=== PATIENT | female | born 1940 | race Caucasian/White ===

== ENCOUNTER → 2016-11-22 | Outpatient (CLI) | payer OTHER, MEDICARE ==
[~2016-11-22] MED LIST: ADVIN10/60 INH; ALBU18002 INH; ALPR0.25 PO; AMLO2.5T PO; ASCA500 PO; ASCO500T16 PO; CHOL20009 PO; ESCI10TA17 PO; FLUO0.0566 TOP; LEVO50TA PO; PRAV80TA2 PO; SYMIN/8045 INH; TRIATAB3 PO
--- NOTE | 2016-11-22 15:18 | MAMMOGRAPHY REPORT ---
BILATERAL DIGITAL SCREENING MAMMOGRAM WITH CAD: 11/22/2016 CLINICAL HISTORY: Routine screening. Patient has no complaints. TECHNIQUE: Current study was also evaluated with a Computer Aided Detection (CAD) system. Bilatera l CC and MLO views were obtained. COMPARISON: Comparison is made to exams dated: 11/18/2015 mammogram, 11/16/2014 mammogram, 10/26/2013 mammogram, 10/24/2012 mammogram, 10/02/2011 mammogram, and 09/20/2010 mammogram - [facility]. BREAST COMPOSITION: There are scattered areas of fibroglandular density in both breasts. FINDINGS: No suspicious masses, calcifications, or areas of architectural distortion are noted in e ither breast. There has been no significant interval change compared to prior exams. IMPRESSION: ACR BI-RADS CATEGORY 1: NEGATIVE There is no mammographic evidence of malignancy. A 1 year screening mammogram is recommended. The p atient will receive written notification of the results. Approximately 10% of breast cancers are not detected with mammography. A negative mammographic repor t should not delay biopsy if a clinically suggestive mass is present. Alina Robert M.D. /:11/22/2016 13:34:56 Tread Tuber Machine Operator: Loly HENDERSON)(Saundra), [facility] letter sent: Normal 1/2 BI-RADS Code: ACR BI-RADS Category 1: Negative
== END | disposition home or self-care (01) ==
LOC: C.MAMM 13:03
PROVIDERS: ATTEND Internal Medicine Geriatric Medicine
DX: Z12.31 Encounter for screening mammogram for malignant neoplasm of breast (principal)

== ENCOUNTER → 2017-01-14 | Outpatient (CLI) | payer OTHER, MEDICARE ==
[~2017-01-14] MED LIST changes: +FLX10 PO; +LVQ750 PO; +MTR600 PO; +PRT40 PO
--- NOTE | 2017-01-14 15:55 | DIAGNOSTIC IMAGING REPORT ---
CHEST 2 VIEWS ROUTINE HISTORY: COUGH COMPARISON: Chest 03/07/2016. FINDINGS: There appears be a subtle round opacity within the right upper lobe measuring 2.3 cm. The left lung is clear. The heart is normal in size. No pleural effusions. No pneumothorax. IMPRESSION: Possible 2.3 cm round opacity within the right upper lobe. Recommend dedicated chest CT to exclude a pulmonary lesion. Electronically signed by: Luis Aviles M.D. 01/14/2017 3:54 PM Dictated Date/Time: 01/14/2017 3:48 PM
== END | disposition home or self-care (01) ==
LOC: C.RADBC 15:28
PROVIDERS: ATTEND Physician Assistant Medical
DX: J45.909 Unspecified asthma, uncomplicated (principal); R05 Cough

== ENCOUNTER → 2017-01-18 | Outpatient (CLI) | payer OTHER, MEDICARE ==
[~2017-01-18] MED LIST changes: +OPTIRAY 320 IV PRN
--- NOTE | 2017-01-18 11:39 | DIAGNOSTIC IMAGING REPORT ---
CHEST CT WITH CONTRAST CT DOSE: 481.15 mGycm HISTORY: Dyspnea J20.9 Acute [id number] TECHNIQUE: Multiaxial CT images of the chest were performed following the intravenous administration of contrast. COMPARISON: None. FINDINGS: Solitary pulmonary nodule right upper lobe best seen transaxial image 17. Maximum dimensions of 2.0 x 1.5 cm. Margins are slightly spiculated and irregular. Lungs otherwise appear clear. No additional nodular pathology is identified. Hilar and mediastinal regions show no significant adenopathy. IMPRESSION: 1. 2.0 x 1.5 cm groundglass/poorly marginated right upper lobe nodule. 2. A neoplastic process is the diagnosis of exclusion. 3. PET scanning or bronchoscopy is suggested Electronically signed by: Jag Elias M.D. 01/18/2017 11:38 AM Dictated Date/Time: 01/18/2017 11:33 AM
== END | disposition home or self-care (01) ==
LOC: C.CTS 10:55
PROVIDERS: ATTEND Physician Assistant Medical
DX: J20.9 Acute bronchitis, unspecified (principal); R91.1 Solitary pulmonary nodule

== ENCOUNTER → 2017-01-28 | Outpatient (CLI) | payer OTHER, MEDICARE ==
[~2017-01-28] MED LIST changes: -OPTIRAY 320 IV PRN
--- NOTE | 2017-01-28 10:44 | DIAGNOSTIC IMAGING REPORT ---
PET/CT CLINICAL HISTORY: Solitary pulmonary nodule. TECHNIQUE: A PET/CT was performed from the skull base through the upper thighs following intravenous injection of 13.7 mCi of F 18 FDG IV. The injection was performed at 7:47 AM on January 28, 2017 and imaging began at 9:14 AM on January 28, 2017. Unenhanced CT was performed for attenuation correction purposes and anatomic localization. COMPARISON STUDY: Chest CT January 18, [address] of the abdomen and pelvis April 13, 2013. FINDINGS: Head and neck: No abnormal FDG uptake is identified within the neck. There is no cervical lymphadenopathy. Chest: There is minimal FDG uptake within the 1.9 x 1.7 cm irregular groundglass nodule within the right upper lobe with minimal solid component. The SUV max for this nodule is 1.6. No thoracic lymphadenopathy is present. The heart is moderately enlarged. Abdomen and Pelvis: No abnormal FDG uptake is identified within the abdomen or the pelvis. There is no abdominal or pelvic lymphadenopathy. Musculoskeletal: No abnormal skeletal uptake is identified. IMPRESSION: Minimal FDG uptake within the 1.9 x 1.7 cm irregular right upper lobe groundglass nodule. Despite minimal FDG uptake, this lesion is highly suggestive of bronchogenic carcinoma such as adenocarcinoma. No evidence of FDG avid metastatic disease. Electronically signed by: Delmar Mosley M.D. 01/28/2017 10:43 AM Dictated Date/Time: 01/28/2017 10:29 AM
== END | disposition home or self-care (01) ==
LOC: C.PET 07:15
PROVIDERS: ATTEND Surgery
DX: R91.1 Solitary pulmonary nodule (principal)

== ENCOUNTER 2017-03-04 05:03 | Inpatient (IN) | payer OTHER, MEDICARE ==
[2017-02-19 10:42] VITALS: BMI 36.0
--- NOTE | 2017-02-19 11:19 | PAT Medication Instructions ---
Service Date Feb 19, 2017. Current Home Medication List Albuterol Sulfate (Proair Respiclick), 2 PUFF INH Q4 PRN for SOB/Wheezing Alprazolam (Xanax), 0.25 MG PO for Anxiety Ascorbic Acid (Vitamin C), 1 TAB PO QPM Budesonide/Formoterol Fumarate (Symbicort 80/4.5 Inhaler), 2 PUFFS INH BID Cholecalciferol (Vitamin D), 2,000 MG PO QPM Escitalopram (Lexapro), 15 MG PO QPM Fluocinonide (Fluocinonide), 1 APPLN TOP DAILY PRN for PRN Fluticasone Prop/Salmeterol (Advair Diskus 100/50 60 Dose), 1 PUFF INH BID PRN for PRN Levothyroxine Sodium (Synthroid), 50 MCG PO QAM Pravastatin Sodium (Pravastatin Sodium), 80 MG PO QPM Triamterene/Hctz (Triamterene/Hctz 37.5-25MG), 1 TAB PO QAM Medication Instructions For Your Scheduled Surgery - Hold the following medications 24 hours prior to surgery: Fluocinonide (Fluocinonide), 1 APPLN TOP DAILY PRN for PRN - Hold the following medications the morning of surgery: Triamterene/Hctz (Triamterene/Hctz 37.5-25MG), 1 TAB PO QAM - Take the following medications the morning of surgery with a sip of water: Levothyroxine Sodium (Synthroid), 50 MCG PO QAM Fluticasone Prop/Salmeterol (Advair Diskus 100/50 60 Dose), 1 PUFF INH BID PRN for PRN (if needed) Budesonide/Formoterol Fumarate (Symbicort 80/4.5 Inhaler), 2 PUFFS INH BID Albuterol Sulfate (Proair Respiclick), 2 PUFF INH Q4 PRN for SOB/Wheezing ( bring with you to hospital morning of surgery; use if needed) Alprazolam (Xanax), 0.25 MG PO for Anxiety (if needed) - Take the following medications as scheduled the night before surgery: Pravastatin Sodium (Pravastatin Sodium), 80 MG PO QPM Fluticasone Prop/Salmeterol (Advair Diskus 100/50 60 Dose), 1 PUFF INH BID PRN for PRN (if needed) Escitalopram (Lexapro), 15 MG PO QPM Cholecalciferol (Vitamin D), 2,000 MG PO QPM Budesonide/Formoterol Fumarate (Symbicort 80/4.5 Inhaler), 2 PUFFS INH BID Albuterol Sulfate (Proair Respiclick), 2 PUFF INH Q4 PRN for SOB/Wheezing ( if needed) Alprazolam (Xanax), 0.25 MG PO for Anxiety (if needed) Ascorbic Acid (Vitamin C), 1 TAB PO QPM If you have any questions please call us at [phone] or [phone] or [phone]
[2017-02-19 12:11] LABS: BASO % 0.4 %; BASO ABS # 0.02 K/uL (0-0.2); COMPLETE YES; EOS % 1.6 %; HEMATOCRIT 44.6 % (37-47); IG% 0.2 %; LYMPH ABS # 1.52 K/uL (1.2-3.4); MEAN CELL VOLUME 88.8 fL (80-100); MEAN CORPUSCULAR HEMOGLOBIN 30.1 pg (25-34); MEAN CORPUSCULAR HGB CONC 33.9 g/dl (32-36); MEAN PLATELET VOLUME 11.2 fL (7.4-10.4); MONO % 13.2 %; NEUT % 57.6 %; PLATELET COUNT 228 K/uL (130-400); RED BLOOD COUNT 5.02 M/uL (4.2-5.4); WHITE BLOOD COUNT 5.62 K/uL (4.8-10.8)
[2017-02-19 13:12] LABS: CALCIUM 9.2 mg/dl (8.5-10.1); CREATININE 0.81 mg/dl (0.60-1.20); POTASSIUM 4.3 mmol/L (3.5-5.1)
[2017-03-04] VITALS (10 sets, daily range): BP systolic 96–151; BP diastolic 56–103; PULSE 60–72; TEMP 36.5–37; O2SAT 85–98; Ht 165.1 cm; Wt 99.4 kg
[~2017-03-04] VITALS: Ht 165.1 cm; Wt 99.4 kg
[~2017-03-04 05:03] MED LIST changes: -AMLO2.5T PO; -ASCO500T16 PO; -FLX10 PO; -LVQ750 PO; -MTR600 PO; -PRT40 PO
[2017-03-04] MEDS ORDERED: LACTATED RINGER'S 1000ML 1,000 ML IV SCH (06:00)
--- NOTE | 2017-03-04 06:48 | History & Physical Bridge Note ---
H&P Re-Evaluation Bridge Note: I have examined the patient, reviewed the History & Physical and in the interval since the performance of the History & Physical I have noted the following changes of clinical significance: No changes noted
[2017-03-04] MEDS ORDERED: SODIUM CHLORIDE 0.9% PF 50 ML VIAL ONE ×2 (06:57→11:02)
[2017-03-04] MEDS ORDERED: LIDOCAINE HCL 2% 2 ML VIAL (20MG/ML) ONE (07:02)
[2017-03-04] MEDS ORDERED: MIDAZOLAM HCL 1 MG/ML 2ML VIAL ONE (07:02)
[2017-03-04] MEDS ORDERED: PROPOFOL IV EMULSION 10 MG/ML 20 ML VIAL IV ONE ×2 (07:02→09:20)
[2017-03-04] MEDS ORDERED: GLYCOPYRROLATE INJ 0.2 MG/ML VIAL ONE ×2 (07:02→09:20)
[2017-03-04] MEDS ORDERED: ONDANSETRON INJ 2 MG/ML 2 ML VIAL ONE (07:02)
[2017-03-04] MEDS ORDERED: NEOSTIGMINE METHYLSULFATE 5 MG/5 ML SYR ONE (07:02)
[2017-03-04] MEDS ORDERED: FENTANYL CITRATE INJ 50 MCG/1 ML 2 ML VIAL ONE ×3 (07:02→10:50)
[2017-03-04] MEDS ORDERED: DEXAMETHASONE SOD INJ 4 MG/ML VIAL ONE ×2 (07:02→09:20)
[2017-03-04] MEDS ORDERED: LIDOCAINE HCL 2% JELLY 30 ML TUBE EXT ONE (07:11)
[2017-03-04] MEDS ORDERED: CEFAZOLIN SOD 1 GM VIAL ONE (07:31)
[2017-03-04] MEDS ORDERED: ALBUT/IPRATROP 3MG/0.5MG NEB 3 ML VIAL INH ONE (07:45)
[2017-03-04] MEDS ORDERED: NURSING VERBAL MED ORDER ONE ×3 (07:45→21:15)
[2017-03-04] MEDS ORDERED: ONDANSETRON INJ 2 MG/ML 2 ML VIAL IV PRN ×2 (08:45→12:30)
[2017-03-04] MEDS ORDERED: PHENYLEPHRINE 100MCG/ML 5ML SYR IV PRN (08:45)
[2017-03-04] MEDS ORDERED: ATROPINE SULFATE 0.1 MG/ML 5ML SYR IV PRN (08:45)
[2017-03-04] MEDS ORDERED: EpHEDrine SULFATE INJ 50 MG/ML AMP IV PRN (08:45)
[2017-03-04] MEDS ORDERED: HYDROmorphone INJ 2 MG/ML SYR/VIAL IV PRN (08:45)
[2017-03-04] MEDS ORDERED: MoRPHine SULFATE 2 MG/ML CARP ONE (09:32)
[2017-03-04] MEDS: BUPIVACAINE LIPOSOME 1/3% 266 MG/20 ML VIAL INFIL ONE ×2 (10:41→11:12)
[2017-03-04] MEDS ORDERED: BUPIVACAINE LIPOSOME 1/3% 266 MG/20 ML VIAL INFIL ONE (11:00)
[2017-03-04] MEDS ORDERED: ALPRAZOLAM 0.25 MG TAB PO PRN (12:30)
--- NOTE | 2017-03-04 13:02 | Anesthesiology Progress Note ---
Anesthesia Post Op Note Date & Time Mar 04, 2017 at 13:01 Vital Signs Pain Intensity: 6 Vital Signs Past 12 Hours Date Time Temp Pulse Resp B/P (MAP) Pulse Ox O2 Delivery O2 Flow Rate FiO2 03/04/17 12:45 57 18 88/54 92 Nasal Cannula 3 03/04/17 12:35 60 15 109/68 96 Mask 10 03/04/17 12:25 60 20 122/72 96 Mask 10 03/04/17 12:15 62 17 111/74 98 Mask 10 03/04/17 12:05 36.4 68 18 119/73 96 Mask 10 03/04/17 07:38 68 12 98 Room Air 03/04/17 05:46 36.8 64 18 149/103 95 Room Air Notes Mental Status: alert / awake / arousable, participated in evaluation Pt Amnestic to Procedure: Yes Nausea / Vomiting: adequately controlled Pain: adequately controlled Airway Patency, RR, SpO2: stable & adequate BP & HR: stable & adequate Hydration State: stable & adequate Anesthetic Complications: no major complications apparent
[2017-03-04 13:21] LABS: HEMATOCRIT 40.8 % (37-47); MEAN CELL VOLUME 89.9 fL (80-100); MEAN CORPUSCULAR HEMOGLOBIN 30.4 pg (25-34); MEAN PLATELET VOLUME 11.3 fL (7.4-10.4); PLATELET COUNT 231 K/uL (130-400); RED BLOOD COUNT 4.54 M/uL (4.2-5.4); WHITE BLOOD COUNT 19.31 K/uL (4.8-10.8)
--- NOTE | 2017-03-04 13:25 | DIAGNOSTIC IMAGING REPORT ---
CHEST ONE VIEW PORTABLE CLINICAL HISTORY: s/p right VATs COMPARISON STUDY: Chest CT January 18, 2017. FINDINGS: A right chest tube is in place. A small right apical pneumothorax with pleural separation of 1.9 cm is noted. There are mild bibasilar opacities. Lung volumes are diminished. Right hilar fullness is noted. IMPRESSION: 1. Postsurgical findings within the right hemithorax. Small right pneumothorax with right chest tube in place. 2. Diminished lung volumes with bibasilar opacities. Electronically signed by: Delmar Mosley M.D. 03/04/2017 1:24 PM Dictated Date/Time: 03/04/2017 1:21 PM
[2017-03-04 13:50] LABS: CALCIUM 8.4 mg/dl (8.5-10.1)
[2017-03-04 14:25] LABS: MEAN CORPUSCULAR HGB CONC 33.8 g/dl (32-36)
[2017-03-04] MEDS ORDERED: KETOROLAC TROMETHAMINE 30 MG/ML VIAL ONE (14:25)
[2017-03-04] MEDS: D5W AND 1/2NSS 1,000 ML IV SCH ×2 (14:43→22:05)
[2017-03-04] MEDS: METOCLOPRAMIDE HCL INJ 5 MG/ML 2 ML VIAL IV. SCH ×2 (15:54→23:47)
[2017-03-04] MEDS: MoRPHine SULFATE 2 MG/ML CARP IV PRN (17:56)
--- NOTE | 2017-03-04 18:59 | OPERATIVE REPORT ---
DATE OF OPERATION: 03/04/2017 PREOPERATIVE DIAGNOSIS: Right upper lobe mass. POSTOPERATIVE DIAGNOSIS: Adenocarcinoma, right upper lobe. PROCEDURES: 1. Right thoracoscopy with thoracoscopic right upper lobectomy. 2. Mediastinal lymphadenectomy. SURGEON: Dr. Burgos. MEDICAL LABORATORY TECHNICAL OFFICER: Henry Alvarenga. ANESTHESIA: General anesthesia with endotracheal intubation with double lumen tube. INDICATION FOR PROCEDURE AND FINDINGS: This 76-year-old female who has really never smoked, was found to have a mass in the right upper lobe which is hypermetabolic. Certainly appeared to be a malignancy. On 03/04/2017, the patient was brought to the operating room and underwent an uncomplicated thoracoscopic right upper lobectomy. I also took out several lymph nodes. Indeed, this was an adenocarcinoma. Margins were negative. I did a lymph node dissection. She tolerated it well. DESCRIPTION OF PROCEDURE: The patient was brought to the operating room and laid in supine position. General anesthesia induced and endotracheal intubation was performed with a double lumen tube double lumen tube. The patient was placed in left lateral decubitus position, right chest prepped, draped in the usual sterile fashion after all monitoring lines had been placed. Appropriate time out had been called, prophylatic antibiotics were given. A Veress needle was placed 1 interspace and a bit anterior to the tip of the scapula. Carbon dioxide was infused and this was switched over to a 5-mm port and a 0 degrees 5 mm scope was placed. There were no adhesions. The fissures were fairly well developed. I then placed another port at the 4th interspace just anterior to the latissimus dorsi and another port in about the 7th interspace anteriorly. I then grasped the upper lobe and lower lobe posteriorly and retracted them anteriorly and using a Harmonic scalpel and a forceps, I dissected out the level 7 node as well as the level 10, 11 and freed up the bronchus nicely. I then allowed the lung to pullback into its natural position and then dissected out the veins draining the right upper lobe. These were divided just above the confluence with the vein from the right middle lobe. The arteries were then able to be seen and I divided 2 arteries which were rather large in the more proximal right pulmonary artery. When these were lifted up it could be seen that the bronchus really was not the only thing left. I then fired the EndoGIA stapler across this and quite frankly I was quite happy with this. The fissure line was pretty well demarcated, although it was not complete. After firing the EndoGIA stapler I was quite happy with its appearance. This was placed in an Endobag and removed and sent off to the lab for diagnosis of the mass which I could palpate as well as the bronchial margins. I irrigated out the chest with warm saline and really did not see much of a leak. Dissection to the level 2 and level 4 nodes was performed after opening up the mediastinal pleura above the azygos vein. Dissected out several more level 10 nodes, and I evaluated lymph nodes in level 8 and 9 areas. I took down some of the inferior pulmonary ligament. I really did not see much in the way of lymph nodes and exposure was poor here. I irrigated out the chest once more and then I used Exparel about 266 mg in 60 mL of normal saline and blocked from the 2nd to the 11th rib endothoracically. I then placed a 24-Palauan chest tube in the anterior and inferior port directed towards the apex. 0 Vicryl was used to close the muscle layers of all 3 ports and 4-0 Monocryl was used in a running subcuticular fashion to approximate the wound edges. Frozen section came back as a probable adenocarcinoma. The bronchial margins were negative. She had negligible blood loss and tolerated it well. I attest to the content of the Intraoperative Record and any orders documented therein. Any exceptions are noted below. KARINA
[2017-03-04] MEDS: ASCORBIC ACID 500 MG TAB PO SCH (20:55)
[2017-03-04] MEDS: CHOLECALCIFEROL 1000 INTER.UNIT TAB PO SCH (20:55)
[2017-03-04] MEDS: ESCITALOPRAM OXALATE 10 MG TAB PO SCH (20:56)
[2017-03-04] MEDS: PRAVASTATIN SOD 40 MG TAB PO SCH ×2 (20:56→21:00)
[2017-03-04] MEDS: BUDESONIDE/FORMOTEROL FUMARATE 80/4.5 60 PUFFS/INHALER INH SCH (20:56)
[2017-03-05] VITALS (11 sets, daily range): BP systolic 102–171; BP diastolic 66–89; PULSE 65–90; TEMP 36.4–37; O2SAT 80–96
[2017-03-05] MEDS: MoRPHine SULFATE 2 MG/ML CARP IV PRN ×3 (00:33→10:42)
[2017-03-05] MEDS: LEVOTHYROXINE 50 MCG TAB PO SCH (05:31)
[2017-03-05 06:20] LABS: HEMATOCRIT 41.8 % (37-47); MEAN CELL VOLUME 91.1 fL (80-100); MEAN CORPUSCULAR HEMOGLOBIN 30.3 pg (25-34); MEAN CORPUSCULAR HGB CONC 33.3 g/dl (32-36); MEAN PLATELET VOLUME 11.4 fL (7.4-10.4); PLATELET COUNT 217 K/uL (130-400); RED BLOOD COUNT 4.59 M/uL (4.2-5.4); WHITE BLOOD COUNT 15.12 K/uL (4.8-10.8)
--- NOTE | 2017-03-05 07:57 | Anesthesiology Progress Note ---
Anesthesia Post Op Note Date & Time Mar 05, 2017 at 07:56 Vital Signs Vital Signs Past 12 Hours Date Time Temp Pulse Resp B/P (MAP) Pulse Ox O2 Delivery O2 Flow Rate FiO2 03/05/17 07:19 36.4 65 18 108/69 (82) 94 Nasal Cannula 1.0 03/05/17 05:43 65 96 Nasal Cannula 2.0 03/05/17 04:10 36.8 66 16 102/66 (78) 94 Nasal Cannula 2.0 03/05/17 00:29 67 148/79 (102) 93 Nasal Cannula 2.0 03/04/17 23:40 Nasal Cannula 2.0 03/04/17 23:27 94 Nasal Cannula 2.0 03/04/17 23:20 37.0 68 16 102/66 (78) 85 Room Air 03/04/17 21:43 61 20 151/82 (105) 91 Room Air Notes Mental Status: alert / awake / arousable, participated in evaluation Pt Amnestic to Procedure: Yes Nausea / Vomiting: adequately controlled Pain: adequately controlled Airway Patency, RR, SpO2: stable & adequate BP & HR: stable & adequate Hydration State: stable & adequate Anesthetic Complications: no major complications apparent
--- NOTE | 2017-03-05 07:59 | Surgery Progress Note ---
Surgery Progress Note Date of Service Mar 05, 2017. Subjective Post OP Day: 1 + feeling well Objective Vital Signs: Date Time Temp Pulse Resp B/P (MAP) Pulse Ox O2 Delivery O2 Flow Rate FiO2 03/05/17 07:19 36.4 65 18 108/69 (82) 94 Nasal Cannula 1.0 03/05/17 05:43 65 96 Nasal Cannula 2.0 03/05/17 04:10 36.8 66 16 102/66 (78) 94 Nasal Cannula 2.0 03/05/17 00:29 67 148/79 (102) 93 Nasal Cannula 2.0 03/04/17 23:40 Nasal Cannula 2.0 03/04/17 23:27 94 Nasal Cannula 2.0 03/04/17 23:20 37.0 68 16 102/66 (78) 85 Room Air 03/04/17 21:43 61 20 151/82 (105) 91 Room Air 03/04/17 19:15 36.6 64 16 97/60 (72) 94 Nasal Cannula 3.0 03/04/17 16:19 Nasal Cannula 3.0 03/04/17 15:55 36.5 63 18 116/71 (86) 98 Nasal Cannula 3.0 03/04/17 15:11 36.5 60 18 96/56 (69) 96 Nasal Cannula 3.0 03/04/17 14:32 36.7 64 22 127/80 (96) 93 Nasal Cannula 3.0 03/04/17 14:00 97 Nasal Cannula 3.0 03/04/17 14:00 36.7 72 16 127/81 (96) 97 Nasal Cannula 3.0 03/04/17 14:00 97 Nasal Cannula 3.0 03/04/17 13:35 71 13 119/72 95 Nasal Cannula 3 03/04/17 13:25 36.2 71 12 96/67 94 Nasal Cannula 3 03/04/17 13:15 72 12 97/68 93 Nasal Cannula 3 03/04/17 13:05 75 13 109/63 93 Nasal Cannula 3 03/04/17 12:55 67 14 112/61 93 Nasal Cannula 3 03/04/17 12:45 57 18 88/54 92 Nasal Cannula 3 03/04/17 12:35 60 15 109/68 96 Mask 10 03/04/17 12:25 60 20 122/72 96 Mask 10 03/04/17 12:15 62 17 111/74 98 Mask 10 03/04/17 12:05 36.4 68 18 119/73 96 Mask 10 Physical Exam: chest tube drainage (Very small air leak.) General Appearance: no apparent distress Neck: trachea midline Respiratory/Chest: + wheezing Cardiovascular: regular rate, rhythm Abdomen: non tender Extremities: no calf tenderness Laboratory Results: Results Past 24 Hours Test 03/04/17 12:59 03/05/17 06:02 Range/Units White Blood Count 19.31 15.12 4.8-10.8 K/uL Red Blood Count 4.54 4.59 4.2-5.4 M/uL Hemoglobin 13.8 13.9 12.0-16.0 g/dL Hematocrit 40.8 41.8 37-47 % Mean Corpuscular Volume 89.9 91.1 80-100 fL Mean Corpuscular Hemoglobin 30.4 30.3 25-34 pg Mean Corpuscular Hemoglobin Concent 33.8 33.3 32-36 g/dl RDW Standard Deviation 44.5 44.9 36.4-46.3 fL RDW Coefficient of Variation 13.4 13.5 11.5-14.5 % Platelet Count 231 217 130-400 K/uL Mean Platelet Volume 11.3 11.4 7.4-10.4 fL Calcium Level 8.4 8.5-10.1 mg/dl Magnesium Level 2.0 1.8-2.4 mg/dl Diagnostic Interpretation: CXR shows small pneumothorax. Assessment & Plan POD #1 s/p thoracoscopic right upper lobectomy for an Adenocarcinoma of the lung. Increase ambulation. Wean O2. Ask pulmonary to evaluate for optimal medical management of asthma in this non-smoker. regular diet
--- NOTE | 2017-03-05 08:25 | DIAGNOSTIC IMAGING REPORT ---
CHEST ONE VIEW PORTABLE CLINICAL HISTORY: s/p lobectomy COMPARISON STUDY: Chest radiograph March 04, 2017. FINDINGS: A right chest tube remains in place. There has been apparent interval chest tube repositioning. A small right apical pneumothorax is similar to prior exam. Superior pleural separation measures approximately 2.5 cm. There is mild left basilar opacity. There is subcutaneous gas within the right chest wall. IMPRESSION: No significant change in a small right apical pneumothorax. Right chest tube in place. Electronically signed by: Delmar Mosley M.D. 03/05/2017 8:24 AM Dictated Date/Time: 03/05/2017 8:21 AM
[2017-03-05] MEDS: TRIAMTERENE/HCTZ 37.5/25MG TAB PO SCH (08:38)
[2017-03-05] MEDS: BUDESONIDE/FORMOTEROL FUMARATE 80/4.5 60 PUFFS/INHALER INH SCH (08:40)
[2017-03-05] MEDS ORDERED: METOCLOPRAMIDE HCL INJ 10 MG in SYRINGE 0 ML IV SCH (12:45)
[2017-03-05] MEDS: ALBUTEROL HFA INHALER 8.5 GM INH PRN (14:49)
[2017-03-05] MEDS: TRAMADOL HCL 50 MG TAB PO PRN (15:43)
[2017-03-05] MEDS ORDERED: PANTOprazole SOD 40 MG TAB PO STA (16:12)
--- NOTE | 2017-03-05 16:12 | Pulmonary Consultation ---
History General Date of Service: Mar 05, 2017. Stated Complaint: Right upper lobe adenocarcinoma HPI The patient is a 76 year old female who presents to [facility] with complaints of Right Lung Mass. The patient's primary care provider is Basilio Fuentes M.D.. The patient is a 76-year-old nonsmoker but + second had exposure who was found to have a speculated GGO in right upper lobe when being worked-up for chronic cough/ poorly controlled asthma. The initial CXR was performed 01/14/17 with the contrast-CT and PET scans on 01/18/17 and 01/28/17. This work-up noted a 2.0 x1.5cm spiculated RUL GGO nodule with a maximum SUV uptake of 1.6. The patient also had an excellent ECOG and normal PFTs. As this was nodule was 2cm and notable a GGO the risk of it being malignant where elevated and the patient was brought for RUL lobectomy. Patient went under thoracoscopic right upper lobe lobectomy with mediastinal lymphadenectomy. The patient did well was extubated and has been monitored with a small pneumothorax of the right hemithorax. The patient did have some gurgling/wheezing, last night but did not appreciated any coughing and/or shortness of breath associated with these findings. She does note a long history of oral pharyngeal gurglingwhich was previously diagnosed as asthma. With these episodes she does not experience coughing, dyspnea on exertion or shortness of breath at rest. She does note chronic rhinitis as well as GERD-type symptoms over the last 10-15 years. Currently denies: Fever, chills, cough, classic cardiac chest pain Current Work-Up: WBC: 6K(02/19/17)19K(03/04/17)15K(03/05/17) BUN/Cr: 21/0.81 CXR (03/04/17) Decreased lung volumes, CT in the right eileen-thorax, 2cm PTX , (b) hilar fullness Bilateral cost-phrenic blunting CXR (03/05/17) Low lung volumes, right sided CT in place, bilateral hilar fullness, with left costo-phrenic blunting Previous Work-Up: EKG (02/01/15) NSR with HR: 61 PFT (02/01/17) Spirometry: WNL Volumes: mild decreased RV suggesting RVD from obesity Diffusion: mild decreased but corrects based of [facility] CT Thorax (01/18/17) 2.0 x 1.5cm GGO in the RUL PET (01/28/17) Minimal FDG uptake of 1.6 in the RUL GGO CXR (01/14/17) RUL nodule Medications: 1) Pravastatin 2) Utram 3) Maxzide (Triamterene/HCTZ) 4) Synthroid 5) Symbicort 80/4.5 2 puffs BID 6) Lexapro 7) Vit D 8) MS 1-2mg q1 hour prn pain 9) Zofran 10) Xanax 11) ProAir 2 puffs Q4 prn Wheezing/SOB Historian: patient, family, EMS Review of Systems Constitutional: reports: no symptoms Eyes: reports: no symptoms ENT: reports: no symptoms Cardiovascular: reports: no symptoms Respiratory: reports: as stated in HPI Gastrointestinal: reports: no symptoms Genitourinary - Female: reports: no symptoms Musculoskeletal: reports: no symptoms Integumentary: reports: no symptoms Neurologic: reports: no symptoms Psychiatric: reports: no symptoms Endocrine: no symptoms Hematologic / Lymphatic: no symptoms Allergic / Immunologic: no symptoms Past Medical History Past Medical History: 1. Chest pain 2. Cough 3. Depression with anxiety 4. Dyslipidemia 5. Fatigue 6. Hypertension 7. Hypothyroidism 8. Lung nodule 9. History of Never a smoker 10. Palpitations 11. Reactive airway disease 12. Urinary incontinence 13. Acute bronchitis 14. Closed Avulsion Fracture of the Fifth Right Metatarsal with Displacement 15. GERD 16. Eustachian tube dysfunction 17. Thrush 18. Herpes zoster 19. Vertigo 20. PVC, PAC, SVT vs. PAT(7 beats) (24 hour Holter monitor 07/18/13-07/20/13) Past Surgical History: 1. Complete Colonoscopy 2. Hysteroscopy & Dilation And Curettage 3. Tonsillectomy Family History Family history of Heart Disease Family history of Diabetes Mellitus Family history of Hypertension Social History Family history of Heart Disease Family history of Diabetes Mellitus Family history of Hypertension Hx Tobacco Use In Past Year?: No Smoking Status: Never Smoker Marital status: Occupational Status: retired History of MDRO History of MDRO: No Allergies Coded Allergies: Codeine (Verified Allergy, Mild, PATIENT STATES IT MAKES HER "GOOFY" AND NAUSEATED, 03/04/17) Acetaminophen (Unverified Allergy, Unknown, UNKNOWN REACTION, 03/04/17) PER PCP RECORDS Atorvastatin (Unverified Allergy, Unknown, UNKNOWN REACTION, 03/04/17) PER PCP RECORDS Azithromycin (Verified Allergy, Unknown, SEVERE GI UPSET, 03/04/17) Doxycycline (Unverified Allergy, Unknown, UNKNOWN REACTION, 03/04/17) PER PCP RECORDS Propoxyphene (Unverified Allergy, Unknown, UNKNOWN REACTION, 03/04/17) PER PCP RECORDS Simvastatin (Unverified Allergy, Unknown, UNKNOWN REACTION, 03/04/17) PER PCP RECORDS Current Medications Reported Home Medications Medications Dose Route/Sig Max Daily Dose Days Date Category Fluocinonide 0.05 % Stephy 1 Appln TOP DAILY PRN 30 02/19/17 Reported Lexapro (Escitalopram Oxalate) 10 Mg Tab 15 Mg PO QPM 02/19/17 Reported Proair Respiclick (Albuterol Sulfate) 108 Mcg/Act Aer 2 Puff INH Q4 PRN 02/19/17 Reported Advair Diskus 100/50 60 Dose (Fluticasone Prop/Salmeterol) 1 Ea Aerp 1 Puff INH BID PRN 02/19/17 Reported Vitamin C (Ascorbic Acid) 500 Mg Tab 1 Tab PO QPM 02/19/17 Reported Triamterene/Hctz 37.5-25MG (Triamterene/HCTZ) 1 Tab Tab 1 Tab PO QAM 01/08/15 Reported Vitamin D (Cholecalciferol) 2,000 Unit Tab 2,000 Mg PO QPM 01/08/15 Reported Pravastatin Sodium 80 Mg Tab 80 Mg PO QPM 01/08/15 Reported Synthroid (Levothyroxine Sodium) 50 Mcg Tab 50 Mcg PO QAM 01/08/15 Reported Xanax (Alprazolam) 0.25 Mg Tab 0.25 Mg PO PRN 01/08/15 Reported Symbicort 80/4.5 Inhaler (Budesonide/Formoterol Fumarate) Aero 2 Puffs INH BID 01/08/15 Reported Physical Physical Exam Vital Signs: Date Time Temp Pulse Resp B/P (MAP) Pulse Ox O2 Delivery O2 Flow Rate FiO2 03/05/17 15:40 36.9 71 18 134/82 (99) 92 Nasal Cannula 2.0 03/05/17 12:29 36.8 79 18 131/73 (92) 92 2.0 03/05/17 07:54 Nasal Cannula 2.0 03/05/17 07:19 36.4 65 18 108/69 (82) 94 Nasal Cannula 1.0 03/05/17 05:43 65 96 Nasal Cannula 2.0 03/05/17 04:10 36.8 66 16 102/66 (78) 94 Nasal Cannula 2.0 03/05/17 00:29 67 148/79 (102) 93 Nasal Cannula 2.0 03/04/17 23:40 Nasal Cannula 2.0 03/04/17 23:27 94 Nasal Cannula 2.0 03/04/17 23:20 37.0 68 16 102/66 (78) 85 Room Air 03/04/17 21:43 61 20 151/82 (105) 91 Room Air 03/04/17 19:15 36.6 64 16 97/60 (72) 94 Nasal Cannula 3.0 03/04/17 16:19 Nasal Cannula 3.0 General Appearance: WELL-APPEARING, NO APPARENT DISTRESS Head: NORMOCEPHALIC, ATRAUMATIC Eyes: PERRLA, NO DISCHARGE, EOMI, SCLERAE NORMAL, CONJUNCTIVAE NORMAL ENT: NORMAL EAR EXAM, NORMAL NASAL EXAM, NORMAL MOUTH EXAM, NORMAL THROAT EXAM , NORMAL DENTAL EXAM Neck: NORMAL RANGE OF MOTION, NO TENDERNESS, TRACHEA MIDLINE Respiratory: other (mild rhonchi appreciated on the right hemithorax left hemithorax within normal limits, thoracic ultrasound shows no signs of volume overload, midaxillary seventh intercostal space chest tube in place notable good respiratory variation) Cardiovasular: other (S1-S2 but distant heart sounds unable to auscultate for murmurs rubs or gallops) Abdomen: NON TENDER, NORMAL BOWEL SOUNDS, NO REBOUND, NO MASSES, NO GUARDING, NO ORGANOMEGALY, NORMAL RECTAL EXAM Genitourinary - Female: EXTERNAL GENITALIA NORMAL Back: NORMAL INSPECTION, NO MIDLINE TENDERNESS, NO CVA TENDERNESS, NO PARAVERTEBRAL TTP, NORMAL RANGE OF MOTION Upper Extremities: NO EDEMA, NO DEFORMITY Lower Extremities: edema Edema: Bilateral LE (2+) Pulses: carotid (R) (1+), carotid (L) (1+), posterior tibial (R), posterior tibial (L) (1+) Neuro: ALERT, ORIENTED x 3, NORMAL MOTOR EXAM, NORMAL SENSATION Reflexes: biceps (R) (2+), bicpes (L) (2+), patellar (R) (1+), patellar (L) (1+ ) Babinski Testing: right (downgoing), left (downgoing) Psychiatric: NORMAL AFFECT, NO SUICIDAL IDEATION Diagnostics Labs Results Past 24 Hours Test 03/05/17 06:02 Range/Units White Blood Count 15.12 4.8-10.8 K/uL Red Blood Count 4.59 4.2-5.4 M/uL Hemoglobin 13.9 12.0-16.0 g/dL Hematocrit 41.8 37-47 % Mean Corpuscular Volume 91.1 80-100 fL Mean Corpuscular Hemoglobin 30.3 25-34 pg Mean Corpuscular Hemoglobin Concent 33.3 32-36 g/dl RDW Standard Deviation 44.9 36.4-46.3 fL RDW Coefficient of Variation 13.5 11.5-14.5 % Platelet Count 217 130-400 K/uL Mean Platelet Volume 11.4 7.4-10.[address] Thorax (01/18/17) 2.0 x 1.5cm GGO in the RUL PET (01/28/17) Minimal FDG uptake of 1.6 in the RUL GGO CXR (01/14/17) RUL nodule CXR (03/04/17) Decreased lung volumes, CT in the right eileen-thorax, 2cm PTX , (b) hilar fullness Bilateral cost-phrenic blunting CXR (03/05/17) Low lung volumes, right sided CT in place, bilateral hilar fullness, with left costo-phrenic blunting EKG EKG 01/14/2017: Sinus rhythm with a rate of 58 EKG (02/01/15) NSR with HR: 61 Impression Assessment and Plan 76-year-old female with adenocarcinoma the lung and upper airway syndrome: #1 Adenocarcinoma the lung: Patient appears to be T1a, NO, MO which would make her a stage IA and she is undergone definitive/curative lobectomy. At this time it appears the oncologic group at the [facility] would like to move forward using a follow-up approach of the NCCN which would perform follow-up noncontrast CTs every 3 months for the first year every 6 months for the second year and then yearly after that. #2 Upper airway syndrome: The patient is not experiencing shortness of breath she does note some mild rhonchi possible wheezes and her pulmonary function tests do not show signs of obstructive ventilatory disease. She does have a chronic history of GERD as well as postnasal drip which are to the top for etiologies for chronic cough in the [place]. At this time I will initiate the patient on a proton pump inhibitor, Flonase and obtain CT of the sinuses for further evaluation. As an outpatient I would like to further work this patient up for GERD (ROSADO study) and possible laryngeal pharyngeal reflux. As the patient is unable to perform proper inhalation technique I will switch the patient to nebulized Brovana. Thank you for this interesting consultation
--- NOTE | 2017-03-05 16:54 | DIAGNOSTIC IMAGING REPORT ---
SINUS CT CT DOSE: 618.41 mGy.cm HISTORY: chronic sinusitis TECHNIQUE: Multiaxial CT images of the paranasal sinuses were performed and reformatted in the coronal plane without the use of contrast. COMPARISON: None. FINDINGS: The frontal sinuses, ethmoid air cells, sphenoid sinuses, and bilateral maxillary antra are clear. The mastoid air cells are clear. The bilateral ostiomeatal units are patent. The nasal septum is midline. The orbits are unremarkable. Small left-sided jayson bullosa. IMPRESSION: The paranasal sinuses and mastoid air cells are clear. Electronically signed by: Luis Aviles M.D. 03/05/2017 4:52 PM Dictated Date/Time: 03/05/2017 4:43 PM
[2017-03-05] MEDS: PRAVASTATIN SOD 40 MG TAB PO SCH (18:22)
[2017-03-05] MEDS: ARFORMOTEROL TART 15MCG/2ML VIAL INH SCH (19:54)
[2017-03-05] MEDS: ASCORBIC ACID 500 MG TAB PO SCH (20:38)
[2017-03-05] MEDS: CHOLECALCIFEROL 1000 INTER.UNIT TAB PO SCH (20:38)
[2017-03-05] MEDS: FLUTICASONE PROPIONATE NA SPR 16 GM BTL SCH (20:40)
[2017-03-05] MEDS: ESCITALOPRAM OXALATE 10 MG TAB PO SCH (21:13)
[2017-03-05] MEDS ORDERED: NURSING VERBAL MED ORDER ONE (21:30)
[2017-03-06] VITALS (12 sets, daily range): BP systolic 104–134; BP diastolic 70–91; PULSE 74–93; TEMP 36.6–36.9; O2SAT 68–95
[2017-03-06] MEDS: ALBUTEROL HFA INHALER 8.5 GM INH PRN ×2 (00:09→09:04)
[2017-03-06] MEDS: TRAMADOL HCL 50 MG TAB PO PRN ×2 (05:02→20:33)
[2017-03-06] MEDS: LEVOTHYROXINE 50 MCG TAB PO SCH (05:33)
[2017-03-06] MEDS ORDERED: FUROSEMIDE INJ 20 MG in SYRINGE 0 ML IV ONE (07:30)
[2017-03-06] MEDS: ARFORMOTEROL TART 15MCG/2ML VIAL INH SCH ×2 (07:45→19:06)
[2017-03-06] MEDS: PANTOprazole SOD 40 MG TAB PO SCH (08:00)
[2017-03-06] MEDS: FLUTICASONE PROPIONATE NA SPR 16 GM BTL SCH ×2 (08:00→20:32)
[2017-03-06] MEDS: TRIAMTERENE/HCTZ 37.5/25MG TAB PO SCH (08:00)
--- NOTE | 2017-03-06 08:07 | DIAGNOSTIC IMAGING REPORT ---
SINGLE VIEW CHEST CLINICAL HISTORY: Hypoxia status post lobectomy. FINDINGS: An AP, portable, upright chest radiograph is compared to study dated 03/05/2017 and correlated with chest CT dated 01/18/2017. The cardiomediastinal silhouette is unremarkable. There are postoperative changes consistent with a right upper lobe resection. Trace pleural fluid is seen at the right lung base. There are increasing airspace opacities at the left lung base. A right-sided chest tube is unchanged in position. A small right apical pneumothorax is unchanged. There is approximately 2.5 cm of apical pleural separation. The skeletal structures are osteopenic. The bony thorax is grossly intact. Subcutaneous emphysema is noted along the right chest wall. IMPRESSION: 1. There are postoperative changes consistent with right upper lobectomy. 2. A right chest tube is unchanged in position. A small right apical pneumothorax persists. 3. There are increasing airspace opacities at the left lung base. This could represent atelectasis versus developing pneumonia. Clinical correlation will be required. Electronically signed by: Haroldo Gipson M.D. 03/06/2017 8:06 AM Dictated Date/Time: 03/06/2017 8:04 AM
[2017-03-06] MEDS ORDERED: KETOROLAC TROMETHAMINE 30 MG/ML VIAL IV STA (13:06)
[2017-03-06] MEDS ORDERED: KETOROLAC TROMETHAMINE 30 MG/ML VIAL ONE (13:07)
[2017-03-06] MEDS ORDERED: KETOROLAC TROMETHAMINE 15 MG/ML VIAL IV. PRN (13:15)
[2017-03-06] MEDS ORDERED: ENOXAPARIN 40 MG/0.4 ML SYR SQ ONE (13:15)
[2017-03-06] MEDS ORDERED: NURSING VERBAL MED ORDER ONE ×2 (13:15→17:30)
[2017-03-06] MEDS ORDERED: LEVALBUTEROL 0.63MG/3 ML NEB INH PRN (13:15)
--- NOTE | 2017-03-06 13:31 | Pulmonology Progress Note ---
Pulmonary Progress Note Date of Service Mar 06, 2017. Attending Dr. Morgan Subjective Patient notes continued right-sided thoracic pain currently at 4 out of 10. She also notes this limits her ability to ambulate as well as take deep inspirations. She also is experiencing some nausea especially with ambulation. She did have an episode of shortness of breath last night but was notably associated with an episode of anxiety as well. Objective Patient today sitting up doing well showing no signs of accessory muscle use, tachypnea or other signs of respiratory insufficiency I/Os: +24ml (-1.9L over the last 36 hours) SaO2: 68-95% (2.0-5.0L) RR: 16-18 Respiratory: Rhonchi appreciated over the right hemithorax Cardiac: S1 and S2 distant heart sounds Abdomen: Positive bowel sounds soft nontender no rebound appreciated Extremities: 1+ pitting edema bilaterally LAB: WBC: 15K BUN/Cr: 21/0.81 Troponin I: <0.015 BNP: 388 TSH: 1.120 Free T3: <2.25 Medications: 1) Protonix 40mg QD 2) Flonase 1puff BID 3) Brovana antonio BID 4) Maxzide 5) Synthroid 6) Pro Air 2puffs PRN Q4 Radiology: CXR (03/06/17) small apical right-sided pneumothorax with chest tube in place, mildly increased costophrenic blunting on the left side. CT of sinus 03/05/2017 Paranasal sinuses and mastoid and mastoiditis air cells within normal limits EKG: No signs of acute ischemic changes Assessment & Plan 76-year-old female status post resection for stage I adenocarcinoma the lung with mild post thoracotomy shortness of breath: #1 Adenocarcinoma: Adenocarcinoma T1a/N0/M0 for stage 1a. The patient has gone under definitive resection at this time. As stated in the previous note oncology group has decided to follow-up these patient's every [address] for the first year in every 6 months for the next year and then yearly after that. #2 upper airway syndrome: Patient has had some episodes of mild desaturation via SaO2 but does not describe episodes of shortness of breath. At this time her workup for cardiac dysfunctioning is within normal limits and are most recent chest x-ray shows only mild blunting of the left costophrenic angle. I do believe the patient's having some mild postoperative V/Q mismatch which could be helped tremendously with better pain control as well as ambulation. At this time we'll start the patient on Toradol [id number] and Dr. Burgos is going to remove her chest tube. We'll also obtain an ABG and if there is any signs of enlarged AA gradient possibly perform CT angios at that time. #3 medications: Patient will be initiated on Toradol [id number], we'll initiate subcutaneous Lovenox for DVT prophylaxis, we'll continue Flonase. Number for outpatient workup: Patient will still need outpatient workup for GERD versus laryngeal pharyngeal reflux. Data Medications: Current Inpatient Medications Medications (Trade) Dose Ordered Sig/Matt Route Start Time Stop Time Status Last Admin Dose Admin Ondansetron HCl (Zofran Inj) 4 mg Q6H PRN IV 03/04/17 12:30 04/03/17 12:29 Alprazolam (Xanax Tab) 0.25 mg BID PRN PO 03/04/17 12:30 04/03/17 12:29 03/06/17 01:25 0.25 MG Ascorbic Acid (Vitamin C Tab) 500 mg QPM PO 03/04/17 21:00 04/03/17 20:59 03/04/17 20:55 500 MG Miscellaneous Information (Order Awaiting Action) 1 ea QS N/A 03/04/17 16:00 04/03/17 15:59 Levothyroxine Sodium (Synthroid Tab) 50 mcg DAILYBB PO 03/05/17 06:00 04/04/17 05:59 03/06/17 05:33 50 MCG Triamterene/HCTZ (Maxzide 37.5/25 Tab) 1 tab QAM PO 03/05/17 09:00 04/04/17 08:59 03/06/17 08:00 1 TAB Albuterol (Proair Hfa) 2 puffs Q4 PRN INH 03/04/17 12:30 04/03/17 12:29 03/06/17 09:04 2 PUFFS Cholecalciferol (Vitamin D Tab) 2,000 inter.unit QPM PO 03/04/17 21:00 04/03/17 20:59 03/04/17 20:55 2,000 INTER.UNIT Miscellaneous Information (Order Awaiting Action) 1 ea QS N/A 03/04/17 16:00 04/03/17 15:59 Morphine Sulfate (MoRPHine SULFATE INJ) FOR PAIN, 1-2MG 1MG FOR P... Q1H PRN IV 03/04/17 15:00 03/18/17 14:59 03/05/17 10:42 2 MG Pravastatin Sodium (Pravachol Tab) 80 mg QDD PO 03/05/17 17:45 04/04/17 17:44 03/05/17 18:22 80 MG Tramadol HCl (Ultram Tab) 50 mg Q4H PRN PO 03/05/17 13:30 04/04/17 13:29 03/06/17 05:02 50 MG Arformoterol Tartrate (Brovana 15MCG/ 2ML Neb Soln) 15 mcg BIDR INH 03/05/17 20:00 04/04/17 19:59 03/06/17 07:45 15 MCG Pantoprazole Sodium (Protonix Tab) 40 mg QAM PO 03/06/17 09:00 04/05/17 08:59 03/06/17 08:00 40 MG Fluticasone Propionate (Flonase Nasal [place]) 1 sprays BID NA 03/05/17 21:00 04/04/17 20:59 03/06/17 08:00 1 SPRAYS Escitalopram Oxalate (Lexapro Tab) 15 mg DAILY@1600 PO 03/06/17 16:00 04/05/17 15:59 Vital Signs: Date Time Temp Pulse Resp B/P (MAP) Pulse Ox O2 Delivery O2 Flow Rate FiO2 03/06/17 08:05 90 Nasal Cannula 2.0 03/06/17 07:46 36.9 81 16 104/70 (81) 95 4.0 03/06/17 07:45 80 16 94 Nasal Cannula 4.0 03/06/17 07:45 Nasal Cannula 2.0 03/06/17 06:30 91 Nasal Cannula 4.0 03/06/17 06:29 68 Room Air 03/06/17 05:34 89 92 Nasal Cannula 2.0 03/06/17 05:04 36.9 83 18 134/91 (105) 91 Nasal Cannula 5.0 03/06/17 00:00 Nasal Cannula 2.0 03/05/17 23:31 36.8 77 18 117/77 (90) 93 Nasal Cannula 2.0 03/05/17 19:54 71 16 96 Room Air 03/05/17 19:15 78 18 119/80 (93) 93 Nasal Cannula 2.0 03/05/17 19:05 37.0 90 20 171/89 (116) 80 Room Air 03/05/17 15:45 92 Nasal Cannula 2.0 03/05/17 15:40 36.9 71 18 134/82 (99) 92 Nasal Cannula 2.0 Laboratory Results: Last 24 Hours Test 03/06/17 07:57 Troponin I < 0.015 ng/ml Pro-B-Type Natriuretic Peptide 388 pg/ml Thyroid Stimulating Hormone (TSH) 1.120 uIu/ml Free Triiodothyronine 2.25 pg/ml
[2017-03-06 13:52] LABS: ARTERIAL BLD GAS O2 SATURATION 95.2 % (90-95); ARTERIAL BLOOD GAS HCO3 30 mmol/L (19-24); ARTERIAL BLOOD GAS PO2 75 mm/Hg (80-95); ARTERIAL BLOOD GAS pH 7.43 (7.35-7.45)
[2017-03-06 13:55] LABS: ALLEN TEST POS (POS); O2 ADMINISTRATION 3 L
[2017-03-06] MEDS: IPRATROPIUM BROMIDE NEB SOLN 0.02% 2.5 ML VIAL INH SCH ×2 (14:06→19:07)
[2017-03-06] MEDS: LEVALBUTEROL 1.25MG/0.5ML NEB INH SCH ×2 (14:06→19:07)
[2017-03-06 14:28] LABS: PROTHROMBIN TIME (PATIENT) 10.5 SECONDS (9.0-12.0)
[2017-03-06] MEDS ORDERED: LEVALBUTEROL/IPRATROPIUM NEB INH SCH (15:00)
[2017-03-06] MEDS ORDERED: LEVALBUTEROL 0.63MG/3 ML NEB INH SCH (15:00)
--- NOTE | 2017-03-06 15:06 | DIAGNOSTIC IMAGING REPORT ---
CHEST ONE VIEW PORTABLE CLINICAL HISTORY: s/p chest tube removal COMPARISON STUDY: Chest radiograph March 06, 2017 at 7:28 AM. FINDINGS: A small right pneumothorax is similar to prior exam. The right chest tube has been removed. There are postoperative findings within the right hemithorax. Bibasilar opacities persist. Gas within the neck and right chest wall is again noted. There are suspected pneumomediastinum. IMPRESSION: 1. No change in a small right apical pneumothorax following right chest tube removal. 2. Suspected pneumomediastinum with gas within the neck and right chest wall. 3. No change in bibasilar opacities. Electronically signed by: Delmar Mosley M.D. 03/06/2017 3:04 PM Dictated Date/Time: 03/06/2017 3:03 PM
[2017-03-06] MEDS: ESCITALOPRAM OXALATE 10 MG TAB PO SCH (16:55)
[2017-03-06] MEDS: PRAVASTATIN SOD 40 MG TAB PO SCH (16:55)
[2017-03-06] MEDS ORDERED: FLUTICASONE/SALMETEROL 100/50 (ADVAIR) 14 PUFF/1 INHALER INH PRN (17:45)
[2017-03-06] MEDS: ASCORBIC ACID 500 MG TAB PO SCH (20:32)
[2017-03-06] MEDS: CHOLECALCIFEROL 1000 INTER.UNIT TAB PO SCH (20:32)
[2017-03-07] VITALS (8 sets, daily range): BP systolic 110–125; BP diastolic 75–82; PULSE 72–93; TEMP 36.7–37; O2SAT 92–97
[2017-03-07] MEDS: LEVALBUTEROL 1.25MG/0.5ML NEB INH SCH ×4 (01:44→19:24)
[2017-03-07] MEDS: IPRATROPIUM BROMIDE NEB SOLN 0.02% 2.5 ML VIAL INH SCH ×4 (01:44→19:24)
[2017-03-07] MEDS: LEVOTHYROXINE 50 MCG TAB PO SCH (05:22)
[2017-03-07] MEDS: ARFORMOTEROL TART 15MCG/2ML VIAL INH SCH ×2 (07:41→19:24)
--- NOTE | 2017-03-07 08:09 | DIAGNOSTIC IMAGING REPORT ---
SINGLE VIEW CHEST CLINICAL HISTORY: Pneumothorax. FINDINGS: An AP, portable, upright chest radiograph is compared to study dated 03/06/2017 and correlated with chest CT dated 01/18/2017. The examination is degraded by portable technique and patient rotation. The cardiomediastinal silhouette is unremarkable. Again seen are postoperative changes consistent with a right upper lobe resection. Trace pleural fluid is seen at both lung bases with bibasilar airspace opacities. A small right apical pneumothorax is unchanged. The skeletal structures are osteopenic. The bony thorax is grossly intact. Subcutaneous emphysema is again noted along the right chest wall. IMPRESSION: 1. Again seen are postoperative changes consistent with right upper lobectomy. 2. A small right apical pneumothorax has not significant change from yesterday. 3. Pleural fluid is seen at both lung bases with bibasilar airspace opacities. This likely represents atelectasis. Clinical correlation will be required. Electronically signed by: Haroldo Gipson M.D. 03/07/2017 8:08 AM Dictated Date/Time: 03/07/2017 8:06 AM
--- NOTE | 2017-03-07 08:41 | Surgery Progress Note ---
Surgery Progress Note Date of Service Mar 07, 2017. Subjective Post OP Day: 2 + feeling well Objective Vital Signs: Date Time Temp Pulse Resp B/P (MAP) Pulse Ox O2 Delivery O2 Flow Rate FiO2 03/07/17 07:48 72 16 97 Nasal Cannula 3.0 03/07/17 07:18 36.7 74 18 110/75 (87) 92 Nasal Cannula 2.0 03/07/17 01:44 81 18 93 Nasal Cannula 3.0 03/07/17 00:05 Nasal Cannula 3.0 03/06/17 23:19 36.9 77 16 111/72 (85) 95 Nasal Cannula 3.0 03/06/17 19:07 74 18 95 Nasal Cannula 3.0 03/06/17 16:30 Nasal Cannula 3.0 03/06/17 15:43 36.6 77 18 112/72 (85) 94 Nasal Cannula 3.0 03/06/17 14:06 89 16 93 Nasal Cannula 3.0 03/06/17 13:05 36.6 93 18 125/77 (93) 94 2.0 Laboratory Results: Results Past 24 Hours Test 03/06/17 13:33 03/06/17 14:05 Range/Units Arterial Blood pH 7.43 7.35-7.45 Arterial Blood Partial Pressure CO2 46 35-46 mmHg Arterial Blood Partial Pressure O2 75 80-95 mm/Hg Arterial Blood HCO3 30 19-24 mmol/L Arterial Blood Oxygen Saturation 95.2 90-95 % Arterial Blood Base Excess 5.0 -9-1.8 mEq/L Arterial Blood Gas Delivery 3 L Cameron Test POS POS Prothrombin Time 10.5 9.0-12.0 SECONDS Prothromb Time International Ratio 1.0 0.9-1.1 Diagnostic Interpretation: The x-ray looks better. Pneumothorax is almost resolved. I see very little in the way of fluid. I also think that atelectasis has improved. Her lung volumes look better. Assessment & Plan POD #2 s/p thoracoscopic right upper lobectomy for an Adenocarcinoma of the lung. The final pathology is come back. This patient has a stage IA adenocarcinoma the lung. Her lymph nodes are negative as our resection margins. She will not require postoperative chemotherapy or radiation. Patient is still on oxygen sure this has reported do with her unwillingness to ambulate and breathe deeply. She states her pains much better since we pull the chest tube however she is slow to move. Where any get her up and ambulate her today. She is not ready to go home today. I am hopeful with increased ambulation and pulmonary toilet we can get her out of the hospital by tomorrow.. POD #1 s/p thoracoscopic right upper lobectomy for an Adenocarcinoma of the lung. Increase ambulation. Wean O2. Ask pulmonary to evaluate for optimal medical management of asthma in this non-smoker.
[2017-03-07] MEDS: FLUTICASONE PROPIONATE NA SPR 16 GM BTL SCH ×2 (09:22→21:07)
[2017-03-07] MEDS: TRIAMTERENE/HCTZ 37.5/25MG TAB PO SCH (09:22)
[2017-03-07] MEDS: PANTOprazole SOD 40 MG TAB PO SCH (09:23)
[2017-03-07] MEDS: ENOXAPARIN 40 MG/0.4 ML SYR SQ SCH (09:30)
[2017-03-07] MEDS: TRAMADOL HCL 50 MG TAB PO PRN ×2 (12:30→23:11)
[2017-03-07] MEDS: ESCITALOPRAM OXALATE 10 MG TAB PO SCH (16:26)
[2017-03-07] MEDS: PRAVASTATIN SOD 40 MG TAB PO SCH (18:04)
[2017-03-07] MEDS: ASCORBIC ACID 500 MG TAB PO SCH (21:00)
[2017-03-07] MEDS: CHOLECALCIFEROL 1000 INTER.UNIT TAB PO SCH (21:11)
[2017-03-08] MEDS: IPRATROPIUM BROMIDE NEB SOLN 0.02% 2.5 ML VIAL INH SCH ×2 (01:44→07:35)
[2017-03-08] MEDS: LEVALBUTEROL 1.25MG/0.5ML NEB INH SCH ×2 (01:44→07:35)
[2017-03-08] MEDS: LEVOTHYROXINE 50 MCG TAB PO SCH (05:50)
[2017-03-08] MEDS: ENOXAPARIN 40 MG/0.4 ML SYR SQ SCH (07:06)
[2017-03-08] MEDS: PANTOprazole SOD 40 MG TAB PO SCH (07:06)
[2017-03-08] MEDS: FLUTICASONE PROPIONATE NA SPR 16 GM BTL SCH (07:06)
[2017-03-08] MEDS: TRIAMTERENE/HCTZ 37.5/25MG TAB PO SCH (07:06)
[2017-03-08 07:21] VITALS: BP 128/83; PULSE 75; TEMP 37; O2SAT 91
[2017-03-08 07:35] VITALS: PULSE 69; O2SAT 96
[2017-03-08] MEDS: ARFORMOTEROL TART 15MCG/2ML VIAL INH SCH (07:35)
--- NOTE | 2017-03-08 08:12 | DIAGNOSTIC IMAGING REPORT ---
CHEST 2 VIEWS ROUTINE CLINICAL HISTORY: lobectomy postoperative evaluation COMPARISON STUDY: 03/07/2017 FINDINGS: Very small right apical pneumothorax slightly diminished in the prior exam. Stable postoperative changes right hemithorax secondary to a prior upper lobectomy. Slight blunting lateral costophrenic angles bilaterally. IMPRESSION: Minimal residual right apical pneumothorax. Trace pleural fluid both lung bases. Stable postoperative change Electronically signed by: Jag Elias M.D. 03/08/2017 8:11 AM Dictated Date/Time: 03/08/2017 8:09 AM
--- NOTE | 2017-03-08 12:16 | Discharge Instructions ---
Discharge Instructions Date of Service Mar 08, 2017. Admission Reason for Admission: Right Lung Mass Discharge Discharge Diagnosis / Problem: Adenocarcinoma right upper lobe Discharge Goals Goal(s): Decrease discomfort (Take tylenol or advil for pain.) Activity Recommendations Activity Limitations: as noted below Lifting Limitations: none Exercise/Sports Limitations: gradually increase as tolerated May Resume Sexual Activity: when tolerated Shower/Bathe: may shower/bathe in 3 days Driving or Machine Use: resume 3 days after discharge . Instructions / Follow-Up Instructions / Follow-Up Walk!!!!! This will prevent you from getting pmeumonia and blood clots in your legs!! I will see you next week. Call for any problems. Current Hospital Diet Patient's current hospital diet: Regular Diet Discharge Diet Recommended Diet: Regular Diet Procedures Procedures Performed: Right Video-assisted Thoracoscopy with Right Upper Lobectomy; Mediastinal Lymphadenectomy Pending Studies Studies pending at discharge: no Medical Emergencies . Who to Call and When: Medical Emergencies: If at any time you feel your situation is an emergency, please call 911 immediately. . Non-Emergent Contact Non-Emergency issues call your: Surgeon Contact Number: [phone] . "Provider Documentation" section prepared by Carlos Burgos. . VTE Core Measure Inpt VTE Proph given/why not?: Enoxaparin (Lovenox)SQ, SCD's
--- NOTE | 2017-03-08 12:57 | Discharge Summary ---
Discharge Summary Date of Service Mar 08, 2017. Discharge Summary Emily Galvin is a 76-year-old female who was found to have a mass in her right mid upper lobe. After working her up, I felt she was a candidate for resection even though we did not have a diagnosis. On 03/04/2017 the patient underwent an uncomplicated thoracoscopic left upper lobectomy and indeed she did have an adenocarcinoma. She did quite well and was watched on the floor. We ran into a couple of problems with hypoxemia and an inability and unwillingness to really walk. I removed her chest tube on postoperative day 2. She has small pneumothorax which was improving. She also had a left lower lobe infiltrate or atelectasis and I believe it was atelectasis because she got better without antibiotics. She will did not have a productive cough although she coughed up some bloody sputum the first day or 2. Incisions were clean. Her lungs were clear on the day of discharge. She is tolerating a house diet and was ambulating in the hallway although she did require oxygen. She underwent a "two-step" he was found to need oxygen at 2 L continuously. I will see her in the office next week. I believe she is going to do quite well with this. She had an early stage adenocarcinoma lung and will not require any further chemotherapy or radiation. All of her lymph nodes were negative for carcinoma. I will see her back in the office next week and we will review her chest x-ray that time. She did not require narcotics at the time she was discharged.
[2017-03-08 13:11] VITALS: BP 128/83; PULSE 69; TEMP 37; O2SAT 96
== END 2017-03-08 14:06 | disposition home health service (06) | DRG 165 ==
LOC: C.ACU 05:03 → C.MSW 06:50 → ENRESERV 13:19
PROVIDERS: ADMIT Surgery; ATTEND Surgery
PROC: 0BTC4ZZ Resection of Right Upper Lung Lobe, Percutaneous Endoscopic Approach (ICD-10-PCS; principal; 2017-03-04 07:15)
PROC: 07B74ZX Excision of Thorax Lymphatic, Percutaneous Endoscopic Approach, Diagnostic (ICD-10-PCS; principal; 2017-03-04 07:15)
DX: C34.11 Malignant neoplasm of upper lobe, right bronchus or lung (principal); F41.8 Other specified anxiety disorders; E78.5 Hyperlipidemia, unspecified; I10 Essential (primary) hypertension; E03.9 Hypothyroidism, unspecified; K21.9 Gastro-esophageal reflux disease without esophagitis; J31.0 Chronic rhinitis; Z79.899 Other long term (current) drug therapy; Z83.3 Family history of diabetes mellitus; Z82.49 Family history of ischemic heart disease and other diseases of the circulatory system; Z88.5 Allergy status to narcotic agent; Z88.1 Allergy status to other antibiotic agents; Z88.3 Allergy status to other anti-infective agents

== ENCOUNTER → 2017-03-14 | Outpatient (CLI) | payer OTHER, MEDICARE ==
--- NOTE | 2017-03-14 13:29 | DIAGNOSTIC IMAGING REPORT ---
CHEST 2 VIEWS ROUTINE CLINICAL HISTORY: R91.1 Lung [id number] nodule COMPARISON STUDY: 03/08/2017 FINDINGS: Minimal residual right apical pneumothorax. This is unchanged from the prior exam. Minimal bibasilar atelectatic change. Lungs otherwise appear clear. IMPRESSION: Minimal bibasilar atelectasis. Trace residual apical pneumothorax on the right unchanged from the prior study. Electronically signed by: Jag Elias M.D. 03/14/2017 1:27 PM Dictated Date/Time: 03/14/2017 1:26 PM
== END | disposition home or self-care (01) ==
LOC: C.RAD1850 13:13
PROVIDERS: ATTEND Surgery
DX: R91.1 Solitary pulmonary nodule (principal); J98.11 Atelectasis

== ENCOUNTER → 2017-04-22 | Outpatient (CLI) | payer OTHER, MEDICARE ==
[2017-04-22 16:57] LABS: BASO % 0.6 %; BASO ABS # 0.04 K/uL (0-0.2); COMPLETE YES; EOS % 2.5 %; HEMATOCRIT 42.4 % (37-47); IG% 0.2 %; LYMPH % 27.3 %; LYMPH ABS # 1.72 K/uL (1.2-3.4); MEAN CELL VOLUME 88.1 fL (80-100); MEAN CORPUSCULAR HEMOGLOBIN 30.4 pg (25-34); MEAN CORPUSCULAR HGB CONC 34.4 g/dl (32-36); NEUT % 58.4 %; PLATELET COUNT 248 K/uL (130-400); RED BLOOD COUNT 4.81 M/uL (4.2-5.4)
[2017-04-22 17:28] LABS: ALT/SGPT 26 U/L (12-78); AST/SGOT 20 U/L (15-37); BLOOD UREA NITROGEN 14 mg/dl (7-18); BUN/CREATININE RATIO 20.9 (10-20); CALCIUM 9.3 mg/dl (8.5-10.1); CARBON DIOXIDE 28 mmol/L (21-32); CHLORIDE 106 mmol/L (98-107); CREATININE 0.66 mg/dl (0.60-1.20); GLUCOSE 74 mg/dl (70-99); POTASSIUM 3.6 mmol/L (3.5-5.1); SODIUM 141 mmol/L (136-145)
[2017-04-22 17:39] LABS: ALB/GLOB RATIO 1.4 (0.9-2); ALKALINE PHOSPHATASE 61 U/L (45-117); CHOLESTEROL 205 mg/dl (0-200); CHOLESTEROL/HDL RATIO 3.7; HDL CHOLESTEROL 55 mg/dl; LDL CHOLESTEROL CALCULATED 124 mg/dl; TRIGLYCERIDES 132 mg/dl (0-150); VERY LOW DENSITY LIPOPROT CALC 26 mg/dl
== END | disposition home or self-care (01) ==
LOC: C.LABBC 15:26
PROVIDERS: ATTEND Internal Medicine Geriatric Medicine
DX: E78.5 Hyperlipidemia, unspecified (principal); I10 Essential (primary) hypertension; E03.9 Hypothyroidism, unspecified; J45.909 Unspecified asthma, uncomplicated; F41.8 Other specified anxiety disorders

== ENCOUNTER 2017-07-26 12:11 | Inpatient (IN) | payer OTHER, MEDICARE ==
[~2017-07-26] VITALS: Ht 165.1 cm; Wt 95.7 kg
[2017-07-26] MEDS ORDERED: ALBUT/IPRATROP 3MG/0.5MG NEB 3 ML VIAL INH STA (12:49)
[2017-07-26] MEDS ORDERED: DIAZEPAM INJ 5 MG/ML 2 ML CARP IV STA (12:49)
--- NOTE | 2017-07-26 12:51 | EMERGENCY ROOM VISIT NOTE ---
History Report prepared by Nigel: Jamie Pina Under the Supervision of: Dr. Christie Jay D.O. First contact with patient: 12:38 Chief Complaint: SHORTNESS OF BREATH Stated Complaint: SOB, BACK PAIN, COUGHING, SPITTING UP BLOOD History of Present Illness The patient is a 76 year old female who presents to the Emergency Room with complaints of worsening shortness of breath that started a few weeks ago. She says that she had lung surgery with Dr. Burgos in February to have her right lobe removed, which ended up having cancer. The patient states that she was put on oxygen after the surgery, and got to the point over time that she could stop using it during the day. She says that a few weeks ago, she stopped wearing oxygen at night, but her shortness of breath worsened right away. The patient notes that she can hardly do anything because she gets winded with any sort of activity or movement. She states that she then went back on her oxygen 2 nights ago after putting [place] lights outside her house. The patient says that the next morning, she woke up with intermittent bad spasms in her back across the middle between her shoulder blades. The patient says that the lights were low, so she does not think that could have caused her pain. She states that the pain has persisted, and this morning, she coughed up blood. The patient says that she has not noticed any colored sputum in her cough. She adds that starting yesterday, her shortness of breath has even been bad at rest. The patient says that she had chills last night. She denies any leg swelling, urinary symptoms, or bowel movement problems. Source of History: patient Onset: A few weeks ago Position: other (global - shortness of breath) Timing: worsening Modifying Factors (Worsening): exertion Modifying Factors (Relieving): rest (until yesterday, now constant) Associated Symptoms: + chills, + cough (no colored sputum), + back pain, No urinary symptoms Note: Associated symptoms: Denies bowel movement problems, leg swelling. Review of Systems See HPI for pertinent positives & negatives. A total of 10 systems reviewed and were otherwise negative. Past Medical & Surgical Medical Problems: (1) Anxiety and depression (2) Asthma Family History Family history omitted secondary to patient's advanced age. Social History Smoking Status: Never Smoker Alcohol Use: none Drug Use: none Marital Status: Housing Status: lives with family Occupation Status: retired Current/Historical Medications Scheduled Ascorbic Acid (Vitamin C), 1 TAB PO QPM Budesonide/Formoterol Fumarate (Symbicort 80/4.5 Inhaler), 2 PUFFS INH BID Cholecalciferol (Vitamin D), 2,000 MG PO QPM Escitalopram (Lexapro), 15 MG PO QPM Levothyroxine Sodium (Synthroid), 50 MCG PO QAM Pravastatin Sodium (Pravastatin Sodium), 80 MG PO QPM Triamterene/Hctz (Triamterene/Hctz 37.5-25MG), 1 TAB PO QAM Scheduled PRN Albuterol Sulfate (Proair Respiclick), 2 PUFF INH Q4 PRN for SOB/Wheezing Alprazolam (Xanax), 0.25 MG PO for Anxiety Fluocinonide (Fluocinonide), 1 APPLN TOP DAILY PRN for PRN Fluticasone Prop/Salmeterol (Advair Diskus 100/50 60 Dose), 1 PUFF INH BID PRN for PRN Allergies Coded Allergies: Acetaminophen (Verified Allergy, Unknown, UNKNOWN REACTION, 07/26/17) PER PCP RECORDS Atorvastatin (Verified Allergy, Unknown, UNKNOWN REACTION, 07/26/17) PER PCP RECORDS Doxycycline (Verified Allergy, Unknown, UNKNOWN REACTION, 07/26/17) PER PCP RECORDS Propoxyphene (Verified Allergy, Unknown, UNKNOWN REACTION, 07/26/17) PER PCP RECORDS Simvastatin (Verified Allergy, Unknown, UNKNOWN REACTION, 07/26/17) PER PCP RECORDS Azithromycin (Verified Adverse Reaction, Intermediate, SEVERE GI UPSET, ) Codeine (Verified Adverse Reaction, Mild, PATIENT STATES IT MAKES HER "GOOFY" AND NAUSEATED, 03/05/17) Physical Exam Vital Signs Date Time Temp Pulse Resp B/P (MAP) Pulse Ox O2 Delivery O2 Flow Rate FiO2 07/26/17 15:42 84 20 123/81 97 Nasal Cannula 2.0 07/26/17 14:00 90 24 126/91 96 Nasal Cannula 2.0 07/26/17 12:45 96 Nasal Cannula 2.0 07/26/17 12:42 90 07/26/17 12:38 96 Nasal Cannula 2.0 07/26/17 12:14 36.9 93 26 118/79 95 Room Air Physical Exam GENERAL: alert, appears to have trouble breathing, well nourished, mild to moderate distress, non-toxic EYE EXAM: normal conjunctiva, PERRL and EOM's grossly intact OROPHARYNX: no exudate, no erythema, lips, buccal mucosa, and tongue normal and mucous membranes are moist NECK: supple, no nuchal rigidity, no adenopathy, non-tender LUNGS: Increased work of breathing. Conversational dyspnea, no wheezes, no rhonchi, no rales. Normal chest wall mechanics HEART: no murmurs, S1 normal and S2 normal ABDOMEN: abdomen soft, non-tender, normo-active bowel sounds, no masses, no rebound or guarding. BACK: Back is symmetrical on inspection and there is no deformity, no midline tenderness, no CVA tenderness. SKIN: no rashes and no bruising UPPER EXTREMITIES: upper extremities are grossly normal. Normal range of motion , normal pulses. LOWER EXTREMITIES: No pitting edema. Normal range of motion, normal pulses. NEURO EXAM: Normal sensorium, cranial nerves II-XII grossly intact, normal speech, no gross weakness of arms, no gross weakness of legs. Medical Decision & Procedures ER Provider Diagnostic Interpretation: CT results have been interpreted by the radiologist and reviewed by me. (CHEST FOR PE) ANGIO WITH CT DOSE: 397.53 mGy.cm HISTORY: Chest pain dyspnea TECHNIQUE: Multiaxial CT images of the chest were performed following the intravenous administration of contrast to evaluate the pulmonary arteries. Maximal intensity projection images were also obtained. A dose lowering technique was utilized adhering to the principles of ALARA. COMPARISON STUDY: 01/18/2017 FINDINGS: Interval resection of the previously described nodule right upper lung. Enhancement characteristics of the pulmonary vasculature is unremarkable. No major filling defects are identified. Moderate atherosclerotic change thoracic aorta. Small bilateral pleural effusions. Mild bibasilar infiltrative/atelectatic changes. Mid to upper lungs are considered clear. IMPRESSION: 1. No evidence for pulmonary embolus. 2. Postoperative changes consistent with a resection of a right upper lung nodule. 3. Interval development of bibasilar parenchymal infiltrates combined with a small right and to lesser extent left pleural effusion. The above report was generated using voice recognition software. It may contain grammatical, syntax or spelling errors. Electronically signed by: Jag Elias M.D. 07/26/2017 2:46 PM Dictated Date/Time: 07/26/2017 2:39 PM Laboratory Results Test 07/26/17 12:40 Immature Granulocyte % (Auto) 0.3 % White Blood Count 11.52 K/uL (4.8-10.8) Red Blood Count 5.27 M/uL (4.2-5.4) Hemoglobin 15.9 g/dL (12.0-16.0) Hematocrit 45.9 % (37-47) Mean Corpuscular Volume 87.1 fL (80-100) Mean Corpuscular Hemoglobin 30.2 pg (25-34) Mean Corpuscular Hemoglobin Concent 34.6 g/dl (32-36) Platelet Count 233 K/uL (130-400) Mean Platelet Volume 11.9 fL (7.4-10.4) Neutrophils (%) (Auto) 69.2 % Lymphocytes (%) (Auto) 17.2 % Monocytes (%) (Auto) 12.8 % Eosinophils (%) (Auto) 0.3 % Basophils (%) (Auto) 0.2 % Neutrophils # (Auto) 7.98 K/uL (1.4-6.5) Lymphocytes # (Auto) 1.98 K/uL (1.2-3.4) Monocytes # (Auto) 1.48 K/uL (0.11-0.59) Eosinophils # (Auto) 0.03 K/uL (0-0.5) Basophils # (Auto) 0.02 K/uL (0-0.2) Immature Granulocyte # (Auto) 0.03 K/uL (0.00-0.02) Prothrombin Time 10.5 SECONDS (9.0-12.0) Prothromb Time International Ratio 1.0 (0.9-1.1) Total Bilirubin 2.8 mg/dl (0.2-1) Aspartate Amino Transf (AST/SGOT) 15 U/L (15-37) Alanine Aminotransferase (ALT/SGPT) 22 U/L (12-78) Alkaline Phosphatase 67 U/L (45-117) Troponin I < 0.015 ng/ml (0-0.045) Pro-B-Type Natriuretic Peptide 133 pg/ml (0-900) Total Protein 7.0 gm/dl (6.4-8.2) Albumin 3.8 gm/dl (3.4-5.0) Globulin 3.2 gm/dl (2.5-4.0) Albumin/Globulin Ratio 1.2 (0.9-2) Laboratory results per my review. Medications Administered Medications (Trade) Dose Ordered Sig/Matt Route Start Time Stop Time Status Last Admin Dose Admin Diazepam (Valium Inj) 2.5 mg NOW STAT IV 07/26/17 12:49 07/26/17 12:54 DC 07/26/17 13:06 2.5 MG Albuterol/ Ipratropium (Duoneb) 3 ml NOW STAT INH 07/26/17 12:49 07/26/17 12:54 DC 07/26/17 13:05 3 ML Levofloxacin (Levaquin / D5W) 750 mg NOW STAT IV 07/26/17 15:36 07/26/17 15:37 DC 07/26/17 15:50 750 MG Alprazolam (Xanax Tab) 0.25 mg Q6H PRN PO 07/26/17 15:45 08/25/17 15:44 07/26/17 20:41 0.25 MG Albuterol/ Ipratropium (Duoneb) 3 ml QIDR INH 07/26/17 16:00 08/25/17 15:59 07/28/17 15:19 3 ML Acetaminophen (Tylenol Tab) 650 mg STK-MED ONCE .ROUTE 07/26/17 16:25 07/26/17 16:26 DC 07/26/17 16:31 650 MG ECG Indication: SOB/dyspnea Rate (beats per minute): 89 Rhythm: normal sinus Findings: no acute ischemic change, no ectopy, other (low voltage, normal axis , normal intervals) ED Course 1241: The patient was evaluated in room A11B. A complete history and physical exam was performed. 1249: Ordered Duoneb 3 ml INH, Valium Inj 2.5 mg IV. 1456: I reevaluated the patient and she feels a bit better after the neb treatment. 1520: Upon reevaluation, the patient is resting. I discussed the findings and the treatment plan with the patient. She expresses agreement and understanding. She will be evaluated for further management. 1458: I discussed the patient with Dr. Burgos - [facility] vascular surgery - he says admit the patient to medicine, and he will see the patient and consult. 1532: I reviewed the patient's case with Dr. Jayne STEWART loader engineer. He will evaluate the patient for further management. 1536: Ordered Levaquin / D5W 750 mg IV. Medical Decision Differential diagnoses includes but is not limited to pneumonia, bronchitis, COPD/Asthma exacerbation, pneumothorax, pulmonary embolism, congestive heart failure, acute coronary syndrome Patient appeared markedly short of breath here despite reassuring labs. No PE or recurrent mass noted. Questionable evolving lower lobe infiltrates as well as pleural effusions. Patient improved following treatment here. No hypoxia noted on patient's normal 2 L/m nasal cannula which she also wears at home now. Case discussed with Dr. Burgos and then with hospitalist for additional evaluation and admission. Doubt cardiac etiology, no evidence of congestive heart failure. Patient aware of all results and was agreeable with plan. Patient covered with antibiotics following discussion with hospitalist. Medication Reconcilliation Current Medication List: was personally reviewed by me Blood Pressure Screening Patient's blood pressure: Normal blood pressure Consults Time Called: 1455 Consulting Physician: Dr. Aubrey STEWART vascular surgery Returned Call: 1458 I discussed the patient with Dr. Aubrey STEWART vascular surgery - he says admit the patient to medicine, and he will see the patient and consult. Additional Consults: Time Called: 1520 Consulted Physician: Dr. Jayne STEWART loader engineer Returned Call: 1532 Additional Comments: I reviewed the patient's case with Dr. Jayne STEWART loader engineer. He will evaluate the patient for further management. Impression Primary Impression: Dyspnea Additional Impressions: PNA (pneumonia) Pleural effusion Scribe Attestation The scribe's documentation has been prepared under my direction and personally reviewed by me in its entirety. I confirm that the note above accurately reflects all work, treatment, procedures, and medical decision making performed by me. Departure Information Dispostion Being Evaluated By Hospitalist Referrals No Doctor, Assigned (PCP) Patient Instructions My [facility] Problem Qualifiers Primary Impression: Dyspnea Dyspnea type: shortness of breath Qualified Codes: R06.02 - Shortness of breath Additional Impressions: PNA (pneumonia) Pneumonia type: due to unspecified organism Laterality: bilateral Lung location: lower lobe of lung Qualified Codes: J18.9 - Pneumonia, unspecified organism
[2017-07-26] MEDS ORDERED: OPTIRAY 320 IV PRN (13:00)
[2017-07-26 13:48] LABS: BASO % 0.2 %; BASO ABS # 0.02 K/uL (0-0.2); COMPLETE YES; EOS % 0.3 %; HEMATOCRIT 45.9 % (37-47); IG% 0.3 %; LYMPH % 17.2 %; LYMPH ABS # 1.98 K/uL (1.2-3.4); MEAN CELL VOLUME 87.1 fL (80-100); MEAN CORPUSCULAR HEMOGLOBIN 30.2 pg (25-34); MEAN CORPUSCULAR HGB CONC 34.6 g/dl (32-36); MEAN PLATELET VOLUME 11.9 fL (7.4-10.4); MONO % 12.8 %; NEUT % 69.2 %; PLATELET COUNT 233 K/uL (130-400); RED BLOOD COUNT 5.27 M/uL (4.2-5.4); WHITE BLOOD COUNT 11.52 K/uL (4.8-10.8)
[2017-07-26 14:02] LABS: PROTHROMBIN TIME (PATIENT) 10.5 SECONDS (9.0-12.0)
[2017-07-26 14:05] LABS: ALT/SGPT 22 U/L (12-78); BLOOD UREA NITROGEN 12 mg/dl (7-18); BUN/CREATININE RATIO 15.3 (10-20); CALCIUM 9.4 mg/dl (8.5-10.1); CARBON DIOXIDE 23 mmol/L (21-32); CHLORIDE 101 mmol/L (98-107); GLUCOSE 96 mg/dl (70-99); POTASSIUM 3.6 mmol/L (3.5-5.1); SODIUM 137 mmol/L (136-145)
[2017-07-26 14:10] LABS: ALB/GLOB RATIO 1.2 (0.9-2); ALKALINE PHOSPHATASE 67 U/L (45-117); AST/SGOT 15 U/L (15-37)
--- NOTE | 2017-07-26 14:48 | DIAGNOSTIC IMAGING REPORT ---
(CHEST FOR PE) ANGIO WITH CT DOSE: 397.53 mGy.cm HISTORY: Chest pain dyspnea TECHNIQUE: Multiaxial CT images of the chest were performed following the intravenous administration of contrast to evaluate the pulmonary arteries. Maximal intensity projection images were also obtained. A dose lowering technique was utilized adhering to the principles of ALARA. COMPARISON STUDY: 01/18/2017 FINDINGS: Interval resection of the previously described nodule right upper lung. Enhancement characteristics of the pulmonary vasculature is unremarkable. No major filling defects are identified. Moderate atherosclerotic change thoracic aorta. Small bilateral pleural effusions. Mild bibasilar infiltrative/atelectatic changes. Mid to upper lungs are considered clear. IMPRESSION: 1. No evidence for pulmonary embolus. 2. Postoperative changes consistent with a resection of a right upper lung nodule. 3. Interval development of bibasilar parenchymal infiltrates combined with a small right and to lesser extent left pleural effusion. The above report was generated using voice recognition software. It may contain grammatical, syntax or spelling errors. Electronically signed by: Jag Elias M.D. 07/26/2017 2:46 PM Dictated Date/Time: 07/26/2017 2:39 PM
[2017-07-26] MEDS ORDERED: LEVAQUIN 750MG / 150ML D5W IV STA (15:36)
[2017-07-26] MEDS ORDERED: CEFEPIME IV 2,000 MG in DEXTROSE 5% 100ML 100 ML IV STA (15:42)
[2017-07-26] MEDS ORDERED: ALPRAZOLAM 0.25 MG TAB PO PRN (15:45)
[2017-07-26] MEDS ORDERED: ALBUT/IPRATROP 3MG/0.5MG NEB 3 ML VIAL INH PRN (15:45)
[2017-07-26] MEDS ORDERED: ACETAMINOPHEN 325 MG TAB ONE (16:25)
[2017-07-26] MEDS ORDERED: NURSING VERBAL MED ORDER ONE (16:30)
[2017-07-26] MEDS ORDERED: MoRPHine SULFATE 4 MG/ML 1 ML CARP\\VIAL IV PRN (16:45)
--- NOTE | 2017-07-26 16:47 | History and Physical ---
History & Physical Date & Time of Service: Jul 26, 2017 at 16:41 Chief Complaint: Sob, Back Pain, Coughing, Spitting Up Blood Primary Care Physician: Basilio Fuentes M.D. History of Present Illness This patient presents with increased shortness of breath and hemoptysis. She had a right upper lobectomy on 02/09/[address] Polly Velasquez which revealed adenocarcinoma. She had an appointment with Dr. Morgan which she was unable to keep due to a conflict with her 's radiation therapy. She had been diagnosed with a lung condition for many years attributed to secondhand smoke exposure for which she was taking inhaled medication such as Symbicort. Patient felt so short of breath prior to her presentation that she replaced oxygen to be used continuously that she had previously weaned herself off of. Given her history of malignancy a CT scan of her chest was performed to evaluate for recurrence or pulmonary embolism neither were seen however there was some concern regarding an infiltrative process at the left base along with a right basilar pleural effusion. She'll be admitted for treatment of her acute dyspnea, treatment of pneumonia, and evaluation by Dr. Morgan given concern for the right-sided effusion Past Medical/Surgical History Medical Problems: (1) Anxiety and depression Status: Chronic (2) Asthma Status: Chronic Social History Smoking Status: Never Smoker Drug Use: none Marital Status: Occupational Status: retired Immunizations History of Influenza Vaccine: Unknown Multi-Drug Resistant Organisms History of MDRO: No Allergies Coded Allergies: Acetaminophen (Verified Allergy, Unknown, UNKNOWN REACTION, 07/26/17) PER PCP RECORDS Atorvastatin (Verified Allergy, Unknown, UNKNOWN REACTION, 07/26/17) PER PCP RECORDS Doxycycline (Verified Allergy, Unknown, UNKNOWN REACTION, 07/26/17) PER PCP RECORDS Propoxyphene (Verified Allergy, Unknown, UNKNOWN REACTION, 07/26/17) PER PCP RECORDS Simvastatin (Verified Allergy, Unknown, UNKNOWN REACTION, 07/26/17) PER PCP RECORDS Azithromycin (Verified Adverse Reaction, Intermediate, SEVERE GI UPSET, ) Codeine (Verified Adverse Reaction, Mild, PATIENT STATES IT MAKES HER "GOOFY" AND NAUSEATED, 03/05/17) Home Medications Scheduled Ascorbic Acid (Vitamin C), 1 TAB PO QPM Budesonide/Formoterol Fumarate (Symbicort 80/4.5 Inhaler), 2 PUFFS INH BID Cholecalciferol (Vitamin D), 2,000 MG PO QPM Escitalopram (Lexapro), 15 MG PO QPM Levothyroxine Sodium (Synthroid), 50 MCG PO QAM Pravastatin Sodium (Pravastatin Sodium), 80 MG PO QPM Triamterene/Hctz (Triamterene/Hctz 37.5-25MG), 1 TAB PO QAM Scheduled PRN Albuterol Sulfate (Proair Respiclick), 2 PUFF INH Q4 PRN for SOB/Wheezing Alprazolam (Xanax), 0.25 MG PO for Anxiety Fluocinonide (Fluocinonide), 1 APPLN TOP DAILY PRN for PRN Fluticasone Prop/Salmeterol (Advair Diskus 100/50 60 Dose), 1 PUFF INH BID PRN for PRN Review of Systems ROS: well nourished well developed No double vision blurry vision No problems with speech or swallowing No palpitations, chest pain or pressure No Wheezing significant dyspnea on exertion and hemoptysis No abdominal pain nausea vomiting diarrhea changes in appetite or weight No burning urine urine frequency or changes in color No focal joint pain or muscle pain No skin rashes or oral lesions No unusual bruising or bleeding This patient is focused back pain around the bra line more on the right and left report that is reproducible with movement No changes in memory or confusion Physical Exam Vital Signs Date Time Temp Pulse Resp B/P (MAP) Pulse Ox O2 Delivery O2 Flow Rate FiO2 07/26/17 15:42 84 20 123/81 97 Nasal Cannula 2.0 07/26/17 14:00 90 24 126/91 96 Nasal Cannula 2.0 07/26/17 12:45 96 Nasal Cannula 2.0 07/26/17 12:42 90 07/26/17 12:38 96 Nasal Cannula 2.0 07/26/17 12:14 36.9 93 26 118/79 95 Room Air Diagnostics Laboratory Results Results Past 24 Hours Test 07/26/17 12:40 Range/Units White Blood Count 11.52 4.8-10.8 K/uL Red Blood Count 5.27 4.2-5.4 M/uL Hemoglobin 15.9 12.0-16.0 g/dL Hematocrit 45.9 37-47 % Mean Corpuscular Volume 87.1 80-100 fL Mean Corpuscular Hemoglobin 30.2 25-34 pg Mean Corpuscular Hemoglobin Concent 34.6 32-36 g/dl Platelet Count 233 130-400 K/uL Mean Platelet Volume 11.9 7.4-10.4 fL Neutrophils (%) (Auto) 69.2 % Lymphocytes (%) (Auto) 17.2 % Monocytes (%) (Auto) 12.8 % Eosinophils (%) (Auto) 0.3 % Basophils (%) (Auto) 0.2 % Neutrophils # (Auto) 7.98 1.4-6.5 K/uL Lymphocytes # (Auto) 1.98 1.2-3.4 K/uL Monocytes # (Auto) 1.48 0.11-0.59 K/uL Eosinophils # (Auto) 0.03 0-0.5 K/uL Basophils # (Auto) 0.02 0-0.2 K/uL RDW Standard Deviation 43.2 36.4-46.3 fL RDW Coefficient of Variation 13.7 11.5-14.5 % Immature Granulocyte % (Auto) 0.3 % Immature Granulocyte # (Auto) 0.03 0.00-0.02 K/uL Prothrombin Time 10.5 9.0-12.0 SECONDS Prothromb Time International Ratio 1.0 0.9-1.1 Sodium Level 137 136-145 mmol/L Potassium Level 3.6 3.5-5.1 mmol/L Chloride Level 101 98-107 mmol/L Carbon Dioxide Level 23 21-32 mmol/L Anion Gap 13.0 3-11 mmol/L Blood Urea Nitrogen 12 7-18 mg/dl Creatinine 0.80 0.60-1.20 mg/dl Est Creatinine Clear Calc Drug Dose 70.7 ml/min Estimated GFR () 84.2 Estimated GFR (Non- 72.6 BUN/Creatinine Ratio 15.3 10-20 Random Glucose 96 70-99 mg/dl Calcium Level 9.4 8.5-10.1 mg/dl Total Bilirubin 2.8 0.2-1 mg/dl Aspartate Amino Transf (AST/SGOT) 15 15-37 U/L Alanine Aminotransferase (ALT/SGPT) 22 12-78 U/L Alkaline Phosphatase 67 45-117 U/L Troponin I < 0.015 0-0.045 ng/ml Pro-B-Type Natriuretic Peptide 133 0-900 pg/ml Total Protein 7.0 6.4-8.2 gm/dl Albumin 3.8 3.4-5.0 gm/dl Globulin 3.2 2.5-4.0 gm/dl Albumin/Globulin Ratio 1.2 0.9-[address] scan showing bibasilar possible infiltrates left greater than right right- sided pleural effusion EKG shows sinus rhythm with low voltage Laboratory show mild leukocytosis at 11.5 to Impression Assessment and Plan 76-year-old female with recent right upper lobectomy for adenocarcinoma presents with acute dyspnea and recent hemoptysis For the possibility this may be gram-negative pneumonia the patient was placed on levofloxacin and cefepime blood cultures are obtained consultation with pulmonary medicine as concern could be pneumonia versus recurrence with special attention paid to her right lung effusion. Acute dyspnea this could be an exacerbation of her chronic lung disease, we'll treat her with inhaled bronchodilators both short and long-acting hold on steroid treatment at this time Regarding her depression Lexapro be maintained Regarding her dyslipidemia Pravachol his use Regarding anxiety will use Xanax as needed DVT prevention is based upon enoxaparin VTE Prophylaxis VTE Risk Assessment Done? Y/N: Yes Risk Level: Moderate
[2017-07-26 17:32] VITALS: BP 128/74; PULSE 88; O2SAT 97; Ht 165.1 cm; Wt 95.7 kg
[2017-07-26] MEDS: MoRPHine SULFATE 2 MG/ML CARP IV PRN (18:26)
[2017-07-26] MEDS: CEFEPIME IV 2,000 MG in SYRINGE 7.5 ML IV SCH (18:38)
--- NOTE | 2017-07-26 18:50 | SURGICAL CONSULTATION ---
DATE OF CONSULTATION: 07/26/2017 REASON FOR CONSULTATION: Status post lobectomy, presents now with shortness of breath and chest pain with some mild hemoptysis. HISTORY OF PRESENT ILLNESS: This is a 76-year-old female who had a mass in the right upper lobe and underwent a thoracoscopic right upper lobectomy with mediastinal lymphadenectomy on 03/04/2017. She did quite well with this, but she had poor lung function and ended up being on oxygen for quite a bit of time. I saw her in the office the months following her procedure and she was still on 2 liters of O2, but otherwise had done well. I was asked to see her today when she called our office and stated that she is coughing up blood and was having fevers and sweats. We advised her to go to the Emergency Room where she was evaluated and underwent a CT scan which shows no evidence of pulmonary embolism or recurrence of her cancer. She did have a small right pleural effusion but had a pleural effusion back when I last saw her 4 months ago. She is normally followed by Dr. Basilio Fuentes. The patient states that she has been sick because she got "a bad viruses in May" and has been coughing on and off. Since then has undergone 2 courses of antibiotics administered by Dr. Fuentes. These were done as an outpatient by mouth. She states that her cough has become worse and she has felt more short of breath even though her saturations have been good. She states she actually got off the oxygen with saturations in the low to mid 90s, but states that she has felt very short of breath and now has developed back pain. She has been coughing quite a bit. She coughed one time last night and she coughed up some blood in a tissue. This worried her and she presented to the Emergency Room. PAST MEDICAL HISTORY: 1. Dyslipidemia. 2. Hypertension. 3. Hypothyroidism. 4. Palpitations. 5. Reactive airway disease. 6. Urinary incontinence. 7. Bronchitis in the past. PAST SURGICAL HISTORY: 1. Colonoscopy. 2. Tonsillectomy. 3. D&C. MEDICATIONS: 1. Advair Diskus. 2. Alprazolam. 3. Cough syrup. 4. Escitalopram. 5. Synthroid. 6. Pantoprazole. 7. Pravastatin. 8. Symbicort. 9. Triamterene. 6. Ventolin inhaler. 7. Vitamins. ALLERGIES: 1. DARVOCET. 2. AZITHROMYCIN. 3. CODEINE. 4. DOXYCYCLINE. 5. LIPITOR. 6. ZOCOR. SOCIAL HISTORY: The patient lives at home with her . She has never smoked cigarettes. FAMILY MEDICAL HISTORY: There is a history of heart disease, diabetes mellitus, hypertension in her family. REVIEW OF SYSTEMS: The patient states her weight has been relatively the same. She has had some chills over the last few days with sweats last night. She never had before with the one episode of hemoptysis. She really has not had a productive cough, but has been coughing in an unremitting fashion and now she has a back pain. She denies chest pain per se. She had weaned herself off the oxygen, but now is requiring more, became quite breathless, but also anxious when she came into the Emergency Room. She denies diarrhea, nausea or vomiting. PHYSICAL EXAMINATION: GENERAL: This is a heavyset female who wears glasses and is quite anxious. Her saturations are excellent. She is not tachypneic now although she was earlier. HEENT: Her extraocular movements are intact. Pupils are equal and nonreactive. She has no nasolabial flattening. Her tongue is midline. Oral mucosa is moist. NECK: Supple. She has no lymphadenopathy, neck vein distention or thyromegaly. Her right thoracoscopy incisions are well healed. CHEST: She does have mildly decreased breath sounds on the right. She appeared to be moving air well. She has a regular rate and rhythm of her heart. ABDOMEN: Obese, but soft and nontender. She has no costovertebral angle tenderness. I detect no crepitus upon inspiration. SKIN: She has no skin breakdown. EXTREMITIES: She has no real edema or joint effusions. NEUROLOGIC: She is awake, alert and oriented. LABORATORY DATA: I reviewed her labs and her white count was mildly elevated just over 11,000 and interestingly enough her bilirubin was 2.8. Her CT scan showed bilateral lower lobe infiltrates that were actually kind of mild and she has a small effusion on the right that may well be due to her postoperative changes. ASSESSMENT AND PLAN: Cough, pain and mild hemoptysis. At this point, I think she probably should be admitted and I think a pulmonary evaluation would be advisable. I see no indication for any surgical intervention or tube at this time. Thank you very much for asking me to see this patient, I will continue to follow along.
[2017-07-26 18:52] VITALS: PULSE 80; O2SAT 96
[2017-07-26] MEDS: ALBUT/IPRATROP 3MG/0.5MG NEB 3 ML VIAL INH SCH (18:52)
[2017-07-26] MEDS: FORMOTEROL FUMA NEBULIZER SOLN 20 MCG/2 ML VIAL INH SCH (18:55)
[2017-07-26] MEDS: ESCITALOPRAM OXALATE 10 MG TAB PO SCH (20:41)
[2017-07-26] MEDS: PRAVASTATIN SOD 40 MG TAB PO SCH (20:41)
--- NOTE | 2017-07-26 20:41 | DIAGNOSTIC IMAGING REPORT ---
THORACIC SPINE 2-VIEWS CLINICAL HISTORY: Evaluate for compression fracture. COMPARISON STUDY: Chest radiograph March 14, 2017. FINDINGS: Alignment of the thoracic spine is anatomic. Vertebral body heights are maintained. There is no thoracic spine fracture. Disc spaces are preserved. There is mild endplate osteophytosis. A right pleural effusion and bibasilar opacities are better depicted on prior chest CT. Postoperative findings within the right lung are noted. IMPRESSION: 1. No thoracic spine fracture or subluxation. 2. Postoperative findings within the right lung, a small right pleural effusion and bibasilar opacities which are better depicted on chest CT performed earlier today. Electronically signed by: Delmar Mosley M.D. 07/26/2017 8:40 PM Dictated Date/Time: 07/26/2017 8:36 PM
[2017-07-26] MEDS: OXYCODONE HCL IR 5 MG TAB (IMMEDIATE RELEASE) PO PRN (20:42)
[2017-07-26] MEDS: ENOXAPARIN 40 MG/0.4 ML SYR SQ SCH (20:44)
[2017-07-27] VITALS (10 sets, daily range): BP systolic 99–134; BP diastolic 67–83; PULSE 68–92; TEMP 36.3–37.1; O2SAT 93–98
[2017-07-27] MEDS: MoRPHine SULFATE 2 MG/ML CARP IV PRN
[2017-07-27] MEDS: CEFEPIME IV 2,000 MG in SYRINGE 7.5 ML IV SCH ×3 (02:30→18:16)
[2017-07-27] MEDS: OXYCODONE HCL IR 5 MG TAB (IMMEDIATE RELEASE) PO PRN ×2 (05:55→17:01)
[2017-07-27] MEDS: LEVOTHYROXINE 50 MCG TAB PO SCH (05:56)
[2017-07-27 06:17] LABS: HEMATOCRIT 43.8 % (37-47); MEAN CELL VOLUME 89.6 fL (80-100); MEAN CORPUSCULAR HEMOGLOBIN 29.9 pg (25-34); MEAN CORPUSCULAR HGB CONC 33.3 g/dl (32-36); MEAN PLATELET VOLUME 11.3 fL (7.4-10.4); PLATELET COUNT 217 K/uL (130-400); RED BLOOD COUNT 4.89 M/uL (4.2-5.4); WHITE BLOOD COUNT 12.65 K/uL (4.8-10.8)
[2017-07-27 06:53] LABS: BUN/CREATININE RATIO 18.8 (10-20); POTASSIUM 4.1 mmol/L (3.5-5.1)
[2017-07-27] MEDS: ALBUT/IPRATROP 3MG/0.5MG NEB 3 ML VIAL INH SCH ×4 (06:59→18:54)
[2017-07-27] MEDS: FORMOTEROL FUMA NEBULIZER SOLN 20 MCG/2 ML VIAL INH SCH ×2 (07:00→18:54)
[2017-07-27] MEDS: TRIAMTERENE/HCTZ 37.5/25MG TAB PO SCH (08:04)
[2017-07-27] MEDS: POLYETHYLENE (MIRALAX) 17 GM PACK PO PRN (08:08)
[2017-07-27] MEDS: ONDANSETRON INJ 2 MG/ML 2 ML VIAL IV PRN (09:40)
--- NOTE | 2017-07-27 10:10 | SURGERY PROGRESS NOTE ---
DATE: 07/27/2017 DATE: 07/27/2017 Ms. Galvin was seen today. She still feels "miserable". Pain in her back is a little bit better but now she is plagued with nausea. I discussed this case with Dr. Morgan who will evaluate her. She does have an abnormal CT scan. The pain in her back is a bit concerning as fluid due to empyema can sometimes present like this, however I believe this fluid is probably due to postoperative changes and is really not very much. We will make a determination about whether to go after this fluid or not. KARINA
--- NOTE | 2017-07-27 14:12 | Progress Note ---
Subjective Date of Service: Jul 27, 2017. Subjective Pt evaluation today including: conversation w/ patient, conversation w/ family , physical exam, lab review, review of studies, conversation w/ admissions consultant, review of inpatient medication list Pain: intermittent, sharp back pain like spasm PO Intake: adequate Voiding: no voiding problems patient describes having a terrible URI illness for a month in May, coughing severely after that resolved she was doing well started with sudden sharp pain in right mid to lower back two days ago seems to get worse with a deep breath however, can also occur just at rest, sharp, sudden, describes it like a muscle spasm pain no fever/chills, reviewed labs, vitals stable appreciate consult from Dr. Burgos, Dr. Morgan will see later today Problem List Medical Problems: (1) Dyspnea Status: Acute (2) Pleural effusion Status: Acute (3) PNA (pneumonia) Status: Acute Review of Systems Constitutional: + weakness, + fatigue Respiratory: + dyspnea on exertion Musculoskeletal: + joint pain (sharp mid to lower back pain, more on right side ) All Other Systems: Reviewed and Negative Medications Current Inpatient Medications Medications (Trade) Dose Ordered Sig/Matt Route Start Time Stop Time Status Last Admin Dose Admin Ioversol (Optiray 320) 100 ml UD PRN IV 07/26/17 13:00 07/30/17 12:59 Alprazolam (Xanax Tab) 0.25 mg Q6H PRN PO 07/26/17 15:45 08/25/17 15:44 07/26/17 20:41 0.25 MG Escitalopram Oxalate (Lexapro Tab) 15 mg QPM PO 07/26/17 21:00 08/25/17 20:59 07/26/17 20:41 15 MG Levothyroxine Sodium (Synthroid Tab) 50 mcg DAILYBB PO 07/27/17 06:30 08/26/17 06:59 07/27/17 05:56 50 MCG Triamterene/HCTZ (Maxzide 37.5/25 Tab) 1 tab QAM PO 07/27/17 08:00 08/26/17 08:59 07/27/17 08:04 1 TAB Pravastatin Sodium (Pravachol Tab) 80 mg QPM PO 07/26/17 21:00 08/25/17 20:59 07/26/17 20:41 80 MG Levofloxacin 750 mg/Prmx 150 ml @ 100 mls/hr Q24H IV 07/27/17 16:00 08/03/17 15:59 Formoterol Fumarate (Perforomist 20MCG/2ML Neb Soln) 20 mcg BIDR INH 07/26/17 20:00 08/25/17 19:59 07/27/17 07:00 20 MCG Albuterol/ Ipratropium (Duoneb) 3 ml QIDR INH 07/26/17 16:00 08/25/17 15:59 07/27/17 11:03 3 ML Albuterol/ Ipratropium (Duoneb) 3 ml Q2H PRN INH 07/26/17 15:45 08/25/17 15:44 Enoxaparin Sodium (Lovenox Inj) 40 mg Q24H SQ 07/26/17 21:00 08/25/17 20:59 07/26/17 20:44 40 MG Polyethylene (Miralax Powder Packet) 17 gm DAILY PRN PO 07/26/17 16:45 08/25/17 16:44 07/27/17 08:08 17 GM Ondansetron HCl (Zofran Inj) 4 mg Q6H PRN IV 07/26/17 16:45 08/25/17 16:44 07/27/17 09:40 4 MG Oxycodone HCl (Roxicodone Immediate Rel Tab) 10 mg Q6 PRN PO 07/26/17 16:45 08/09/17 16:44 07/27/17 05:55 10 MG Morphine Sulfate (MoRPHine SULFATE INJ) 2 mg Q4H PRN IV 07/26/17 16:45 08/09/17 16:44 07/27/17 00:00 2 MG Morphine Sulfate (MoRPHine SULFATE INJ) 4 mg Q4H PRN IV 07/26/17 16:45 08/09/17 16:44 Cefepime HCl 2000 mg/Syringe 20 ml @ 5 mls/min Q8H IV 07/26/17 18:00 08/02/17 17:59 07/27/17 10:28 5 MLS/MIN Objective Vital Signs Date Time Temp Pulse Resp B/P (MAP) Pulse Ox O2 Delivery O2 Flow Rate FiO2 07/27/17 11:04 68 16 96 Nasal Cannula 2.0 07/27/17 08:00 Nasal Cannula 2.0 07/27/17 07:17 36.7 81 18 107/75 (86) 96 Room Air 07/27/17 07:00 80 18 97 Nasal Cannula 2.0 07/27/17 00:14 36.8 92 20 134/82 (99) 96 2.0 07/27/17 00:00 Nasal Cannula 2.0 07/26/17 18:52 80 22 96 Nasal Cannula 2.0 07/26/17 17:32 88 20 128/74 97 Nasal Cannula 2.0 07/26/17 15:42 84 20 123/81 97 Nasal Cannula 2.0 Physical Exam General Appearance: no apparent distress, + obese Eyes: normal inspection, EOMI, sclerae normal ENT: normal ENT inspection, hearing grossly normal, pharynx normal Neck: supple, no adenopathy, no JVD, trachea midline Respiratory/Chest: chest non-tender, lungs clear, normal breath sounds (moving good air in bases), no respiratory distress, no accessory muscle use Cardiovascular: regular rate, rhythm, no edema, no gallop, no JVD, no murmur Abdomen: normal bowel sounds, non tender, soft, no organomegaly Extremities: normal range of motion, non-tender, normal inspection, no pedal edema, no calf tenderness, normal capillary refill, pelvis stable, + pertinent finding (paraspinal muscles tight but not tender, pain on right side cannot be reproduced) 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, no motor/sensory deficits, alert, normal mood/affect, oriented x 3 Skin: normal color, warm/dry, no rash Laboratory Results Last 24 Hours Test 07/27/17 05:40 White Blood Count 12.65 K/uL Red Blood Count 4.89 M/uL Hemoglobin 14.6 g/dL Hematocrit 43.8 % Mean Corpuscular Volume 89.6 fL Mean Corpuscular Hemoglobin 29.9 pg Mean Corpuscular Hemoglobin Concent 33.3 g/dl RDW Standard Deviation 45.2 fL RDW Coefficient of Variation 13.8 % Platelet Count 217 K/uL Mean Platelet Volume 11.3 fL Sodium Level 136 mmol/L Potassium Level 4.1 mmol/L Chloride Level 98 mmol/L Carbon Dioxide Level 31 mmol/L Anion Gap 7.0 mmol/L Blood Urea Nitrogen 19 mg/dl Creatinine 1.00 mg/dl Est Creatinine Clear Calc Drug Dose 56.3 ml/min Estimated GFR () 64.3 Estimated GFR (Non- 55.5 BUN/Creatinine Ratio 18.8 Random Glucose 139 mg/dl Calcium Level 9.0 mg/dl Assessment and Plan 76-year-old female with recent right upper lobectomy for adenocarcinoma presents with acute dyspnea and recent hemoptysis - Bibasilar infiltrates, possible pneumonia afebrile, vitals stable, WBC 12k continue Levaquin and Cefepime for now minimal cough, no sputum production - Bilateral pleural effusions, small no plans for thoracentesis per thoracic surgery will await Dr. Morgan's recommendations - Right back pain: feel that it is likely musculoskeletal, maybe spasms will try Flexeril 10mg x 1 to see if pain improves for several hours no evidence of fractures on CT chest and thoracic spine x-ray no evidence of bony metastases - COPD: no wheezing, continue nebulizers, no current need for steroids Regarding her depression Lexapro be maintained Regarding her dyslipidemia Pravachol his use Regarding anxiety will use Xanax as needed DVT prevention is based upon enoxaparin
[2017-07-27] MEDS ORDERED: CYCLOBENZAPRINE HCL 10 MG TAB PO ONE (14:30)
[2017-07-27] MEDS: LEVOFLOXACIN / D5W 750 MG in PREMIXED IN D5W 150 ML IV SCH (15:21)
--- NOTE | 2017-07-27 16:18 | Pulmonary Consultation ---
History General Date of Service: Jul 27, 2017. Stated Complaint: Pneumonia, hypoxemia, cough HPI The patient is a 76 year old female who presents to [facility] with complaints of Pna, Pneumonia. The patient's primary care provider is Basilio Fuentes M.D.. 76-year-old female with PmHx: Significant for adenocarcinoma stage T1 a who underwent/surgical cure on 03/08/2017 currently being admitted with shortness of breath, back pain, coughing and hemoptysis. Patient is sitting up in bed notes her dyspnea on exertion has improved over the last 24 hours but still notes a severe back spasms that her cutting off her breath and adding to her overall shortness of breath. She currently denies any active hemoptysis over the last 24 hours and only has intermittent cough it appears associated with her rhinitis. We did speak about her chronic cough which is non productive in nature and is associated with her GERD as well as rhinitis. Her current episode does seem to be more aggressive than her chronic issues. Patient has been chronically short of breath since her right upper lobe lobectomy on 2016. At this time she denies: Classic cardiac chest pain, productive cough, unintentional weight loss, night sweats, pleurisy or rigors. The patient did note [place] episode of coughing which induced N/V. Current Work-Up EKG: NSR, rate: 89, poor R wave progression WBC: 12K (neutron# 7.98>) PLT: 233K INR: 1.0 PT: 10.5 BUN: 19 Cr: 1.00 BNP: 133 Troponin I: < 0.015 CTA: No PE, development of parenchymal infiltrates LLL and Lingula with new RLL pleural effusion Thoracic Spine: no thoracic fxs noted, Previous Work-Up CXR (03/14/2017) Right costo-phrenic blunting CXR (03/04/17) Decreased lung volumes, CT in the right eileen-thorax, 2cm PTX , (b) hilar fullness Bilateral cost-phrenic blunting CXR (03/05/17) Low lung volumes, right sided CT in place, B hilar fullness, left costo- phrenic blunting EKG (02/01/15) NSR with HR: 61 PFT (02/01/17) Spirometry: WNL Volumes: mild decreased RV suggesting RVD from obesity Diffusion: mild decreased but corrects based of [facility] CT Thorax (01/18/17) 2.0 x 1.5cm GGO in the RUL PET (01/28/17) Minimal FDG uptake of 1.6 in the RUL GGO CXR (01/14/17) RUL nodule PmHx: 1. Adenocarcinoma, lung(T1a/N0/M0 for stage 1a) 2. BMI 34.0-34.9,adult 3. Bronchitis 4. Depression with anxiety 5. Dyslipidemia 6. Gastroesophageal reflux disease 7. Hypertension 8. Hypothyroidism 9. History of Never a smoker 10. Palpitations 11. Reactive airway disease 12. Urinary incontinence 13. Closed Avulsion Fracture Of The Fifth Right Metatarsal With Displacement 14. Eustachian tube dysfunction 15. candidiasis of mouth 16. herpes zoster 17. acute sinusitis 18. Lipoma 19. 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 PVC, PAC, SVT vs. PAT (7 beats) (24 hour Holter monitor 07/18/13-07/20/13) 21. Eustachian tube dysfunction Surgical History 1. History of Complete Colonoscopy 2. History of Dilation And Curettage 3. RUL lobectomy 03/08/2017 4. History of Tonsillectomy Family History 1.Family history of Diabetes Mellitus 2.Family history of Heart Disease 3.Family history of Hypertension Social History Marital History - Currently Never a smoker + second had exposure Never Drank Alcohol Retired From Work Uses Safety Equipment - Seatbelts Current Meds 1. Advair Diskus 100-50 MCG/DOSE Inhalation Aerosol Powder Breath Activated; INHALE 1 2. ALPRAZolam 0.25 MG Oral Tablet; TAKE 1 TABLET DAILY NEEDED FOR ANXIETY; 3. Escitalopram Oxalate 10 MG Oral Tablet; TAKE 1 & 1/2 TABLETS BY MOUTH EVERY DAY; 4. Pravastatin Sodium 80 MG Oral Tablet; TAKE 1 TABLET BY MOUTH EVERY DAY; 5. Pantoprazole Sodium 40 MG Oral Tablet Delayed Release; TAKE ONE TABLET DAILY 30 6. Fluocinonide 0.05 % External Cream; APPLY SPARINGLY TO AFFECTED AREA(S) TWICE 7. Triamterene-HCTZ 37.5-25 MG Oral Capsule; TAKE 1 CAPSULE EVERY DAY; 8. Levothyroxine Sodium 50 MCG Oral Tablet; TAKE 1 TABLET BY MOUTH EVERY DAY; 9. Symbicort 80-4.5 MCG/ACT Inhalation Aerosol; INHALE 2 PUFFS TWICE DAILY. RINSE 10. Ventolin HFA 108 (90 Base) MCG/ACT Inhalation Aerosol Solution; USE DIRECTED; 11. Vitamin C 500 MG Oral Tablet; TAKE 1 TABLET DAILY; 12. Vitamin D3 1000 UNIT Oral Tablet; TAKE 2 TABLET Daily Allergies . Darvocet-N 50 TABS 2. Azithromycin TABS 3. Codeine Derivatives 4. Doxycycline Monohydrate CAPS 5. Lipitor TABS 6. Zithromax Z-José Miguel CAPS 7. Zocor TABS Historian: patient, family, EMS Review of Systems Constitutional: reports: as stated in HPI Eyes: reports: no symptoms ENT: reports: no symptoms Cardiovascular: reports: as stated in HPI Respiratory: reports: as stated in HPI Gastrointestinal: reports: as stated in HPI Genitourinary - Female: reports: no symptoms Musculoskeletal: reports: as stated in HPI Integumentary: reports: no symptoms Neurologic: reports: no symptoms Psychiatric: reports: no symptoms Endocrine: no symptoms Allergic / Immunologic: no symptoms Past Medical History Past Medical History: Please refer to HPI Past Surgical History: Please refer to the HPI Family History Please refer to the HPI Social History Please refer to the HPI Hx Tobacco Use In Past Year?: No Smoking Status: Never Smoker Marital status: Occupational Status: retired Immunizations History of Influenza Vaccine: Unknown History of MDRO History of MDRO: No Allergies Coded Allergies: Acetaminophen (Verified Allergy, Unknown, UNKNOWN REACTION, 07/26/17) PER PCP RECORDS Atorvastatin (Verified Allergy, Unknown, UNKNOWN REACTION, 07/26/17) PER PCP RECORDS Doxycycline (Verified Allergy, Unknown, UNKNOWN REACTION, 07/26/17) PER PCP RECORDS Propoxyphene (Verified Allergy, Unknown, UNKNOWN REACTION, 07/26/17) PER PCP RECORDS Simvastatin (Verified Allergy, Unknown, UNKNOWN REACTION, 07/26/17) PER PCP RECORDS Azithromycin (Verified Adverse Reaction, Intermediate, SEVERE GI UPSET, ) Codeine (Verified Adverse Reaction, Mild, PATIENT STATES IT MAKES HER "GOOFY" AND NAUSEATED, 03/05/17) Current Medications Reported Home Medications Medications Dose Route/Sig Max Daily Dose Days Date Category Fluocinonide 0.05 % Stephy 1 Appln TOP DAILY PRN 30 02/19/17 Reported Lexapro (Escitalopram Oxalate) 10 Mg Tab 15 Mg PO QPM 02/19/17 Reported Proair Respiclick (Albuterol Sulfate) 108 Mcg/Act Aer 2 Puff INH Q4 PRN 02/19/17 Reported Advair Diskus 100/50 60 Dose (Fluticasone Prop/Salmeterol) 1 Ea Aerp 1 Puff INH BID PRN 02/19/17 Reported Vitamin C (Ascorbic Acid) 500 Mg Tab 1 Tab PO QPM 02/19/17 Reported Triamterene/Hctz 37.5-25MG (Triamterene/HCTZ) 1 Tab Tab 1 Tab PO QAM 01/08/15 Reported Vitamin D (Cholecalciferol) 2,000 Unit Tab 2,000 Mg PO QPM 01/08/15 Reported Pravastatin Sodium 80 Mg Tab 80 Mg PO QPM 01/08/15 Reported Synthroid (Levothyroxine Sodium) 50 Mcg Tab 50 Mcg PO QAM 01/08/15 Reported Xanax (Alprazolam) 0.25 Mg Tab 0.25 Mg PO PRN 01/08/15 Reported Symbicort 80/4.5 Inhaler (Budesonide/Formoterol Fumarate) Aero 2 Puffs INH BID 01/08/15 Reported Physical Physical Exam Vital Signs: Date Time Temp Pulse Resp B/P (MAP) Pulse Ox O2 Delivery O2 Flow Rate FiO2 07/27/17 15:35 36.3 81 16 128/83 (98) 95 Room Air 07/27/17 15:27 72 16 94 Nasal Cannula 2.0 07/27/17 11:04 68 16 96 Nasal Cannula 2.0 07/27/17 08:00 Nasal Cannula 2.0 07/27/17 07:17 36.7 81 18 107/75 (86) 96 Room Air 07/27/17 07:00 80 18 97 Nasal Cannula 2.0 07/27/17 00:14 36.8 92 20 134/82 (99) 96 2.0 07/27/17 00:00 Nasal Cannula 2.0 07/26/17 18:52 80 22 96 Nasal Cannula 2.0 07/26/17 17:32 88 20 128/74 97 Nasal Cannula 2.0 General Appearance: WELL-APPEARING, WD/WN, NO APPARENT DISTRESS Head: NORMOCEPHALIC, ATRAUMATIC Eyes: PERRLA, NO DISCHARGE, EOMI, SCLERAE NORMAL ENT: NORMAL EAR EXAM, NORMAL NASAL EXAM, NORMAL MOUTH EXAM, NORMAL THROAT EXAM Neck: NORMAL RANGE OF MOTION, NO TENDERNESS, TRACHEA MIDLINE, NO STRIDOR Respiratory: other (Mildly decreased breath sounds greatest on the right with dullness to percussion right lower lobe posterior subsegment) Cardiovasular: REGULAR RATE/RHYTHM, NORMAL S1S2, NO M/G/R, NO MURMUR Abdomen: NON TENDER, NORMAL BOWEL SOUNDS, NO REBOUND, NO MASSES, NO GUARDING, NO ORGANOMEGALY Genitourinary - Female: other (Patient refuses her son was in the room) Back: NORMAL INSPECTION, NO MIDLINE TENDERNESS, NO CVA TENDERNESS, NO PARAVERTEBRAL TTP Upper Extremities: NO EDEMA, NO DEFORMITY, NORMAL ROM Lower Extremities: edema Edema: Bilateral LE (2+) Pulses: carotid (R) (1+), carotid (L) (1+), dorsalis pedis (R) (1+), dorsalis pedis (L) (1+) Neuro: ORIENTED x 3, NORMAL MOTOR EXAM Reflexes: biceps (R) (2+), bicpes (L) (2+), patellar (R) (2+), patellar (L) (2+ ) Babinski Testing: right (downgoing), left (downgoing) Psychiatric: NORMAL AFFECT, NO SUICIDAL IDEATION, anxious Diagnostics Labs Results Past 24 Hours Test 07/27/17 05:40 Range/Units White Blood Count 12.65 4.8-10.8 K/uL Red Blood Count 4.89 4.2-5.4 M/uL Hemoglobin 14.6 12.0-16.0 g/dL Hematocrit 43.8 37-47 % Mean Corpuscular Volume 89.6 80-100 fL Mean Corpuscular Hemoglobin 29.9 25-34 pg Mean Corpuscular Hemoglobin Concent 33.3 32-36 g/dl RDW Standard Deviation 45.2 36.4-46.3 fL RDW Coefficient of Variation 13.8 11.5-14.5 % Platelet Count 217 130-400 K/uL Mean Platelet Volume 11.3 7.4-10.4 fL Sodium Level 136 136-145 mmol/L Potassium Level 4.1 3.5-5.1 mmol/L Chloride Level 98 98-107 mmol/L Carbon Dioxide Level 31 21-32 mmol/L Anion Gap 7.0 3-11 mmol/L Blood Urea Nitrogen 19 7-18 mg/dl Creatinine 1.00 0.60-1.20 mg/dl Est Creatinine Clear Calc Drug Dose 56.3 ml/min Estimated GFR () 64.3 Estimated GFR (Non- 55.5 BUN/Creatinine Ratio 18.8 10-20 Random Glucose 139 70-99 mg/dl Calcium Level 9.0 8.5-10.1 mg/dl Diagnostic Radiology Please refer to HPI EKG Please refer to HPI Impression Assessment and Plan 76-year-old female admitted for shortness of breath, back pain, coughing and hemoptysis: 1. Shortness of breath: The patient has been chronically short of breath since her right upper lobe lobectomy on 03/08/2017 which was a curative surgery for her underlying well-differentiated adenocarcinoma. Physiologically this is not line up as the patient's preprocedural pulmonary function tests were within normal limits suggesting no prolonged respiratory insufficiency after the surgery. It is possible that we are now having another etiology of shortness of Breath such as diastolic heart failure, vocal cord dysfunction are tracheobronchial malacia secondary to the surgery itself. I have talked to the patient, and son at length is I would like to further work this up as an outpatient with pulmonary function tests and possible bronchoscopy. At this time I would like to perform an echocardiogram. 2. Chronic cough: The patient's chronic cough is most likely secondary to rhinitis and possible GERD. The patient does describe a clinical scenario significant for pertussis and will send off for these titers. This is not going to be active pertussis it would be post protective type syndrome. Also patient will be worked up in the clinic with possible Simms study in the future. As well as pulmonary function testing. 3. Back pain: I believe the back pain is most likely secondary to the coughing causing muscle spasm and agree with the primary care team is use of a muscle relaxant at this time. Does appear that the patient had nausea vomiting most likely secondary to her opiates yesterday. 4. Abnormal CT scan: CT scan does show infiltrative process in the left lower and lingular regions. This could be an active pneumonia and I agree with current antibiotic choices. Also send off for procalcitonin at this time for further evaluation. The patient will require further workup in the clinic with a repeat CT scan in the next 6-8 weeks to evaluate for resolution. 5. Pleural effusion: After reviewing the patient's previous radiographs I do believe her fusion has been there for since at least 03/14/2017 where chest x- ray showed right costophrenic blunting. For further evaluation I would like to perform a right lateral decubitus image. I do not believe thoracentesis is required at this time as this is a small effusion most likely not contributing to her underlying shortness of breath. It is 17 millimeters enhance would be assessable most likely to thoracentesis if required. 6. Volume: I am worried about the patient's lower extremity edema as well as her increased BUN creatinine. It is possible the patient could progress into a KI secondary to contrast which would exacerbate possible underlying volume overload status.
--- NOTE | 2017-07-27 18:23 | DIAGNOSTIC IMAGING REPORT ---
CHEST DECUBS 2 views CLINICAL HISTORY: Pleural effusions COMPARISON STUDY: CT scan dated 07/26/2017 FINDINGS: There are minimal left basilar airspace opacities, atelectatic versus inflammatory. There is a small right lateral effusion which appears partially loculated. There is a trace left pleural effusion IMPRESSION: 1. Small right pleural effusion which is likely partially loculated. Only minimal layering is visualized. 2. Minimal left basal airspace opacities, atelectatic versus inflammatory Electronically signed by: Andrew Lewis M.D. 07/27/2017 6:21 PM Dictated Date/Time: 07/27/2017 6:18 PM
[2017-07-27] MEDS ORDERED: NURSING VERBAL MED ORDER ONE (18:30)
[2017-07-27] MEDS: KETOROLAC TROMETHAMINE 15 MG/ML VIAL IV. PRN (19:38)
[2017-07-27] MEDS: ESCITALOPRAM OXALATE 10 MG TAB PO SCH (19:41)
[2017-07-27] MEDS: ENOXAPARIN 40 MG/0.4 ML SYR SQ SCH (19:41)
[2017-07-27] MEDS: PRAVASTATIN SOD 40 MG TAB PO SCH (19:41)
[2017-07-28] VITALS (11 sets, daily range): BP systolic 97–131; BP diastolic 62–81; PULSE 64–92; TEMP 36.4–37; O2SAT 87–99
[2017-07-28] MEDS: CEFEPIME IV 2,000 MG in SYRINGE 7.5 ML IV SCH ×3 (02:05→17:50)
[2017-07-28] MEDS: KETOROLAC TROMETHAMINE 15 MG/ML VIAL IV. PRN (02:37)
[2017-07-28] MEDS: LEVOTHYROXINE 50 MCG TAB PO SCH (06:22)
[2017-07-28] MEDS: ALBUT/IPRATROP 3MG/0.5MG NEB 3 ML VIAL INH SCH ×4 (07:04→19:32)
[2017-07-28] MEDS: FORMOTEROL FUMA NEBULIZER SOLN 20 MCG/2 ML VIAL INH SCH ×2 (07:04→19:32)
[2017-07-28] MEDS: OXYCODONE HCL IR 5 MG TAB (IMMEDIATE RELEASE) PO PRN (08:01)
[2017-07-28] MEDS: TRIAMTERENE/HCTZ 37.5/25MG TAB PO SCH (08:01)
[2017-07-28 08:44] LABS: BUN/CREATININE RATIO 23.4 (10-20); CALCIUM 8.8 mg/dl (8.5-10.1); CREATININE 1.06 mg/dl (0.60-1.20); POTASSIUM 3.6 mmol/L (3.5-5.1)
--- NOTE | 2017-07-28 09:56 | SURGERY PROGRESS NOTE ---
DATE: 07/28/2017 NOTE: Ms. Galvin was seen today. She is subjectively better with less pain and her A-a gradient has improved. She still has significant pain and dyspnea on exertion. Dr. Chinedu Morgan's insights were very useful. I agree with him that something is not quite right with this woman to require oxygen with her relatively normal PFTs preoperatively. At any rate, I am hopeful she will be discharged the next day or two and Dr. Morgan can work her up as an outpatient for this subjective of shortness of breath.
[2017-07-28] MEDS ORDERED: PANTOprazole SOD 40 MG TAB PO STA (10:03)
[2017-07-28] MEDS ORDERED: LEVOFLOXACIN 750 MG TAB PO SCH (11:00)
--- NOTE | 2017-07-28 11:44 | Pulmonology Progress Note ---
Pulmonary Progress Note Date of Service Jul 28, 2017. Attending Dr. Morgan Subjective Patient notes continued dyspnea but her back discomfort has improved over the last 24 hours. Objective The patient is able to sit up in a chair complete full sentences without signs of accessary muscle use and/or tachypnea during our conversation. VS: I/Os: +910cc Sao2%: 96-99 FiO2: 2 L RR: 16-19 Resp: Decreased breath sounds bilaterally Card: S1-S2 regular rate and rhythm Abd: Positive bowel sounds soft nontender Ext: Minimal edema in the bilateral lower extremities Studies WBC: 13 K Na+: 137-136-133 BUN: 25 Cr: 1.06 Right lateral decubitus 07/27/2017: Minimal layering visualized, Thoracic T-spine 07/26/2017: No thoracic spine fractures or subluxation noted Active pulmonary Medications: 1. Pantoprazole 40 mg daily 2. Cyclobenzaprine 10 mg--chest pain 3. Levofloxacin 750 mg daily 4. Lovenox 40 milligram subcu daily 5. Formoterol/nebulized 20 micrograms b.i.d. 6. Cefepime 2 grams IV q.8 hours 7. Oxycodone 10 mg Q 6 hours p.r.n. chest pain 8. Morphine sulfate 4 mg q.4 hours p.r.n. chest pain 9. Duo nebs q.i.d. an q.2 hours p.r.n. shortness of breath/wheezing Assessment & Plan 76-year-old female admitted for shortness of breath, back pain, coughing and hemoptysis: 1. Shortness of Breath: Patient has continued to be short of breath since her right upper lobe lobectomy on 03/08/2017. We need to repeat her baseline workup with echocardiogram (pending), pulmonary function test and prior to discharge at 2 step for oxygen requirement evaluation. It does appear that part of this patient's overall shortness of could be anxiety induced but is difficult to determine at this time. Suggest we continue her current inhaler regimen. Tonight I will perform a nocturnal desaturation study on this patient. 2. Chronic Cough: High likelihood of the chronic component to her cough is secondary to rhinitis and GERD. I am also working up her tests is as well as a other atypical infections at this time with serum evaluation. Patient possibly may need Simms study even sleep apnea study in the future. 3. Back Pain: Her back pain is better controlled today with an aggressive regimen of opiates as well as muscle relaxant at this time. 4. Abnormal CT scan: CT scan does show infiltrative process in the left lower and lingular regions. This could be an active pneumonia and I agree with current antibiotic choices. Also send off for procalcitonin at this time for further evaluation. The patient will require further workup in the clinic with a repeat CT scan in the next 6-8 weeks to evaluate for resolution. 5. Pleural Effusion: Right lateral decubitus x-rays suggest that this effusion is loculated at this time are least partially loculated. This I believe it is been present since March of 2017 as I saw costophrenic angle blunting on the right side on x-ray from 03/14/2017 L believe any further workup is necessary unless the patient clinically changes. The overall thickness on CT imaging of this patient's pleural effusion is only 17 mm which would suggest this is not a large component of her current dyspnea. 6. Volume: I am worried about the patient's lower extremity edema as well as her increased BUN creatinine. It is possible the patient could progress into a KI secondary to contrast which would exacerbate possible underlying volume overload status. Data Medications: Current Inpatient Medications Medications (Trade) Dose Ordered Sig/Matt Route Start Time Stop Time Status Last Admin Dose Admin Ioversol (Optiray 320) 100 ml UD PRN IV 07/26/17 13:00 07/30/17 12:59 Alprazolam (Xanax Tab) 0.25 mg Q6H PRN PO 07/26/17 15:45 08/25/17 15:44 07/26/17 20:41 0.25 MG Escitalopram Oxalate (Lexapro Tab) 15 mg QPM PO 07/26/17 21:00 08/25/17 20:59 07/27/17 19:41 15 MG Levothyroxine Sodium (Synthroid Tab) 50 mcg DAILYBB PO 07/27/17 06:30 08/26/17 06:59 07/28/17 06:22 50 MCG Triamterene/HCTZ (Maxzide 37.5/25 Tab) 1 tab QAM PO 07/27/17 08:00 08/26/17 08:59 07/28/17 08:01 1 TAB Pravastatin Sodium (Pravachol Tab) 80 mg QPM PO 07/26/17 21:00 08/25/17 20:59 07/27/17 19:41 80 MG Levofloxacin 750 mg/Prmx 150 ml @ 100 mls/hr Q24H IV 07/27/17 16:00 07/28/17 19:00 07/27/17 15:21 100 MLS/HR Formoterol Fumarate (Perforomist 20MCG/2ML Neb Soln) 20 mcg BIDR INH 07/26/17 20:00 08/25/17 19:59 07/28/17 07:04 20 MCG Albuterol/ Ipratropium (Duoneb) 3 ml QIDR INH 07/26/17 16:00 08/25/17 15:59 07/28/17 11:17 3 ML Albuterol/ Ipratropium (Duoneb) 3 ml Q2H PRN INH 07/26/17 15:45 08/25/17 15:44 Enoxaparin Sodium (Lovenox Inj) 40 mg Q24H SQ 07/26/17 21:00 08/25/17 20:59 07/27/17 19:41 40 MG Polyethylene (Miralax Powder Packet) 17 gm DAILY PRN PO 07/26/17 16:45 08/25/17 16:44 07/27/17 08:08 17 GM Ondansetron HCl (Zofran Inj) 4 mg Q6H PRN IV 07/26/17 16:45 08/25/17 16:44 07/27/17 09:40 4 MG Oxycodone HCl (Roxicodone Immediate Rel Tab) 10 mg Q6 PRN PO 07/26/17 16:45 08/09/17 16:44 07/28/17 08:01 10 MG Morphine Sulfate (MoRPHine SULFATE INJ) 2 mg Q4H PRN IV 07/26/17 16:45 08/09/17 16:44 07/27/17 00:00 2 MG Morphine Sulfate (MoRPHine SULFATE INJ) 4 mg Q4H PRN IV 07/26/17 16:45 08/09/17 16:44 Cefepime HCl 2000 mg/Syringe 20 ml @ 5 mls/min Q8H IV 07/26/17 18:00 07/28/17 19:00 07/28/17 02:05 5 MLS/MIN Ibuprofen (Motrin Tab) 600 mg TIDM PO 07/28/17 12:00 08/27/17 11:59 Cyclobenzaprine HCl (Flexeril Tab) 10 mg HS PO 07/28/17 21:00 08/27/17 20:59 Pantoprazole Sodium (Protonix Tab) 40 mg QAM PO 07/29/17 08:00 08/28/17 07:59 Levofloxacin (Levaquin Tab) 750 mg DAILY@11 PO 07/28/17 11:00 08/01/17 23:59 Future hold Vital Signs: Date Time Temp Pulse Resp B/P (MAP) Pulse Ox O2 Delivery O2 Flow Rate FiO2 07/28/17 11:21 36.7 87 18 120/79 (93) 95 Nasal Cannula 2.0 07/28/17 11:17 89 18 87 Room Air 07/28/17 08:15 Room Air 2.0 Nasal Cannula 07/28/17 07:28 36.6 64 18 105/69 (81) 99 Room Air 07/28/17 07:05 67 16 97 Nasal Cannula 2.0 07/28/17 04:05 37.0 76 19 97/62 (74) 96 Nasal Cannula 2.0 07/28/17 00:00 Nasal Cannula 2.0 07/27/17 22:50 36.9 72 16 99/67 (78) 98 Nasal Cannula 2.0 07/27/17 20:00 96 Nasal Cannula 2.0 07/27/17 20:00 Nasal Cannula 2.0 07/27/17 19:56 37.1 90 18 117/78 (91) 95 Nasal Cannula 2.0 07/27/17 18:56 84 18 93 Nasal Cannula 2.0 07/27/17 17:38 Nasal Cannula 2.0 07/27/17 15:35 36.3 81 16 128/83 (98) 95 Room Air 07/27/17 15:27 72 16 94 Nasal Cannula 2.0 Laboratory Results: Last 24 Hours Test 07/28/17 07:51 07/28/17 07:56 Sodium Level 133 mmol/L Potassium Level 3.6 mmol/L Chloride Level 98 mmol/L Carbon Dioxide Level 27 mmol/L Anion Gap 8.0 mmol/L Blood Urea Nitrogen 25 mg/dl Creatinine 1.06 mg/dl Est Creatinine Clear Calc Drug Dose 53.2 ml/min Estimated GFR () 59.9 Estimated GFR (Non- 51.7 BUN/Creatinine Ratio 23.4 Random Glucose 94 mg/dl Calcium Level 8.8 mg/dl Bedside Glucose 89 mg/dl
[2017-07-28] MEDS: IBUPROFEN 600 MG TAB PO SCH ×2 (11:57→17:52)
--- NOTE | 2017-07-28 13:23 | Progress Note ---
Subjective Date of Service: Jul 28, 2017. Subjective Pt evaluation today including: conversation w/ patient, conversation w/ family , physical exam, lab review, conversation w/ workforce management consultant, review of inpatient medication list Pain: improved, relief with Toradol PO Intake: adequate Voiding: no voiding problems less pain today, able to sleep last night breathing improved, still with mild cough, non productive not ready to leave hospital today, will be ready tomorrow reviewed labs, CBC and BMP unremarkable echo read still pending Problem List Medical Problems: (1) Dyspnea Status: Acute (2) Pleural effusion Status: Acute (3) PNA (pneumonia) Status: Acute Review of Systems Respiratory: + shortness of breath Musculoskeletal: + joint pain (right low back) All Other Systems: Reviewed and Negative Medications Current Inpatient Medications Medications (Trade) Dose Ordered Sig/Matt Route Start Time Stop Time Status Last Admin Dose Admin Ioversol (Optiray 320) 100 ml UD PRN IV 07/26/17 13:00 07/30/17 12:59 Alprazolam (Xanax Tab) 0.25 mg Q6H PRN PO 07/26/17 15:45 08/25/17 15:44 07/26/17 20:41 0.25 MG Escitalopram Oxalate (Lexapro Tab) 15 mg QPM PO 07/26/17 21:00 08/25/17 20:59 07/27/17 19:41 15 MG Levothyroxine Sodium (Synthroid Tab) 50 mcg DAILYBB PO 07/27/17 06:30 08/26/17 06:59 07/28/17 06:22 50 MCG Triamterene/HCTZ (Maxzide 37.5/25 Tab) 1 tab QAM PO 07/27/17 08:00 08/26/17 08:59 07/28/17 08:01 1 TAB Pravastatin Sodium (Pravachol Tab) 80 mg QPM PO 07/26/17 21:00 08/25/17 20:59 07/27/17 19:41 80 MG Levofloxacin 750 mg/Prmx 150 ml @ 100 mls/hr Q24H IV 07/27/17 16:00 07/28/17 19:00 07/27/17 15:21 100 MLS/HR Formoterol Fumarate (Perforomist 20MCG/2ML Neb Soln) 20 mcg BIDR INH 07/26/17 20:00 08/25/17 19:59 07/28/17 07:04 20 MCG Albuterol/ Ipratropium (Duoneb) 3 ml QIDR INH 07/26/17 16:00 08/25/17 15:59 07/28/17 11:17 3 ML Albuterol/ Ipratropium (Duoneb) 3 ml Q2H PRN INH 07/26/17 15:45 08/25/17 15:44 Enoxaparin Sodium (Lovenox Inj) 40 mg Q24H SQ 07/26/17 21:00 08/25/17 20:59 07/27/17 19:41 40 MG Polyethylene (Miralax Powder Packet) 17 gm DAILY PRN PO 07/26/17 16:45 08/25/17 16:44 07/27/17 08:08 17 GM Ondansetron HCl (Zofran Inj) 4 mg Q6H PRN IV 07/26/17 16:45 08/25/17 16:44 07/27/17 09:40 4 MG Oxycodone HCl (Roxicodone Immediate Rel Tab) 10 mg Q6 PRN PO 07/26/17 16:45 08/09/17 16:44 07/28/17 08:01 10 MG Morphine Sulfate (MoRPHine SULFATE INJ) 2 mg Q4H PRN IV 07/26/17 16:45 08/09/17 16:44 07/27/17 00:00 2 MG Morphine Sulfate (MoRPHine SULFATE INJ) 4 mg Q4H PRN IV 07/26/17 16:45 08/09/17 16:44 Cefepime HCl 2000 mg/Syringe 20 ml @ 5 mls/min Q8H IV 07/26/17 18:00 07/28/17 19:00 07/28/17 11:33 5 MLS/MIN Ibuprofen (Motrin Tab) 600 mg TIDM PO 07/28/17 12:00 08/27/17 11:59 07/28/17 11:57 600 MG Cyclobenzaprine HCl (Flexeril Tab) 10 mg HS PO 07/28/17 21:00 08/27/17 20:59 Pantoprazole Sodium (Protonix Tab) 40 mg QAM PO 07/29/17 08:00 08/28/17 07:59 Levofloxacin (Levaquin Tab) 750 mg DAILY@11 PO 07/28/17 11:00 08/01/17 23:59 Future hold Objective Vital Signs Date Time Temp Pulse Resp B/P (MAP) Pulse Ox O2 Delivery O2 Flow Rate FiO2 07/28/17 11:21 36.7 87 18 120/79 (93) 95 Nasal Cannula 2.0 07/28/17 11:17 89 18 87 Room Air 07/28/17 08:15 Room Air 2.0 Nasal Cannula 07/28/17 07:28 36.6 64 18 105/69 (81) 99 Room Air 07/28/17 07:05 67 16 97 Nasal Cannula 2.0 07/28/17 04:05 37.0 76 19 97/62 (74) 96 Nasal Cannula 2.0 07/28/17 00:00 Nasal Cannula 2.0 07/27/17 22:50 36.9 72 16 99/67 (78) 98 Nasal Cannula 2.0 07/27/17 20:00 96 Nasal Cannula 2.0 07/27/17 20:00 Nasal Cannula 2.0 07/27/17 19:56 37.1 90 18 117/78 (91) 95 Nasal Cannula 2.0 07/27/17 18:56 84 18 93 Nasal Cannula 2.0 07/27/17 17:38 Nasal Cannula 2.0 07/27/17 15:35 36.3 81 16 128/83 (98) 95 Room Air 07/27/17 15:27 72 16 94 Nasal Cannula 2.0 Physical Exam General Appearance: WD/WN, no apparent distress Eyes: normal inspection, EOMI, sclerae normal ENT: normal ENT inspection, hearing grossly normal, pharynx normal Neck: supple, no adenopathy, no JVD, trachea midline Respiratory/Chest: chest non-tender, lungs clear, normal breath sounds, no respiratory distress, no accessory muscle use Cardiovascular: regular rate, rhythm, no edema, no gallop, no JVD, no murmur Abdomen: normal bowel sounds, non tender, soft, no organomegaly Extremities: normal range of motion, non-tender, normal inspection, no pedal edema, no calf tenderness, pelvis stable, + pertinent finding (right low/mid talkback host, muscles tight) Neurologic/Psychiatric: power regulator II-XII nml as tested, no motor/sensory deficits, alert, normal mood/affect, oriented x 3 Skin: normal color, warm/dry, no rash Lymphatic: no adenopathy Laboratory Results Last 24 Hours Test 07/28/17 07:51 07/28/17 07:56 07/28/17 11:30 Sodium Level 133 mmol/L Potassium Level 3.6 mmol/L Chloride Level 98 mmol/L Carbon Dioxide Level 27 mmol/L Anion Gap 8.0 mmol/L Blood Urea Nitrogen 25 mg/dl Creatinine 1.06 mg/dl Est Creatinine Clear Calc Drug Dose 53.2 ml/min Estimated GFR () 59.9 Estimated GFR (Non- 51.7 BUN/Creatinine Ratio 23.4 Random Glucose 94 mg/dl Calcium Level 8.8 mg/dl Bedside Glucose 89 mg/dl 88 mg/dl Assessment and Plan 76-year-old female with recent right upper lobectomy for adenocarcinoma presents with acute dyspnea and recent hemoptysis - Bibasilar infiltrates, possible pneumonia afebrile, vitals stable, WBC 12k yesterday continue Levaquin and Cefepime IV today, change to Levaquin PO tomorrow AM, would complete 5 days total, last dose 07/31 minimal cough, no sputum production - Bilateral pleural effusions, small no plans for thoracentesis per thoracic surgery Dr. Morgan recommends no work up, the effusions are chronic and stable - Right back pain: feel that it is likely musculoskeletal, maybe spasms relief with Toradol IV plan for Ibuprofen 600mg TID with meals, Flexeril 10mg bedtime Protonix added daily for GI prophylaxis while on Ibuprofen would treat scheduled for a week and then only PRN no evidence of fractures on CT chest and thoracic spine x-ray no evidence of bony metastases - COPD: no wheezing, continue nebulizers, no current need for steroids Regarding her depression Lexapro be maintained Regarding her dyslipidemia Pravachol his use Regarding anxiety will use Xanax as needed DVT prevention is based upon enoxaparin Plan: d/c to home tomorrow with PCP follow up new medications would be Levaquin 750mg daily until 07/31 ibuprofen 600mg TID meals for a week Flexeril 10mg HS for a week Protonix 40mg daily while on the ibuprofen
[2017-07-28] MEDS: LEVOFLOXACIN / D5W 750 MG in PREMIXED IN D5W 150 ML IV SCH (16:38)
[2017-07-28] MEDS: POLYETHYLENE (MIRALAX) 17 GM PACK PO PRN (17:50)
[2017-07-28] MEDS: ESCITALOPRAM OXALATE 10 MG TAB PO SCH (20:13)
[2017-07-28] MEDS: PRAVASTATIN SOD 40 MG TAB PO SCH (20:13)
[2017-07-28] MEDS: ENOXAPARIN 40 MG/0.4 ML SYR SQ SCH (20:14)
[2017-07-28] MEDS ORDERED: CYCLOBENZAPRINE HCL 10 MG TAB PO SCH (21:00)
[2017-07-28] MEDS ORDERED: MAGNESIUM HYDROXIDE SUSP 30 ML UDC PO PRN (21:45)
[2017-07-28] MEDS: ONDANSETRON INJ 2 MG/ML 2 ML VIAL IV PRN (23:11)
[2017-07-29] VITALS (8 sets, daily range): BP systolic 104–129; BP diastolic 69–76; PULSE 65–102; TEMP 36.7–36.9; O2SAT 91–97
[2017-07-29] MEDS: LEVOTHYROXINE 50 MCG TAB PO SCH (06:15)
[2017-07-29 07:33] LABS: HEMATOCRIT 38.8 % (37-47); MEAN CELL VOLUME 88.2 fL (80-100); MEAN CORPUSCULAR HEMOGLOBIN 29.5 pg (25-34); MEAN CORPUSCULAR HGB CONC 33.5 g/dl (32-36); MEAN PLATELET VOLUME 11.1 fL (7.4-10.4); PLATELET COUNT 207 K/uL (130-400); WHITE BLOOD COUNT 10.54 K/uL (4.8-10.8)
[2017-07-29] MEDS: ALBUT/IPRATROP 3MG/0.5MG NEB 3 ML VIAL INH SCH ×3 (07:35→14:48)
[2017-07-29] MEDS: FORMOTEROL FUMA NEBULIZER SOLN 20 MCG/2 ML VIAL INH SCH (07:35)
[2017-07-29] MEDS ORDERED: PANTOprazole SOD 40 MG TAB PO SCH (08:00)
[2017-07-29 08:07] LABS: BUN/CREATININE RATIO 22.6 (10-20); CALCIUM 8.8 mg/dl (8.5-10.1); CREATININE 0.81 mg/dl (0.60-1.20); POTASSIUM 4.2 mmol/L (3.5-5.1)
[2017-07-29] MEDS: IBUPROFEN 600 MG TAB PO SCH ×3 (08:35→17:13)
[2017-07-29] MEDS: TRIAMTERENE/HCTZ 37.5/25MG TAB PO SCH (08:36)
[2017-07-29] MEDS ORDERED: NURSING VERBAL MED ORDER ONE (08:45)
[2017-07-29] MEDS ORDERED: SOD PHOSPHATE/SOD BIPHOSPHATE ENEMA 132 ML BTL PR ONE (09:00)
[2017-07-29] MEDS ORDERED: SOAP SUDS ENEMA PR PRN (09:00)
--- NOTE | 2017-07-29 09:40 | Clinical Documentation Query ---
REBECCA Sanchez : CLINICAL DOCUMENTATION QUERIES QUERY 1 OF 2 Patient is a 76 year old female admitted for possible pneumonia in the setting of RUL for adenocarcinoma. H&P notes possibility of gram-negative pneumonia for which the patient was placed on levaquin and cefepime. These antibiotics have been continued. This documentation has not been reiterated in subsequent progress notes. For purposes of clarity, consider explicit documentation as suggested below In your clinical opinion is this patient being managed for: (x ) possible Gram-negative pneumonia ( ) (Other specified) pneumonia ( ) Not Agree ( ) Other explanation of clinical findings (Please Explain) ( ) Unable to determine (Please Define) ( ) Need to Discuss The medical record reflects the following clinical findings, treatment, and risk factors. Clinical Indicators: As above Treatment: As above, pulmonary consultation, sputum cultures, IV antibiotics, bronchodilators Risk Factors: Age, lung cancer, reactive airway disease, bronchitis, GERD QUERY 2 OF 2 H&P notes utilization of home supplemental oxygen as patient has significant second hand smoke exposure and RUL adenocarcinoma with resection. Consider clarification as suggested below as clinically appropriate. Thank you. In your clinical opinion is this patient being managed for: ( x ) possible Chronic respiratory failure with hypoxia, ( ) Not Agree ( ) Other explanation of clinical findings (Please Explain) ( ) Unable to determine (Please Define) ( ) Need to Discuss The medical record reflects the following clinical findings, treatment, and risk factors. Clinical Indicators: As above Treatment: Ongoing provision of supplemental O2 Risk Factors: Adenocarcinoma, RUL s/p resection, COPD Please clarify and document your clinical opinion in the progress notes and discharge summary. Terms such as "probable", "suspected", "likely", "questionable", "possible", or "still to be ruled out" are acceptable. IF IN AGREEMENT, YOU MUST DOCUMENT ABOVE DIAGNOSTIC STATEMENT IN DAILY PROGRESS NOTES AND DISCHARGE SUMMARY. This document is not part of the patient's record. Thank You, Lang Zelaya, TAMEKA [phone]
--- NOTE | 2017-07-29 10:27 | ECHOCARDIOGRAM REPORT ---
*NOTICE TO RECEIVING [employer] This information is strictly Confidential and protected under [place] law. [place] law prohibits you from making any further disclosure of this information unless further disclosure is expressly permitted by the written consent of the person to whom it pertains or is authorized by law. A general authorization for the release of medical or other information is not sufficient for this purpose. Hospital accepts no responsibility if the information is made available to any other person, INCLUDING THE PATIENT. Interpretation Summary * Name: ALON CHEN Study Date: 07/28/2017 01:44 PM BP: 97/62 mmHg * Patient Location: .4E\S\E418\S\1 HR: 76 * : 1940 (M/d/yyyy) Gender: Female Height: 65 in * Age: 76 yrs Ethnicity: CA Weight: 209 lb * Ordering Physician: Chinedu Morgan * Referring Physician: Self, Referred * Performed By: Linnea Rome RDCS * * Reason For Study: Dyspnea * BSA: 2.0 m2 * -- Conclusions -- * 1. Normal LV size, borderline concentric LVH. * 2. Normal LVEF 65-70%. No regional wall motion abnormalities. * 3. Normal RV size and function. * 4. Mild dynamic LVOT obstruction (Max PG 13 mmHg with valsalva). * 5. No significant valvular pathology. * 6. Pulmonary hypertension. Est PASP 45-50 mmHg. Est RA 8 mmHg. * 7. No prior studies for comparison. Procedure Details * A complete two-dimensional transthoracic echocardiogram was performed (2D, M-mode, Doppler and color flow Doppler). * The study was technically difficult. * The study was technically difficult, but visualization was adequate with the administration of Definity ultrasound contrast. * There were technical limitations due to patient'sbody habitus * A contrast injection of Definity was performed to improve assessment of LV function. * Contrast was injected into an intravenous site in the right arm. * One vial of Definity ultrasound contrast was diluted in normal saline to a total volume of 10 ml. A total of '2' ml of solution was administered during imaging. * Lot # [id number] of Definity utilized for procedure. * Expiration date . * The attending nurse who injected the contrast agent was Tiny Lopez RN. Left Ventricle * The left ventricle is normal in size. * The echo findings are consistent with left ventricular outflow obstruction. * There is borderline concentric left ventricular hypertrophy. * Ejection Fraction = 65-70%. * No regional wall motion abnormalities noted. Right Ventricle * The right ventricle is grossly normal size. * The right ventricular systolic function is normal as assessed by tricuspid annular plane systolic excursion (TAPSE) (normal >1.5 cm). Atria * The left atrial size is normal. * Right atrial size is normal. * No ASD detected; PFO is not assessed. Mitral Valve * The mitral valve is grossly normal. * There is no mitral valve stenosis. * There is trace mitral regurgitation. Tricuspid Valve * There is trace tricuspid regurgitation. * Right ventricular systolic pressure is elevated at 40-50mmHg. Aortic Valve * The aortic valve opens well. * No hemodynamically significant valvular aortic stenosis. * There is no significant aortic regurgitation. Pulmonic Valve * The pulmonary valve is inadequately visualized, but the Doppler data is adequate for interpretation. * Pulmonic stenosis is absent. * There is no significant pulmonary regurgitation. Great Vessels * The aortic root and proximal ascending aorta are normal sized. Pericardium/Pleural * There is no pericardial effusion. Great Vessels * IVC <2.1, <50% change with respiration. Est RA 8 mmHg. MMode 2D Measurements and Calculations IVSd 1.1 cm IVSs 1.3 cm LVIDd 3.7 cm LVIDs 2.4 cm LVPWd 1.0 cm LVPWs 1.4 cm IVS/LVPW 1.1 FS 35.3 % EDV(Teich) 57.4 ml ESV(Teich) 19.8 ml EF(Teich) 65.5 % EDV(cubed) 49.8 ml ESV(cubed) 13.5 ml EF(cubed) 72.9 % % IVS thick 19.3 % % LVPW thick 37.5 % LV mass(C)d 125.4 grams LV mass(C)dI 62.2 grams/m\S\2 LV mass(C)s 103.4 grams LV mass(C)sI 51.3 grams/m\S\2 SV(Teich) 37.6 ml SI(Teich) 18.6 ml/m\S\2 SV(cubed) 36.3 ml SI(cubed) 18.0 ml/m\S\2 Ao root diam 2.8 cm Ao root area 6.3 cm\S\2 ACS 2.0 cm LA dimension 3.0 cm asc Aorta Diam 3.4 cm LA/Ao 1.1 LVAd ap4 24.1 cm\S\2 LVLd ap4 8.2 cm EDV(MOD-sp4) 60.3 ml EDV(sp4-el) 60.4 ml LVAs ap4 9.8 cm\S\2 LVLs ap4 6.1 cm ESV(MOD-sp4) 14.3 ml ESV(sp4-el) 13.3 ml EF(MOD-sp4) 76.3 % EF(sp4-el) 78.1 % LVAd ap2 19.4 cm\S\2 LVLd ap2 7.3 cm EDV(MOD-sp2) 45.0 ml EDV(sp2-el) 43.7 ml LVAs ap2 11.7 cm\S\2 LVLs ap2 6.6 cm ESV(MOD-sp2) 19.9 ml ESV(sp2-el) 17.6 ml EF(MOD-sp2) 55.7 % EF(sp2-el) 59.7 % LVLd %diff -12.06 % EDV(MOD-bp) 54.7 ml LVLs %diff 6.8 % ESV(MOD-bp) 17.2 ml EF(MOD-bp) 68.5 % SV(MOD-sp4) 46.0 ml SI(MOD-sp4) 22.8 ml/m\S\2 SV(MOD-sp2) 25.1 ml SI(MOD-sp2) 12.4 ml/m\S\2 SV(MOD-bp) 37.5 ml SI(MOD-bp) 18.6 ml/m\S\2 SV(sp4-el) 47.1 ml SI(sp4-el) 23.4 ml/m\S\2 SV(sp2-el) 26.1 ml SI(sp2-el) 12.9 ml/m\S\2 Doppler Measurements and Calculations MV E max min 72.0 cm/sec MV A max min 116.5 cm/sec MV E/A 0.62 MV dec time 0.32 sec Ao V2 max 195.8 cm/sec Ao max PG 15.4 mmHg Ao max PG (full) 8.0 mmHg LV V1 max PG 7.4 mmHg LV V1 max 136.3 cm/sec PA V2 max 131.9 cm/sec PA max PG 7.0 mmHg TR max min 266.8 cm/sec
--- NOTE | 2017-07-29 11:25 | SURGERY PROGRESS NOTE ---
DATE: 07/29/2017 Ms. Galvin was seen today and she looks much better. She is on room air with good saturations. She has been ambulating quite a bit. Her pain in her back is better. Her lungs are clear. Her white count is down to 10,540. Her hemoglobin is stable at 13. BUN and creatinine are stable at 18 and 0.81. All normal and I am quite happy with her. I agree with the echocardiogram. At this point, we will follow her up in [address] scan.
--- NOTE | 2017-07-29 12:06 | Pulmonology Progress Note ---
Pulmonary Progress Note Date of Service Jul 29, 2017. Attending Dr. Early Subjective Patient overall is feeling much improved today. She states that her breathing is improved, and she is not having as much pain as she was previously. She continues to some mild cough on an off. Her opioid analgesics were discontinued due to problems with constipation. The patient states she continues to have constipation this morning. I discussed this patient with Dr. Parmar who feels that she likely will be staying overnight to for this concern. Labs reviewed: WBC 10.5 for Creatinine 0.81/BUN 18 Medications reviewed: Levaquin 750 mg daily, DuoNeb, and cyclobenzaprine. ROS otherwise negative Objective VS reviewed: Afebrile HR 102 RR 20 BP 129/76 SaO2 91-93% on room air General: Patient is awake, alert, cooperative, and in no acute distress. Well developed. Well-nourished. Head: Normocephalic, Atraumatic. ENT: PERRLA, No discharge, EOMI, Sclera normal Neck: Normal ROM. Trachea midline. No stridor Respiratory: No adventitious sounds heard on exam. Normal breath sounds. No respiratory distress. No accessory muscle use. Cardiovascular: Regular rate and rhythm. No murmur appreciate. Normal S1/S2. Abdomen: Nontender to palpation. Normal bowel sounds hear throughout. No guarding. Abdomen is soft and nontender Back: Normal inspection. Extremities: 1+ pitting edema of the bilateral lower extremities, no cyanosis. Normal ROM Neuro: Alert, Oriented x 3. CN II-XII grossly intact. Sensation and motor function grossly intact. Psych: Mood and affect are normal. Assessment & Plan Shortness of breath Back pain Coughing Hemoptysis Patient's SOB is improved today. She continues to have some mild right sided back pain which appears to be most likely musculoskeletal in origin. She is now constipated from previous pain medications. Patient is saturating in the low 90s on room air this morning. She will likely need a 2-step prior to discharge to assess ambulatory oxygen needs. Dr. Parmar feels that the patient likely will be here again overnight for constipation problems. Therefore, will also order nocturnal pulse oximetry as previously mentioned by Dr. Morgan for evaluation of nighttime desaturation tonight. Continue current inhaler regimen. Patient's chronic cough may be induced by rhinitis and GERD. May need Simms study in the future or possibly polysomnogram for further evaluation. Continue pain management per primary team. She will need outpatient follow up CT scan to re-evaluate infiltrative process seen in the LLL and lingula in 6-8 weeks. Continue Levaquin x 5 days. Will check procalcitonin. Do not feel that intervention is necessary at this time for pleural effusion. Consider additional testing/intervention if the patient's respiratory status changes. Overall, patient's pulmonary symptoms have improved. She will need follow up in 7-10 days with [facility] following discharge. Data Medications: Current Inpatient Medications Medications (Trade) Dose Ordered Sig/Matt Route Start Time Stop Time Status Last Admin Dose Admin Ioversol (Optiray 320) 100 ml UD PRN IV 07/26/17 13:00 07/30/17 12:59 Alprazolam (Xanax Tab) 0.25 mg Q6H PRN PO 07/26/17 15:45 08/25/17 15:44 07/26/17 20:41 0.25 MG Escitalopram Oxalate (Lexapro Tab) 15 mg QPM PO 07/26/17 21:00 08/25/17 20:59 07/28/17 20:13 15 MG Levothyroxine Sodium (Synthroid Tab) 50 mcg DAILYBB PO 07/27/17 06:30 08/26/17 06:59 07/29/17 06:15 50 MCG Triamterene/HCTZ (Maxzide 37.5/25 Tab) 1 tab QAM PO 07/27/17 08:00 08/26/17 08:59 07/29/17 08:36 1 TAB Pravastatin Sodium (Pravachol Tab) 80 mg QPM PO 07/26/17 21:00 08/25/17 20:59 07/28/17 20:13 80 MG Formoterol Fumarate (Perforomist 20MCG/2ML Neb Soln) 20 mcg BIDR INH 07/26/17 20:00 08/25/17 19:59 07/29/17 07:35 20 MCG Albuterol/ Ipratropium (Duoneb) 3 ml QIDR INH 07/26/17 16:00 08/25/17 15:59 07/29/17 11:34 3 ML Albuterol/ Ipratropium (Duoneb) 3 ml Q2H PRN INH 07/26/17 15:45 08/25/17 15:44 Enoxaparin Sodium (Lovenox Inj) 40 mg Q24H SQ 07/26/17 21:00 08/25/17 20:59 07/28/17 20:14 40 MG Polyethylene (Miralax Powder Packet) 17 gm DAILY PRN PO 07/26/17 16:45 08/25/17 16:44 07/28/17 17:50 17 GM Ondansetron HCl (Zofran Inj) 4 mg Q6H PRN IV 07/26/17 16:45 08/25/17 16:44 07/28/17 23:11 4 MG Oxycodone HCl (Roxicodone Immediate Rel Tab) 10 mg Q6 PRN PO 07/26/17 16:45 08/09/17 16:44 07/28/17 08:01 10 MG Morphine Sulfate (MoRPHine SULFATE INJ) 2 mg Q4H PRN IV 07/26/17 16:45 08/09/17 16:44 07/27/17 00:00 2 MG Morphine Sulfate (MoRPHine SULFATE INJ) 4 mg Q4H PRN IV 07/26/17 16:45 08/09/17 16:44 Ibuprofen (Motrin Tab) 600 mg TIDM PO 07/28/17 12:00 08/27/17 11:59 07/29/17 08:35 600 MG Cyclobenzaprine HCl (Flexeril Tab) 10 mg HS PO 07/28/17 21:00 08/27/17 20:59 07/28/17 20:13 10 MG Pantoprazole Sodium (Protonix Tab) 40 mg QAM PO 07/29/17 08:00 08/28/17 07:59 07/29/17 08:35 40 MG Levofloxacin (Levaquin Tab) 750 mg DAILY@11 PO 07/28/17 11:00 08/01/17 23:59 Future hold Magnesium Hydroxide (Milk Of Magnesia Susp) 30 ml Q6H PRN PO 07/28/17 21:45 08/27/17 21:44 07/28/17 21:44 30 ML Miscellaneous (Soap Suds Enema) 1 ea ONE PRN [place] 07/29/17 09:00 07/29/17 23:59 Vital Signs: Date Time Temp Pulse Resp B/P (MAP) Pulse Ox O2 Delivery O2 Flow Rate FiO2 07/29/17 11:34 74 16 91 Room Air 07/29/17 11:12 36.9 71 18 104/70 (81) 95 Room Air 07/29/17 09:51 Room Air 07/29/17 07:35 65 16 97 Nasal Cannula 2.0 07/29/17 07:20 36.8 71 18 105/69 (81) 97 Nasal Cannula 2.0 07/29/17 04:49 36.7 71 19 108/70 (83) 97 Nasal Cannula 2.0 07/28/17 22:47 36.9 88 19 117/74 (88) 97 Nasal Cannula 2.0 07/28/17 20:00 95 Nasal Cannula 2.0 07/28/17 19:33 82 18 95 Nasal Cannula 2.0 07/28/17 18:59 36.8 92 18 122/81 (95) 92 Room Air 07/28/17 16:30 Room Air 2.0 Nasal Cannula 07/28/17 15:35 36.4 82 16 131/79 (96) 96 Nasal Cannula 2.0 07/28/17 15:20 74 16 94 Nasal Cannula 2.0 Laboratory Results: Last 24 Hours Test 07/29/17 07:15 White Blood Count 10.54 K/uL Red Blood Count 4.40 M/uL Hemoglobin 13.0 g/dL Hematocrit 38.8 % Mean Corpuscular Volume 88.2 fL Mean Corpuscular Hemoglobin 29.5 pg Mean Corpuscular Hemoglobin Concent 33.5 g/dl RDW Standard Deviation 43.4 fL RDW Coefficient of Variation 13.5 % Platelet Count 207 K/uL Mean Platelet Volume 11.1 fL Sodium Level 135 mmol/L Potassium Level 4.2 mmol/L Chloride Level 100 mmol/L Carbon Dioxide Level 28 mmol/L Anion Gap 7.0 mmol/L Blood Urea Nitrogen 18 mg/dl Creatinine 0.81 mg/dl Est Creatinine Clear Calc Drug Dose 69.7 ml/min Estimated GFR () 82.9 Estimated GFR (Non- 71.5 BUN/Creatinine Ratio 22.6 Random Glucose 120 mg/dl Calcium Level 8.8 mg/dl
[2017-07-29] MEDS: POLYETHYLENE (MIRALAX) 17 GM PACK PO PRN (12:17)
[2017-07-29] MEDS ORDERED: MTR600 PO (15:36)
[2017-07-29] MEDS ORDERED: LVQ750 PO (15:36)
[2017-07-29] MEDS ORDERED: FLX10 PO (15:36)
[2017-07-29] MEDS ORDERED: PRT40 PO (15:38)
--- NOTE | 2017-07-29 15:44 | Discharge Instructions ---
Discharge Instructions Date of Service Jul 29, 2017. Admission Reason for Admission: Pna, Pneumonia Discharge Discharge Diagnosis / Problem: Pneumonia Discharge Goals Goal(s): Decrease discomfort, Improve function, Diagnostic testing, Therapeutic intervention Activity Recommendations Activity Limitations: resume your previous activity (as tolerated) . Instructions / Follow-Up Instructions / Follow-Up You were admitted to the hospital after presenting with difficulty breathing and coughing up blood. You were found to have pneumonia. You were initially treated with IV antibiotics, but you have since been switched over to an oral antibiotic. You have also been started on medications to help with your back pain. As your breathing has improved, you are now medically stable for discharge. You may use your home oxygen as needed and will follow up with pulmonology for further testing. Medications: *Please take Levaquin (levofloxacin) 750 mg by mouth once daily x 1 more day to complete your antibiotic course. Please take this last dose on 07/30 *You may take ibuprofen 600 mg by mouth three times a day as needed for back pain. *Please take Protonix (pantoprazole) 40 mg by mouth daily while on ibuprofen to protect your GI tract. *You may also take Flexeril (cyclobenzaprine) 10 mg by mouth at nighttime as needed for back pain/spasm. *Continue your home medications as prescribed. Follow up: *You will be scheduled to follow up with your primary care provider, pulmonology , and cardiothoracic surgery. Please seek medical attention if you experience fevers, chills, sweats, dizziness/lightheadedness, loss of consciousness, chest pain, shortness of breath, nausea, vomiting, numbness or tingling. Current Hospital Diet Patient's current hospital diet: Regular Diet Discharge Diet Recommended Diet: Regular Diet Pending Studies Studies pending at discharge: no Medical Emergencies . Who to Call and When: Medical Emergencies: If at any time you feel your situation is an emergency, please call 911 immediately. . Non-Emergent Contact Non-Emergency issues call your: Primary Care Provider, Guest Relations Receptionist, Surgeon ( cardiothoracic surgeon) Call Non-Emergent contact if: you have a fever, your pain is not controlled, your pain is worsening, your pain is unusual for you, your pain is concerning you, you have any medication questions . Past History Medical & Surgical History: (1) PNA (pneumonia) . "Provider Documentation" section prepared by Meenu Bocanegra. . VTE Core Measure Inpt VTE Proph given/why not?: Enoxaparin (Lovenox)SQ
--- NOTE | 2017-07-29 16:25 | Progress Note ---
Progress Note Date of Service Jul 29, 2017. Progress Note possible Chronic respiratory failure with hypoxia, possible Gram-negative pneumonia
--- NOTE | 2017-07-29 16:32 | Discharge Summary ---
Discharge Summary Date of Service Jul 29, 2017. Discharge Summary Admission Date: Jul 26, 2017 at 16:40 Discharge Date: Jul 29, 2017 Discharge Disposition: Home Principal Diagnosis: Pneumonia Immunizations: Have You Had Influenza Vaccine: Unknown Procedures: (CHEST FOR PE) ANGIO WITH CT DOSE: 397.53 mGy.cm HISTORY: Chest pain dyspnea TECHNIQUE: Multiaxial CT images of the chest were performed following the intravenous administration of contrast to evaluate the pulmonary arteries. Maximal intensity projection images were also obtained. A dose lowering technique was utilized adhering to the principles of ALARA. COMPARISON STUDY: 01/18/2017 FINDINGS: Interval resection of the previously described nodule right upper lung. Enhancement characteristics of the pulmonary vasculature is unremarkable. No major filling defects are identified. Moderate atherosclerotic change thoracic aorta. Small bilateral pleural effusions. Mild bibasilar infiltrative/atelectatic changes. Mid to upper lungs are considered clear. IMPRESSION: 1. No evidence for pulmonary embolus. 2. Postoperative changes consistent with a resection of a right upper lung nodule. 3. Interval development of bibasilar parenchymal infiltrates combined with a small right and to lesser extent left pleural effusion. THORACIC SPINE 2-VIEWS CLINICAL HISTORY: Evaluate for compression fracture. COMPARISON STUDY: Chest radiograph March 14, 2017. FINDINGS: Alignment of the thoracic spine is anatomic. Vertebral body heights are maintained. There is no thoracic spine fracture. Disc spaces are preserved. There is mild endplate osteophytosis. A right pleural effusion and bibasilar opacities are better depicted on prior chest CT. Postoperative findings within the right lung are noted. IMPRESSION: 1. No thoracic spine fracture or subluxation. 2. Postoperative findings within the right lung, a small right pleural effusion and bibasilar opacities which are better depicted on chest CT performed earlier today. CHEST DECUBS 2 views CLINICAL HISTORY: Pleural effusions COMPARISON STUDY: CT scan dated 07/26/2017 FINDINGS: There are minimal left basilar airspace opacities, atelectatic versus inflammatory. There is a small right lateral effusion which appears partially loculated. There is a trace left pleural effusion IMPRESSION: 1. Small right pleural effusion which is likely partially loculated. Only minimal layering is visualized. 2. Minimal left basal airspace opacities, atelectatic versus inflammatory Echocardiogram: Interpretation Summary * Name: ALON CHEN Study Date: 07/28/2017 01:44 PM BP: 97/62 mmHg * Patient Location: .[id number]\E418\S\1 HR: 76 * : 1940 (M/d/yyyy) Gender: Female Height: 65 in * Age: 76 yrs Ethnicity: CA Weight: 209 lb * Ordering Physician: Chinedu Morgan * Referring Physician: Self, Referred * Performed By: Linnea Rome RDCS * * Reason For Study: Dyspnea * BSA: 2.0 m2 * -- Conclusions -- * 1. Normal LV size, borderline concentric LVH. * 2. Normal LVEF 65-70%. No regional wall motion abnormalities. * 3. Normal RV size and function. * 4. Mild dynamic LVOT obstruction (Max PG 13 mmHg with valsalva). * 5. No significant valvular pathology. * 6. Pulmonary hypertension. Est PASP 45-50 mmHg. Est RA 8 mmHg. * 7. No prior studies for comparison. Procedure Details * A complete two-dimensional transthoracic echocardiogram was performed (2D, M-mode, Doppler and color flow Doppler). * The study was technically difficult. * The study was technically difficult, but visualization was adequate with the administration of Definity ultrasound contrast. * There were technical limitations due to patient'sbody habitus * A contrast injection of Definity was performed to improve assessment of LV function. * Contrast was injected into an intravenous site in the right arm. * One vial of Definity ultrasound contrast was diluted in normal saline to a total volume of 10 ml. A total of '2' ml of solution was administered during imaging. * Lot # [id number] of Definity utilized for procedure. * Expiration date 1D. * The attending nurse who injected the contrast agent was Tiny Lopez RN. Left Ventricle * The left ventricle is normal in size. * The echo findings are consistent with left ventricular outflow obstruction. * There is borderline concentric left ventricular hypertrophy. * Ejection Fraction = 65-70%. * No regional wall motion abnormalities noted. Right Ventricle * The right ventricle is grossly normal size. * The right ventricular systolic function is normal as assessed by tricuspid annular plane systolic excursion (TAPSE) (normal >1.5 cm). Atria * The left atrial size is normal. * Right atrial size is normal. * No ASD detected; PFO is not assessed. Mitral Valve * The mitral valve is grossly normal. * There is no mitral valve stenosis. * There is trace mitral regurgitation. Tricuspid Valve * There is trace tricuspid regurgitation. * Right ventricular systolic pressure is elevated at 40-50mmHg. Aortic Valve * The aortic valve opens well. * No hemodynamically significant valvular aortic stenosis. * There is no significant aortic regurgitation. Pulmonic Valve * The pulmonary valve is inadequately visualized, but the Doppler data is adequate for interpretation. * Pulmonic stenosis is absent. * There is no significant pulmonary regurgitation. Great Vessels * The aortic root and proximal ascending aorta are normal sized. Pericardium/Pleural * There is no pericardial effusion. Great Vessels * IVC <2.1, <50% change with respiration. Est RA 8 mmHg. Consultations: Pulmonology Cardiothoracic surgery Medication Reconciliation New Medications: Cyclobenzaprine HCl (Cyclobenzaprine HCl) 10 Mg Tab 10 MG PO HS PRN for Pain for 30 Days, #30 TAB Ibuprofen (Ibuprofen) 600 Mg Tab 600 MG PO TIDM PRN for Pain for 30 Days, #90 TAB Levofloxacin (Levofloxacin) 750 Mg Tab 750 MG PO DAILY@11 for 1 Day, #1 TAB Pantoprazole (Pantoprazole Sodium) 40 Mg Tab 40 MG PO QAM for 30 Days, #30 TAB Continued Medications: Albuterol Sulfate (Proair Respiclick) 108 Mcg/Act Aer 2 PUFF INH Q4 PRN for SOB/Wheezing Alprazolam (Xanax) 0.25 Mg Tab 0.25 MG PO PRN for Anxiety, TAB Ascorbic Acid (Vitamin C) 500 Mg Tab 1 TAB PO QPM Budesonide/Formoterol Fumarate (Symbicort 80/4.5 Inhaler) Aero 2 PUFFS INH BID, INHALER Cholecalciferol (Vitamin D) 2,000 Unit Tab 2000 MG PO QPM Escitalopram (Lexapro) 10 Mg Tab 15 MG PO QPM, TAB Fluocinonide (Fluocinonide) 0.05 % Stephy 1 APPLN TOP DAILY PRN for PRN for 30 Days, #60 ML 2 Refills Fluticasone Prop/Salmeterol (Advair Diskus 100/50 60 Dose) 1 Ea Aerp 1 PUFF INH BID PRN for PRN, INHALER Levothyroxine Sodium (Synthroid) 50 Mcg Tab 50 MCG PO QAM, TAB Pravastatin Sodium (Pravastatin Sodium) 80 Mg Tab 80 MG PO QPM Triamterene/Hctz (Triamterene/Hctz 37.5-25MG) 1 Tab Tab 1 TAB PO QAM, TAB Discharge Exam Patient reports feeling well and is ready to go home. She had been complaining of constipation overnight but did have a small bowel movement this morning. She complains of dyspnea on exertion but is feeling well at rest. She does have a cough that today was productive. The patient denies fevers, chills, sweats, chest pain, palpitations, claudication, wheezing, shortness of breath at rest, nausea, vomiting, abdominal pain, dysuria, hematuria, urinary retention , paralysis, weakness, numbness and tingling. Review of Systems: Constitutional: No fever, No chills, No sweats Eyes: No worsening of vision, No eye pain, No diplopia ENT: No hearing loss, No nasal symptoms, No trouble swallowing Respiratory: + dyspnea on exertion, No cough, No wheezing, No dyspnea at rest Cardiovascular: No chest pain, No claudication, No palpitations Abdomen: No pain, No nausea, No vomiting Musculoskeletal: No joint pain, No muscle pain, No calf pain Genitourinary - Male: No hematuria, No dysuria, No urinary retention Neurologic: No paralysis, No weakness, No numbness/tingling Integumentary: No rash, No itch, No color change Physical Exam: General Appearance: WD/WN, no apparent distress, + obese Eyes: normal inspection, PERRL, EOMI ENT: normal ENT inspection, hearing grossly normal, pharynx normal Neck: supple, no JVD, trachea midline Respiratory/Chest: lungs clear, normal breath sounds, no respiratory distress Cardiovascular: regular rate, rhythm, no gallop, no murmur Abdomen / GI: normal bowel sounds, soft, + tenderness (LLQ mildly TTP) Extremities: normal inspection, no calf tenderness, no pedal edema Neurologic/Psychiatric: alert, normal mood/affect, oriented x 3 Skin: normal color, warm/dry, no rash Hospital Course 76 y/o female with a history of lung cancer s/p curative lobectomy, HTN, HLD, COPD, hypothyroidism, depression/anxiety, and GERD who presents with dyspnea and hemoptysis. Bibasilar PNA--improving -Leukocytosis continues to improve, down to 10k -D/C with Levaquin 750 mg PO qd x 1 more day, 4 days completed while inpt -Pt has home oxygen, can use prn -F/u with pulmonology. Will have nocturnal desaturation study as outpt Bilateral pleural effusions, h/o lung cancer s/p lobectomy--stable -Cardiothoracic surgery consulted, no intervention at this time for effusions -F/u in 6 months Right back pain, likely musculoskeletal or maybe spasms--stable -D/C with ibuprofen 600 mg PO TIDM prn and Flexeril 10 mg PO hs prn pain/spasm -Protonix 40 mg PO qd while on ibuprofen for GI prophylaxis -Chest CT and thoracic spine x-ray negative for fractures, no bony mets HTN, HLD--stable -Continue triamterene/HCTZ 37.5/25 mg PO qd and pravastatin 80 mg PO qd COPD--stable, no exacerbation -Continue Symbicort 2 puffs inh BID, Advair BID Hypothyroidism -Continue Synthroid 50 mcg PO qd Depression, anxiety -Continue Lexapro 15 mg PO qd and Xanax 0.25 mg PO qd prn anxiety GERD -PPI as above DVT prophylaxis -Enoxaparin 40 mg SC q24h Code Status -Level I, FULL RESUSCITATION STATUS Total Time Spent: Greater than 30 minutes This includes examination of the patient, discharge planning, medication reconciliation, and communication with other providers. Discharge Instructions Please refer to the electronic Patient Visit Report (Discharge Instructions) for additional information. Additional Copies To Basilio Fuentes M.D.
== END 2017-07-29 17:43 | disposition home or self-care (01) | DRG 178 ==
LOC: C.EDB 12:13 → C.4E 16:40 → ENRESERV 16:50
PROVIDERS: ADMIT Internal Medicine; ATTEND Hospitalist
DX: J15.6 Pneumonia due to other Gram-negative bacteria (principal); J96.11 Chronic respiratory failure with hypoxia; R04.2 Hemoptysis; M62.830 Muscle spasm of back; J45.909 Unspecified asthma, uncomplicated; E78.5 Hyperlipidemia, unspecified; I10 Essential (primary) hypertension; E03.9 Hypothyroidism, unspecified; F32.9 Major depressive disorder, single episode, unspecified; F41.9 Anxiety disorder, unspecified; E66.9 Obesity, unspecified; Z51.81 Encounter for therapeutic drug level monitoring; Z79.899 Other long term (current) drug therapy; Z99.81 Dependence on supplemental oxygen; Z98.890 Other specified postprocedural states; Z85.118 Personal history of other malignant neoplasm of bronchus and lung; Z68.35 Body mass index [BMI] 35.0-35.9, adult

== ENCOUNTER → 2017-08-14 | Outpatient (CLI) | payer OTHER, MEDICARE ==
[~2017-08-14] MED LIST changes: +FLX10 PO; +LVQ750 PO; +MTR600 PO; +PRT40 PO
--- NOTE | 2017-08-14 12:28 | DIAGNOSTIC IMAGING REPORT ---
CHEST 2 VIEWS ROUTINE CLINICAL HISTORY: R06.02 Shortness of [id number] COMPARISON STUDY: 07/27/2017 FINDINGS: The cardiac and mediastinal contours are normal. There is no evidence of focal pulmonary consolidation. There is no evidence of failure. No pleural effusions are visualized.[ There is mild tenting of the right hemidiaphragm. Postsurgical changes are present on the right. IMPRESSION: No active disease in the chest. Electronically signed by: Andrew Lewis M.D. 08/14/2017 12:26 PM Dictated Date/Time: 08/14/2017 12:26 PM
[2017-08-14 13:23] LABS: BASO % 0.3 %; BASO ABS # 0.02 K/uL (0-0.2); COMPLETE YES; EOS % 2.2 %; HEMATOCRIT 44.3 % (37-47); IG% 0.3 %; LYMPH % 29.7 %; LYMPH ABS # 1.86 K/uL (1.2-3.4); MEAN CELL VOLUME 87.7 fL (80-100); MEAN CORPUSCULAR HEMOGLOBIN 29.3 pg (25-34); MEAN CORPUSCULAR HGB CONC 33.4 g/dl (32-36); MEAN PLATELET VOLUME 11.9 fL (7.4-10.4); MONO % 9.4 %; NEUT % 58.1 %; PLATELET COUNT 269 K/uL (130-400); RED BLOOD COUNT 5.05 M/uL (4.2-5.4); WHITE BLOOD COUNT 6.26 K/uL (4.8-10.8)
[2017-08-14 13:52] LABS: BLOOD UREA NITROGEN 17 mg/dl (7-18); BUN/CREATININE RATIO 23.6 (10-20); CALCIUM 9.4 mg/dl (8.5-10.1); CARBON DIOXIDE 30 mmol/L (21-32); CHLORIDE 102 mmol/L (98-107); CREATININE 0.73 mg/dl (0.60-1.20); GLUCOSE 86 mg/dl (70-99); POTASSIUM 3.7 mmol/L (3.5-5.1); SODIUM 138 mmol/L (136-145)
== END | disposition home or self-care (01) ==
LOC: C.RAD1850 12:06
PROVIDERS: ATTEND Physician Assistant
DX: R06.02 Shortness of breath (principal)

== ENCOUNTER → 2017-10-04 | Outpatient (CLI) | payer OTHER, MEDICARE ==
[~2017-10-04] MED LIST changes: +OPTIRAY 320 IV PRN
--- NOTE | 2017-10-04 13:47 | DIAGNOSTIC IMAGING REPORT ---
CT SCAN OF THE CHEST WITH IV CONTRAST CLINICAL HISTORY: Adenocarcinoma. COMPARISON STUDY: Chest CT scans dated 07/26/2017 and 01/18/2017. TECHNIQUE: Following the IV administration of 94 cc of Optiray 320, CT scan of the thorax was performed from the thoracic inlet to the upper abdomen. Images are reviewed in the axial, sagittal, and coronal planes. IV contrast was administered without complication. A dose lowering technique was utilized adhering to the principles of ALARA. CT DOSE: 392.65 mGy.cm FINDINGS: Thyroid: Imaged portions of the thyroid gland are normal in size and attenuation. Thoracic aorta: There is mild atherosclerotic calcification of the thoracic aorta, which is normal in caliber and demonstrates standard 3-vessel arch anatomy. No dissection is seen. Pulmonary vasculature: The pulmonary trunk is normal in caliber. There are no filling defects identified in the central pulmonary vessels to indicate pulmonary embolus. Note that this examination was not protocoled for evaluation of the pulmonary arteries. Heart: The heart is mildly enlarged and without pericardial effusion. There are scattered coronary artery calcifications. Lungs and pleural spaces: There are postoperative changes from right upper lobe resection. No airspace consolidation or pleural effusion is identified. The trachea and central airways are clear. Dependent atelectasis is noted. A calcified granuloma seen in the right lower lobe. Mediastinum: There are numerous subcentimeter mediastinal lymph nodes. These are not pathologically enlarged by size criteria. Yoanna: Clear. Axillae: There is no axillary lymphadenopathy. Upper abdomen: The liver appears steatotic. A tiny hiatal hernia is identified. Partially visualized upper abdominal viscera is within normal limits. Skeletal structures: The skeletal structures are osteopenic. No lytic or blastic bony lesions are seen. IMPRESSION: 1. There are postoperative changes from right upper lobe resection. 2. There is no evidence of recurrent or metastatic disease in the thorax. 3. No airspace consolidation or pleural effusion is identified. 4. Mild cardiac enlargement. 5. Additional findings as above. Electronically signed by: Haroldo Gipson M.D. 10/04/2017 1:45 PM Dictated Date/Time: 10/04/2017 1:40 PM
== END | disposition home or self-care (01) ==
LOC: C.CTS 13:06
PROVIDERS: ATTEND Physician Assistant
DX: G47.34 Idiopathic sleep related nonobstructive alveolar hypoventilation (principal); J18.9 Pneumonia, unspecified organism; Z90.2 Acquired absence of lung [part of]

== ENCOUNTER → 2017-11-13 | Outpatient (CLI) | payer OTHER, MEDICARE ==
[~2017-11-13] MED LIST changes: -OPTIRAY 320 IV PRN
--- NOTE | 2017-11-13 14:47 | DIAGNOSTIC IMAGING REPORT ---
CHEST 2 VIEWS ROUTINE HISTORY: 77 years-old Female R05 acute cough COMPARISON: Chest radiographs 08/14/2017, chest CT 10/04/2017 TECHNIQUE: PA and lateral views of the chest. FINDINGS: Postsurgical surgical changes about the right hilum. Unchanged right hemidiaphragmatic elevation with linear subsegmental bibasilar opacities suggesting atelectasis or scarring. Cardiomediastinal and hilar silhouettes are within normal limits. Atherosclerosis of the aorta. No pneumothorax, pleural effusion, focal airspace consolidation or overt pulmonary edema. Bones of the chest appear grossly intact. Postsurgical changes of the distal right clavicle. IMPRESSION: No acute process. The above report was generated using voice recognition software. It may contain grammatical, syntax or spelling errors. Electronically signed by: Ravi Saldivar M.D. 11/13/2017 2:45 PM Dictated Date/Time: 11/13/2017 2:44 PM
== END | disposition home or self-care (01) ==
LOC: C.RAD1850 14:17
PROVIDERS: ATTEND Physician Assistant
DX: R05 Cough (principal)

== ENCOUNTER 2018-02-01 18:06 | Emergency (ER) | payer OTHER, MEDICARE ==
[~2018-02-01] VITALS: Ht 165.1 cm; Wt 100.0 kg
[2018-02-01 18:08] VITALS: TEMP 37; Ht 165.1 cm; Wt 100.0 kg
[2018-02-01] MEDS ORDERED: SODIUM CHLORIDE 0.9% 1000ML 1,000 ML IV STA (18:24)
[2018-02-01] MEDS ORDERED: BENZONATATE 100MG CAP PO ONE (18:30)
[2018-02-01] MEDS ORDERED: XNX25 (18:35)
[2018-02-01] MEDS ORDERED: AMOX500C3 PO (18:35)
[2018-02-01 18:53] LABS: BASO % 0.2 %; BASO ABS # 0.01 K/uL (0-0.2); EOS % 1.4 %; EOS ABS # 0.07 K/uL (0-0.5); HEMATOCRIT 39.9 % (37-47); HEMOGLOBIN 13.8 g/dL (12.0-16.0); IG# 0.01 K/uL (0.00-0.02); LYMPH % 33.1 %; LYMPH ABS # 1.61 K/uL (1.2-3.4); MEAN CELL VOLUME 87.7 fL (80-100); MEAN CORPUSCULAR HEMOGLOBIN 30.3 pg (25-34); MEAN CORPUSCULAR HGB CONC 34.6 g/dl (32-36); MEAN PLATELET VOLUME 11.4 fL (7.4-10.4); MONO % 9.9 %; MONO ABS # 0.48 K/uL (0.11-0.59); NEUT % 55.2 %; NEUT ABS # 2.69 K/uL (1.4-6.5); PLATELET COUNT 175 K/uL (130-400); RED CELL DISTRIBUTION WIDTH CV 13.5 % (11.5-14.5); RED CELL DISTRIBUTION WIDTH SD 43.1 fL (36.4-46.3); WHITE BLOOD COUNT 4.87 K/uL (4.8-10.8)
[2018-02-01 19:12] LABS: BLOOD UREA NITROGEN 14 mg/dl (7-18); CALCIUM 8.7 mg/dl (8.5-10.1); CARBON DIOXIDE 27 mmol/L (21-32); CREATININE 1.02 mg/dl (0.60-1.20); GLUCOSE 114 mg/dl (70-99); POTASSIUM 3.5 mmol/L (3.5-5.1); SODIUM 141 mmol/L (136-145)
[2018-02-01] MEDS ORDERED: SYMIN160 INH (19:18)
--- NOTE | 2018-02-01 19:41 | DIAGNOSTIC IMAGING REPORT ---
CHEST 2 VIEWS ROUTINE CLINICAL HISTORY: Cough. COMPARISON STUDY: Chest CT October 04, 2017 and chest radiograph November 13, 2017. FINDINGS: Postoperative findings within the right hemithorax are unchanged. There is no consolidation to suggest pneumonia and there is no evidence for pulmonary edema. Note is made of mild to moderate cardiomegaly. No pneumothorax or pleural effusion is noted. Appearance of the chest is unchanged. IMPRESSION: No acute cardiopulmonary findings. No change in appearance of the chest. Electronically signed by: Delmar Mosley M.D. 02/01/2018 7:40 PM Dictated Date/Time: 02/01/2018 7:37 PM
[2018-02-01 20:24] VITALS: BP 135/82; PULSE 61; O2SAT 94
--- NOTE | 2018-02-02 00:11 | EMERGENCY ROOM VISIT NOTE ---
History Report prepared by Padminiibne: Jackie Hutchinson Under the Supervision of: Dr. Delfino Garcia D.O. First contact with patient: 18:14 Chief Complaint: RESPIRATORY PROBLEMS Stated Complaint: POSSIBLE PNEUMONIA, COUGH HURING BACK-PAIN History of Present Illness The patient is a 77 year old female who presents to the Emergency Room with complaints of worsening respiratory problems for the past 3 days. She reports she had a right lobectomy by Dr. Burgos last year for a history of lung cancer. Last fall, she developed double pneumonia. A few days ago, she started experiencing a sore throat and productive cough. She was placed on Amoxicillin 2 days ago but doesn't think it's provided any improvement. Her breathing has worsened over the past few days and she also complains of back pain and a headache. She denies any history of PE's or DVT's and does not take daily blood thinners. Pt denies headache, change in vision, fevers, chest pain, nausea, vomiting, diarrhea, pain with urination, and melena. Source of History: patient Onset: 3 days [employer] Position: chest Timing: worsening Associated Symptoms: + sorethroat, + cough, No fevers, No headache, No chest pain, No nausea, No vomiting, No melena, No diarrhea, No urinary symptoms Review of Systems See HPI for pertinent positives & negatives. A total of 10 systems reviewed and were otherwise negative. Past Medical & Surgical Medical Problems: (1) Anxiety and depression (2) Asthma (3) Pneumonia Surgical Problems: (1) History of lobectomy of lung Social History Smoking Status: Never Smoker Alcohol Use: none Drug Use: none Marital Status: Housing Status: lives with family Occupation Status: retired Current/Historical Medications Scheduled Amoxicillin (Amoxil), 500 MG PO TID Budesonide/Formoterol Fumarate (Symbicort 160/4.5 Inhaler), 2 PUFF INH BID Cholecalciferol (Vitamin D), 2,000 UNITS PO QPM Escitalopram (Lexapro), 15 MG PO QPM Levothyroxine Sodium (Synthroid), 50 MCG PO QAM Pantoprazole (Pantoprazole Sodium), 40 MG PO QAM Pravastatin Sodium (Pravastatin Sodium), 80 MG PO QPM Triamterene/Hctz (Triamterene/Hctz 37.5-25MG), 1 TAB PO QAM Scheduled PRN Albuterol Sulfate (Proair Respiclick), 2 PUFF INH Q4 PRN for SOB/Wheezing Alprazolam (Xanax), 0.25 MG PO for Anxiety Cyclobenzaprine HCl (Cyclobenzaprine HCl), 10 MG PO HS PRN for Pain Fluocinonide (Fluocinonide), 1 APPLN TOP DAILY PRN for PRN Allergies Coded Allergies: Acetaminophen (Verified Allergy, Unknown, UNKNOWN REACTION, 07/26/17) PER PCP RECORDS Atorvastatin (Verified Allergy, Unknown, UNKNOWN REACTION, 07/26/17) PER PCP RECORDS Doxycycline (Verified Allergy, Unknown, UNKNOWN REACTION, 07/26/17) PER PCP RECORDS Propoxyphene (Verified Allergy, Unknown, UNKNOWN REACTION, 07/26/17) PER PCP RECORDS Simvastatin (Verified Allergy, Unknown, UNKNOWN REACTION, 07/26/17) PER PCP RECORDS Azithromycin (Verified Adverse Reaction, Intermediate, SEVERE GI UPSET, ) Codeine (Verified Adverse Reaction, Mild, PATIENT STATES IT MAKES HER "GOOFY" AND NAUSEATED, 03/05/17) Physical Exam Vital Signs Date Time Temp Pulse Resp B/P (MAP) Pulse Ox O2 Delivery O2 Flow Rate FiO2 02/01/18 20:24 61 18 135/82 94 Room Air 02/01/18 19:20 65 20 142/80 96 Room Air 02/01/18 18:08 37.0 83 18 143/64 95 Room Air Physical Exam GENERAL: Sitting up in bed, alert, with dry, non-productive cough, well nourished, no distress, non-toxic EYE EXAM: normal conjunctiva. OROPHARYNX: no exudate, no erythema, lips, buccal mucosa, and tongue normal and mucous membranes are moist HEAD: Tenderness over frontal and maxillary sinuses NECK: supple, no nuchal rigidity, no adenopathy, non-tender LUNGS: Clear to auscultation. Normal chest wall mechanics HEART: no murmurs, S1 normal and S2 normal ABDOMEN: abdomen soft, non-tender, normo-active bowel sounds, no masses, no rebound or guarding. BACK: Back is symmetrical on inspection and there is no deformity, acute reproducible tenderness in right mid paraspinal and thoracic region. SKIN: no rashes and no bruising UPPER EXTREMITIES: upper extremities are grossly normal. LOWER EXTREMITIES: No pitting edema. Calves are equal bilaterally. NEURO EXAM: Normal sensorium, cranial nerves II-XII grossly intact, normal speech, no gross weakness of arms, no gross weakness of legs. Gross sensation intact. Medical Decision & Procedures ER Provider Diagnostic Interpretation: Radiology results as stated below per my review and the radiologist's interpretation: CHEST 2 VIEWS ROUTINE CLINICAL HISTORY: Cough. COMPARISON STUDY: Chest CT October 04, 2017 and chest radiograph November 13, 2017. FINDINGS: Postoperative findings within the right hemithorax are unchanged. There is no consolidation to suggest pneumonia and there is no evidence for pulmonary edema. Note is made of mild to moderate cardiomegaly. No pneumothorax or pleural effusion is noted. Appearance of the chest is unchanged. IMPRESSION: No acute cardiopulmonary findings. No change in appearance of the chest. Electronically signed by: Delmar Mosley M.D. 02/01/2018 7:40 PM Laboratory Results 02/01/18 18:40 Red Blood Count 4.55, Mean Corpuscular Volume 87.7, Mean Corpuscular Hemoglobin 30.3, Mean Corpuscular Hemoglobin Concent 34.6, Mean Platelet Volume 11.4, Neutrophils (%) (Auto) 55.2, Lymphocytes (%) (Auto) 33.1, Monocytes (%) (Auto) 9.9, Eosinophils (%) (Auto) 1.4, Basophils (%) (Auto) 0.2, Neutrophils # (Auto) 2.69, Lymphocytes # (Auto) 1.61, Monocytes # (Auto) 0.48, Eosinophils # (Auto) 0.07, Basophils # (Auto) 0.01 02/01/18 18:40 Test 02/01/18 18:40 White Blood Count 4.87 K/uL (4.8-10.8) Red Blood Count 4.55 M/uL (4.2-5.4) Hemoglobin 13.8 g/dL (12.0-16.0) Hematocrit 39.9 % (37-47) Mean Corpuscular Volume 87.7 fL (80-100) Mean Corpuscular Hemoglobin 30.3 pg (25-34) Mean Corpuscular Hemoglobin Concent 34.6 g/dl (32-36) Platelet Count 175 K/uL (130-400) Mean Platelet Volume 11.4 fL (7.4-10.4) Neutrophils (%) (Auto) 55.2 % Lymphocytes (%) (Auto) 33.1 % Monocytes (%) (Auto) 9.9 % Eosinophils (%) (Auto) 1.4 % Basophils (%) (Auto) 0.2 % Neutrophils # (Auto) 2.69 K/uL (1.4-6.5) Lymphocytes # (Auto) 1.61 K/uL (1.2-3.4) Monocytes # (Auto) 0.48 K/uL (0.11-0.59) Eosinophils # (Auto) 0.07 K/uL (0-0.5) Basophils # (Auto) 0.01 K/uL (0-0.2) RDW Standard Deviation 43.1 fL (36.4-46.3) RDW Coefficient of Variation 13.5 % (11.5-14.5) Immature Granulocyte % (Auto) 0.2 % Immature Granulocyte # (Auto) 0.01 K/uL (0.00-0.02) D-Dimer 400 ug/L FEU (0-500) Anion Gap 6.0 mmol/L (3-11) Est Creatinine Clear Calc Drug Dose 55.8 ml/min Estimated GFR () 62.3 Estimated GFR (Non- 53.8 BUN/Creatinine Ratio 13.6 (10-20) Calcium Level 8.7 mg/dl (8.5-10.1) Troponin I < 0.015 ng/ml (0-0.045) Medications Administered Medications (Trade) Dose Ordered Sig/Matt Route Start Time Stop Time Status Last Admin Dose Admin Benzonatate (Tessalon Perles Cap) 100 mg NOW ONCE PO 02/01/18 18:30 02/01/18 18:31 DC 02/01/18 18:43 100 MG Sodium Chloride 1,000 ml @ 999 mls/hr Q1H1M STAT IV 02/01/18 18:24 02/01/18 19:24 DC 02/01/18 18:44 999 MLS/HR ECG Per My Interpretation Indication: SOB/dyspnea Rate (beats per minute): 62 Rhythm: sinus rhythm Findings: no ectopy, other (normal axis) ED Course ED COURSE: Vital signs were reviewed and showed normal vital signs The patients medical record was reviewed The above diagnostic studies were performed and reviewed. ED treatments and interventions as stated above. 1819: The patient was evaluated in room C9. A complete history and physical examination was performed. 1823: NSS 1000 ml @ 999 mls/hr IV. 1829: Benzonatate 100 mg PO. 2052: Upon reevaluation, the patient is resting comfortably and ready to go home. I discussed my findings with the patient and she understands and agrees with the treatment plan. Based on the patients age, coexisting illnesses, exam and lab findings the decision to treat as an outpatient was made. The patient remained stable while under my care. The patient appeared well at the time of discharge. Medical Decision Differential diagnoses includes but is not limited to pneumonia, bronchitis, COPD/Asthma exacerbation, pneumothorax, pulmonary embolism, congestive heart failure, acute coronary syndrome. Patient is a 77-year-old female who presents the ER for sore throat associated with a yellow productive cough which is been present since this past Saturday. Patient was placed on amoxicillin at that time. She has some pain in her right upper thoracic back which is reproducible on exam. CBC along with BMP and troponin was unremarkable. Pain has been present for greater than 8 hours in her back. D-dimer was negative. Chest x-ray shows no infiltrate. Patient was updated at bedside. Vitals were stable. She was discharged to follow-up with PCP as an outpatient for weekly viral URI and encouraged to continue and complete her course of amoxicillin. Discussed with Pt concerning signs and symptoms to watch out for. Pt was instructed to follow up with their PCP and discussed with the patient their option to return to the ED at anytime for persistent or worsening symptoms. The appropriate anticipatory guidance and out- patient management, including indications for return to the emergency department , were explained at length to the patient and understood. Medication Reconcilliation Current Medication List: was personally reviewed by me Blood Pressure Screening Patient's blood pressure: Elevated blood pressure Blood pressure disposition: Referred to PCP Impression Primary Impression: Viral URI with cough Additional Impression: Musculoskeletal back pain Scribe Attestation The scribe's documentation has been prepared under my direction and personally reviewed by me in its entirety. I confirm that the note above accurately reflects all work, treatment, procedures, and medical decision making performed by me. Departure Information Dispostion Home / Self-Care Referrals Basilio Fuentes M.D. (PCP) Patient Instructions ED URI Viral, [facility] Additional Instructions Please follow up with your primary care doctor with in the next 24 hours. Any worsening of your symptoms, please return to the ED immediately. This includes any fevers greater than 100.4, worsening pain, chest pain, shortness breath, persistent nausea, vomiting, unable to eat or drink, or any other concerning signs or symptoms from your standpoint. Please continue your antibiotics as prescribed. Please try to remain as hydrated as possible. Problem Qualifiers
== END 2018-02-01 20:50 | disposition home or self-care (01) ==
LOC: C.EDB 18:07 → C.EDC 20:50
DX: J06.9 Acute upper respiratory infection, unspecified (principal); M54.6 Pain in thoracic spine; Z90.2 Acquired absence of lung [part of]; Z85.118 Personal history of other malignant neoplasm of bronchus and lung; Z87.01 Personal history of pneumonia (recurrent); J45.909 Unspecified asthma, uncomplicated; F41.8 Other specified anxiety disorders; Z79.899 Other long term (current) drug therapy; Z88.6 Allergy status to analgesic agent; Z88.8 Allergy status to other drugs, medicaments and biological substances; Z88.1 Allergy status to other antibiotic agents; Z88.5 Allergy status to narcotic agent

== ENCOUNTER → 2018-04-30 | Outpatient (CLI) | payer OTHER, MEDICARE ==
[~2018-04-30] MED LIST changes: -ADVIN10/60 INH; +AMOX500C3 PO; -ASCA500 PO; -LVQ750 PO; -MTR600 PO; +PANT1TAB4 PO; -PRT40 PO; -SYMIN/8045 INH; +SYMIN160 INH
--- NOTE | 2018-04-30 14:35 | DIAGNOSTIC IMAGING REPORT ---
CHEST 2 VIEWS ROUTINE HISTORY: 77 years-old Female R06.00 Dyspnea acute cough and congestion COMPARISON: Chest radiographs 02/01/2018, chest CT 02/04/2018 TECHNIQUE: PA and lateral views of the chest FINDINGS: Cardiac mediastinal and hilar silhouettes are within normal limits. Postoperative changes about the right lung. Mild right hemidiaphragm elevation. Linear subsegmental bibasilar opacities suggest atelectasis/scarring. No pneumothorax, pleural effusion or overt pulmonary edema. Bones of the chest appear grossly intact. Chronic posttraumatic or postsurgical changes of the distal right clavicle. IMPRESSION: No acute process. The above report was generated using voice recognition software. It may contain grammatical, syntax or spelling errors. Electronically signed by: Ravi Saldivar M.D. 04/30/2018 2:34 PM Dictated Date/Time: 04/30/2018 2:32 PM
== END | disposition home or self-care (01) ==
LOC: C.RADBC 14:03
PROVIDERS: ATTEND Physician Assistant Medical
DX: R06.00 Dyspnea, unspecified (principal)

== ENCOUNTER 2021-11-06 14:23 | Observation (INO) ==
[2021-11-06 15:36] LABS: Basophils # (auto) 0.01 K/uL (0-0.2); Basophils % (auto) 0.2 %; Eosinophils # (auto) 0.04 K/uL (0-0.5); Eosinophils % (auto) 0.7 %; Hematocrit (blood only) 44.7 % (37-47); Hemoglobin 14.7 g/dL (12.0-16.0); Immature Granulocytes # (auto) 0.03 K/uL (0.00-0.02); Immature Granulocytes % (auto) 0.6 %; Lymphocytes # (auto) 2.03 K/uL (1.2-3.4); Lymphocytes % (auto) 37.5 %; Mean Corpuscular Hemoglobin 29.8 pg (25-34); Mean Corpuscular Hgb Conc 32.9 g/dL (32-36); Mean Corpuscular Volume 90.7 fL (80-100); Mean Platelet Volume 11.9 fL (7.4-10.4); Monocytes # (auto) 0.52 K/uL (0.11-0.59); Monocytes % (auto) 9.6 %; Neutrophils # (auto) 2.79 K/uL (1.4-6.5); Neutrophils % (auto) 51.4 %; Platelet Count 212 K/uL (130-400); RDW Coefficient of Variation 13.4 % (11.5-14.5); RDW Standard Deviation 44.5 fL (36.4-46.3); Red Blood Count 4.93 M/uL (4.2-5.4); White Blood Count 5.42 K/uL (4.8-10.8)
[2021-11-06 15:45] LABS: Partial Thromboplastin Time 26.8 Seconds (21.0-31.0); Prothrombin Time 9.8 Seconds (9.0-12.0)
[2021-11-06 15:59] LABS: Troponin I < 0.03 ng/ml (0-0.04)
[2021-11-06 16:07] LABS: Alanine Aminotransferase 17 U/L (7-52); Albumin Globulin Ratio 1.7 (0.9-2); Albumin Level 4.5 gm/dl (3.4-5.0); Alkaline Phosphatase 52 U/L (34-104); Anion Gap 6 (3-11); Aspartate Aminotransferase 21 U/L (13-39); BUN Creatinine Ratio 17.3 (10-20); Bilirubin,Total 1.2 mg/dl (0.2-1.0); Blood Urea Nitrogen 14 mg/dl (6-23); Calcium 10.1 mg/dl (8.5-10.1); Carbon Dioxide 31 mmol/L (21-32); Chloride 102 mmol/L (98-107); Est GFR (African American) 80.1 ml/min; Est GFR (Non-African American) 69.1 ml/min; Globulin 2.6 gm/dl (2.5-4.0); Glucose 85 mg/dl (70-99(Fasting)); Sodium 139 mmol/L (136-145); Total Protein 7.1 gm/dl (6.0-8.3)
--- NOTE | 2021-11-06 16:45 | Emergency Department Note ---
History of Present Illness General Chief Complaint: Referred by Doctor Stated Complaint: sob, cough, sent from dr. veloz Time Seen by Provider: 11/06/21 16:22 History of Present Illness Provider Complaint: shortness of breath and chest pain Onset (ago): day(s) (4) Severity: moderate Maximum Pain Intensity: 0 Relieved By: + rest Exacerbated By: + exertion (Shoveling snow) Context: + occurred during exertion; no recent illness, no choking/aspiration, no recent travel, no smoke/fume exposure or no trauma/injury Known history of: asthma Associated symptoms: + chest pain, + cough and + chest congestion; no pain with inspiration, no fever, no wheezing, no sputum production, no orthopnea, no lower extremity pain, no polyuria, no paresthesias, no palpitations, no hemoptysis, no diaphoresis, no nausea/vomiting, no syncope, no abdominal pain, no rash, no sense of impending doom, no dizziness or no lightheadedness Treatment prior to arrival: none Home Medications Medication Instructions Recorded Confirmed Type cholecalciferol (vitamin D3) 50 2,000 units PO QDD tab 05/05/19 11/06/21 History mcg (2,000 unit) tablet Oxygen Home #1 ea 12/23/19 11/06/21 Rx pantoprazole 40 mg tablet,delayed 40 mg PO QAM 01/10/21 11/06/21 History release immun glob G 10 gram/50 mL(20 See Rx Instructions SUBCUT 01/13/21 11/06/21 Rx %)-pro-IgA 0-50 mcg/mL .COMPLEX #200 ml subcutaneous soln (Hizentra) albuterol sulfate 90 mcg/actuation 180 mcg INH Q4H PRN #1 ea 01/17/21 11/06/21 Rx breath activated powder inhaler (ProAir RespiClick) epinephrine 0.3 mg/0.3 mL 0.3 mg IM ONCE PRN #1 dose pk 01/31/21 11/06/21 Rx injection, auto-injector pseudoephedrine HCl 120 mg 120 mg PO Q12H PRN #40 tab 03/09/21 11/06/21 Rx tablet,extended release triamterene 37.5 1 tab PO QAM #90 tab 04/05/21 11/06/21 Rx mg-hydrochlorothiazide 25 mg tablet clonazepam 0.5 mg tablet 0.5 mg PO DAILY PRN #30 tab 05/01/21 11/06/21 Rx vitamin B complex (B 1 tab PO BID tab 05/01/21 11/06/21 History Complex-Vitamin B12) levothyroxine 75 mcg tablet 75 mcg PO DAILYBB #90 tab 06/07/21 11/06/21 Rx budesonide-formoterol HFA 160 2 puff INH BID #1 inhaler 06/09/21 11/06/21 Rx mcg-4.5 mcg/actuation aerosol inhaler (Symbicort) acetaminophen 500 mg tablet 500 mg PO DIRECTED 11/06/21 11/06/21 History (Tylenol Extra Strength) diphenhydramine HCl 25 mg capsule 25 mg PO DIRECTED 11/06/21 11/06/21 History (Benadryl) fluticasone propionate 50 2 spray INTRANASAL DAILY PRN 11/06/21 11/06/21 History mcg/actuation nasal spray,suspension (Flonase Allergy Relief) Allergies Allergy/AdvReac Type Severity Reaction Status Date / Time acetaminophen Allergy Unknown UNKNOWN Verified 11/06/21 17:34 REACTION atorvastatin Allergy Unknown UNKNOWN Verified 11/06/21 17:34 REACTION doxycycline Allergy Unknown GI upset Verified 11/06/21 17:34 propoxyphene Allergy Unknown UNKNOWN Verified 11/06/21 17:34 REACTION simvastatin Allergy Unknown myalgias Verified 11/06/21 17:34 azithromycin AdvReac Intermediate SEVERE GI Verified 11/06/21 17:34 UPSET codeine AdvReac Mild PATIENT Verified 11/06/21 17:34 STATES IT MAKES HER "GOOFY" AND NAUSEATED Past Med/Surg History Medical History Asthma Coronary artery calcification Depression with anxiety Dyslipidemia Gastroesophageal reflux disease Hypertension Hypothyroidism Mild obstructive sleep apnea Using saupplemental O2 only Palpitations Surgical History History of colonoscopy History of dilation and curettage History of lung surgery right upper lobectomy March 08, 2017 for a 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, stage IA History of tonsillectomy Family History Father Diabetes Heart disease Brother Heart disease Dementia Sister Heart disease Mother Depression Grandfather Depression Other Hypertension Social History Smoking Status: Never smoker Second Hand Exposure: Yes; Hx Alcohol Use: No Hx Substance Use: No Preferred Language: Serbian Communication Ability: Effective Visual Impairment: Limited Hearing Ability: Normal Psychiatric Mental Health Nurse Required: No marital status: / Current Living Situation: Alone current occupational status: retired Feels Safe at Home: Yes Childhood Exposure to Second-Hand Smoke: Yes caffeine: No Dental Care, Regularly: Yes Physical Activity Frequency: Does not Exercise Seatbelt Use: always Sunscreen Use: Yes Review of Systems A total of 10 systems reviewed and were otherwise negative Physical Exam Vital Signs: Vital Signs - 24 hr 11/06/21 14:36 11/06/21 17:19 Temperature 36.3 C L Temperature Source Temporal Artery Sc an Pulse Rate 68 68 Respiratory Rate 18 20 Respiratory Effort / Characteristics Non-Labored Respiratory Depth Normal Blood Pressure 142/92 H Blood Pressure [place] n 108 Pulse Oximetry 95 95 Oxygen Delivery Me thod Room Air Room Air Sepsis Recent Feve r Within 48 Hours No Sepsis New/Unexpla ined Change in Men erwin Status No Sepsis Action Take n by Nursing No Action Required Physical Exam: Physical Exam GENERAL: She is oriented to person, place, and time. She appears well-developed and well-nourished. She does not appear distressed. HENT: Exam performed. -Head: Normocephalic and atraumatic. -Right Ear: External ear normal. No mastoid tenderness. -Left Ear: External ear normal. No mastoid tenderness. -Mouth/Throat: The oropharynx is clear and moist. No trismus in the jaw. No dental abscesses or uvula swelling. No oropharyngeal exudate or tonsillar absces ses. EYES: Conjunctivae and EOM are normal. Pupils are equal, round, and reactive to light. Right eye exhibits no discharge. Left eye exhibits no discharge. No scleral icterus. NECK: Normal range of motion. Neck supple. No JVD present. No spinous process tenderness present. No carotid bruit present. No rigidity. No tracheal deviation and normal range of motion present. No Brudzinski's sign and no Kernig's sign noted. CV: Normal rate, regular rhythm, normal heart sounds and intact distal pulses. There is no peripheral edema. Palpable radial pulses bue. PULM/CHEST: Diminished breath sounds of the right upper lobe. -Chest Wall: She exhibits no tenderness. ABD: The abdomen is soft. Bowel sounds are normal. She has no distension. No mass is present. There is no tenderness. There is no rebound, no guarding, no Bolden's sign and no tenderness at McBurney's point. Rovsig negative MUSC/SKEL: Normal range of motion. There is no peripheral edema, tenderness or deformity. LYMPH: No cervical adenopathy. NEURO: She is alert and oriented to person, place, and time. She has normal strength. No cranial nerve deficit or sensory deficit. Coordination and gait normal. GCS eye subscore is 4. GCS verbal subscore is 5. GCS motor subscore is 6. Cerebellar tests wnl. SKIN: Skin is warm and dry. She is not diaphoretic. PSYCH: She has a normal mood and affect. Behavior is normal. Judgment and thought content normal. Course Course 1622: The patient was evaluated in room BSUBWAIT. A complete history and physical exam was performed Cardiac monitoring: An order was placed for continuous cardiac monitoring. The monitor shows a rate of 100 with sinus rhythm 1802: Vital signs stable. Labs and imaging within normal limits. Patient has moderate heart score. [facility] for chest pain rule out ACS. Dr. Mullins notified. Administered Medications Discontinued Medications Aspirin (Aspirin Chew 324 Mg) 324 mg PO NOW STA Stop: 11/06/21 17:05 Last Admin: 11/06/21 17:18 Dose: 324 mg Documented by: [id number] Medical Decision Making Laboratory Data Result diagrams: 11/06/21 15:19 11/06/21 15:19 Lab Results 11/06/21 11/06/21 11/06/21 Range/Units 15:19 15:19 15:19 WBC 5.42 (4.8-10.8) K/uL RBC 4.93 (4.2-5.4) M/uL Hgb 14.7 (12.0-16.0) g/dL Hct 44.7 (37-47) % MCV 90.7 (80-100) fL MCH 29.8 (25-34) pg MCHC 32.9 (32-36) g/dL RDW Std Deviation 44.5 (36.4-46.3) fL RDW Coeff of Katiana 13.4 (11.5-14.5) % Plt Count 212 (130-400) K/uL MPV 11.9 H (7.4-10.4) fL Immature Gran % (Auto) 0.6 % Neut % (Auto) 51.4 % Lymph % (Auto) 37.5 % [place] % (Auto) 9.6 % Eos % (Auto) 0.7 % Baso % (Auto) 0.2 % Neut # (Auto) 2.79 (1.4-6.5) K/uL Lymph # (Auto) 2.03 (1.2-3.4) K/uL [place] # (Auto) 0.52 (0.11-0.59) K/uL Eos # (Auto) 0.04 (0-0.5) K/uL Baso # (Auto) 0.01 (0-0.2) K/uL Immature Gran # (Auto) 0.03 H (0.00-0.02) K/uL PT 9.8 (9.0-12.0) Seconds INR 1.0 (0.9-1.1) APTT 26.8 (21.0-31.0) Seconds PTT Ratio 1.0 Sodium 139 (136-145) mmol/L Potassium 4.0 (3.5-5.1) mmol/L Chloride 102 (98-107) mmol/L Carbon Dioxide 31 (21-32) mmol/L Anion Gap 6 (3-11) BUN 14 (6-23) mg/dl Creatinine 0.81 (0.6-1.2) mg/dl Est Cr Clr Drug Dosing 64.0 ml/min Est GFR ( Amer) 80.1 ml/min Est GFR (Non-Af Amer) 69.1 ml/min BUN/Creatinine Ratio 17.3 (10-20) Glucose 85 (70-99(Fasting)) mg/dl Calcium 10.1 (8.5-10.1) mg/dl Total Bilirubin 1.2 H (0.2-1.0) mg/dl AST 21 (13-39) U/L ALT 17 (7-52) U/L Alkaline Phosphatase 52 (34-104) U/L Troponin I < 0.03 (0-0.04) ng/ml Total Protein 7.1 (6.0-8.3) gm/dl Albumin 4.5 (3.4-5.0) gm/dl Globulin 2.6 (2.5-4.0) gm/dl Albumin/Globulin Ratio 1.7 (0.9-2) SARS-CoV-2, RNA, NAAT (NEGATIVE) 11/06/21 Range/Units 17:31 WBC (4.8-10.8) K/uL RBC (4.2-5.4) M/uL Hgb (12.0-16.0) g/dL Hct (37-47) % MCV (80-100) fL MCH (25-34) pg MCHC (32-36) g/dL RDW Std Deviation (36.4-46.3) fL RDW Coeff of Katiana (11.5-14.5) % Plt Count (130-400) K/uL MPV (7.4-10.4) fL Immature Gran % (Auto) % Neut % (Auto) % Lymph % (Auto) % [place] % (Auto) % Eos % (Auto) % Baso % (Auto) % Neut # (Auto) (1.4-6.5) K/uL Lymph # (Auto) (1.2-3.4) K/uL [place] # (Auto) (0.11-0.59) K/uL Eos # (Auto) (0-0.5) K/uL Baso # (Auto) (0-0.2) K/uL Immature Gran # (Auto) (0.00-0.02) K/uL PT (9.0-12.0) Seconds INR (0.9-1.1) APTT (21.0-31.0) Seconds PTT Ratio Sodium (136-145) mmol/L Potassium (3.5-5.1) mmol/L Chloride (98-107) mmol/L Carbon Dioxide (21-32) mmol/L Anion Gap (3-11) BUN (6-23) mg/dl Creatinine (0.6-1.2) mg/dl Est Cr Clr Drug Dosing ml/min Est GFR ( Amer) ml/min Est GFR (Non-Af Amer) ml/min BUN/Creatinine Ratio (10-20) Glucose (70-99(Fasting)) mg/dl Calcium (8.5-10.1) mg/dl Total Bilirubin (0.2-1.0) mg/dl AST (13-39) U/L ALT (7-52) U/L Alkaline Phosphatase (34-104) U/L Troponin I (0-0.04) ng/ml Total Protein (6.0-8.3) gm/dl Albumin (3.4-5.0) gm/dl Globulin (2.5-4.0) gm/dl Albumin/Globulin Ratio (0.9-2) SARS-CoV-2, RNA, NAAT NEGATIVE (NEGATIVE) Imaging Data Radiologist's Impression: Chest X-Ray 11/06/21 14:40 XR chest 2V PA/lateral CLINICAL HISTORY: Atypical chest pain TECHNIQUE: AP and lateral radiographs of the chest was obtained. Comparison: Comparison is made to chest one view 12/14/2020 FINDINGS: No lines and tubes are seen. The cardiomediastinal silhouette is normal. Atelectasis is seen at the left lung base. No evidence of pleural effusion or pneumothorax. IMPRESSION: No acute chest disease. ACT 112: Negative or not required by law. Electronically signed by: Zion Craig M.D. 11/06/2021 4:54 PM ECG Data Interpretation: Sinus rhythm with rate of 60. ME QRS and QT intervals within normal notes. No ST elevation or ST depression. MDM Narrative Vital signs stable. Labs and imaging within normal limits. Patient has moderate heart score. [facility] for chest pain rule out ACS. Dr. Mullins notified. Impression & Plan Chest pain Discharge Plan Visit Data Chief Complaint: Referred by Doctor Stated Complaint: sob, cough, sent from dr. veloz ED Provider: Gigi Driver Discharge Problem: Chest pain Patient Disposition: Admitted As Inpatient Forms Stand Alone Forms: [facility] Prescriptions Prescriptions: No Action ProAir RespiClick 90 mcg/actuation aerosol powdr breath activated 180 mcg INH Q4H PRN (Reason: shortness of breath or wheezing) Qty: 1 RF: 3 triamterene-hydrochlorothiazid 37.5-25 mg tablet 1 tab PO QAM Qty: 90 RF: 3 levothyroxine 75 mcg tablet 75 mcg PO DAILYBB Qty: 90 RF: 3 Symbicort 160-4.5 mcg/actuation HFA aerosol inhaler 2 puff INH BID Qty: 1 RF: 6 vitamin B complex [B Complex-Vitamin B12] Tablet 1 tab PO BID RF: 0 clonazepam 0.5 mg tablet 0.5 mg PO DAILY PRN (Reason: sleep) Qty: 30 RF: 2 Hizentra 10 gram/50 mL (20 %) solution See Rx Instructions subcut .COMPLEX Qty: 200 RF: 11 epinephrine 0.3 mg/0.3 mL auto-injector 0.3 mg IM ONCE PRN (Reason: anaphylaxis) Qty: 1 RF: 3 (DME) Oxygen Home Liters Per Minute See Rx Instructions .ROUTE .MEDSUPPLY Qty: 1 RF: 0 pseudoephedrine HCl 120 mg tablet extended release 120 mg PO Q12H PRN (Reason: nasal congestion) Qty: 40 RF: 0 cholecalciferol (vitamin D3) 2,000 unit tablet 2,000 units PO QDD RF: 0 pantoprazole 40 mg tablet,delayed release (DR/EC) 40 mg PO QAM RF: 0 acetaminophen [Tylenol Extra Strength] 500 mg Tablet 500 mg PO DIRECTED RF: 0 diphenhydramine HCl [Benadryl] 25 mg Capsule 25 mg PO DIRECTED RF: 0 fluticasone propionate [Flonase Allergy Relief] 50 mcg/actuation spray,suspension 2 spray intranasal DAILY PRN (Reason: allerggies) RF: 0 Referrals Referrals: Lang Veloz DO [Primary Care Provider] - Discharge Problem: Chest pain Qualifiers: Chest pain type: unspecified Qualified Code(s): R07.9 - Chest pain, unspecified
--- NOTE | 2021-11-06 16:55 | XRay Report ---
XR chest 2V PA/lateral CLINICAL HISTORY: Atypical chest pain TECHNIQUE: AP and lateral radiographs of the chest was obtained. Comparison: Comparison is made to chest one view 12/14/2020 FINDINGS: No lines and tubes are seen. The cardiomediastinal silhouette is normal. Atelectasis is seen at the l eft lung base. No evidence of pleural effusion or pneumothorax. IMPRESSION: No acute chest disease. ACT 112: Negative or not required by law. Electronically signed by: Zion Craig M.D. 11/06/2021 4:54 PM
[2021-11-06] MEDS ORDERED: ASPIRIN CHEW 324 MG PO STA (17:04)
--- NOTE | 2021-11-06 17:37 | History & Physical Report ---
Date of Service November 06, 2021 Assessment & Plan (1) Chest pain: Plan: Reportedly had a stress test within the last year, making ischemic heart disease less likely. Suspect more likely her chest tightness and shortness of breath is related to her asthma given prior good effect of albuterol. Give duoneb now, if improves will start steroids. If chest pain and shortness of breath on exertion resolves with asthma exacerbation treatment overnight will continue on prednisone and albuterol, otherwise consider stress testing. Nb: chest pain only on exertion. (2) Shortness of breath: Plan: Acute on chronic. As above. Appears to be related to chest tightness. Suspected asthma exacerbation (3) Asthma exacerbation: Plan: Continue routine maintenance inhalers wiht Symbicort of [facility] formulary equivalent. 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: Plan: Immunoglobulin treatment weekly with allergy/immunology (9) Gastroesophageal reflux disease: Plan: Continue pantoprazole 40mg PO daily Reports no acute exacerbation in symptoms (10) Hypertension: Plan: Continue triamterene/HCTZ Plan: VTE Prophylaxis - Low risk, mobile, short duration of stay suspected, low risk condition Diet - heart healthy Disposition - observation status to med/tele Admission and Anticipated Discharge Date Admission Date: Nov 06, 2020 History of Present Illness Chief Complaint: Chest pain, shortness of breath Primary Care Provider: Lang Veloz DO Emily is a 81 year old female who presents to the ER with chest pain and shortness of breath. She reports chronic shortness of breath since her o peration for lung cancer but her chest tightness is more acute. Initially chest tightness felt to be new since shovelling snow on Saturday however she reports having problem with her bra being constricting causing the same feeling for many months. During this time she reports having a previous stress echocardiogram with [facility] cardiology in January last year. She also reports her larger concern is the shortness of breath which although chronic has been much worse since her shovelling snow. She reports coming inside and using albuterol which helped although she only used it once. She takes Symbicort daily for maintenance but is due to see a rail signal worker due to worsening symptoms over the last year on . Her symptoms are only exertional and not at rest. She does have some chest pain on palpation however she relates this to the lobectomy and sleeping differently in the last 5-6 months. In the ER initial concern was for her chest pain due to exertional nature this may be ischemic and she was given ASA 324 mg PO. Troponin was negative. She was referred to medicine for admission and ongoing management of chest pain r/o ACS. Allergies Allergy/AdvReac Type Severity Reaction Status Date / Time acetaminophen Allergy Unknown UNKNOWN Verified 11/06/21 17:34 REACTION atorvastatin Allergy Unknown UNKNOWN Verified 11/06/21 17:34 REACTION doxycycline Allergy Unknown GI upset Verified 11/06/21 17:34 propoxyphene Allergy Unknown UNKNOWN Verified 11/06/21 17:34 REACTION simvastatin Allergy Unknown myalgias Verified 11/06/21 17:34 azithromycin AdvReac Intermediate SEVERE GI Verified 11/06/21 17:34 UPSET codeine AdvReac Mild PATIENT Verified 11/06/21 17:34 STATES IT MAKES HER "GOOFY" AND NAUSEATED Home Medications Medication Instructions Recorded Confirmed Type cholecalciferol (vitamin D3) 50 2,000 units PO QDD tab 05/05/19 11/06/21 History mcg (2,000 unit) tablet Oxygen Home #1 ea 12/23/19 11/06/21 Rx pantoprazole 40 mg tablet,delayed 40 mg PO QAM 01/10/21 11/06/21 History release immun glob G 10 gram/50 mL(20 See Rx Instructions SUBCUT 01/13/21 11/06/21 Rx %)-pro-IgA 0-50 mcg/mL .COMPLEX #200 ml subcutaneous soln (Hizentra) albuterol sulfate 90 mcg/actuation 180 mcg INH Q4H PRN #1 ea 01/17/21 11/06/21 Rx breath activated powder inhaler (ProAir RespiClick) epinephrine 0.3 mg/0.3 mL 0.3 mg IM ONCE PRN #1 dose pk 01/31/21 11/06/21 Rx injection, auto-injector pseudoephedrine HCl 120 mg 120 mg PO Q12H PRN #40 tab 03/09/21 11/06/21 Rx tablet,extended release triamterene 37.5 1 tab PO QAM #90 tab 04/05/21 11/06/21 Rx mg-hydrochlorothiazide 25 mg tablet clonazepam 0.5 mg tablet 0.5 mg PO DAILY PRN #30 tab 05/01/21 11/06/21 Rx vitamin B complex (B 1 tab PO BID tab 05/01/21 11/06/21 History Complex-Vitamin B12) levothyroxine 75 mcg tablet 75 mcg PO DAILYBB #90 tab 06/07/21 11/06/21 Rx budesonide-formoterol HFA 160 2 puff INH BID #1 inhaler 06/09/21 11/06/21 Rx mcg-4.5 mcg/actuation aerosol inhaler (Symbicort) acetaminophen 500 mg tablet 500 mg PO DIRECTED 11/06/21 11/06/21 History (Tylenol Extra Strength) diphenhydramine HCl 25 mg capsule 25 mg PO DIRECTED 11/06/21 11/06/21 History (Benadryl) fluticasone propionate 50 2 spray INTRANASAL DAILY PRN 11/06/21 11/06/21 History mcg/actuation nasal spray,suspension (Flonase Allergy Relief) Past Med/Surg History Medical History Asthma Coronary artery calcification Depression with anxiety Dyslipidemia Gastroesophageal reflux disease Hypertension Hypothyroidism Mild obstructive sleep apnea Using saupplemental O2 only Palpitations Surgical History History of colonoscopy History of dilation and curettage History of lung surgery right upper lobectomy March 08, 2017 for a 2 x 2 x 1.5 centimeter well-d ifferentiated adenocarcinoma, stage IA History of tonsillectomy Family History Father Diabetes Heart disease Brother Heart disease Dementia Sister Heart disease Mother Depression Grandfather Depression Other Hypertension Social History Smoking Status: Never smoker Second Hand Exposure: Yes; Hx Alcohol Use: No Hx Substance Use: No Preferred Language: Uzbek Communication Ability: Effective Visual Impairment: Limited Hearing Ability: Normal Agent Telegrapher Required: No Beliefs That Will Affect Care: None marital status: / Current Living Situation: Alone current occupational status: retired Other Information That Helps Us Care for You: No Feels Safe at Home: Yes Safety Concerns: Feels Safe At This Time Childhood Exposure to Second-Hand Smoke: Yes caffeine: No Dental Care, Regularly: Yes Physical Activity Frequency: Does not Exercise Seatbelt Use: always Sunscreen Use: Yes Assistive Devices: Glasses and Oxygen - at Night Review of Systems Review of Systems: All systems reviewed & are unremarkable except as noted in HPI & below Physical Exam Constitutional: WD/WN, vitals as above Eyes: + anicteric sclerae; normal pupil size ENMT: external ear and nose normal, oropharynx normal Neck: trachea midline, no thyromegaly Respiratory: normal respiratory effort, lungs clear to auscultation Auscultation: no crackles and no wheezes Cardiovascular: RRR, no murmur, no edema Gastrointestinal (Abdomen): normal bowel sounds, soft, nontender, no hepatosplenomegaly Musculoskeletal: no cyanosis or clubbing, extremities motor strength 5/5 Skin: no rashes, warm and dry Neurologic: moves all extremities and awake; not confused Psychiatric: A+Ox3, euthymic affect Results & Data Results & Data ([facility]) Vital Signs (Past 12 Hours) Vital Signs Temp Pulse Resp BP Pulse Ox 11/06/21 17:19 68 20 95 11/06/21 14:36 36.3 C L 68 18 142/92 H 95 Laboratory Results Abnormal lab results 11/06/21 11/06/21 Range/Units 15:19 15:19 MPV 11.9 H (7.4-10.4) fL Immature Gran # (Auto) 0.03 H (0.00-0.02) K/uL Total Bilirubin 1.2 H (0.2-1.0) mg/dl Diagnostic Findings XR chest 2V PA/lateral CLINICAL HISTORY: Atypical chest pain TECHNIQUE: AP and lateral radiographs of the chest was obtained. Comparison: Comparison is made to chest one view 12/14/2020 FINDINGS: No lines and tubes are seen. The cardiomediastinal silhouette is normal. Atelectasis is seen at the left lung base. No evidence of pleural effusion or pneumothorax. IMPRESSION: No acute chest disease. Medications Administered ER Medications Given: ASA 324mg PO ECG Indication: chest pain and SOB/dyspnea Rate (beats per minute): 60 Rhythm: normal sinus Findings: no acute ischemic change Comparison ECG Date: from (January 10, 2021) Change: no significant change Code Status & VTE Plan Code Status Full VTE Prophylaxis Plan VTE Prophylaxis will be ordered: No Reason for no VTE drug order: Treatment not indicated Reason for no VTE mechanical prophylaxis: Treatment not indicated PG Care Time/CCT Total # of Minutes Spent Total Time Spent with Patient: Total time spent is greater than 50% in coordination of care (as documented) at patient's floor/unit and/or counseling patient: Coding Level of Care Code INT OBSERVATION CARE 70M LVL 3 Diagnoses Chest pain R07.9 Chest pain type: unspecified Shortness of breath R06.02 Asthma exacerbation J45.901 Hypothyroidism E03.9 Coronary artery calcification I25.10; I25.84 Mild obstructive sleep apnea G47.33 History of lung surgery Z98.890 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
[2021-11-06] MEDS ORDERED: ALBUT/IPRATROP 3MG/0.5MG NEB 3 ML VIAL NEB STA (17:55)
[2021-11-06] MEDS ORDERED: ACETAMINOPHEN 325 MG TAB PO PRN (20:46)
[2021-11-06] MEDS ORDERED: clonazePAM 0.5 MG TAB PO PRN (20:46)
[2021-11-06] MEDS ORDERED: FLUTICASONE PROPIONATE NA SPR 16 GM BTL NAE PRN (20:46)
[2021-11-06] MEDS ORDERED: POLYETHYLENE (MIRALAX) 17 GM PACK PO PRN (20:46)
[2021-11-06] MEDS: ALBUT/IPRATROP 3MG/0.5MG NEB 3 ML VIAL NEB SCH (23:17)
[2021-11-07] MEDS ORDERED: LEVOTHYROXINE SODIUM 75 MCG TABLET PO SCH (06:30)
[2021-11-07] MEDS: ALBUT/IPRATROP 3MG/0.5MG NEB 3 ML VIAL NEB SCH ×3 (07:16→15:00)
[2021-11-07] MEDS ORDERED: PANTOprazole 40 MG TAB PO SCH (09:00)
[2021-11-07] MEDS ORDERED: predniSONE 20 MG TAB PO SCH (09:00)
[2021-11-07] MEDS ORDERED: TRIAMTERENE/HCTZ 37.5/25MG TAB PO SCH (09:00)
[2021-11-07] MEDS ORDERED: FLUTICASONE/VILANTEROL 200/25MCG 14 PUFFS/INHALER INH SCH (09:00)
[2021-11-07] MEDS ORDERED: VITAMIN B COMPLEX TAB PO SCH (09:00)
[2021-11-07] MEDS ORDERED: ASPIRIN 81 MG ECTAB PO SCH (09:30)
[2021-11-07] MEDS ORDERED: NITROGLYCERIN SL 0.4 MG/TAB TAB ONE (09:49)
--- NOTE | 2021-11-07 13:04 | Electrocardiogram Report ---
Test Reason : Blood Pressure : / mmHG Vent. Rate : 060 BPM Atrial Rate : 060 BPM P-R Int : 152 ms QRS Dur : 082 ms QT Int : 438 ms P-R-T Axes : 044 004 012 degrees QTc Int : 438 ms Normal sinus rhythm Cannot rule out Inferior infarct , age undetermined Abnormal ECG When compared with ECG of 10-JAN-2021 12:25, No significant change was found Confirmed by Hayden Hsieh ([id number]) on 11/07/2021 1:03:48 PM Referred By: Confirmed By:Hayden Hsieh
--- NOTE | 2021-11-07 13:26 | Electrocardiogram Report ---
Test Reason : Blood Pressure : / mmHG Vent. Rate : 089 BPM Atrial Rate : 089 BPM P-R Int : 160 ms QRS Dur : 088 ms QT Int : 410 ms P-R-T Axes : 060 019 001 degrees QTc Int : 498 ms Sinus rhythm with occasional Premature atrial complexes Abnormal ECG When compared with ECG of 06-NOV-2021 15:27, (unconfirmed) Vent. rate has increased BY 29 BPM Minimal criteria for Inferior infarct are no longer Present QT has lengthened Confirmed by Hayden Hsieh ([id number]) on 11/07/2021 1:25:48 PM Referred By: Lang Veloz Confirmed By:Hayden Hsieh
--- NOTE | 2021-11-07 13:51 | Discharge Summary ---
Date of Service November 07, 2021 Admission HPI Per Admitting Provider Emily Galvin is a 81 year old female who presents to the ER with chest pain and shortness of breath. She reports chronic shortness of breath since her operation for lung cancer but her chest tightness is more acute. Initially chest tightness felt to be new since shovelling snow on Saturday however she reports having problem with her bra being constricting causing the same feeling for many months. During this time she reports having a previous stress echocardiogram with [facility] cardiology in January last year. She also reports her larger concern is the shortness of breath which although chronic has been much worse since her shovelling . She reports coming inside and using albuterol which helped although she only used it once. She takes Symbicort daily for maintenance but is due to see a dynamometer repairer due to worsening symptoms over the last year on . Her symptoms are only exertional and not at rest. She does have some chest pain on palpation however she relates this to the lobectomy and sleeping differently in the last 5-6 months. In the ER initial concern was for her chest pain due to exertional nature this may be ischemic and she was given ASA 324 mg PO. Troponin was negative. She was referred to medicine for admission and ongoing management of chest pain r/o ACS. Principal Diagnosis Acute asthma exacerbation Discharge Exam Constitutional WD/WN, vitals as above Eyes + anicteric sclerae ENMT external ear and nose normal, oropharynx normal Neck trachea midline, no thyromegaly Respiratory normal respiratory effort; no cough Auscultation: + wheezes (faint wheezes expiratory bilat); no crackles and no rhonchi Cardiovascular RRR, no murmur, no edema Chest (Breasts) Chest: normal inspection of chest Additional Comments: no breast masses but does have lumpy breast tissue and +TTP right medial and LUQ breast, no erythema-chronic for years Gastrointestinal (Abdomen) normal bowel sounds, soft, nontender, no hepatosplenomegaly Musculoskeletal Extremities: extremities normal to inspection; no cyanosis and no clubbing Skin no rashes, warm and dry Neurologic moves all extremities and awake; no focal motor deficits Psychiatric A+Ox3, euthymic affect Lymphatic no lymphedema Discharge Data Allergies Allergy/AdvReac Type Severity Reaction Status Date / Time acetaminophen Allergy Unknown UNKNOWN Verified 11/06/21 17:34 REACTION atorvastatin Allergy Unknown UNKNOWN Verified 11/06/21 17:34 REACTION doxycycline Allergy Unknown GI upset Verified 11/06/21 17:34 propoxyphene Allergy Unknown UNKNOWN Verified 11/06/21 17:34 REACTION simvastatin Allergy Unknown myalgias Verified 11/06/21 17:34 azithromycin AdvReac Intermediate SEVERE GI Verified 11/06/21 17:34 UPSET codeine AdvReac Mild PATIENT Verified 11/06/21 17:34 STATES IT MAKES HER "GOOFY" AND NAUSEATED Consultations 11/06/21 17:05 ED Decision to Admit Stat Hospital Course (1) Chest pain: Reportedly had a stress test within the last year, making ischemic heart disease less likely. Suspect more likely her chest tightness and shortness of breath is related to her asthma given prior good effect of albuterol. No further chest pain after steroids started and tx for asthma Stress ECHO exercise performed and normal Trop neg x 2, ECG with chronic TWIs leads III and aVF (2) Shortness of breath: Acute on chronic.Related to asthma exacerbation As above. Appears to be related to chest tightness. improved with prednisone however she gets jittery and some short bursts of PAT with steroids and nebs Feels well enough to go home has PULM appt in 2 days as outpt continue short burst and taper of prednisone over 3 more days, continue albuterol prn, maintenance inhalers POx with ambulation here never below 97% recommend weight loss (3) Asthma exacerbation: as above (4) Hypothyroidism: TSH 2.51 05/2021 Continue levothyroxine 75 mcg PO daily (5) Coronary artery calcification: Noted no prior history of [place] stress ECHO here normal (6) Mild obstructive sleep apnea: Uses O2 at night (7) History of lung surgery: right upper lobectomy March 08, 2017 for a 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, stage IA has f/u with PULM soon (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: Immunoglobulin treatment weekly with allergy/immunology (9) Gastroesophageal reflux disease: Continue pantoprazole 40mg PO daily Reports no acute exacerbation in symptoms (10) Hypertension: Continue triamterene/HCTZ (11) Breast pain: right breast for years since her lung surgery no definite mass but has cystic feelin priscilla exam, tenderness has not had mammogram in over 5 years -recommend diagnostic mammo and breast US as outpt through PCP discussed this with her and she will follow up VTE Prophylaxis - Low risk, mobile, short duration of stay suspected, low risk condition Diet - heart healthy Disposition - stable for dc to home Total Time Total Time Spent Total Time Spent (In Minutes): 35 min Discharge Plan Discharge Items Patient Disposition: Home - Self-Care Reason For Visit: CHEST PAIN R/O ACS, DYSPNEA Discharge Diagnosis: Asthma exacerbation Condition on Discharge: Fair Activity: As commented below Lifting: Gradually increase as tolerated Bathing: No limitations Exercise/Sports: Gradually increase as tolerated Driving/Machine Use: No limitations Non-emergency contact: Primary Care Provider and Guidance Consultant Call non-emergency contact if: you have any medication questions, your symptoms worsen and you have a fever Follow-up/Referrals: Lang Veloz, [Primary Care Provider] - (Follow up within 1-2 weeks) Diet: Heart Healthy Addtl Attending Provider Instructions: You were admitted with worsening shortness of breath and chest pains. You had a workup of your heart which was negative for heart attack. Your stress test was normal. You had improvement in your symptoms with prednisone. Please take a short course of this over the next few days and keep your follow up appointment with Pulmonology as scheduled for this . You were tested to see if you needed oxygen prior to discharge and your POx ws 97% with walking. Please continue your oxygen at bedtime as usual. You would benefit also from weight loss to help improve your shortness of breath. As we discussed, because of your right breast pain x 5 years, you should have your PCP order a diagnostic mammogram and breast ultrasound. Pending Studies at Discharge: No Stand-Alone Forms: My [facility] Medications and DC Order Prescriptions: New prednisone 10 mg tablet 30 mg PO DAILY Qty: 6 RF: 0 Continued ProAir RespiClick 90 mcg/actuation aerosol powdr breath activated 180 mcg INH Q4H PRN (Reason: shortness of breath or wheezing) Qty: 1 RF: 3 triamterene-hydrochlorothiazid 37.5-25 mg tablet 1 tab PO QAM Qty: 90 RF: 3 levothyroxine 75 mcg tablet 75 mcg PO DAILYBB Qty: 90 RF: 3 Symbicort 160-4.5 mcg/actuation HFA aerosol inhaler 2 puff INH BID Qty: 1 RF: 6 vitamin B complex [B Complex-Vitamin B12] Tablet 1 tab PO BID RF: 0 clonazepam 0.5 mg tablet 0.5 mg PO DAILY PRN (Reason: sleep) Qty: 30 RF: 2 Hizentra 10 gram/50 mL (20 %) solution See Rx Instructions subcut .COMPLEX Qty: 200 RF: 11 epinephrine 0.3 mg/0.3 mL auto-injector 0.3 mg IM ONCE PRN (Reason: anaphylaxis) Qty: 1 RF: 3 (DME) Oxygen Home Liters Per Minute See Rx Instructions .ROUTE .MEDSUPPLY Qty: 1 RF: 0 pseudoephedrine HCl 120 mg tablet extended release 120 mg PO Q12H PRN (Reason: nasal congestion) Qty: 40 RF: 0 cholecalciferol (vitamin D3) 2,000 unit tablet 2,000 units PO QDD RF: 0 pantoprazole 40 mg tablet,delayed release (DR/EC) 40 mg PO QAM RF: 0 acetaminophen [Tylenol Extra Strength] 500 mg Tablet 500 mg PO DIRECTED RF: 0 diphenhydramine HCl [Benadryl] 25 mg Capsule 25 mg PO DIRECTED RF: 0 fluticasone propionate [Flonase Allergy Relief] 50 mcg/actuation spray,suspension 2 spray intranasal DAILY PRN (Reason: allerggies) RF: 0 Discharge Orders: Discharge Order (Routine); Ordered 11/07/21 Ordered By: Kiley Mcdermott Admission Data Admit Date/Time: 11/06/21 18:34 Attending Provider: Kiley Mcdermott Admit Provider: Lazaro Mullins Primary Care Provider: Lang Veloz Other Providers: Lazaro Mullins Coding Level of Care Code 66285 OBS Care - Discharge Diagnoses Chest pain R07.9 Chest pain type: unspecified Shortness of breath R06.02 Asthma exacerbation J45.901 Hypothyroidism E03.9 Coronary artery calcification I25.10; I25.84 Mild obstructive sleep apnea G47.33 History of lung surgery Z98.890 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
[2021-11-07] MEDS ORDERED: CHOLECALCIFEROL 1,000 UNITS 25 MCG TAB PO SCH (16:30)
== END 2021-11-07 15:00 | disposition home or self-care (01) ==
LOC: 2N 14:23 → ED 14:23 → SUATTDRO 18:34 → 2N 19:58

== ENCOUNTER 2023-03-19 20:01 | Inpatient (IN) ==
[2023-03-19 21:47] LABS: Albumin Globulin Ratio 1.7 (0.9-2); Albumin Level 4.6 gm/dl (3.4-5.0); BUN Creatinine Ratio 13.9 (10-20); Calcium 9.6 mg/dl (8.6-10.3); Creatinine Clr Calc Pharmacy 47.7 ml/min; Est GFR (African American) 60.9 ml/min; Est GFR (Non-African American) 52.5 ml/min; Globulin 2.7 gm/dl (2.5-4.0); Potassium 3.5 mmol/L (3.5-5.1); Total Protein 7.3 gm/dl (6.0-8.3)
[2023-03-19 22:08] LABS: Hemoglobin 13.8 g/dl (12.0-16.0); Mean Corpuscular Hemoglobin 29.9 pg (25.0-34.0); Mean Corpuscular Hgb Conc 34.5 g/dL (32.0-36.0); Mean Corpuscular Volume 86.6 fL (80.0-100.0); Mean Platelet Volume 12.1 fL (9.4-12.4); Platelet Count 206 K/uL (130-400); RDW Coefficient of Variation 13.4 % (11.5-14.5); RDW Standard Deviation 42.2 fL (36.4-46.3); Red Blood Count 4.62 M/uL (4.20-5.40); White Blood Count 4.91 K/ul (4.8-10.8)
[2023-03-19 22:27] LABS: Influenza A virus by PCR Negative (Neg); Influenza B virus by PCR Negative (Neg); RSV by PCR Negative (Neg); SARS CoV2 RNA(COVID-19) Ceph NEGATIVE (Negative)
[2023-03-19] MEDS ORDERED: FAMOTIDINE 20MG IV PUSH 20 MG/5 ML SYR IV STA (22:28)
[2023-03-19] MEDS ORDERED: OPTIRAY 320 100ml IV ONE (22:35)
[2023-03-19 23:02] LABS: ALC (manual) 1.37 K/uL (1.2-3.4); ANC (manual) 3.09 K/uL (1.4-6.5); Lymphocytes # (manual) 1.37 K/uL (1.2-3.4); Lymphocytes % (manual) 28 %; Monocytes # (manual) 0.44 K/uL (0.11-0.59); Monocytes % (manual) 9 %; Neutrophils # (manual) 3.09 K/uL (1.40-6.50); Neutrophils % (manual) 63 %
[2023-03-19] MEDS: SODIUM CHLORIDE 0.9% 1000ML 1,000 ML IV SCH (23:23)
[2023-03-19 23:24] LABS: Troponin I High Sensitivity 6.5 pg/ml (0-14)
--- NOTE | 2023-03-19 23:38 | Emergency Department Note ---
Impression & Plan Dyspnea, Asthma exacerbation ED Provider Note ED Provider Note NAME: ALON CHEN AGE:82 SEX: Female : 1940 ARRIVES VIA: Private vehicle INFORMANT: Patient ED PROVIDER(s): Christie Jay DO CHIEF COMPLAINT: Shortness of breath, cough HPI: This is an 82-year-old female who presents to the emergency department due to concern for persistent difficulty breathing, and cough. Patient states she first began having symptoms back in January. She states she initially took a course of Augmentin, however symptoms did not improve so she contacted her PCP again. A tapering course of prednisone was added. She finished that and still had no improvement so a second antibiotic, cefdinir was prescribed. She finished the course of cefdinir additionally and still has not had improvement of symptoms. She feels in the last week her symptoms are now worsening. She denies any known sick contacts. She states she does wear oxygen at night to sleep, not typically during the day. Patient is concerned as she states she has a history of a low immune system and does get weekly infusions. PAST MEDICAL HISTORY:See Below PAST SURGICAL HISTORY:See Below FAMILY HISTORY:See Below SOCIAL HISTORY:See Below HOME MEDICATIONS:See Below ALLERGIES:See Below VITALS:See Below PHYSICAL EXAMINATION: GENERAL: alert, well appearing, well nourished, no distress, non-toxic EYE EXAM: normal conjunctiva, PERRL and EOM's grossly intact OROPHARYNX: no exudate, no erythema, lips, buccal mucosa, and tongue normal and mucous membranes are moist NECK: supple, no nuchal rigidity, no adenopathy, non-tender LUNGS: Clear to auscultation. Normal chest wall mechanics, no w/r/r, no tachypnea, no retractions HEART: no murmurs, S1 normal and S2 normal ABDOMEN: abdomen soft, non-tender, normo-active bowel sounds, no masses, no rebound or guarding. BACK: Back is symmetrical on inspection and there is no deformity, no midline tenderness, no CVA tenderness. SKIN: no rashes, petechiae, orbruising UPPER EXTREMITIES: upper extremities are grossly normal. FROM, nml pulses b/l. LOWER EXTREMITIES: No pitting edema. FROM, nml pulses b/l. NEURO EXAM: Normal sensorium, cranial nerves II-XII grossly intact, normal speech, no facial droop,nogross weakness of arms, no gross weakness of legs. Gross sensation intact. No ataxia. Vital Signs: reviewed and remarkable Differential Diagnosis: Bronchitis, pneumonia, PE, pleural effusion, pulmonary edema, ACS, pericardial effusion aspiration, as well as others were considered MEDICAL DECISION MAKING: This is an 82-year-old female presents emergency room due to concern for persistent shortness of breath with exertion and cough despite outpatient antibiotics and steroids. Patient was afebrile and vital signs stable on arrival here. Labs are drawn and sent, IV established, EKG and chest x-ray performed at bedside and interpreted by me and patient monitored on telemetry. After significant bedside discussion we opted to perform additional CT imaging to rule out additional occult pathology. Patient CT reassuring. Patient did feel improved here following a DuoNeb treatment. Upon review of her history and recent antibiotics, we discussed possible utility in adding a different antibiotic to cover atypical pathogens. Patient cannot take azithromycin. We did perform an ambulatory trial and patient with significant tachypnea and hypoxia noted. Due to concern for persistent symptoms despite outpatient management, history of severe asthma, low immune function per her report, and possible atypical infection, case discussed with hospitalist for additional evaluation and management. Patient was started on IV Levaquin to cover atypical pathogens. Sputum culture also added. It is unclear at this time if patient could have other cardiac dysfunction contributing to her symptoms. Consultation(s): 0200: Discussed with Dr. Cruz. ER Treatment Provided: See below 0145: Patient failed ambulatory pulse ox trial, dropping sats to the low 80s and developing significant tachycardia and obvious respiratory distress. Diagnostics Interpreted By Me: -ECG: Normal sinus at 80, normal axis, normal intervals, no acute ST/T wave changes -Cardiac Monitoring: An order was placed for continuous cardiac monitoring. The monitor shows a rate of 70 with normal sinus rhythm. -Laboratory studies: As stated above and show below. -Imaging studies: X-ray Chest: A single view study of the chest was reviewed and was negative for cardiomegaly, focal infiltrate, effusion, pulmonary edema, or wide mediastinum. 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 Coronary artery calcification Depression with anxiety Dyslipidemia Gastroesophageal reflux disease Hypertension Hypothyroidism Maxillary sinusitis Mild obstructive sleep apnea Using saupplemental O2 only Palpitations Surgical History History of colonoscopy History of dilation and curettage History of lung surgery right upper lobectomy March 08, 2017 for a 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, stage IA History of tonsillectomy Family History Father Diabetes Heart disease Brother Heart disease Dementia Sister Heart disease Mother Depression Grandfather Depression Other Hypertension Social History Smoking Status: Never smoker Second Hand Exposure: Yes; Do You Dip or Chew Tobacco: No; Hx Alcohol Use: No Hx Substance Use: No Preferred Language: Sinhala Communication Ability: Effective Visual Impairment: Limited Hearing Ability: Normal 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 Operator Required: No Beliefs That Will Affect Care: None marital status: / Current Living Situation: Alone Current Living Situation Comment: Home alone current occupational status: retired Other Information That Helps Us Care for You: No Feels Safe at Home: Yes Safety Concerns: Feels Safe At This Time Childhood Exposure to Second-Hand Smoke: Yes Diet: low salt caffeine: No Dental Care, Regularly: Yes Physical Activity Frequency: Does not Exercise Seatbelt Use: always Sunscreen Use: Yes Assistive Devices: Oxygen - at Night Allergies Allergies Allergy/AdvReac Type Severity Reaction Status Date / Time atorvastatin Allergy Unknown UNKNOWN Verified 02/28/23 10:52 REACTION doxycycline Allergy Unknown GI upset Verified 02/28/23 10:52 propoxyphene Allergy Unknown UNKNOWN Verified 02/28/23 10:52 REACTION simvastatin Allergy Unknown myalgias Verified 02/28/23 10:52 azithromycin AdvReac Intermediate SEVERE GI Verified 02/28/23 10:52 UPSET codeine AdvReac Mild PATIENT Verified 02/28/23 10:52 STATES IT MAKES HER "GOOFY" AND NAUSEATED Home Meds Home Medications Medication Instructions Recorded Confirmed cholecalciferol (vitamin D3) 50 2,000 units PO QDD 05/05/19 02/28/23 mcg (2,000 unit) tablet vitamin B complex (B 1 tab PO BID 05/01/21 02/28/23 Complex-Vitamin B12 tablet) diphenhydramine HCl 25 mg capsule 25 mg PO DIRECTED 11/06/21 02/28/23 (Benadryl) Oxygen Home 02/15/22 02/28/23 azelastine 137 mcg (0.1 %) nasal 2 spray intranasal DAILY PRN 02/15/22 02/28/23 spray aerosol acetaminophen 500 mg tablet 500 mg PO DIRECTED PRN 11/02/22 02/28/23 (Tylenol Extra Strength) Previous Rx's Medication Instructions Recorded nebulizers ([employer] Go Nebulizer) #1 ea 11/09/21 fluticasone propionate 50 2 spray intranasal DAILY PRN 06/18/22 mcg/actuation nasal allerggies #16 grams spray,suspension (Flonase Allergy Relief) ipratropium 0.5 mg-albuterol 3 mg 3 ml inhalation Q8H PRN shortness 06/18/22 (2.5 mg base)/3 mL nebulization of breath or wheezing #180 mL soln hydrocortisone acetate 25 mg 25 mg [place] DAILY PRN hemorrhoids #12 06/27/22 rectal suppository (Anusol-HC) ea Flutter Valve #1 ea 10/24/22 Symbicort 160 mcg-4.5 2 puff inhalation BID #3 Inhalers 10/24/22 mcg/actuation HFA aerosol inhaler (budesonide-formoterol) albuterol sulfate 90 mcg/actuation 180 mcg inhalation Q4H PRN 10/24/22 breath activated powder inhaler shortness of breath or wheezing #3 (ProAir RespiClick) Inhalers inhalational spacing device #1 ea 10/24/22 (BreatheRite MDI Spacer) tiotropium bromide 2.5 2 puff inhalation DAILY #3 Inhalers 10/24/22 mcg/actuation mist for inhalation (Spiriva Respimat) immun glob G 10 gram/50 mL(20 See Rx Instructions subcut 11/09/22 %)-pro-IgA 0-50 mcg/mL .COMPLEX #200 mL subcutaneous soln (Hizentra) levothyroxine 75 mcg tablet 75 mcg PO DAILYBB #90 tabs 11/29/22 rosuvastatin 5 mg tablet 5 mg PO DAILY #90 tabs 03/27/23 triamterene 37.5 0.5 tab PO QAM #45 tabs 12/03/22 mg-hydrochlorothiazide 25 mg tablet pantoprazole 40 mg tablet,delayed See Rx Instructions .Route 01/03/23 release .COMPLEX #90 tabs epinephrine 0.3 mg/0.3 mL See Rx Instructions .Route 02/14/23 injection, auto-injector .COMPLEX #2 ea prednisone 10 mg tablet See Rx Instructions .Route 02/22/23 .COMPLEX #30 tabs acetic acid 2 % ear solution 4 drp otic (ear) TID #15 mL 02/28/23 cefdinir 300 mg capsule 300 mg PO BID #14 caps 02/28/23 Results & Data (ED) Vital Signs Vital Signs - 24 hr 03/20/23 02:20 03/20/23 02:30 03/20/23 02:40 Pulse Rate 72 73 73 Pulse Rate from SpO2 Sensor 71 71 69 Respiratory Rate 22 16 24 Pulse Oximetry 94 97 95 03/20/23 02:50 Pulse Rate 67 Pulse Rate from SpO2 Sensor 66 Respiratory Rate 14 Pulse Oximetry 96 Laboratory Data 03/19/23 21:04 03/19/23 21:04 Lab Results 03/19/23 03/19/23 03/19/23 Range/Units 21:04 21:04 21:04 WBC 4.91 (4.8-10.8) K/ul RBC 4.62 (4.20-5.40) M/uL Hgb 13.8 (12.0-16.0) g/dl Hct 40.0 (37.0-47.0) % MCV 86.6 (80.0-100.0) fL MCH 29.9 (25.0-34.0) pg MCHC 34.5 (32.0-36.0) g/dL RDW Std Deviation 42.2 (36.4-46.3) fL RDW Coeff of Katiana 13.4 (11.5-14.5) % Plt Count 206 (130-400) K/uL MPV 12.1 (9.4-12.4) fL Neutrophils % (Manual) 63 % Lymphocytes % (Manual) 28 % Monocytes % (Manual) 9 % Neutrophils # (Manual) 3.09 (1.40-6.50) K/uL Total Absolute Neuts 3.09 (1.4-6.5) K/uL Lymphocytes # (Manual) 1.37 (1.2-3.4) K/uL Total Abs Lymphocytes 1.37 (1.2-3.4) K/uL Monocytes # (Manual) 0.44 (0.11-0.59) K/uL Sodium 140 (136-145) mmol/L Potassium 3.5 (3.5-5.1) mmol/L Chloride 103 (98-107) mmol/L Carbon Dioxide 28 (21-32) mmol/L Anion Gap 9 (3-11) BUN 14 (6-23) mg/dl Creatinine 1.01 (0.6-1.2) mg/dl Est Cr Clr Drug Dosing 47.7 ml/min Est GFR ( Amer) 60.9 ml/min Est GFR (Non-Af Amer) 52.5 ml/min BUN/Creatinine Ratio 13.9 (10-20) Glucose 101 H (70-99(Fasting)) mg/dl Calcium 9.6 (8.6-10.3) mg/dl Total Bilirubin 1.0 (0.2-1.0) mg/dl AST 32 (13-39) U/L ALT 25 (7-52) U/L Alkaline Phosphatase 49 (34-104) U/L Troponin I High Sens 6.5 (0-14) pg/ml Total Protein 7.3 (6.0-8.3) gm/dl Albumin 4.6 (3.4-5.0) gm/dl Globulin 2.7 (2.5-4.0) gm/dl Albumin/Globulin Ratio 1.7 (0.9-2) Adenovirus (PCR) (NotDetected) B. pertussis DNA (PCR) (NotDetected) B.parapertussis DNA PCR (NotDetected) C. pneumoniae DNA (PCR) (NotDetected) Coronavirus OC43 (PCR) (NotDetected) Coronavirus HKU1 (PCR) (NotDetected) Coronavirus 229E (PCR) (NotDetected) SARS-CoV-2 (PCR) NEGATIVE (Negative) Coronavirus NL63 (PCR) (NotDetected) Human Metapneumovir PCR (NotDetected) Influenza Type A (PCR) Negative (Neg) Influenza Type B (PCR) Negative (Neg) M. pneumoniae (PCR) (NotDetected) Parainfluenza 1 (PCR) (NotDetected) Parainfluenza 2 (PCR) (NotDetected) Parainfluenza 3 (PCR) (NotDetected) Parainfluenza 4 (PCR) (NotDetected) RSV (RT-PCR) Negative (Neg) RSV (PCR) (NotDetected) Entero/Rhino (PCR) (NotDetected) 03/19/23 Range/Units 21:04 WBC (4.8-10.8) K/ul RBC (4.20-5.40) M/uL Hgb (12.0-16.0) g/dl Hct (37.0-47.0) % MCV (80.0-100.0) fL MCH (25.0-34.0) pg MCHC (32.0-36.0) g/dL RDW Std Deviation (36.4-46.3) fL RDW Coeff of [place] (11.5-14.5) % Plt Count (130-400) K/uL MPV (9.4-12.4) fL Neutrophils % (Manual) % Lymphocytes % (Manual) % Monocytes % (Manual) % Neutrophils # (Manual) (1.40-6.50) K/uL Total Absolute Neuts (1.4-6.5) K/uL Lymphocytes # (Manual) (1.2-3.4) K/uL Total Abs Lymphocytes (1.2-3.4) K/uL Monocytes # (Manual) (0.11-0.59) K/uL Sodium (136-145) mmol/L Potassium (3.5-5.1) mmol/L Chloride (98-107) mmol/L Carbon Dioxide (21-32) mmol/L Anion Gap (3-11) BUN (6-23) mg/dl Creatinine (0.6-1.2) mg/dl Est Cr Clr Drug Dosing ml/min Est GFR ( Amer) ml/min Est GFR (Non-Af Amer) ml/min BUN/Creatinine Ratio (10-20) Glucose (70-99(Fasting)) mg/dl Calcium (8.6-10.3) mg/dl Total Bilirubin (0.2-1.0) mg/dl AST (13-39) U/L ALT (7-52) U/L Alkaline Phosphatase (34-104) U/L Troponin I High Sens (0-14) pg/ml Total Protein (6.0-8.3) gm/dl Albumin (3.4-5.0) gm/dl Globulin (2.5-4.0) gm/dl Albumin/Globulin Ratio (0.9-2) Adenovirus (PCR) Not Detected (NotDetected) B. pertussis DNA (PCR) Not Detected (NotDetected) B.parapertussis DNA PCR Not Detected (NotDetected) C. pneumoniae DNA (PCR) Not Detected (NotDetected) Coronavirus OC43 (PCR) Not Detected (NotDetected) Coronavirus HKU1 (PCR) Not Detected (NotDetected) Coronavirus 229E (PCR) Not Detected (NotDetected) SARS-CoV-2 (PCR) Not Detected (Negative) Coronavirus NL63 (PCR) Not Detected (NotDetected) Human Metapneumovir PCR Not Detected (NotDetected) Influenza Type A (PCR) Not Detected (Neg) Influenza Type B (PCR) Not Detected (Neg) M. pneumoniae (PCR) Not Detected (NotDetected) Parainfluenza 1 (PCR) Not Detected (NotDetected) Parainfluenza 2 (PCR) Not Detected (NotDetected) Parainfluenza 3 (PCR) Not Detected (NotDetected) Parainfluenza 4 (PCR) Not Detected (NotDetected) RSV (RT-PCR) (Neg) RSV (PCR) Not Detected (NotDetected) Entero/Rhino (PCR) Not Detected (NotDetected) Administered Medications Albuterol (Albuterol 0.083% Nebu Soln 3 Ml Vial) 2.5 mg NEB Q4R RASHMI; Protocol Stop: 04/19/23 06:59 Last Admin: 03/20/23 22:23 Dose: Not Given Documented By: Admin: 03/20/23 19:32 Dose: 2.5 mg Documented By: Admin: 03/20/23 15:10 Dose: 2.5 mg Documented By: Admin: 03/20/23 11:06 Dose: 2.5 mg Documented By: Admin: 03/20/23 07:06 Dose: 2.5 mg Documented By: SHAHID Fluticasone Propionate (Fluticasone Propionate Na Spr 16 Gm Btl) 2 sprays NA DAILY RASHMI Stop: 04/19/23 08:59 Last Admin: 03/20/23 09:13 Dose: 2 sprays Documented By: ARVIND Fluticasone/Vilanterol (Fluticasone/Vilanterol 200/25mcg 14 Puffs/Inhaler) 1 puffs INH DAILY RASHMI Stop: 04/19/23 08:59 Last Admin: 03/20/23 07:31 Dose: 1 puffs Documented By: ARVIND Guaifenesin (Guaifenesin 600 Mg Tabcr) 1,200 mg PO Q12 RASHMI Stop: 04/19/23 08:59 Last Admin: 03/20/23 20:57 Dose: Not Given Documented By: Admin: 03/20/23 07:32 Dose: 1,200 mg Documented By: ARVIND Levothyroxine Sodium (Levothyroxine Sodium 75 Mcg Tablet) 75 mcg PO DAILYBB RASHMI Stop: 04/19/23 06:29 Last Admin: 03/20/23 05:39 Dose: 75 mcg Documented By: CARIE Metoprolol Succinate (Metoprolol Succ 25mg Ext Rel Tab) 12.5 mg PO QAM RASHMI Stop: 04/19/23 14:44 Last Admin: 03/20/23 16:00 Dose: 12.5 mg Documented By: JOHN Miscellaneous (Order Awaiting Action: Hizentra Sq Infusion) 1 each N/A QS RASHMI Stop: 04/20/23 00:00 Last Admin: 03/21/23 00:06 Dose: Not Given Documented By: CARIE Pantoprazole Sodium (Pantoprazole 40 Mg Tab) 40 mg PO BID RASHMI Stop: 04/19/23 20:59 Last Admin: 03/20/23 20:58 Dose: 40 mg Documented By: CARIE Polyethylene Glycol (Polyethylene (Miralax) 17 Gm Pack) 17 gm PO DAILY RASHMI Stop: 04/19/23 12:59 Last Admin: 03/20/23 13:00 Dose: 17 gm Documented By: ARVIND Prednisone (Prednisone 20 Mg Tab) 20 mg PO DAILY RASHMI Stop: 04/19/23 08:59 Last Admin: 03/20/23 09:14 Dose: 20 mg Documented By: ARVIND Rosuvastatin Calcium (Rosuvastatin Calcium 5 Mg Tab) 5 mg PO DAILY RASHMI Stop: 04/19/23 08:59 Last Admin: 03/20/23 07:32 Dose: 5 mg Documented By: ARVIND Sodium Chloride (Sodium Chlor 7% 4 Ml Neb) 4 ml NEB BIDR RASHMI Stop: 04/19/23 18:59 Last Admin: 03/20/23 19:33 Dose: 4 ml Documented By: ZACHARY Triamterene/Hydrochlorothiazide (Triamterene/Hctz 37.5/25mg Tab) 0.5 tab PO QAM RASHMI Stop: 04/19/23 08:59 Last Admin: 03/20/23 07:32 Dose: 0.5 tab Documented By: ARVIND Umeclidinium [place] (Umeclidinium [place] 62.5mcg/Blister 7 Puffs/Inhaler) 1 puffs INH DAILY RASHMI Stop: 04/19/23 08:59 Last Admin: 03/20/23 07:31 Dose: 1 puffs Documented By: ARVIND Discontinued Medications Albuterol (Albut/Ipratrop 3mg/0.5mg Neb 3 Ml Vial) 3 ml NEB NOW STA; Protocol Stop: 03/20/23 00:10 Last Admin: 03/20/23 00:27 Dose: 3 ml Documented By: CHAITANYA Sodium Chloride (Nss 1000ml) 1,000 mls @ 125 mls/hr IV .Q8H RASHMI Stop: 04/18/23 22:29 Last Infusion: 03/20/23 08:57 Dose: 0 mls/hr Documented By: Admin: 03/20/23 07:33 Dose: 125 mls/hr Documented By: Infusion: 03/20/23 07:29 Dose: 0 mls/hr Documented By: Admin: 03/19/23 23:23 Dose: 125 mls/hr Documented By: CHAITANYA Famotidine (Pepcid 20mg Iv Push) 20 mg in 5 mls @ 2.5 mls/min IV NOW STA Stop: 03/19/23 22:29 Last Admin: 03/19/23 23:23 Dose: 2.5 mls/min Documented By: CHAITANYA Levofloxacin/Dextrose (Levaquin/D5w) 750 mg in 150 mls @ 100 mls/hr IV NOW STA Stop: 03/20/23 03:12 Last Infusion: 03/20/23 04:51 Dose: 0 mls/hr Documented By: Admin: 03/20/23 02:22 Dose: 100 mls/hr Documented By: CHAITANYA(2) Magnesium Sulfate/Dextrose (Magnesium Sulfate / D5w) 1 gm in 100 mls @ 50 mls/hr IV ONE ONE Stop: 03/20/23 13:40 Last Infusion: 03/20/23 14:27 Dose: 0 mls/hr Documented By: Admin: 03/20/23 12:19 Dose: 50 mls/hr Documented By: ARVIND Ioversol (Optiray 320 100ml) 119 ml IV ONCE ONE Stop: 03/19/23 22:36 Last Admin: 03/19/23 22:35 Dose: 119 ml Documented By: IRINA Methylprednisolone (Methylprednisolone 125 Mg/2 Ml Vial) 60 mg IV NOW STA Stop: 03/20/23 01:44 Last Admin: 03/20/23 02:22 Dose: 60 mg Documented By: CHAITANYA(2) Non-Formulary Medication (Hizentra) 1 dose SQ Q7D RASHMI Stop: 04/19/23 11:44 Last Admin: 03/20/23 14:31 Dose: 1 dose Documented By: ARVIND Pantoprazole Sodium (Pantoprazole 40 Mg Tab) 40 mg PO DAILY RASHMI Stop: 04/19/23 08:59 Last Admin: 03/20/23 07:32 Dose: 40 mg Documented By: ARVIND Potassium Chloride (Potassium Chloride Crtab 20 Meq Tabcr) 20 meq PO NOW STA Stop: 03/20/23 10:29 Last Admin: 03/20/23 11:18 Dose: 20 meq Documented By: ARVIND Imaging Data Radiologist's Impression: Chest CTA 03/19/23 22:27 Exam(s): CTA CHEST IV Amt: 119ml optiray 320 EXAM: CT Angiography Chest With Intravenous Contrast CLINICAL HISTORY: Reason for exam: PE. TECHNIQUE: Axial computed tomographic angiography images of the chest with intravenous contrast. CTDI is 43.5 mGy and DLP is 900.13 mGy-cm. Automated exposure control was utilized for the study. A dose lowering technique was utilized adhering to the principles of ALARA. MIP reconstructed images were created and reviewed. COMPARISON: No relevant prior studies available. FINDINGS: Pulmonary arteries: Unremarkable. No acute pulmonary embolism. Aorta: No acute findings. No thoracic aortic aneurysm. Lungs: Unremarkable. No mass. No consolidation. Pleural space: Unremarkable. No focal consolidation, pleural effusion, or pneumothorax. Heart: Cardiomegaly. No significant pericardial effusion. No evidence of RV dysfunction. Bones/joints: No acute fracture. No dislocation. Soft tissues: Unremarkable. Lymph nodes: Unremarkable. No enlarged lymph nodes. IMPRESSION: 1. No focal consolidation, pleural effusion, or pneumothorax. 2. No acute pulmonary embolism. Electronically signed by: Wlademar Alegria MD 03/19/23 23:40 PM Discharge Plan Visit Data Chief Complaint: Congestion Stated Complaint: CONGESTED,FLUTER HEART, ED Provider: Christie Jay Discharge Problem: Dyspnea, Asthma exacerbation Patient Disposition: Admitted As Inpatient Discharge Instructions Interventions: ED Discharge Assessment Last Done: 03/20/23 04:30
--- NOTE | 2023-03-19 23:41 | CT Scan Report ---
Exam(s): CTA CHEST IV Amt: 119ml optiray 320 EXAM: CT Angiography Chest With Intravenous Contrast CLINICAL HISTORY: Reason for exam: PE. TECHNIQUE: Axial computed tomographic angiography images of the chest with intravenous contrast. CTDI is 43.5 mGy and DLP is 900.13 mGy-cm. Automated exposure control was utilized for the study. A dose lowering technique was utilized adhering to the principles of ALARA. MIP reconstructed images were created and reviewed. COMPARISON: No relevant prior studies available. FINDINGS: Pulmonary arteries: Unremarkable. No acute pulmonary embolism. Aorta: No acute findings. No thoracic aortic aneurysm. Lungs: Unremarkable. No mass. No consolidation. Pleural space: Unremarkable. No focal consolidation, pleural effusion, or pneumothorax. Heart: Cardiomegaly. No significant pericardial effusion. No evidence of RV dysfunction. Bones/joints: No acute fracture. No dislocation. Soft tissues: Unremarkable. Lymph nodes: Unremarkable. No enlarged lymph nodes. IMPRESSION: 1. No focal consolidation, pleural effusion, or pneumothorax. 2. No acute pulmonary embolism. Electronically signed by: Waldemar Alegria MD 03/19/23 23:40 PM
[2023-03-19 23:44] LABS: Adenovirus PCR Not Detected (NotDetected); Bordetella parapertussis PCR Not Detected (NotDetected); Bordetella pertussis PCR Not Detected (NotDetected); Chlamydia pneumoniae PCR Not Detected (NotDetected); Coronavirus 229E PCR Not Detected (NotDetected); Coronavirus CoV-2 (COVID19)PCR Not Detected (NotDetected); Coronavirus HKU1 PCR Not Detected (NotDetected); Coronavirus NL63 PCR Not Detected (NotDetected); Coronavirus OC43PCR Not Detected (NotDetected); Human Metapneumovirus PCR Not Detected (NotDetected); Influenza A PCR Not Detected (NotDetected); Influenza B PCR Not Detected (NotDetected); Mycoplasma pneumoniae PCR Not Detected (NotDetected); Parainfluenza Virus 1 PCR Not Detected (NotDetected); Parainfluenza Virus 2 PCR Not Detected (NotDetected); Parainfluenza Virus 3 PCR Not Detected (NotDetected); Parainfluenza Virus 4 PCR Not Detected (NotDetected); Respiratory Syncytial VirusPCR Not Detected (NotDetected); Rhinovirus/Enterovirus PCR Not Detected (NotDetected)
[2023-03-20] MEDS ORDERED: ALBUT/IPRATROP 3MG/0.5MG NEB 3 ML VIAL NEB STA (00:09)
[2023-03-20] MEDS ORDERED: methylPREDNISolone 125 MG/2 ML VIAL IV STA (01:43)
[2023-03-20] MEDS ORDERED: levoFLOXacin/D5W 750 MG/150 ML BAG IV STA (01:43)
--- NOTE | 2023-03-20 02:32 | History & Physical Report ---
Date of Service March 20, 2023 Assessment & Plan (1) Dyspnea: Plan: 82yo Female with PMH lung cancer s/p lung resection, asthma, HTN, HLD, hypothyroidism, nighttime oxygen supplementation 2L, GERD, depression/anxiety here for SOB. Hypoxia concern Asthma Exacerbation -In outpatient treated with augmentin cefdinir prednisone taper 70mg 12 days -in ED noted desat to 82% on ambulation -in ED received methylprednisolone 60mg IV, levofloxacin, albuterol neb, famotid ine -admit to med/tele -CTA: No focal consolidation, pleural effusion, or pneumothorax. No acute pulmonary embolism. -continue home inhalers symbicort tiotropium bromide -consult placed to pulmonology -ordered mucinex -scheduled albuterol neb q4h -PRN albuterol neb q4h -continue methylprednisolone 60mg IV q24hr, taper Hx. Lung Cancer, Immunodeficiency -patient received Immunoglobulin injection wednesdays qWeekly, she should have this medication at home. If she needs dosage, DO NOT sent by tube system as it will break. Hypothyroidism -continue levothyroxine GERD -continue protonix HLD, HTN -continue rosuvastatin -continue triamterene HCTZ -hold metoprolol for now given wheezing albuterol treatment FENa: regular Code Status: Full DVT PPX: SCDs PT/OT: ordered Dispo: med/tele Nayely Lin D.O. PGY 3, FCM (2) Asthma exacerbation: (3) Asthmatic bronchitis , chronic: (4) Hypertension: (5) Dyslipidemia: (6) Hypothyroidism: (7) ZHANG (obstructive sleep apnea): (8) Dependence on supplemental oxygen: (9) History of lung surgery: (10) Gastroesophageal reflux disease: History of Present Illness Chief Complaint: SOB Primary Care Provider: Lang Veloz, 82yo Female with PMH lung cancer s/p lung resection, asthma, HTN, HLD, hypothyroidism, nighttime oxygen supplementation, GERD, depression/anxiety here for SOB. Patient states she had wheezing and SOB since January, has been treated with augmentin cefdinir prednisone taper starting at 70mg taper over 12 days, states she felt improvement on medication however felt worse after medication ended. Patient complains of primarily congestion SOB making it difficult to clean her house, as well as increased fatigue from SOB. States palpitations have been worse with her SOB as well. States she finally called her building services technician's office who advised her to come to ED. Patient manages her own medications, understands she may use her albuterol inhaler q4h PRN however she is not using it that often. She sees pulmonology ever 6 months next appointment in 2 weeks. Also noted some left sided mid back pain on saturday that she thinks may be indigestion. States recent medication changes include metoprolol 12mg started by cardiology after something they noted on her holter monitor. Denies nausea vomitting fever. Patient's POA are sons Sander and Horace. Allergies Allergy/AdvReac Type Severity Reaction Status Date / Time atorvastatin Allergy Unknown UNKNOWN Verified 02/28/23 10:52 REACTION doxycycline Allergy Unknown GI upset Verified 02/28/23 10:52 propoxyphene Allergy Unknown UNKNOWN Verified 02/28/23 10:52 REACTION simvastatin Allergy Unknown myalgias Verified 02/28/23 10:52 azithromycin AdvReac Intermediate SEVERE GI Verified 02/28/23 10:52 UPSET codeine AdvReac Mild PATIENT Verified 02/28/23 10:52 STATES IT MAKES HER "GOOFY" AND NAUSEATED Home Medications Medication Instructions Recorded Confirmed Type cholecalciferol (vitamin D3) 50 2,000 units PO QDD 05/05/19 02/28/23 History mcg (2,000 unit) tablet vitamin B complex (B 1 tab PO BID 05/01/21 02/28/23 History Complex-Vitamin B12 tablet) diphenhydramine HCl 25 mg capsule 25 mg PO DIRECTED 11/06/21 02/28/23 History (Benadryl) nebulizers (Aeroneb Go Nebulizer) #1 ea 11/09/21 02/28/23 Rx Oxygen Home 02/15/22 02/28/23 History azelastine 137 mcg (0.1 %) nasal 2 spray intranasal DAILY PRN 02/15/22 02/28/23 History spray aerosol fluticasone propionate 50 2 spray intranasal DAILY PRN 06/18/22 02/28/23 Rx mcg/actuation nasal allerggies #16 grams spray,suspension (Flonase Allergy Relief) ipratropium 0.5 mg-albuterol 3 mg 3 ml inhalation Q8H PRN shortness 06/18/22 02/28/23 Rx (2.5 mg base)/3 mL nebulization of breath or wheezing #180 mL soln hydrocortisone acetate 25 mg 25 mg [place] DAILY PRN hemorrhoids #12 06/27/22 02/28/23 Rx rectal suppository (Anusol-HC) ea Flutter Valve #1 ea 10/24/22 02/28/23 Rx Symbicort 160 mcg-4.5 2 puff inhalation BID #3 Inhalers 10/24/22 02/28/23 Rx mcg/actuation HFA aerosol inhaler (budesonide-formoterol) albuterol sulfate 90 mcg/actuation 180 mcg inhalation Q4H PRN 10/24/22 02/28/23 Rx breath activated powder inhaler shortness of breath or wheezing #3 (ProAir RespiClick) Inhalers inhalational spacing device #1 ea 10/24/22 02/28/23 Rx (BreatheRite MDI Spacer) tiotropium bromide 2.5 2 puff inhalation DAILY #3 Inhalers 10/24/22 02/28/23 Rx mcg/actuation mist for inhalation (Spiriva Respimat) acetaminophen 500 mg tablet 500 mg PO DIRECTED PRN 11/02/22 02/28/23 History (Tylenol Extra Strength) immun glob G 10 gram/50 mL(20 See Rx Instructions subcut 11/09/22 02/28/23 Rx %)-pro-IgA 0-50 mcg/mL .COMPLEX #200 mL subcutaneous soln (Hizentra) levothyroxine 75 mcg tablet 75 mcg PO DAILYBB #90 tabs 11/29/22 02/28/23 Rx rosuvastatin 5 mg tablet 5 mg PO DAILY #90 tabs 12/03/22 02/28/23 Rx triamterene 37.5 0.5 tab PO QAM #45 tabs 12/03/22 02/28/23 Rx mg-hydrochlorothiazide 25 mg tablet pantoprazole 40 mg tablet,delayed See Rx Instructions .Route 01/03/23 02/28/23 Rx release .COMPLEX #90 tabs epinephrine 0.3 mg/0.3 mL See Rx Instructions .Route 02/14/23 02/28/23 Rx injection, auto-injector .COMPLEX #2 ea prednisone 10 mg tablet See Rx Instructions .Route 02/22/23 02/28/23 Rx .COMPLEX #30 tabs acetic acid 2 % ear solution 4 drp otic (ear) TID #15 mL 02/28/23 02/28/23 Rx cefdinir 300 mg capsule 300 mg PO BID #14 caps 02/28/23 02/28/23 Rx Past Med/Surg History Medical History Allergic rhinitis Asthma Chronic recurrent sinusitis Coronary artery calcification Depression with anxiety Dyslipidemia Gastroesophageal reflux disease Hypertension Hypothyroidism Maxillary sinusitis Mild obstructive sleep apnea Using saupplemental O2 only Palpitations Surgical History History of colonoscopy History of dilation and curettage History of lung surgery right upper lobectomy March 08, 2017 for a 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, stage IA History of tonsillectomy Family History Father Diabetes Heart disease Brother Heart disease Dementia Sister Heart disease Mother Depression Grandfather Depression Other Hypertension Social History Smoking Status: Never smoker Second Hand Exposure: Yes; Do You Dip or Chew Tobacco: No; Hx Alcohol Use: No Hx Substance Use: No Preferred Language: [place] Communication Ability: Effective Visual Impairment: Limited Hearing Ability: Normal Paper Machine Backtender Required: No Beliefs That Will Affect Care: None marital status: / Current Living Situation: Alone Current Living Situation Comment: Home alone current occupational status: retired Other Information That Helps Us Care for You: No Feels Safe at Home: Yes Safety Concerns: Feels Safe At This Time Childhood Exposure to Second-Hand Smoke: Yes Diet: low salt caffeine: No Dental Care, Regularly: Yes Physical Activity Frequency: Does not Exercise Seatbelt Use: always Sunscreen Use: Yes Assistive Devices: None Physical Exam Constitutional: well developed, well nourished, cooperative and comfortable Eyes: PERRL, conjunctivae normal, anicteric sclerae ENMT: external ear and nose normal, oropharynx normal Neck: trachea midline, no thyromegaly Respiratory: normal respiratory effort Auscultation: + wheezes (throughout) Cardiovascular: Rate/Rhythm: regular rate and regular rhythm Gastrointestinal (Abdomen): Inspection/Auscultation: abdomen normal to inspection Percussion/Palpation: abdomen soft; abdomen nontender Skin: no rashes, warm and dry Results & Data Results & Data Vital Signs (Past 12 Hours) Vital Signs Temp Pulse Resp BP BP Pulse Ox O2 Del Method 03/20/23 01:02 71 03/19/23 20:26 171/105 H 03/19/23 21:01 85 03/19/23 20:20 36.2 C L 81 18 180/84 H 96 Room Air Supervising Physician Co-Signing Physician Notes Patient seen and examined, chart reviewed, case discussed with Dr. Lin and I agree with the assessment and plan as above. Resident Activity Tracking Resident Involvement: Resident Care Provided Care Provided: Adult Hospital Medicine
[2023-03-20] MEDS ORDERED: ALBUTEROL 0.083% NEBU SOLN 3 ML VIAL NEB PRN (02:39)
[2023-03-20] MEDS ORDERED: methylPREDNISolone 125 MG/2 ML VIAL IV SCH (04:49)
[2023-03-20] MEDS: LEVOTHYROXINE SODIUM 75 MCG TABLET PO SCH (05:39)
[2023-03-20] MEDS: ALBUTEROL 0.083% NEBU SOLN 3 ML VIAL NEB SCH ×5 (07:06→22:23)
[2023-03-20] MEDS: FLUTICASONE/VILANTEROL 200/25MCG 14 PUFFS/INHALER INH SCH (07:31)
[2023-03-20] MEDS: UMECLIDINIUM BROMIDE 62.5MCG/BLISTER 7 PUFFS/INHALER INH SCH (07:31)
[2023-03-20] MEDS: TRIAMTERENE/HCTZ 37.5/25MG TAB PO SCH (07:32)
[2023-03-20] MEDS: guaiFENesin 600 MG TABCR PO SCH ×2 (07:32→20:57)
[2023-03-20] MEDS: ROSUVASTATIN CALCIUM 5 MG TAB PO SCH (07:32)
[2023-03-20] MEDS: SODIUM CHLORIDE 0.9% 1000ML 1,000 ML IV SCH (07:33)
--- NOTE | 2023-03-20 07:52 | Billing Data ---
Date of Service March 20, 2023 Coding Level of Care Code 58281 INT INP/OBS CARE
--- NOTE | 2023-03-20 08:01 | XRay Report ---
XR chest 1V not portable CLINICAL HISTORY: cough TECHNIQUE: Single frontal radiograph of the chest was obtained. Comparison: Comparison is made to chest radiograph 10/08/2022 FINDINGS: No lines and tubes are seen. The cardiomediastinal silhouette is normal. The lungs are clear. No evid ence of pleural effusion or pneumothorax. IMPRESSION: No acute abnormalities and in particular no radiographic evidence of pneumonia. ACT 112: Negative or not required by law. Electronically signed by: Zion Craig M.D. 03/20/2023 7:59 AM
--- NOTE | 2023-03-20 08:02 | Hospitalist Progress Note ---
Date of Service March 20, 2023 Assessment & Plan (1) Dyspnea: Plan: 82yo Female with PMH lung cancer s/p lung resection, asthma, HTN, HLD, hypothyroidism, nighttime oxygen supplementation 2L, GERD, depression/anxiety here for SOB. In outpatient treated with augmentin, followed by cefdinir & prednisone taper 70mg 12 days. Biofire testing negative Hypoxia concern Asthma Exacerbation, ?mucus plugging CTA w/o focal consolidation/effusion/PTX, no acute PE Desat to the 80s w/ ambulation in ER , given 60mg IV methylprednisolone, Levaquin, Albuterol neb, famotidie Pulm consulted- appreciate recs/assistance -Also consulted cards per pulm recs/palpitations. No arrythmia on monitor but reports lightheadedness in the past. -BNP added to labs. -Will defer repeating echo to cards in case had more recently than november last year. ?event monitor at d/c Given methylprednisolone 60mg this morning--> converted and continues on prednisone 20mg daily per pulmonology Continues on Symbicort/Incruse or hospital formulary Albuterol neb q4h, prn. 1gm IV mag Incentive spirometer, flutter valve Continue mucinex 1200mg BID (consider continuing at least once daily at discharge to help keep secretions thin) Sputum cx ordered if able to produce Patient reports unable to tolerate CPAP at night -- discussed again as rec'd by pulm and she declined again, even nasal pillows Supplemental O2 to maintain sats -- currently to ROOM AIR 92% Continued inpatient stay GERD Appears possibly worse reflux recently/awakening her at night On protonix daily QAM -- discussed giving in evening vs morning. ?if worsened reflux 2nd to prednisone use recently for exacerbation Increased protonix to BID and will monitor --can consider changing dosing to at night vs adding pepcid? rather than BID PPI at d/c Hx. Lung Cancer, Common Variable immunodeficiency (follows w/ Dr Henriquez) -patient received Immunoglobulin injection wednesdays qWeekly, she should have this medication at home. If she needs dosage, DO NOT sent by tube system as it will break --> discussed w/ RN and patient to have family bring this in and WALK IT DOWN TO PHARMACY WHEN IT ARRIVES Hypothyroidism TSH wnl earlier this year Remains on levothyroxine HLD, HTN STOPPED IVF to prevent overload Continues on triamterene-HCTZ, BP stable 136/80 Need to aim for good BP control given likely diastolic HF Continue crestor Metoprolol held on admission, will resume given Of note, klonopin 0.5mg on med list from cards most recently (and patient had not been taking her 20mg lasix twice weekly per directions)-- ?if benefit from low dose klonopin for anxiety symptoms as appears she only had this rx one time from [facility] in the past DVT PPX: SCDs for DVT proph. If remaining inpatient past tomorrow, would add chemoproph for tomorrow. Ambulating at present (2) Asthma exacerbation: (3) Asthmatic bronchitis , chronic: (4) Hypertension: (5) Dyslipidemia: (6) Hypothyroidism: (7) ZHANG (obstructive sleep apnea): (8) Dependence on supplemental oxygen: (9) History of lung surgery: (10) Gastroesophageal reflux disease: Plan continued inpatient stay possible dc in next 24-48 hours Admission and Anticipated Discharge Date Admission Date: March 20, 2023 Supervising Physician Co-Signing Physician Notes The patient was not seen by me. The chart was reviewed. Case discussed with SHAY Diallo. Agree with assessment and plan Subjective Evaluated this morning, doing better than when she came in. Recently completed prednisone/augmentin, followed by cefdinir for sinus infection. She completed full course. Holding off abx at present, discussed sputum - cx if able to obtain. She feels like something is getting stuck, possible mucus plugging. Discussed mucinex/hypertonix saline and monitoring. Sputum prior discolored. Possible costochondritis from bronchitis as well. Also reports what appears to be some reflux as well that wakes her up at night. Discussed will order tonight -monitor for need to increase to BID for relux symptoms, also for GI proph given prednisone use. No fever/chills. No abdominal pain/nausea. Unable to tolerate CPAP, does not want to trial again tonight. To get her Hizentra today, did not bring in. Will check w/ pharmacy to see if we carry, otherwise will ask her to have family bring it in for administration today as she is due. Gets weekly, follows with Dr Henriquez. Questions/concerns addressed at this time. Review of Systems Review of Systems: All systems reviewed & are unremarkable except as noted in HPI & below Physical Exam Physical Exam: General: WD/WN female sitting up in bed getting a breathing treatment, no acute distress, +cough noted HEENT: head normocephalic, atraumatic, mmm, trachea midline Resp: +cough, no tachypnea, wheezing (worse in LLL/RUL posteriorly, expiratory primarily), coarse breath sounds in the bases, on room air CV: RRR, no significant m/r/g, no pitting edema/calf tenderness GI: +BS, soft/NT : no hook MSK/Neuro: no focal deficits, no slurred speech, follows commands, CN intact grossly, no meningeal signs Psych:AOx3, cooperative with exam Results & Data Results & Data Vital Signs (Past 12 Hours) Vital Signs Temp Pulse Pulse Pulse Pulse Pulse Pulse 03/20/23 07:46 36.5 C 74 03/20/23 07:08 70 03/20/23 05:30 75 03/20/23 04:56 36.6 C 03/20/23 04:30 62 03/20/23 03:00 66 03/20/23 02:59 03/20/23 02:59 75 03/20/23 02:50 67 03/20/23 02:40 73 03/20/23 02:30 73 03/20/23 02:20 72 03/20/23 02:10 76 03/20/23 02:00 71 03/20/23 01:50 70 03/20/23 01:40 87 03/20/23 01:39 98 H 03/20/23 01:20 69 03/20/23 01:10 73 03/20/23 01:00 88 03/20/23 01:00 03/20/23 00:50 67 03/20/23 00:40 69 03/20/23 00:30 59 L 03/20/23 00:30 03/20/23 00:20 64 03/20/23 00:10 66 03/20/23 00:00 64 03/20/23 00:00 03/19/23 23:50 69 03/19/23 23:40 69 03/19/23 23:30 69 03/19/23 23:30 03/19/23 23:20 72 03/19/23 23:10 74 03/19/23 23:02 80 03/19/23 22:50 77 03/19/23 22:41 83 03/19/23 22:30 75 03/19/23 22:30 03/19/23 22:20 77 03/19/23 22:17 03/19/23 22:17 71 03/19/23 22:10 81 03/19/23 22:00 73 03/19/23 21:50 77 03/19/23 21:40 81 03/19/23 21:30 78 03/19/23 21:20 77 03/19/23 21:10 82 03/19/23 21:01 82 03/20/23 01:09 124 H 100 H 68 03/20/23 01:02 71 03/19/23 20:26 03/19/23 21:01 85 03/19/23 20:20 36.2 C L 81 Resp Resp Resp Resp BP BP Pulse Ox 03/20/23 07:46 18 160/80 H 97 03/20/23 07:08 18 98 03/20/23 05:30 03/20/23 04:56 18 192/95 H 95 03/20/23 04:30 16 155/92 H 93 03/20/23 03:00 21 93 03/20/23 02:59 157/107 H 03/20/23 02:59 20 97 03/20/23 02:50 14 96 03/20/23 02:40 24 95 03/20/23 02:30 16 97 03/20/23 02:20 22 94 03/20/23 02:10 17 96 03/20/23 02:00 14 94 03/20/23 01:50 14 96 03/20/23 01:40 18 98 03/20/23 01:39 23 96 03/20/23 01:20 15 96 03/20/23 01:10 24 96 03/20/23 01:00 21 97 03/20/23 01:00 166/83 H 03/20/23 00:50 20 95 03/20/23 00:40 21 96 03/20/23 00:30 12 100 03/20/23 00:30 161/93 H 03/20/23 00:20 17 94 03/20/23 00:10 20 96 03/20/23 00:00 19 95 03/20/23 00:00 149/92 H 03/19/23 23:50 18 95 03/19/23 23:40 22 93 03/19/23 23:30 20 94 03/19/23 23:30 153/92 H 03/19/23 23:20 18 94 03/19/23 23:10 17 97 03/19/23 23:02 03/19/23 22:50 22 95 03/19/23 22:41 23 03/19/23 22:30 16 94 03/19/23 22:30 170/101 H 03/19/23 22:20 20 93 03/19/23 22:17 143/93 H 03/19/23 22:17 15 03/19/23 22:10 24 03/19/23 22:00 26 H 94 03/19/23 21:50 16 93 03/19/23 21:40 18 95 03/19/23 21:30 16 96 03/19/23 21:20 17 94 03/19/23 21:10 15 94 03/19/23 21:01 15 96 03/20/23 01:09 30 H 24 18 03/20/23 01:02 03/19/23 20:26 171/105 H 03/19/23 21:01 03/19/23 20:20 18 180/84 H 96 Pulse Ox Pulse Ox Pulse Ox O2 Del Method O2 Flow Rate 03/20/23 07:46 Nasal Cannula 3 03/20/23 07:08 Nasal Cannula 3 03/20/23 05:30 03/20/23 04:56 Room Air 03/20/23 04:30 Room Air 03/20/23 03:00 03/20/23 02:59 03/20/23 02:59 03/20/23 02:50 03/20/23 02:40 03/20/23 02:30 03/20/23 02:20 03/20/23 02:10 03/20/23 02:00 03/20/23 01:50 03/20/23 01:40 03/20/23 01:39 03/20/23 01:20 03/20/23 01:10 03/20/23 01:00 03/20/23 01:00 03/20/23 00:50 03/20/23 00:40 03/20/23 00:30 03/20/23 00:30 03/20/23 00:20 03/20/23 00:10 03/20/23 00:00 03/20/23 00:00 03/19/23 23:50 03/19/23 23:40 03/19/23 23:30 03/19/23 23:30 03/19/23 23:20 03/19/23 23:10 03/19/23 23:02 03/19/23 22:50 03/19/23 22:41 03/19/23 22:30 03/19/23 22:30 03/19/23 22:20 03/19/23 22:17 03/19/23 22:17 03/19/23 22:10 03/19/23 22:00 03/19/23 21:50 03/19/23 21:40 03/19/23 21:30 03/19/23 21:20 03/19/23 21:10 03/19/23 21:01 03/20/23 01:09 82 L 92 95 Room Air 03/20/23 01:02 03/19/23 20:26 03/19/23 21:01 03/19/23 20:20 Room Air Laboratory Results 03/19/23 03/19/23 03/19/23 Range/Units 21:04 21:04 21:04 WBC (4.8-10.8) K/ul RBC (4.20-5.40) M/uL Hgb (12.0-16.0) g/dl Hct (37.0-47.0) % MCV (80.0-100.0) fL MCH (25.0-34.0) pg MCHC (32.0-36.0) g/dL RDW Std Deviation (36.4-46.3) fL RDW Coeff of Katiana (11.5-14.5) % Plt Count (130-400) K/uL MPV (9.4-12.4) fL Neutrophils % (Manual) % Lymphocytes % (Manual) % Monocytes % (Manual) % Neutrophils # (Manual) (1.40-6.50) K/uL Total Absolute Neuts (1.4-6.5) K/uL Lymphocytes # (Manual) (1.2-3.4) K/uL Total Abs Lymphocytes (1.2-3.4) K/uL Monocytes # (Manual) (0.11-0.59) K/uL Sodium 140 (136-145) mmol/L Potassium 3.5 (3.5-5.1) mmol/L Chloride 103 (98-107) mmol/L Carbon Dioxide 28 (21-32) mmol/L Anion Gap 9 (3-11) BUN 14 (6-23) mg/dl Creatinine 1.01 (0.6-1.2) mg/dl Est Cr Clr Drug Dosing 47.7 ml/min Est GFR ( Amer) 60.9 ml/min Est GFR (Non-Af Amer) 52.5 ml/min BUN/Creatinine Ratio 13.9 (10-20) Glucose 101 H (70-99(Fasting)) mg/dl Calcium 9.6 (8.6-10.3) mg/dl Total Bilirubin 1.0 (0.2-1.0) mg/dl AST 32 (13-39) U/L ALT 25 (7-52) U/L Alkaline Phosphatase 49 (34-104) U/L Troponin I High Sens 6.5 (0-14) pg/ml Total Protein 7.3 (6.0-8.3) gm/dl Albumin 4.6 (3.4-5.0) gm/dl Globulin 2.7 (2.5-4.0) gm/dl Albumin/Globulin Ratio 1.7 (0.9-2) Adenovirus (PCR) Not Detected (NotDetected) B. pertussis DNA (PCR) Not Detected (NotDetected) B.parapertussis DNA PCR Not Detected (NotDetected) C. pneumoniae DNA (PCR) Not Detected (NotDetected) Coronavirus OC43 (PCR) Not Detected (NotDetected) Coronavirus HKU1 (PCR) Not Detected (NotDetected) Coronavirus 229E (PCR) Not Detected (NotDetected) SARS-CoV-2 (PCR) Not Detected NEGATIVE (Negative) Coronavirus NL63 (PCR) Not Detected (NotDetected) Human Metapneumovir PCR Not Detected (NotDetected) Influenza Type A (PCR) Not Detected Negative (Neg) Influenza Type B (PCR) Not Detected Negative (Neg) M. pneumoniae (PCR) Not Detected (NotDetected) Parainfluenza 1 (PCR) Not Detected (NotDetected) Parainfluenza 2 (PCR) Not Detected (NotDetected) Parainfluenza 3 (PCR) Not Detected (NotDetected) Parainfluenza 4 (PCR) Not Detected (NotDetected) RSV (RT-PCR) Negative (Neg) RSV (PCR) Not Detected (NotDetected) Entero/Rhino (PCR) Not Detected (NotDetected) 03/19/23 Range/Units 21:04 WBC 4.91 (4.8-10.8) K/ul RBC 4.62 (4.20-5.40) M/uL Hgb 13.8 (12.0-16.0) g/dl Hct 40.0 (37.0-47.0) % MCV 86.6 (80.0-100.0) fL MCH 29.9 (25.0-34.0) pg MCHC 34.5 (32.0-36.0) g/dL RDW Std Deviation 42.2 (36.4-46.3) fL RDW Coeff of Katiana 13.4 (11.5-14.5) % Plt Count 206 (130-400) K/uL MPV 12.1 (9.4-12.4) fL Neutrophils % (Manual) 63 % Lymphocytes % (Manual) 28 % Monocytes % (Manual) 9 % Neutrophils # (Manual) 3.09 (1.40-6.50) K/uL Total Absolute Neuts 3.09 (1.4-6.5) K/uL Lymphocytes # (Manual) 1.37 (1.2-3.4) K/uL Total Abs Lymphocytes 1.37 (1.2-3.4) K/uL Monocytes # (Manual) 0.44 (0.11-0.59) K/uL Sodium (136-145) mmol/L Potassium (3.5-5.1) mmol/L Chloride (98-107) mmol/L Carbon Dioxide (21-32) mmol/L Anion Gap (3-11) BUN (6-23) mg/dl Creatinine (0.6-1.2) mg/dl Est Cr Clr Drug Dosing ml/min Est GFR ( Amer) ml/min Est GFR (Non-Af Amer) ml/min BUN/Creatinine Ratio (10-20) Glucose (70-99(Fasting)) mg/dl Calcium (8.6-10.3) mg/dl Total Bilirubin (0.2-1.0) mg/dl AST (13-39) U/L ALT (7-52) U/L Alkaline Phosphatase (34-104) U/L Troponin I High Sens (0-14) pg/ml Total Protein (6.0-8.3) gm/dl Albumin (3.4-5.0) gm/dl Globulin (2.5-4.0) gm/dl Albumin/Globulin Ratio (0.9-2) Adenovirus (PCR) (NotDetected) B. pertussis DNA (PCR) (NotDetected) B.parapertussis DNA PCR (NotDetected) C. pneumoniae DNA (PCR) (NotDetected) Coronavirus OC43 (PCR) (NotDetected) Coronavirus HKU1 (PCR) (NotDetected) Coronavirus 229E (PCR) (NotDetected) SARS-CoV-2 (PCR) (Negative) Coronavirus NL63 (PCR) (NotDetected) Human Metapneumovir PCR (NotDetected) Influenza Type A (PCR) (Neg) Influenza Type B (PCR) (Neg) M. pneumoniae (PCR) (NotDetected) Parainfluenza 1 (PCR) (NotDetected) Parainfluenza 2 (PCR) (NotDetected) Parainfluenza 3 (PCR) (NotDetected) Parainfluenza 4 (PCR) (NotDetected) RSV (RT-PCR) (Neg) RSV (PCR) (NotDetected) Entero/Rhino (PCR) (NotDetected) PG Care Time/CCT Total # of Minutes Spent Total Time Spent with Patient: Total time spent is greater than 50% in coordination of care (as documented) at patient's floor/unit and/or counseling patient: Coding Level of Care Code None Diagnoses Dyspnea R06.00 Asthma exacerbation J45.901 Asthmatic bronchitis , chronic J44.9 Hypertension I10 Dyslipidemia E78.5 Hypothyroidism E03.9 ZHANG (obstructive sleep apnea) G47.33 Dependence on supplemental oxygen Z99.81 History of lung surgery Z98.890 Gastroesophageal reflux disease K21.9
--- NOTE | 2023-03-20 08:36 | Pulmonary Consultation ---
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 Recommendations: 1. Dynamic airway collapse: Would recommend CPAP at night. The patient has a history of sleep disordered breathing with an AHI of 8 but apparently was unable to tolerate CPAP. Would retry at night to see whether or not she can tolerate this is splinting in the airways might result in some improvement in her symptoms. The distal location would not be amenable to stenting trials. 2. Systemic steroids may actually aggravate dynamic airway collapse nevertheless the patient feels better. I think continuing them for now is reas onable. We will continue Symbicort and Incruse. Continue Mucinex. May try hypertonic saline to try and clear her chest congestion. We will pursue a trial of flutter valve and incentive spirometry as well. Discontinue Solu-Medrol and transition to prednisone 3. Recommend checking BMP. Given her diastolic dysfunction, would recommend aggressive blood pressure control with target less than 130/75. Low-dose diuretics may be beneficial. Cardiology evaluation given her complaints of palpitations. 4. OOB as tolerated. 5. Recommend aggressive treatment of the patient's nasal complaints with topical nasal steroid, saline sinus irrigation. May consider antihistamine decongestant as well. Thanks for the opportunity to assist in evaluation management this patient. We will continue to follow with you. History of Present Illness Attending Physician: Wei Ambrose MD History of Present Illness Rest by hospitalist to assist in evaluation management this patient admitted with shortness of breath chest congestion and wheezing. History is obtained from discussion with the patient as well as review the electronic medical record. Patient is an 82-year-old female who is followed in the outpatient setting by Dr. Henriquez and allergy as well as Dr. Grewal in pulmonary. She has a history of prior lung resection for adenocarcinoma of the lung as well as asthma and common variable immune deficiency. She has been maintained on Symbicort in the past but over the last several weeks has had progressive issues with chest congestion, sinus drainage, and cough and wheezing. She has been on courses of prednisone as well as antibiotics, most recently Augmentin. She states she gets better while she is on the prednisone but as soon as it tapers off the symptoms recur. Due to persistent symptoms, she contacted her lead pressman [employer] who recommended she be evaluated in the emergency room. She was studied with a CT scan which demonstrated significant bilateral lower lobe bronchial malacia with dynamic airway collapse but without any acute infiltrates. She does not report any new exposures. He typically uses her rescue inhaler 2-3 times a day on a bad day but will have days where she does not use it at all. She does endorse some chronic postnasal drip and is on Flonase at home. She has been maintained on Symbicort which she continues to use regularly. She does report some indigestion as well. Allergies Allergy/AdvReac Type Severity Reaction Status Date / Time atorvastatin Allergy Unknown UNKNOWN Verified 02/28/23 10:52 REACTION doxycycline Allergy Unknown GI upset Verified 02/28/23 10:52 propoxyphene Allergy Unknown UNKNOWN Verified 02/28/23 10:52 REACTION simvastatin Allergy Unknown myalgias Verified 02/28/23 10:52 azithromycin AdvReac Intermediate SEVERE GI Verified 02/28/23 10:52 UPSET codeine AdvReac Mild PATIENT Verified 02/28/23 10:52 STATES IT MAKES HER "GOOFY" AND NAUSEATED Home Medications Medication Instructions Recorded Confirmed Type cholecalciferol (vitamin D3) 50 2,000 units PO QDD 05/05/19 02/28/23 History mcg (2,000 unit) tablet vitamin B complex (B 1 tab PO BID 05/01/21 02/28/23 History Complex-Vitamin B12 tablet) diphenhydramine HCl 25 mg capsule 25 mg PO DIRECTED 11/06/21 02/28/23 History (Benadryl) nebulizers (Aeroneb Go Nebulizer) #1 ea 11/09/21 02/28/23 Rx Oxygen Home 02/15/22 02/28/23 History azelastine 137 mcg (0.1 %) nasal 2 spray intranasal DAILY PRN 02/15/22 02/28/23 History spray aerosol fluticasone propionate 50 2 spray intranasal DAILY PRN 06/18/22 02/28/23 Rx mcg/actuation nasal allerggies #16 grams spray,suspension (Flonase Allergy Relief) ipratropium 0.5 mg-albuterol 3 mg 3 ml inhalation Q8H PRN shortness 06/18/22 02/28/23 Rx (2.5 mg base)/3 mL nebulization of breath or wheezing #180 mL soln hydrocortisone acetate 25 mg 25 mg AL DAILY PRN hemorrhoids #12 06/27/22 02/28/23 Rx rectal suppository (Anusol-HC) ea Flutter Valve #1 ea 10/24/22 02/28/23 Rx Symbicort 160 mcg-4.5 2 puff inhalation BID #3 Inhalers 10/24/22 02/28/23 Rx mcg/actuation HFA aerosol inhaler (budesonide-formoterol) albuterol sulfate 90 mcg/actuation 180 mcg inhalation Q4H PRN 10/24/22 02/28/23 Rx breath activated powder inhaler shortness of breath or wheezing #3 (ProAir RespiClick) Inhalers inhalational spacing device #1 ea 10/24/22 02/28/23 Rx (BreatheRite MDI Spacer) tiotropium bromide 2.5 2 puff inhalation DAILY #3 Inhalers 10/24/22 02/28/23 Rx mcg/actuation mist for inhalation (Spiriva Respimat) acetaminophen 500 mg tablet 500 mg PO DIRECTED PRN 11/02/22 02/28/23 History (Tylenol Extra Strength) immun glob G 10 gram/50 mL(20 See Rx Instructions subcut 11/09/22 02/28/23 Rx %)-pro-IgA 0-50 mcg/mL .COMPLEX #200 mL subcutaneous soln (Hizentra) levothyroxine 75 mcg tablet 75 mcg PO DAILYBB #90 tabs 11/29/22 02/28/23 Rx rosuvastatin 5 mg tablet 5 mg PO DAILY #90 tabs 12/03/22 02/28/23 Rx triamterene 37.5 0.5 tab PO QAM #45 tabs 12/03/22 02/28/23 Rx mg-hydrochlorothiazide 25 mg tablet pantoprazole 40 mg tablet,delayed See Rx Instructions .Route 01/03/23 02/28/23 Rx release .COMPLEX #90 tabs epinephrine 0.3 mg/0.3 mL See Rx Instructions .Route 02/14/23 02/28/23 Rx injection, auto-injector .COMPLEX #2 ea prednisone 10 mg tablet See Rx Instructions .Route 02/22/23 02/28/23 Rx .COMPLEX #30 tabs acetic acid 2 % ear solution 4 drp otic (ear) TID #15 mL 02/28/23 02/28/23 Rx cefdinir 300 mg capsule 300 mg PO BID #14 caps 02/28/23 02/28/23 Rx Patient History Medical History (Updated 03/20/23 @ 08:40 by Jay Daniel MD) Allergic rhinitis Asthma Chronic recurrent sinusitis 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 Coronary artery calcification Depression with anxiety Dyslipidemia Gastroesophageal reflux disease Hypertension Hypothyroidism Maxillary sinusitis Mild obstructive sleep apnea Using saupplemental O2 only Palpitations Surgical History History of colonoscopy History of dilation and curettage History of lung surgery right upper lobectomy March 08, 2017 for a 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, stage IA History of tonsillectomy Family History Father Diabetes Heart disease Brother Heart disease Dementia Sister Heart disease Mother Depression Grandfather Depression Other Hypertension Social History Smoking Status: Never smoker Second Hand Exposure: Yes; Do You Dip or Chew Tobacco: No; Hx Alcohol Use: No Hx Substance Use: No Preferred Language: Libyan Communication Ability: Effective Visual Impairment: Limited Hearing Ability: Normal Hiv Prevention Specialist Required: No Beliefs That Will Affect Care: None marital status: / Current Living Situation: Alone Current Living Situation Comment: Home alone current occupational status: retired Other Information That Helps Us Care for You: No Feels Safe at Home: Yes Safety Concerns: Feels Safe At This Time Childhood Exposure to Second-Hand Smoke: Yes Diet: low salt caffeine: No Dental Care, Regularly: Yes Physical Activity Frequency: Does not Exercise Seatbelt Use: always Sunscreen Use: Yes Assistive Devices: None Review of Systems Review of Systems: All systems reviewed & are unremarkable except as noted in Subjective Physical Exam Constitutional: WD/WN, vitals as above Neck: trachea midline, no thyromegaly Respiratory: no respiratory distress, no labored breathing, no cough and not tachypneic Auscultation: + wheezes; no crackles Cardiovascular: RRR, no murmur, no edema Gastrointestinal (Abdomen): normal bowel sounds, soft, nontender, no hepatosplenomegaly Musculoskeletal: Extremities: extremities normal to inspection Skin: no rashes, warm and dry Neurologic: Nonfocal exam Lymphatic: no cervical lymphadenopathy Results & Data Results & Data Vital Signs (Past 12 Hours) Vital Signs Temp Pulse Pulse Pulse Pulse Pulse Pulse 03/20/23 07:46 36.5 C 74 03/20/23 07:08 70 03/20/23 05:30 75 03/20/23 04:56 36.6 C 03/20/23 04:30 62 03/20/23 03:00 66 03/20/23 02:59 03/20/23 02:59 75 03/20/23 02:50 67 03/20/23 02:40 73 03/20/23 02:30 73 03/20/23 02:20 72 03/20/23 02:10 76 03/20/23 02:00 71 03/20/23 01:50 70 03/20/23 01:40 87 03/20/23 01:39 98 H 03/20/23 01:20 69 03/20/23 01:10 73 03/20/23 01:00 88 03/20/23 01:00 03/20/23 00:50 67 03/20/23 00:40 69 03/20/23 00:30 59 L 03/20/23 00:30 03/20/23 00:20 64 03/20/23 00:10 66 03/20/23 00:00 64 03/20/23 00:00 03/19/23 23:50 69 03/19/23 23:40 69 03/19/23 23:30 69 03/19/23 23:30 03/19/23 23:20 72 03/19/23 23:10 74 03/19/23 23:02 80 03/19/23 22:50 77 03/19/23 22:41 83 03/19/23 22:30 75 03/19/23 22:30 03/19/23 22:20 77 03/19/23 22:17 03/19/23 22:17 71 03/19/23 22:10 81 03/19/23 22:00 73 03/19/23 21:50 77 03/19/23 21:40 81 03/19/23 21:30 78 03/19/23 21:20 77 03/19/23 21:10 82 03/19/23 21:01 82 03/20/23 01:09 124 H 100 H 68 03/20/23 01:02 71 03/19/23 21:01 85 Resp Resp Resp Resp BP BP Pulse Ox 03/20/23 07:46 18 160/80 H 97 03/20/23 07:08 18 98 03/20/23 05:30 03/20/23 04:56 18 192/95 H 95 03/20/23 04:30 16 155/92 H 93 03/20/23 03:00 21 93 03/20/23 02:59 157/107 H 03/20/23 02:59 20 97 03/20/23 02:50 14 96 03/20/23 02:40 24 95 03/20/23 02:30 16 97 03/20/23 02:20 22 94 03/20/23 02:10 17 96 03/20/23 02:00 14 94 03/20/23 01:50 14 96 03/20/23 01:40 18 98 03/20/23 01:39 23 96 03/20/23 01:20 15 96 03/20/23 01:10 24 96 03/20/23 01:00 21 97 03/20/23 01:00 166/83 H 03/20/23 00:50 20 95 03/20/23 00:40 21 96 03/20/23 00:30 12 100 03/20/23 00:30 161/93 H 03/20/23 00:20 17 94 03/20/23 00:10 20 96 03/20/23 00:00 19 95 03/20/23 00:00 149/92 H 03/19/23 23:50 18 95 03/19/23 23:40 22 93 03/19/23 23:30 20 94 03/19/23 23:30 153/92 H 03/19/23 23:20 18 94 03/19/23 23:10 17 97 03/19/23 23:02 03/19/23 22:50 22 95 03/19/23 22:41 23 03/19/23 22:30 16 94 03/19/23 22:30 170/101 H 03/19/23 22:20 20 93 03/19/23 22:17 143/93 H 03/19/23 22:17 15 03/19/23 22:10 24 03/19/23 22:00 26 H 94 03/19/23 21:50 16 93 03/19/23 21:40 18 95 03/19/23 21:30 16 96 03/19/23 21:20 17 94 03/19/23 21:10 15 94 03/19/23 21:01 15 96 03/20/23 01:09 30 H 24 18 03/20/23 01:02 03/19/23 21:01 Pulse Ox Pulse Ox Pulse Ox O2 Del Method O2 Flow Rate 03/20/23 07:46 Nasal Cannula 3 03/20/23 07:08 Nasal Cannula 3 03/20/23 05:30 03/20/23 04:56 Room Air 03/20/23 04:30 Room Air 03/20/23 03:00 03/20/23 02:59 03/20/23 02:59 03/20/23 02:50 03/20/23 02:40 03/20/23 02:30 03/20/23 02:20 03/20/23 02:10 03/20/23 02:00 03/20/23 01:50 03/20/23 01:40 03/20/23 01:39 03/20/23 01:20 03/20/23 01:10 03/20/23 01:00 03/20/23 01:00 03/20/23 00:50 03/20/23 00:40 03/20/23 00:30 03/20/23 00:30 03/20/23 00:20 03/20/23 00:10 03/20/23 00:00 03/20/23 00:00 03/19/23 23:50 03/19/23 23:40 03/19/23 23:30 03/19/23 23:30 03/19/23 23:20 03/19/23 23:10 03/19/23 23:02 03/19/23 22:50 03/19/23 22:41 03/19/23 22:30 03/19/23 22:30 03/19/23 22:20 03/19/23 22:17 03/19/23 22:17 03/19/23 22:10 03/19/23 22:00 03/19/23 21:50 03/19/23 21:40 03/19/23 21:30 03/19/23 21:20 03/19/23 21:10 03/19/23 21:01 03/20/23 01:09 82 L 92 95 Room Air 03/20/23 01:02 03/19/23 21:01 Diagnostic Findings Stress echocardiogram performed in November showed diastolic dysfunction with no evidence of ischemia Spirometry performed 10/24/2022 was normal Exhaled nitric oxide performed 10/24/2022 was normal at 16 Critical Care Results & Data Vital Signs (Past 12 Hours) Vital Signs Temp Pulse Pulse Pulse Pulse Pulse Pulse 03/20/23 07:46 36.5 C 74 03/20/23 07:08 70 03/20/23 05:30 75 03/20/23 04:56 36.6 C 03/20/23 04:30 62 03/20/23 03:00 66 03/20/23 02:59 03/20/23 02:59 75 03/20/23 02:50 67 03/20/23 02:40 73 03/20/23 02:30 73 03/20/23 02:20 72 03/20/23 02:10 76 03/20/23 02:00 71 03/20/23 01:50 70 03/20/23 01:40 87 03/20/23 01:39 98 H 03/20/23 01:20 69 03/20/23 01:10 73 03/20/23 01:00 88 03/20/23 01:00 03/20/23 00:50 67 03/20/23 00:40 69 03/20/23 00:30 59 L 03/20/23 00:30 03/20/23 00:20 64 03/20/23 00:10 66 03/20/23 00:00 64 03/20/23 00:00 03/19/23 23:50 69 03/19/23 23:40 69 03/19/23 23:30 69 03/19/23 23:30 03/19/23 23:20 72 03/19/23 23:10 74 03/19/23 23:02 80 03/19/23 22:50 77 03/19/23 22:41 83 03/19/23 22:30 75 03/19/23 22:30 03/19/23 22:20 77 03/19/23 22:17 03/19/23 22:17 71 03/19/23 22:10 81 03/19/23 22:00 73 03/19/23 21:50 77 03/19/23 21:40 81 03/19/23 21:30 78 03/19/23 21:20 77 03/19/23 21:10 82 03/19/23 21:01 82 03/20/23 01:09 124 H 100 H 68 03/20/23 01:02 71 03/19/23 21:01 85 Resp Resp Resp Resp BP BP Pulse Ox 03/20/23 07:46 18 160/80 H 97 03/20/23 07:08 18 98 03/20/23 05:30 03/20/23 04:56 18 192/95 H 95 03/20/23 04:30 16 155/92 H 93 03/20/23 03:00 21 93 03/20/23 02:59 157/107 H 03/20/23 02:59 20 97 03/20/23 02:50 14 96 03/20/23 02:40 24 95 03/20/23 02:30 16 97 03/20/23 02:20 22 94 03/20/23 02:10 17 96 03/20/23 02:00 14 94 03/20/23 01:50 14 96 03/20/23 01:40 18 98 03/20/23 01:39 23 96 03/20/23 01:20 15 96 03/20/23 01:10 24 96 03/20/23 01:00 21 97 03/20/23 01:00 166/83 H 03/20/23 00:50 20 95 03/20/23 00:40 21 96 03/20/23 00:30 12 100 03/20/23 00:30 161/93 H 03/20/23 00:20 17 94 03/20/23 00:10 20 96 03/20/23 00:00 19 95 03/20/23 00:00 149/92 H 03/19/23 23:50 18 95 03/19/23 23:40 22 93 03/19/23 23:30 20 94 03/19/23 23:30 153/92 H 03/19/23 23:20 18 94 03/19/23 23:10 17 97 03/19/23 23:02 03/19/23 22:50 22 95 03/19/23 22:41 23 03/19/23 22:30 16 94 03/19/23 22:30 170/101 H 03/19/23 22:20 20 93 03/19/23 22:17 143/93 H 03/19/23 22:17 15 03/19/23 22:10 24 03/19/23 22:00 26 H 94 03/19/23 21:50 16 93 03/19/23 21:40 18 95 03/19/23 21:30 16 96 03/19/23 21:20 17 94 03/19/23 21:10 15 94 03/19/23 21:01 15 96 03/20/23 01:09 30 H 24 18 03/20/23 01:02 03/19/23 21:01 Pulse Ox Pulse Ox Pulse Ox O2 Del Method O2 Flow Rate 03/20/23 07:46 Nasal Cannula 3 03/20/23 07:08 Nasal Cannula 3 03/20/23 05:30 03/20/23 04:56 Room Air 03/20/23 04:30 Room Air 03/20/23 03:00 03/20/23 02:59 03/20/23 02:59 03/20/23 02:50 03/20/23 02:40 03/20/23 02:30 03/20/23 02:20 03/20/23 02:10 03/20/23 02:00 03/20/23 01:50 03/20/23 01:40 03/20/23 01:39 03/20/23 01:20 03/20/23 01:10 03/20/23 01:00 03/20/23 01:00 03/20/23 00:50 03/20/23 00:40 03/20/23 00:30 03/20/23 00:30 03/20/23 00:20 03/20/23 00:10 03/20/23 00:00 03/20/23 00:00 03/19/23 23:50 03/19/23 23:40 03/19/23 23:30 03/19/23 23:30 03/19/23 23:20 03/19/23 23:10 03/19/23 23:02 03/19/23 22:50 03/19/23 22:41 03/19/23 22:30 03/19/23 22:30 03/19/23 22:20 03/19/23 22:17 03/19/23 22:17 03/19/23 22:10 03/19/23 22:00 03/19/23 21:50 03/19/23 21:40 03/19/23 21:30 03/19/23 21:20 03/19/23 21:10 03/19/23 21:01 03/20/23 01:09 82 L 92 95 Room Air 03/20/23 01:02 03/19/23 21:01 Lab & Micro Results (Past 24 Hours) RBC 4.62 M/uL (4.20-5.40) 03/19/23 WBC 4.91 K/ul (4.8-10.8) 03/19/23 Hgb 13.8 g/dl (12.0-16.0) 03/19/23 Hct 40.0 % (37.0-47.0) 03/19/23 MCV 86.6 fL (80.0-100.0) 03/19/23 MCH 29.9 pg (25.0-34.0) 03/19/23 MCHC 34.5 g/dL (32.0-36.0) 03/19/23 RDW Standard Deviation 42.2 fL (36.4-46.3) 03/19/23 RDW Coefficient of Variation 13.4 % (11.5-14.5) 03/19/23 Plt Count 206 K/uL (130-400) 03/19/23 MPV 12.1 fL (9.4-12.4) 03/19/23 ANC 3.09 K/uL (1.4-6.5) 03/19/23 ALC 1.37 K/uL (1.2-3.4) 03/19/23 Neutrophils % (Manual) 63 % 03/19/23 Lymphocytes % (Manual) 28 % 03/19/23 Monocytes % (Manual) 9 % 03/19/23 Neutrophils # (Manual) 3.09 K/uL (1.40-6.50) 03/19/23 Lymphocytes # (Manual) 1.37 K/uL (1.2-3.4) 03/19/23 Monocytes # (Manual) 0.44 K/uL (0.11-0.59) 03/19/23 Na 140 mmol/L (136-145) 03/19/23 K 3.5 mmol/L (3.5-5.1) 03/19/23 Cl 103 mmol/L (98-107) 03/19/23 CO2 28 mmol/L (21-32) 03/19/23 Anion Gap 9 (3-11) 03/19/23 BUN 14 mg/dl (6-23) 03/19/23 Creatinine 1.01 mg/dl (0.6-1.2) 03/19/23 Estimated GFR ( Amer) 60.9 ml/min 03/19/23 Estimated GFR (Non-Af Amer) 52.5 ml/min 03/19/23 BUN/Creatinine Ratio 13.9 (10-20) 03/19/23 Glu 101 mg/dl (70-99(Fasting)) H 03/19/23 Ca 9.6 mg/dl (8.6-10.3) 03/19/23 Total Bilirubin 1.0 mg/dl (0.2-1.0) 03/19/23 AST 32 U/L (13-39) 03/19/23 ALT 25 U/L (7-52) 03/19/23 Alkaline Phosphatase 49 U/L (34-104) 03/19/23 TP 7.3 gm/dl (6.0-8.3) 03/19/23 Albumin 4.6 gm/dl (3.4-5.0) 03/19/23 Globulin 2.7 gm/dl (2.5-4.0) 03/19/23 Albumin/Globulin Ratio 1.7 (0.9-2) 03/19/23 Calcium Level 9.6 mg/dl (8.6-10.3) 03/19/23 21:04 Diagnostic Findings (Past 24 Hours) Chest X-Ray 03/19/23 20:26 XR chest 1V not portable CLINICAL HISTORY: cough TECHNIQUE: Single frontal radiograph of the chest was obtained. Comparison: Comparison is made to chest radiograph 10/08/2022 FINDINGS: No lines and tubes are seen. The cardiomediastinal silhouette is normal. The lungs are clear. No evidence of pleural effusion or pneumothorax. IMPRESSION: No acute abnormalities and in particular no radiographic evidence of pneumonia. ACT 112: Negative or not required by law. Electronically signed by: Zion Craig M.D. 03/20/2023 7:59 AM Chest CTA 03/19/23 22:27 Exam(s): CTA CHEST IV Amt: 119ml optiray 320 EXAM: CT Angiography Chest With Intravenous Contrast CLINICAL HISTORY: Reason for exam: PE. TECHNIQUE: Axial computed tomographic angiography images of the chest with intravenous contrast. CTDI is 43.5 mGy and DLP is 900.13 mGy-cm. Automated exposure control was utilized for the study. A dose lowering technique was utilized adhering to the principles of ALARA. MIP reconstructed images were created and reviewed. COMPARISON: No relevant prior studies available. FINDINGS: Pulmonary arteries: Unremarkable. No acute pulmonary embolism. Aorta: No acute findings. No thoracic aortic aneurysm. Lungs: Unremarkable. No mass. No consolidation. Pleural space: Unremarkable. No focal consolidation, pleural effusion, or pneumothorax. Heart: Cardiomegaly. No significant pericardial effusion. No evidence of RV dysfunction. Bones/joints: No acute fracture. No dislocation. Soft tissues: Unremarkable. Lymph nodes: Unremarkable. No enlarged lymph nodes. IMPRESSION: 1. No focal consolidation, pleural effusion, or pneumothorax. 2. No acute pulmonary embolism. Electronically signed by: Waldemar Alegria MD 03/19/23 23:40 PM I & O Totals 24 Hours 03/19/23 03/20/23 03/21/23 06:59 06:59 06:59 Intake Total 250 / 250 1000 / 1000 Balance 250 / 250 1000 / 1000 Cumulative 03/19/23 20:01 thru 03/20/23 07:29 Intake Total 1250 Balance 1250 RT Ventilator Mngmt (Last Documented) Ventilator Ordered Settings Respiratory Rate [Recovery] 03/20/23 01:09 Respiratory Rate [Exercises] 03/20/23 01:09 Respiratory Rate [Resting] 03/20/23 01:09 Respiratory Rate 18 03/20/23 07:46 Ventilator - PT Measurements Respiratory Rate [Recovery] 24 Respiratory Rate [Exercises] 30 Respiratory Rate [Resting] 18 Respiratory Rate 18 PG Care Time/CCT Total # of Minutes Spent Total Time Spent with Patient: Total time spent is greater than 50% in coordination of care (as documented) at patient's floor/unit and/or counseling patient: Coding Level of Care Code 12317 INT INP/OBS CARE 3/75MIN Diagnoses Abnormal CT scan of lung R91.8 Asthma J45.909 ZHANG (obstructive sleep apnea) G47.33
[2023-03-20] MEDS ORDERED: PANTOprazole 40 MG TAB PO SCH (09:00)
[2023-03-20] MEDS ORDERED: NON-FORMULARY MEDICATION (Tiotropium Bromide [Spiriva Respimat] 2.5 mcg/actuation mist) INH SCH (09:00)
[2023-03-20] MEDS ORDERED: BUDESONIDE/FORMOTEROL FUMARATE 160/4.5 60 PUFFS/INHALER INH SCH (09:00)
[2023-03-20] MEDS: FLUTICASONE PROPIONATE NA SPR 16 GM BTL SCH (09:13)
[2023-03-20] MEDS: predniSONE 20 MG TAB PO SCH (09:14)
[2023-03-20 09:22] LABS: BUN Creatinine Ratio 14.3 (10-20); Calcium 9.2 mg/dl (8.6-10.3); Est GFR (African American) 84.5 ml/min; Est GFR (Non-African American) 72.9 ml/min; Magnesium 1.8 mg/dl (1.7-2.4); Potassium 3.5 mmol/L (3.5-5.1)
[2023-03-20] MEDS ORDERED: POTASSIUM CHLORIDE CRTAB 20 MEQ TABCR PO STA (10:28)
[2023-03-20] MEDS ORDERED: MAGNESIUM SULFATE / D5W 1 GM/100 ML BAG IV ONE (11:41)
[2023-03-20] MEDS ORDERED: HIZENTRA SQ SCH (11:45)
[2023-03-20] MEDS: POLYETHYLENE (MIRALAX) 17 GM PACK PO SCH (13:00)
--- NOTE | 2023-03-20 14:13 | Electrocardiogram Report ---
Test Reason : Blood Pressure : / mmHG Vent. Rate : 080 BPM Atrial Rate : 080 BPM P-R Int : 158 ms QRS Dur : 082 ms QT Int : 394 ms P-R-T Axes : 069 031 028 degrees QTc Int : 454 ms Normal sinus rhythm Normal ECG When compared with ECG of 08-OCT-2022 13:18, Criteria for Inferior infarct are no longer Present Confirmed by Nacho Lainez ([id number]) on 03/20/2023 2:13:17 PM Referred By: REFERRED SELF Confirmed By:Wil Lainez
--- NOTE | 2023-03-20 14:53 | Cardiology Consultation ---
Date of Consultation March 20, 2023 Assessment & Plan (1) PAC (premature atrial contraction): (2) PVC (premature ventricular contraction): (3) Paroxysmal atrial tachycardia: (4) Hypertension: (5) Coronary artery calcification: (6) Asthmatic bronchitis , chronic: Plan 82-year-old female admitted secondary to respiratory insufficiency in the setting of chronic bronchitis, asthma, and possible dynamic airway collapse. Appreciate pulmonary recommendations. There are no signs/symptoms of decompensated heart failure currently. Most recent echocardiogram demonstrating only mild, grade 1 diastolic dysfunction. Continue hydrochlorothiazide/triamterene. No indication for loop diuretic currently, however, may be utilized as needed for weight gain/edema. In regard to palpitations. Outpatient ZIO monitor demonstrating episodes of paroxysmal atrial tachycardia which have not recurred since admission. Telemetry currently reveals sinus rhythm with occasional PACs and PVCs. Recommend restart low-dose beta-jen cautiously. If unable to tolerate, will transition to oral diltiazem. History of Present Illness Reason for Consultation: Palpitations Requesting Physician: Dr. Ambrose Attending Physician: Wei Ambrose MD History of Present Illness 82-year-old female presents to the emergency department with ongoing dyspnea, with wheezing and cough. History of lung resection, reactive airways disease, palpitations, atrial tachycardia, nocturnal hypoxia and hypertension. Patient reports "I felt something was not right" so she came to the ER for further evaluation and treatment. Denies any acute change in her respiratory status. Notes cough and wheezing on a daily basis. Evaluated by cardiology in the outpatient setting 02/13/2023 due to palpitations. ZIO monitor demonstrating atrial tachycardia. Patient prescribed low-dose metoprolol, 12.5 mg daily. Taking medicine over the past 4 days. Notes improvement in resting heart rate and fewer episodes of palpitations at night. Describes skipped beats, forceful heartbeats, as well as occasional fluttering in her chest. No lightheadedness, dizziness, syncope, or near syncope. Denies chest discomfort or heaviness. Notes chronic bronchitis for several months. Attributes some respiratory symptoms to her second vaccination for COVID which she reports "put me down bad". At times notes it difficult to take a deep breath. Denies any pleurisy. No orthopnea, PND, or lower extremity edema. Hydrochlorothiazide/triamterene recently reduced by primary care due to borderline hypotension. Allergies Allergy/AdvReac Type Severity Reaction Status Date / Time atorvastatin Allergy Unknown UNKNOWN Verified 03/21/23 11:55 REACTION doxycycline Allergy Unknown GI upset Verified 03/21/23 11:55 propoxyphene Allergy Unknown UNKNOWN Verified 03/21/23 11:55 REACTION simvastatin Allergy Unknown myalgias Verified 03/21/23 11:55 azithromycin AdvReac Intermediate SEVERE GI Verified 03/21/23 11:55 UPSET codeine AdvReac Mild PATIENT Verified 03/21/23 11:55 STATES IT MAKES HER "GOOFY" AND NAUSEATED Home Medications Medication Instructions Recorded Confirmed Type cholecalciferol (vitamin D3) 50 2,000 units PO QDD 05/05/19 03/21/23 History mcg (2,000 unit) tablet vitamin B complex (B 1 tab PO BID 05/01/21 03/21/23 History Complex-Vitamin B12 tablet) diphenhydramine HCl 25 mg capsule 25 mg PO DIRECTED 11/06/21 03/21/23 History (Benadryl) nebulizers (Aeroneb Go Nebulizer) #1 ea 11/09/21 02/28/23 Rx Oxygen Home 02/15/22 02/28/23 History azelastine 137 mcg (0.1 %) nasal 2 spray intranasal DAILY PRN 02/15/22 03/21/23 History spray aerosol Allergy Symptoms ipratropium 0.5 mg-albuterol 3 mg 3 ml inhalation Q8H PRN shortness 06/18/22 03/21/23 Rx (2.5 mg base)/3 mL nebulization of breath or wheezing #180 mL soln hydrocortisone acetate 25 mg 25 mg MD DAILY PRN hemorrhoids #12 06/27/22 03/21/23 Rx rectal suppository (Anusol-HC) ea Flutter Valve #1 ea 10/24/22 02/28/23 Rx Symbicort 160 mcg-4.5 2 puff inhalation BID #3 Inhalers 10/24/22 03/21/23 Rx mcg/actuation HFA aerosol inhaler (budesonide-formoterol) albuterol sulfate 90 mcg/actuation 180 mcg inhalation Q4H PRN 10/24/22 03/21/23 Rx breath activated powder inhaler shortness of breath or wheezing #3 (ProAir RespiClick) Inhalers inhalational spacing device #1 ea 10/24/22 02/28/23 Rx (BreatheRite MDI Spacer) tiotropium bromide 2.5 2 puff inhalation DAILY #3 Inhalers 10/24/22 03/21/23 Rx mcg/actuation mist for inhalation (Spiriva Respimat) acetaminophen 500 mg tablet 500 mg PO DIRECTED PRN with 11/02/22 03/21/23 History (Tylenol Extra Strength) hizentra immun glob G 10 gram/50 mL(20 See Rx Instructions subcut 11/09/22 03/21/23 Rx %)-pro-IgA 0-50 mcg/mL .COMPLEX #200 mL subcutaneous soln (Hizentra) levothyroxine 75 mcg tablet 75 mcg PO DAILYBB #90 tabs 11/29/22 03/21/23 Rx rosuvastatin 5 mg tablet 5 mg PO DAILY #90 tabs 12/03/22 03/21/23 Rx triamterene 37.5 0.5 tab PO QAM #45 tabs 12/03/22 03/21/23 Rx mg-hydrochlorothiazide 25 mg tablet pantoprazole 40 mg tablet,delayed See Rx Instructions .Route 01/03/23 03/21/23 Rx release .COMPLEX #90 tabs epinephrine 0.3 mg/0.3 mL See Rx Instructions .Route 02/14/23 03/21/23 Rx injection, auto-injector .COMPLEX #2 ea fluticasone propionate 50 2 spray intranasal DAILY PRN 03/21/23 03/21/23 History mcg/actuation nasal Allergy Symptoms spray,suspension (Flonase Allergy Relief) Patient History Medical History Allergic rhinitis Asthma Chronic recurrent sinusitis 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 Coronary artery calcification Depression with anxiety Dyslipidemia Gastroesophageal reflux disease Hypertension Hypothyroidism Maxillary sinusitis Mild obstructive sleep apnea Using saupplemental O2 only Palpitations Surgical History History of colonoscopy History of dilation and curettage History of lung surgery right upper lobectomy March 08, 2017 for a 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, stage IA History of tonsillectomy Family History Father Diabetes Heart disease Brother Heart disease Dementia Sister Heart disease Mother Depression Grandfather Depression Other Hypertension Social History Smoking Status: Never smoker Second Hand Exposure: Yes; Do You Dip or Chew Tobacco: No; Hx Alcohol Use: No Hx Substance Use: No Preferred Language: Citizen Of [place] Communication Ability: Effective Visual Impairment: Limited Hearing Ability: Normal Silk Spooler Required: No Beliefs That Will Affect Care: None marital status: / Current Living Situation: Alone Current Living Situation Comment: Home alone current occupational status: retired Other Information That Helps Us Care for You: No Feels Safe at Home: Yes Safety Concerns: Feels Safe At This Time Childhood Exposure to Second-Hand Smoke: Yes Diet: low salt caffeine: No Dental Care, Regularly: Yes Physical Activity Frequency: Does not Exercise Seatbelt Use: always Sunscreen Use: Yes Assistive Devices: Oxygen - at Night Review of Systems Review of Systems: All systems reviewed & are unremarkable except as noted in Subjective Physical Exam Constitutional: well nourished and + obese; no acute distress Respiratory: normal respiratory effort; no respiratory distress, no labored breathing and no retractions Auscultation: + wheezes (Expiratory); no crackles, no rales and no rhonchi Gastrointestinal (Abdomen): Inspection/Auscultation: normal bowel sounds; abdomen not distended Percussion/Palpation: abdomen soft; abdomen nontender, no guarding and abdomen not rigid Neurologic: CN's II-XI intact bilaterally and moves all extremities Motor/Sensory: no tremor Psychiatric: A+Ox3, euthymic affect Results & Data Vital Signs (Past 12 Hours) Vital Signs Temp Pulse Pulse Pulse Resp BP BP 03/20/23 11:17 36.4 C L 81 16 136/80 03/20/23 11:07 81 16 03/20/23 08:00 03/20/23 07:46 36.5 C 74 18 160/80 H 03/20/23 07:08 70 18 03/20/23 05:30 75 03/20/23 04:56 36.6 C 18 192/95 H 03/20/23 04:30 62 16 155/92 H 03/20/23 03:00 66 21 07/12/23 02:59 157/107 H 03/20/23 02:59 75 20 03/20/23 02:50 67 14 03/20/23 02:40 73 24 Pulse Ox O2 Del Method O2 Flow Rate 03/20/23 11:17 92 Room Air 03/20/23 11:07 93 Room Air 03/20/23 08:00 Room Air 03/20/23 07:46 97 Nasal Cannula 3 03/20/23 07:08 98 Nasal Cannula 3 03/20/23 05:30 03/20/23 04:56 95 Room Air 03/20/23 04:30 93 Room Air 03/20/23 03:00 93 03/20/23 02:59 03/20/23 02:59 97 03/20/23 02:50 96 03/20/23 02:40 95 Laboratory Results Cardiac Enzymes 03/19/23 03/20/23 Range/Units 21:04 08:36 AST 32 (13-39) U/L Troponin I High Sens 6.5 (0-14) pg/ml B-Natriuretic Peptide 115 H (0-100) pg/ml Coagulation 03/20/23 Range/Units 08:36 B-Natriuretic Peptide 115 H (0-100) pg/ml CBC 03/19/23 Range/Units 21:04 WBC 4.91 (4.8-10.8) K/ul RBC 4.62 (4.20-5.40) M/uL Hgb 13.8 (12.0-16.0) g/dl Hct 40.0 (37.0-47.0) % Plt Count 206 (130-400) K/uL Comprehensive Metabolic Panel 03/19/23 03/20/23 Range/Units 21:04 08:32 Sodium 140 140 (136-145) mmol/L Potassium 3.5 3.5 (3.5-5.1) mmol/L Chloride 103 106 (98-107) mmol/L Carbon Dioxide 28 24 (21-32) mmol/L BUN 14 11 (6-23) mg/dl Creatinine 1.01 0.77 (0.6-1.2) mg/dl Glucose 101 H 265 H (70-99(Fasting)) mg/dl Calcium 9.6 9.2 (8.6-10.3) mg/dl AST 32 (13-39) U/L ALT 25 (7-52) U/L Alkaline Phosphatase 49 (34-104) U/L Total Protein 7.3 (6.0-8.3) gm/dl Albumin 4.6 (3.4-5.0) gm/dl Intake and Output 03/19/23 03/20/23 03/20/23 22:59 06:59 14:59 Intake Total 250 / 250 1635 / 1635 Balance 250 / 250 1635 / 1635 Intake: IV 150 / 150 1275 / 1275 Magnesium Sulfate / D5w 1 gm In 100 / 100 100 ml @ 50 mls/hr IV ONE ONE Rx#:[id number] Sodium Chloride 0.9% 1000ML 1, 1175 / 1175 000 ml @ 125 mls/hr IV .Q8H RASHMI Rx#:[id number] levoFLOXacin/D5W 750 mg In 150 150 / 150 ml @ 100 mls/hr IV NOW STA Rx#: [id number] Oral 100 / 100 360 / 360 Other: # Unmeasured Voids 2 Weight 95 kg 96 kg Weight Measurement Method Chair Scale Standing Scale
[2023-03-20] MEDS: METOPROLOL SUCC 25MG EXT REL TAB PO SCH (16:00)
[2023-03-20] MEDS: SODIUM CHLOR 7% 4 ML NEB NEB SCH (19:33)
[2023-03-20] MEDS: PANTOprazole 40 MG TAB PO SCH (20:58)
[2023-03-21] MEDS ORDERED: methylPREDNISolone 60 MG in SYRINGE 0 ML IV SCH (02:00)
[2023-03-21] MEDS: ALBUTEROL 0.083% NEBU SOLN 3 ML VIAL NEB SCH ×6 (04:28→22:35)
[2023-03-21] MEDS: LEVOTHYROXINE SODIUM 75 MCG TABLET PO SCH (05:23)
[2023-03-21] MEDS: SODIUM CHLOR 7% 4 ML NEB NEB SCH ×2 (06:50→19:08)
--- NOTE | 2023-03-21 07:43 | Hospitalist Progress Note ---
Date of Service March 21, 2023 Assessment & Plan (1) Dyspnea: Plan: 82yo Female with PMH lung cancer s/p lung resection, asthma, HTN, HLD, hypothyroidism, nighttime oxygen supplementation 2L, GERD, depression/anxiety here for SOB. In outpatient treated with augmentin, followed by cefdinir & prednisone taper 70mg 12 days. Biofire testing negative Hypoxia concern Asthma Exacerbation, ?mucus plugging CTA w/o focal consolidation/effusion/PTX, no acute PE Desat to the 80s w/ ambulation in ER , given 60mg IV methylprednisolone, Levaquin, Albuterol neb, famotidie Pulm consulted- appreciate recs/assistance Prednisone 20mg daily ordered. PPI increased to BID while on steroids and improvement reported Continue usual Symbicort/Incruse or hospital formulary, albuterol neb q4h Continue incentive spirometer, flutter valve Continue mucinex 1200mg BID (consider continuing at least once daily at discharge to help keep secretions thin -- discussed w/ patient even the 600mg dose) Hypertonic saline neb added 03/20 w/ significant improvement - consider rx at discharge as she would like to continue such Sputum cx ordered but not yet obtained --monitor Restarted her Claritin for morning. Patient reported unable to tolerate CPAP at night -- discussed again as rec'd by pulm and she AGREED to trial for tonight. real estate legal secretary calling RT to have arranged Vistaril 10mg prn for sleep tonight/anxiety. Of note, prior klonopin rx in past but hasn't been on in some time. Did endorse it helped w/ symptoms. Could consider but only w/ use of CPAP given risk for respiratory depression Supplemental O2 to maintain sats -- currently 95% on RA Also consulted cards per pulm recs/palpitations. No arrhythmia on monitor but reports lightheadedness in the past. -BNP added to labs, slightly elevated. Per cards no need for repeat ECHO. Outpatient ZIO monitor w/ episodes of paroxysmal atrial tachycardia (no recurrence since admission). Restarted low dose metoprolol but if unable to tolerate, plans to transition to oral diltiazem (2) Asthma exacerbation: Plan: as above, supportive care. improving, pulm on consult (3) Asthmatic bronchitis , chronic: (4) Hypertension: Plan: chronic, stable/improved since starting metoprolol and decreasing steroid dosage No further IVF Remains on triamterene-HCTZ Need to aim for good BP control given likely diastolic HF --- improved since restarting the metoprolol succinate 12.5mg yesterday and will need rx at discharge (5) Dyslipidemia: Plan: Continue crestor (6) Hypothyroidism: Plan: TSH wnl earlier this year Remains on levothyroxine (7) ZHANG (obstructive sleep apnea): Plan: Unable to tolerated CPAP and wears O2 2L at night Discussed again with patient 03/20 and she declined but is now agreeable -- RT to set up tonight. Will need outpt f/u (8) Dependence on supplemental oxygen: Plan: o2 at night (9) History of lung surgery: Plan: Hx. 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 If she needs dosage, DO NOT sent by tube system as it will break --> discussed w/ RN and patient to have family bring this in and WALK IT DOWN TO PHARMACY WHEN IT ARRIVES Given dose 03/20 after family brought in. 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 ? if worsened w/ high dose steroids. Increased PPI to BID and improvement in symptoms and would continue while on steroids and can back to once daily once off prednisone could also consider adding pepcid at night Plan continued inpatient stay possible dc in next 24 hours Admission and Anticipated Discharge Date Admission Date: March 20, 2023 Supervising Physician Co-Signing Physician Notes The patient was not seen by me. The chart was reviewed. Case discussed with SHAY Diallo. Agree with assessment and plan Subjective Patient evaluated this morning. Doing much better. Breathing improved. Stable on room air at present. Significantly decreased cough. Good results/clearance of mucus with hypertonic saline/wheezing decreased. She did well and would like to continue the hypertonic saline at discharge. Discussed continued mucinex and nebs, sputum cx next time as able to produce. She is also on claritin, which will resume for tomorrow. Also some anxiety - used to be on klonopin which did help but hasn't been on in some time. Discussed avoiding benzos if not using CPAP and respiratory depression and she is ok with avoiding this for now. Will trial low dose vistaril for sleep/anxiety tonight and she is to ask for it when ready for bed. She is now agreeable to try CPAP tonight. real estate legal secretary to call RT to have set up tonight. Discussed nasal pillows/etc in future but benefits of CPAP therapy as well as other disease processes/daytime sleepiness/fatigue with underlying untreated sleep apnea and she does endorse she has these symptoms. Her protonix had been increased to BID while inpatient on steroids and she reports those symptoms are well controlled at present and that the spells didn't wake her up at night like they had previously. No fevers/chills, chest pain, abdominal pain/nausea. Review of Systems Review of Systems: All systems reviewed & are unremarkable except as noted in HPI & below Physical Exam Physical Exam: General: WD/WN getting back into bed, appears improved, NAD HEENT: head normocephalic, atraumatic, mmm, trachea midline Resp: +cough (significantly decreased), wheezing decreased significantly to posterior lung marie as well as anteriorly. diminished in the bases, on room air CV: RRR, no significant m/r/g, no pitting edema/calf tenderness GI: +BS, soft/NT : no hook MSK/Neuro: no focal deficits, no slurred speech, follows commands, CN intact grossly, no meningeal signs Psych:AOx3, cooperative with exam Results & Data Results & Data Vital Signs (Past 12 Hours) Vital Signs Temp Pulse Pulse Pulse Resp BP BP 03/21/23 07:38 36.6 C 73 18 118/68 03/21/23 07:09 59 L 03/21/23 06:50 74 16 03/21/23 03:33 36.5 C 73 20 125/72 03/21/23 00:18 36.7 C 75 20 109/65 03/20/23 23:09 87 03/20/23 21:53 03/20/23 20:16 36.6 C 74 20 167/79 H Pulse Ox O2 Del Method O2 Flow Rate 03/21/23 07:38 95 Room Air 03/21/23 07:09 03/21/23 06:50 97 Room Air 03/21/23 03:33 98 Nasal Cannula 2 03/21/23 00:18 99 Room Air 07/12/23 23:09 03/20/23 21:53 Nasal Cannula 2 03/20/23 20:16 97 Room Air Laboratory Results 03/21/23 03/20/23 Range/Units 08:10 08:36 Sodium 141 (136-145) mmol/L Potassium 3.7 (3.5-5.1) mmol/L Chloride 107 (98-107) mmol/L Carbon Dioxide 26 (21-32) mmol/L Anion Gap 8 (3-11) BUN 14 (6-23) mg/dl Creatinine 0.77 (0.6-1.2) mg/dl Est Cr Clr Drug Dosing 63.1 ml/min Est GFR ( Amer) 84.5 ml/min Est GFR (Non-Af Amer) 72.9 ml/min BUN/Creatinine Ratio 18.2 (10-20) Glucose 112 H (70-99(Fasting)) mg/dl Calcium 9.9 (8.6-10.3) mg/dl Magnesium 2.2 (1.7-2.4) mg/dl B-Natriuretic Peptide 115 H (0-100) pg/ml PG Care Time/CCT Total # of Minutes Spent Total Time Spent with Patient: Total time spent is greater than 50% in coordination of care (as documented) at patient's floor/unit and/or counseling patient: Coding Level of Care Code 96527 SUB INP/OBS CARE 3/50MIN Diagnoses Dyspnea R06.00 Asthma exacerbation J45.901 Asthmatic bronchitis , chronic J44.9 Hypertension I10 Dyslipidemia E78.5 Hypothyroidism E03.9 ZHANG (obstructive sleep apnea) G47.33 Dependence on supplemental oxygen Z99.81 History of lung surgery Z98.890 Gastroesophageal reflux disease K21.9
[2023-03-21] MEDS: FLUTICASONE/VILANTEROL 200/25MCG 14 PUFFS/INHALER INH SCH (08:24)
[2023-03-21] MEDS: UMECLIDINIUM BROMIDE 62.5MCG/BLISTER 7 PUFFS/INHALER INH SCH (08:24)
[2023-03-21] MEDS: TRIAMTERENE/HCTZ 37.5/25MG TAB PO SCH (08:24)
[2023-03-21] MEDS: predniSONE 20 MG TAB PO SCH (08:25)
[2023-03-21] MEDS: FLUTICASONE PROPIONATE NA SPR 16 GM BTL SCH (08:25)
[2023-03-21] MEDS: guaiFENesin 600 MG TABCR PO SCH ×2 (08:25→19:48)
[2023-03-21] MEDS: ROSUVASTATIN CALCIUM 5 MG TAB PO SCH (08:25)
[2023-03-21] MEDS: PANTOprazole 40 MG TAB PO SCH ×2 (08:25→19:48)
[2023-03-21] MEDS: POLYETHYLENE (MIRALAX) 17 GM PACK PO SCH (08:25)
[2023-03-21 09:15] LABS: BUN Creatinine Ratio 18.2 (10-20); Calcium 9.9 mg/dl (8.6-10.3); Creatinine Clr Calc Pharmacy 63.1 ml/min; Est GFR (African American) 84.5 ml/min; Est GFR (Non-African American) 72.9 ml/min; Magnesium 2.2 mg/dl (1.7-2.4); Potassium 3.7 mmol/L (3.5-5.1)
[2023-03-21] MEDS: METOPROLOL SUCC 25MG EXT REL TAB PO SCH (09:48)
--- NOTE | 2023-03-21 13:30 | Cardiology Progress Note ---
Date of Service March 21, 2023 Assessment & Plan (1) PAC (premature atrial contraction): (2) PVC (premature ventricular contraction): (3) Paroxysmal atrial tachycardia: (4) Hypertension: (5) Coronary artery calcification: (6) Asthmatic bronchitis , chronic: Plan 82-year-old female admitted secondary to respiratory insufficiency in the setting of chronic bronchitis, asthma, and possible dynamic airway collapse. Palpitations controlled with low-dose beta-jen therapy. Expiratory wheezing/respiratory status improved. Continue low-dose beta-jen therapy. There are no signs/symptoms of decompensated heart failure. Most recent echocardiogram demonstrating only mild, grade 1 diastolic dysfunction. Continue hydrochlorothiazide/triamterene. No indication for loop diuretic currently, however, may be utilized as needed for weight gain/edema. No further inpatient cardiac testing or intervention recommended. Cardiology will sign off. Please call with questions. Admission and Anticipated Discharge Date Admission Date: March 20, 2023 Subjective Patient seen examined the bedside. Feeling much better today. Respiratory status improved. Telemetry was sinus rhythm with occasional PACs and PVCs. Palpitations have improved as well. No recurrent atrial tachycardia on telemetry. Review of Systems Review of Systems: All systems reviewed & are unremarkable except as noted in Subjective Physical Exam Constitutional: well nourished and + obese; no acute distress Respiratory: normal respiratory effort; no respiratory distress, no labored breathing and no retractions Auscultation: no crackles, no rales, no rhonchi and no wheezes Gastrointestinal (Abdomen): Inspection/Auscultation: normal bowel sounds; abdomen not distended Percussion/Palpation: abdomen soft; abdomen nontender, no guarding and abdomen not rigid Neurologic: CN's II-XI intact bilaterally and moves all extremities Motor/Sensory: no tremor Psychiatric: A+Ox3, euthymic affect Results & Data Vital Signs (Past 12 Hours) Vital Signs Temp Pulse Pulse Pulse Resp BP BP 03/21/23 13:11 70 21 03/21/23 11:23 36.7 C 71 18 149/90 H 03/21/23 11:07 70 16 03/21/23 08:35 03/21/23 07:38 36.6 C 73 18 118/68 03/21/23 07:09 59 L 03/21/23 06:50 74 16 03/21/23 03:33 36.5 C 73 20 125/72 Pulse Ox O2 Del Method O2 Flow Rate FiO2 03/21/23 13:11 98 21 03/21/23 11:23 91 Room Air 03/21/23 11:07 92 Room Air 03/21/23 08:35 Room Air 03/21/23 07:38 95 Room Air 03/21/23 07:09 03/21/23 06:50 97 Room Air 03/21/23 03:33 98 Nasal Cannula 2
--- NOTE | 2023-03-21 14:40 | Pulmonology Progress Note ---
Date of Service March 21, 2023 Assessment & Plan (1) Abnormal CT scan of lung: (2) Asthma: (3) ZHANG (obstructive sleep apnea): Plan Impression: 82-year-old female with a history of adenocarcinoma of the lung status post upper lobectomy 2017 with questionable asthma although her exhaled nitric oxide was normal and spirometry and PFTs have never demonstrated airflow obstruction admitted with wheezing. 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 Recommendations: 1. Dynamic airway collapse: Revisited this issue with the patient and with respiratory therapy. I advised her that this is likely the best and least invasive technique to try and offers her some clinical benefit. She is open to a trial. Discussed with respiratory therapy. We will have her try and use positive airway pressure during the day with her just holding the mask in place to get acclimated to it. If she is able to use it we can then apply the headgear. If she is able to tolerate it during the day, can then pursue a trial at night. The distal location would not be amenable to stenting trials. 2. Systemic steroids may actually aggravate dynamic airway collapse. Would continue at 20 mg a day for 5-day burst and then likely discontinue. We will continue Symbicort and Incruse. Continue Mucinex. Continue flutter valve and incentive spirometry as well. 3. Cardiology consultation noted. Blood pressure control per primary service given diastolic dysfunction. 4. OOB as tolerated. We will follow with you. She can follow-up in the outpatient setting with Dr. Grewal Admission and Anticipated Discharge Date Admission Date: March 20, 2023 Subjective Patient seen and examined. EMR reviewed. The patient declined CPAP last night. She continues to report occasional wheezing and shortness of breath. Her inhalers are not really offering her much in the way of clinical benefit. She is open to the prospect of using CPAP once it was clearly explained to her. She denies fevers chills night sweats or other constitutional symptoms. Review of Systems Review of Systems: All systems reviewed & are unremarkable except as noted in Subjective Physical Exam Constitutional: WD/WN, vitals as above Neck: trachea midline, no thyromegaly Respiratory: no respiratory distress, no labored breathing, no cough and not tachypneic Auscultation: + wheezes; no crackles Cardiovascular: RRR, no murmur, no edema Gastrointestinal (Abdomen): normal bowel sounds, soft, nontender, no hepatosplenomegaly Musculoskeletal: Extremities: extremities normal to inspection Skin: no rashes, warm and dry Lymphatic: no cervical lymphadenopathy Results & Data Results & Data Vital Signs (Past 12 Hours) Vital Signs Temp Pulse Pulse Pulse Resp BP BP 03/21/23 13:11 70 21 03/21/23 11:23 36.7 C 71 18 149/90 H 03/21/23 11:07 70 16 03/21/23 08:35 03/21/23 07:38 36.6 C 73 18 118/68 03/21/23 07:09 59 L 03/21/23 06:50 74 16 03/21/23 03:33 36.5 C 73 20 125/72 Pulse Ox O2 Del Method O2 Flow Rate FiO2 03/21/23 13:11 98 21 03/21/23 11:23 91 Room Air 03/21/23 11:07 92 Room Air 03/21/23 08:35 Room Air 03/21/23 07:38 95 Room Air 03/21/23 07:09 03/21/23 06:50 97 Room Air 03/21/23 03:33 98 Nasal Cannula 2 Laboratory Results 03/19/23 21:04 03/21/23 08:10 Diagnostic Findings No new imaging PG Care Time/CCT Total # of Minutes Spent Total Time Spent with Patient: Total time spent is greater than 50% in coordination of care (as documented) at patient's floor/unit and/or counseling patient: Coding Level of Care Code 37176 SUB INP/OBS CARE 2/35MIN Diagnoses Abnormal CT scan of lung R91.8 Asthma J45.909 ZHANG (obstructive sleep apnea) G47.33
[2023-03-21] MEDS: hydrOXYzine HCl 10 MG TAB PO PRN (22:34)
[2023-03-22] MEDS: ALBUTEROL 0.083% NEBU SOLN 3 ML VIAL NEB SCH ×6 (02:25→23:12)
[2023-03-22] MEDS: LEVOTHYROXINE SODIUM 75 MCG TABLET PO SCH (05:46)
[2023-03-22 06:36] LABS: Calcium 9.2 mg/dl (8.6-10.3); Creatinine Clr Calc Pharmacy 63.8 ml/min; Est GFR (African American) 87.3 ml/min; Est GFR (Non-African American) 75.3 ml/min; Magnesium 2.2 mg/dl (1.7-2.4); Potassium 3.9 mmol/L (3.5-5.1)
[2023-03-22] MEDS: SODIUM CHLOR 7% 4 ML NEB NEB SCH ×2 (06:49→19:42)
--- NOTE | 2023-03-22 07:36 | Hospitalist Progress Note ---
Date of Service March 22, 2023 Assessment & Plan (1) Dyspnea: Plan: 82yo Female with PMH lung cancer s/p lung resection, asthma, HTN, HLD, hypothyroidism, nighttime oxygen supplementation 2L, GERD, depression/anxiety here for SOB. In outpatient treated with augmentin, followed by cefdinir & prednisone taper 70mg 12 days. Biofire testing negative Hypoxia concern Asthma Exacerbation, ?mucus plugging CTA w/o focal consolidation/effusion/PTX, no acute PE Desat to the 80s w/ ambulation in ER , given 60mg IV methylprednisolone, Levaquin, Albuterol neb, famotidine Pulm consulted- appreciate recs/assistance Prednisone 20mg daily ordered. Day 3/5, stop after 5 days PPI increased to BID while on steroids and improvement reported Continue usual Symbicort/Incruse or hospital formulary, albuterol neb q4h Spacer provided Continue hypertonic saline -- provide rx at discharge Continue mucinex BID - would continue once daily at dc Continue incentive spirometer, flutter valve Sputum cx pending Panic attack w/ the nasal pillows last evening but did use mask during day. RT to reattempt w/ mask tonight. CM looking into if needing repeat sleep study at discharge Supplemental O2 as needed -- continues to maintain sats on room air Vistaril 10mg prn for sleep tonight/anxiety. Of note, prior klonopin rx in past but hasn't been on in some time. Did endorse it helped w/ symptoms. Could consider but only w/ use of CPAP given risk for respiratory depression Also consulted cards per pulm recs/palpitations. No arrhythmia on monitor but reports lightheadedness in the past. -BNP added to labs, slightly elevated. Per cards no need for repeat ECHO. Outpatient ZIO monitor w/ episodes of paroxysmal atrial tachycardia (no recurrence since admission). Restarted low dose metoprolol but if unable to tolerate, plans to transition to oral diltiazem -- improved but occ palp. messaged cards --> After review tele, patient then w/ 3 shorts runs SVT at 10:07 and will increase metoprolol to 12.5mg BID per discussion w/ Dr Peterson from cardiology Monitor overnight, hopeful dc tomorrow (2) Asthma exacerbation: Plan: as above, supportive care. improving, pulm on consult (3) Asthmatic bronchitis , chronic: (4) Hypertension: Plan: chronic, stable/improved since starting metoprolol and decreasing steroid dosage No further IVF Remains on triamterene-HCTZ Need to aim for good BP control given likely diastolic HF --- improved since restarting the metoprolol succinate 12.5mg and will need rx at discharge (5) Dyslipidemia: Plan: Continue crestor (6) Hypothyroidism: Plan: TSH wnl earlier this year Remains on levothyroxine (7) ZHANG (obstructive sleep apnea): Plan: Unable to tolerated CPAP and wears O2 2L at night Discussed again with patient 03/20 and she declined but was then agreeable. Trial mask during day ok but nasal pillows w/ panic attack as above but trial mask again tonight Possible need for repeat sleep study -- CM looking into this as prior study from 2019 (8) Dependence on supplemental oxygen: Plan: o2 at night (9) History of lung surgery: Plan: Hx. 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 If she needs dosage, DO NOT sent by tube system as it will break --> discussed w/ RN and patient to have family bring this in and WALK IT DOWN TO PHARMACY WHEN IT ARRIVES Given dose 03/20 after family brought in. Resume usual schedule after discharge (10) Gastroesophageal reflux disease: Plan: Appeared possibly worse reflux recently/awakening her at night [employer] and on protonix once daily and discussed prior about increasing. ? if worsened w/ high dose steroids. Increased PPI to BID and improvement in symptoms and would continue while on steroids and can back to once daily once off prednisone could also consider adding pepcid at night Plan continued inpatient stay, hopeful dc tomorrow Admission and Anticipated Discharge Date Admission Date: March 20, 2023 Supervising Physician Co-Signing Physician Notes The patient was not seen by me. The chart was reviewed. Case discussed with SHAY Diallo. Agree with assessment and plan Subjective Eval this morning, improved. Did have little bit of panic attack with nasal pillows and then tried the mask for about 30 minutes before taking it off. She notes she thinks the nasal pillow got her worked up to start. The Vistaril did help to take edge off to sleep initially but then she was fearful of the mask. Reassurance provided. She is going to try the mask tonight as she tolerated during the day yesterday. Using breathing treatment Symbicort in machine. She states she thinks she doesnt get a good dose at home. Discussed spacer -- she states she thinks she had one before but doesn't know where it is and wondering if she is able to get a new one. Rn to provide. Discussed CM checking on prior sleep study/possible need for repeat sleep study. On day 3 prednisone out of 5. On metoprolol low dose from cards and palpitations reported improved but did have a little skipping this morning for a couple seconds. SR/PACs on monitor. Hopefully once off the steroids will be improved. Does drop to 40s so would want to avoid increasing dose at this time. Review of Systems Review of Systems: All systems reviewed & are unremarkable except as noted in HPI & below Physical Exam Physical Exam: General: WD/WN sitting up in chair, NAD HEENT: head normocephalic, atraumatic, mmm, trachea midline Resp: +cough (significantly decreased), wheezing decreased significantly to posterior lung marie as well as anteriorly and almost completely resolved. diminished in the bases, on room air CV: RRR, no significant m/r/g, no pitting edema/calf tenderness GI: +BS, soft/NT : no hook MSK/Neuro: no focal deficits, no slurred speech, follows commands, CN intact grossly, no meningeal signs Psych:AOx3, cooperative with exam Results & Data Results & Data Vital Signs (Past 12 Hours) Vital Signs Temp Pulse Pulse Resp BP Pulse Ox O2 Del Method 03/22/23 07:11 56 L 03/22/23 06:51 80 18 99 Nasal Cannula 03/21/23 22:35 75 18 97 CPAP 03/21/23 22:01 66 03/22/23 04:38 36.6 C 63 20 129/77 99 Nasal Cannula 03/21/23 23:06 36.7 C 71 20 176/93 H 95 Room Air 03/21/23 22:47 78 25 H 96 03/21/23 22:39 Room Air, Nasal CPAP 03/21/23 19:47 36.6 C 80 20 151/84 H 97 Room Air O2 Flow Rate 03/22/23 07:11 03/22/23 06:51 3 03/21/23 22:35 03/21/23 22:01 03/22/23 04:38 3 03/21/23 23:06 03/21/23 22:47 03/21/23 22:39 2 03/21/23 19:47 Laboratory Results 03/22/23 03/21/23 Range/Units 05:53 08:10 Sodium 139 141 (136-145) mmol/L Potassium 3.9 3.7 (3.5-5.1) mmol/L Chloride 106 107 (98-107) mmol/L Carbon Dioxide 27 26 (21-32) mmol/L Anion Gap 6 8 (3-11) BUN 18 14 (6-23) mg/dl Creatinine 0.75 0.77 (0.6-1.2) mg/dl Est Cr Clr Drug Dosing 63.8 63.1 ml/min Est GFR ( Amer) 87.3 84.5 ml/min Est GFR (Non-Af Amer) 75.3 72.9 ml/min BUN/Creatinine Ratio 24.0 H 18.2 (10-20) Glucose 85 112 H (70-99(Fasting)) mg/dl Calcium 9.2 9.9 (8.6-10.3) mg/dl Magnesium 2.2 2.2 (1.7-2.4) mg/dl PG Care Time/CCT Total # of Minutes Spent Total Time Spent with Patient: Total time spent is greater than 50% in coordination of care (as documented) at patient's floor/unit and/or counseling patient: Coding Level of Care Code 05905 SUB INP/OBS CARE 3/50MIN Diagnoses Dyspnea R06.00 Asthma exacerbation J45.901 Asthmatic bronchitis , chronic J44.9 Hypertension I10 Dyslipidemia E78.5 Hypothyroidism E03.9 ZHANG (obstructive sleep apnea) G47.33 Dependence on supplemental oxygen Z99.81 History of lung surgery Z98.890 Gastroesophageal reflux disease K21.9
[2023-03-22] MEDS: LORATADINE 10 MG TAB PO SCH (08:14)
[2023-03-22] MEDS: TRIAMTERENE/HCTZ 37.5/25MG TAB PO SCH (08:14)
[2023-03-22] MEDS: PANTOprazole 40 MG TAB PO SCH ×2 (08:14→20:32)
[2023-03-22] MEDS: guaiFENesin 600 MG TABCR PO SCH ×2 (08:14→20:35)
[2023-03-22] MEDS: predniSONE 20 MG TAB PO SCH (08:14)
[2023-03-22] MEDS: METOPROLOL SUCC 25MG EXT REL TAB PO SCH ×2 (08:14→20:33)
[2023-03-22] MEDS: POLYETHYLENE (MIRALAX) 17 GM PACK PO SCH (08:15)
[2023-03-22] MEDS: FLUTICASONE/VILANTEROL 200/25MCG 14 PUFFS/INHALER INH SCH (08:15)
[2023-03-22] MEDS: FLUTICASONE PROPIONATE NA SPR 16 GM BTL SCH (08:15)
[2023-03-22] MEDS: ROSUVASTATIN CALCIUM 5 MG TAB PO SCH (08:15)
[2023-03-22] MEDS: UMECLIDINIUM BROMIDE 62.5MCG/BLISTER 7 PUFFS/INHALER INH SCH (08:16)
--- NOTE | 2023-03-22 08:52 | Pulmonology Progress Note ---
Date of Service March 22, 2023 Assessment & Plan (1) Abnormal CT scan of lung: (2) Asthma: (3) ZHANG (obstructive sleep apnea): Plan Impression: 82-year-old female with a history of adenocarcinoma of the lung status post upper lobectomy 2017 with questionable asthma although her exhaled nitric oxide was normal and spirometry and PFTs have never demonstrated airflow obstruction admitted with wheezing. 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 She has been unable to tolerate positive airway pressure to this point in time. Recommendations: 1. Dynamic airway collapse: I again advised the patient that the only therapy that we have for this would be CPAP. She is not a candidate for stenting or additional surgical intervention. She is unclear if she could tolerate it. I advised her that without it, we would likely be continuing the current clinical course of exacerbations every few months and her wheezing may persist. She expressed understanding but is unclear if she can or wants to continue to pursue trials of positive airway pressure. We again discussed and reiterated the importance of desensitization during the day which may improve her nocturnal tolerance. She is taken it under advisement. 2. Systemic steroids may actually aggravate dynamic airway collapse. Would continue at 20 mg a day for 5-day burst and then likely discontinue. We will continue Incruse but transition her long-acting beta agonist and inhaled corticosteroid to nebulized formulations to see if this offers her a clinical benefit. Continue Mucinex. Continue flutter valve and incentive spirometry as well. Continue hypertonic saline 3. Cardiology consultation noted. Blood pressure control per primary service given diastolic dysfunction. 4. OOB as tolerated. We will follow with you. She can follow-up in the outpatient setting with Dr. Grewal. She can go home when she feels she is stable. Admission and Anticipated Discharge Date Admission Date: March 20, 2023 Subjective Patient seen and examined. EMR reviewed. The patient initially was able to tolerate CPAP during the day but last night again became claustrophobic and had a panic attack and was unable to tolerate it at all. This is despite several interfaces. She reports that she is wheezing a little bit more this morning. She is coughing. She is unclear if the nebulizers are better than her regular inhalers but she thinks the hypertonic saline was beneficial. Review of Systems Review of Systems: All systems reviewed & are unremarkable except as noted in Subjective Physical Exam Constitutional: WD/WN, vitals as above Neck: trachea midline, no thyromegaly Respiratory: no respiratory distress, no labored breathing, no cough and not tachypneic Auscultation: + wheezes; no crackles Cardiovascular: RRR, no murmur, no edema Gastrointestinal (Abdomen): normal bowel sounds, soft, nontender, no hepatosplenomegaly Musculoskeletal: Extremities: extremities normal to inspection Skin: no rashes, warm and dry Lymphatic: no cervical lymphadenopathy Results & Data Results & Data Vital Signs (Past 12 Hours) Vital Signs Temp Pulse Pulse Resp BP Pulse Ox O2 Del Method 03/22/23 07:49 36.4 C L 71 16 138/84 94 Room Air 03/22/23 07:47 Room Air 03/22/23 07:11 56 L 03/22/23 06:51 80 18 99 Nasal Cannula 03/21/23 22:35 75 18 97 CPAP 03/21/23 22:01 66 03/22/23 04:38 36.6 C 63 20 129/77 99 Nasal Cannula 03/21/23 23:06 36.7 C 71 20 176/93 H 95 Room Air 03/21/23 22:47 78 25 H 96 03/21/23 22:39 Room Air, Nasal CPAP O2 Flow Rate 03/22/23 07:49 03/22/23 07:47 03/22/23 07:11 03/22/23 06:51 3 03/21/23 22:35 03/21/23 22:01 03/22/23 04:38 3 03/21/23 23:06 03/21/23 22:47 03/21/23 22:39 2 Laboratory Results No new imaging PG Care Time/CCT Total # of Minutes Spent Total Time Spent with Patient: Total time spent is greater than 50% in coordination of care (as documented) at patient's floor/unit and/or counseling patient: Coding Level of Care Code 23141 SUB INP/OBS CARE 2/35MIN Diagnoses Abnormal CT scan of lung R91.8 Asthma J45.909 ZHANG (obstructive sleep apnea) G47.33
[2023-03-22] MEDS: FORMOTEROL 20 MCG/2 ML VIAL NEB SCH ×2 (09:59→19:42)
[2023-03-22] MEDS ORDERED: COUGH DROP (SUGAR FREE) LOZ 24 LOZ/1 BOX BUCCAL PRN ×2 (15:13)
[2023-03-22] MEDS: BUDESONIDE 0.5 MG/2 ML VIAL (PULMICORT) NEB SCH (19:42)
[2023-03-22] MEDS: hydrOXYzine HCl 10 MG TAB PO PRN (22:00)
[2023-03-23] MEDS: ALBUTEROL 0.083% NEBU SOLN 3 ML VIAL NEB SCH ×6 (03:45→23:10)
[2023-03-23] MEDS: LEVOTHYROXINE SODIUM 75 MCG TABLET PO SCH (06:35)
[2023-03-23] MEDS: BUDESONIDE 0.5 MG/2 ML VIAL (PULMICORT) NEB SCH ×2 (06:53→20:23)
[2023-03-23] MEDS: SODIUM CHLOR 7% 4 ML NEB NEB SCH ×2 (06:53→20:23)
[2023-03-23] MEDS: FORMOTEROL 20 MCG/2 ML VIAL NEB SCH ×2 (06:53→20:23)
--- NOTE | 2023-03-23 08:19 | Hospitalist Progress Note ---
Date of Service March 23, 2023 Assessment & Plan (1) Dyspnea: Plan: 82yo Female with PMH lung cancer s/p lung resection, asthma, HTN, HLD, hypothyroidism, nighttime oxygen supplementation 2L, GERD, depression/anxiety here for SOB. In outpatient treated with augmentin, followed by cefdinir & prednisone taper 70mg 12 days. Biofire testing negative Desat to the 80s w/ ambulation in ER , given 60mg IV methylprednisolone, Levaquin, Albuterol neb, famotidine Hypoxia concerning for Asthma Exacerbation, ?mucus plugging -- suspected as main culprit/reactive airway/collapse, unable to tolerate CPAP CTA w/o focal consolidation/effusion/PTX, no acute PE Pulm consulted- appreciate recs/assistance Prednisone 20mg x 5 days (on day 4/5) PPI BID for reflux symptoms which have reportedly improved Placed on mucinex BID, hypertonic saline Pulmonology added formoterol BID, budesonide BID nebs to see if more effective --> reported improvement and can continue at discharge Continue incentive spirometer, flutter valve Sputum cx normal alison on preliminary Vistaril increased to 25mg for tonight for sleep/anxiety Monitor overnight, hopeful dc tomorrow if continued improvement/stability and will need new rx for budesonide/formoterol, hypertonic saline, mucinex (also PPI BID) (2) Paroxysmal atrial tachycardia: Plan: palpitaions reported, cards consulted (see note). episode SVT 03/[address] Peterson and metoprolol rec to increase to 12.5mg BID -- reported improvement and will continue dose and monitor. may need switch to dilt if still issues (3) Asthma exacerbation: Plan: as above, supportive care. improving, pulm on consult need new rx for inhaled nebs as above (4) Asthmatic bronchitis , chronic: (5) Hypertension: Plan: chronic, stable/improved since starting metoprolol and decreasing steroid dosage No further IVF Remains on triamterene-HCTZ Need to aim for good BP control given likely diastolic HF --- improved since restarting the metoprolol succinate 12.5mg and increased to BID as above- new rx at dc (6) Dyslipidemia: Plan: Continue crestor (7) Hypothyroidism: Plan: TSH wnl earlier this year Remains on levothyroxine (8) ZHANG (obstructive sleep apnea): Plan: Unable to tolerated CPAP and wears O2 2L at night Discussed again with patient 03/20 and she declined but was then agreeable. Trial mask during day ok but nasal pillows w/ panic attack as above but trial mask again tonight Possible need for repeat sleep study -- CM looking into this as prior study from 2019 AGAIN not able to tolerate overnight (9) Dependence on supplemental oxygen: Plan: o2 at night (10) History of lung surgery: Plan: Hx. 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 If she needs dosage, DO NOT sent by tube system as it will break --> discussed w/ RN and patient to have family bring this in and WALK IT DOWN TO PHARMACY WHEN IT ARRIVES Given dose 03/20 after family brought in. Resume usual schedule after discharge can f/u allergy at dc w/ Dr Henriquez for further testing? (11) Gastroesophageal reflux disease: Plan: Appeared possibly worse reflux recently/awakening her at night [employer] and on protonix once daily and discussed prior about increasing. ? if worsened w/ high dose steroids. Increased PPI to BID and improvement in symptoms and would continue while on steroids and can back to once daily once off prednisone Plan continued inpatient stay, hopeful dc tomorrow Admission and Anticipated Discharge Date Admission Date: March 20, 2023 Supervising Physician Co-Signing Physician Notes The patient was not seen by me. The chart was reviewed. Case discussed with SHAY Diallo. Agree with assessment and plan Subjective Eval this morning. Had been given new breathing treatment (budesonide/perfomomist added by pulm yesterday) and she notes ability to bring up more sputum, feeling better. On room air. Unable to tolerate CPAP overnight. No fever/chills, chest pain at present. Did have some palpitations this morning -- discussed increased metoprolol to 12.5mg BID per cardiology. More comfortable monitoring overnight and hopeful discharge tomorrow. Wanting to try the 25mg vistaril for tonight for sleep/anxiety. Questions/concerns addressed at this time. Physical Exam Physical Exam: General: WD/WN sitting up in chair, NAD HEENT: head normocephalic, atraumatic, mmm, trachea midline Resp: +cough (significantly decreased, more productive reported), wheezing almost completely resolved, slightly diminished in the bases but improvement in air entry bilaterally, on room air CV: RRR, no significant m/r/g, no pitting edema/calf tenderness GI: +BS, soft/NT : no hook MSK/Neuro: no focal deficits, no slurred speech, follows commands, CN intact grossly, no meningeal signs Psych:AOx3, cooperative with exam Results & Data Results & Data Vital Signs (Past 12 Hours) Vital Signs Temp Pulse Pulse Resp BP BP Pulse Ox 03/23/23 07:58 36.4 C L 59 L 20 133/68 93 03/23/23 07:48 71 03/23/23 06:57 20 03/23/23 04:19 36.7 C 56 L 18 151/75 H 93 03/23/23 00:48 03/22/23 23:26 62 03/22/23 23:19 36.7 C 71 18 131/73 94 03/22/23 23:15 21 96 03/22/23 23:15 60 21 96 O2 Del Method O2 Flow Rate 03/23/23 07:58 Room Air 03/23/23 07:48 03/23/23 06:57 Room Air 03/23/23 04:19 Nasal Cannula 3 03/23/23 00:48 Nasal Cannula 3 03/22/23 23:26 03/22/23 23:19 Room Air 03/22/23 23:15 CPAP 03/22/23 23:15 Laboratory Results 03/23/23 03/23/23 Range/Units 08:10 08:10 WBC 6.12 (4.8-10.8) K/ul RBC 4.76 (4.20-5.40) M/uL Hgb 14.1 (12.0-16.0) g/dl Hct 41.6 (37.0-47.0) % MCV 87.4 (80.0-100.0) fL MCH 29.6 (25.0-34.0) pg MCHC 33.9 (32.0-36.0) g/dL RDW Std Deviation 44.7 (36.4-46.3) fL RDW Coeff of Katiana 13.9 (11.5-14.5) % Plt Count 240 (130-400) K/uL MPV 11.6 (9.4-12.4) fL Sodium 140 (136-145) mmol/L Potassium 4.1 (3.5-5.1) mmol/L Chloride 103 (98-107) mmol/L Carbon Dioxide 31 (21-32) mmol/L Anion Gap 6 (3-11) BUN 19 (6-23) mg/dl Creatinine 0.86 (0.6-1.2) mg/dl Est Cr Clr Drug Dosing 55.7 ml/min Est GFR ( Amer) 73.9 ml/min Est GFR (Non-Af Amer) 63.8 ml/min BUN/Creatinine Ratio 22.1 H (10-20) Glucose 84 (70-99(Fasting)) mg/dl Calcium 9.9 (8.6-10.3) mg/dl Magnesium 2.2 (1.7-2.4) mg/dl PG Care Time/CCT Total # of Minutes Spent Total Time Spent with Patient: Total time spent is greater than 50% in coordination of care (as documented) at patient's floor/unit and/or counseling patient: Coding Level of Care Code 47432 SUB INP/OBS CARE 3/50MIN Diagnoses Dyspnea R06.00 Paroxysmal atrial tachycardia I47.1 Asthma exacerbation J45.901 Asthmatic bronchitis , chronic J44.9 Hypertension I10 Dyslipidemia E78.5 Hypothyroidism E03.9 ZHANG (obstructive sleep apnea) G47.33 Dependence on supplemental oxygen Z99.81 History of lung surgery Z98.890 Gastroesophageal reflux disease K21.9
[2023-03-23] MEDS: guaiFENesin 600 MG TABCR PO SCH ×2 (08:24→19:55)
[2023-03-23] MEDS: METOPROLOL SUCC 25MG EXT REL TAB PO SCH ×2 (08:24→19:56)
[2023-03-23] MEDS: predniSONE 20 MG TAB PO SCH (08:25)
[2023-03-23] MEDS: TRIAMTERENE/HCTZ 37.5/25MG TAB PO SCH (08:25)
[2023-03-23] MEDS: LORATADINE 10 MG TAB PO SCH (08:25)
[2023-03-23] MEDS: PANTOprazole 40 MG TAB PO SCH ×2 (08:26→19:54)
[2023-03-23] MEDS: ROSUVASTATIN CALCIUM 5 MG TAB PO SCH (08:26)
[2023-03-23] MEDS: FLUTICASONE PROPIONATE NA SPR 16 GM BTL SCH (08:27)
[2023-03-23] MEDS: UMECLIDINIUM BROMIDE 62.5MCG/BLISTER 7 PUFFS/INHALER INH SCH (08:27)
[2023-03-23] MEDS: POLYETHYLENE (MIRALAX) 17 GM PACK PO SCH (08:34)
[2023-03-23 08:40] LABS: Hematocrit (blood only) 41.6 % (37.0-47.0); Hemoglobin 14.1 g/dl (12.0-16.0); Mean Corpuscular Hemoglobin 29.6 pg (25.0-34.0); Mean Corpuscular Hgb Conc 33.9 g/dL (32.0-36.0); Mean Corpuscular Volume 87.4 fL (80.0-100.0); Mean Platelet Volume 11.6 fL (9.4-12.4); Platelet Count 240 K/uL (130-400); RDW Coefficient of Variation 13.9 % (11.5-14.5); RDW Standard Deviation 44.7 fL (36.4-46.3); Red Blood Count 4.76 M/uL (4.20-5.40); White Blood Count 6.12 K/ul (4.8-10.8)
[2023-03-23 08:51] LABS: BUN Creatinine Ratio 22.1 (10-20); Calcium 9.9 mg/dl (8.6-10.3); Creatinine Clr Calc Pharmacy 55.7 ml/min; Est GFR (African American) 73.9 ml/min; Est GFR (Non-African American) 63.8 ml/min; Magnesium 2.2 mg/dl (1.7-2.4); Potassium 4.1 mmol/L (3.5-5.1)
[2023-03-23] MEDS ORDERED: hydrOXYzine HCl 25 MG TAB PO PRN (12:05)
--- NOTE | 2023-03-23 12:45 | Pulmonology Progress Note ---
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 She has been unable to tolerate positive airway pressure to this point in time. Recommendations: 1. Dynamic airway collapse: Recommend continued attempts at noninvasive positive pressure ventilation as tolerated. No indication for stenting or additional evaluation. 2. Systemic steroids may actually aggravate dynamic airway collapse. Would continue at 20 mg a day for 5-day burst and then likely discontinue. Recommend discharging the patient on Perforomist, budesonide, and Incruse. Continue Mucinex. Continue flutter valve and incentive spirometry as well. Continue hypertonic saline 3. Aggressive treatment of the patient's sinus complaints to prevent upper airway cough syndrome. This would include decongestant, antihistamine, topical nasal steroid, and saline sinus irrigation. If she fails, ENT consultation might be appropriate. 4. OOB as tolerated. Patient appears significantly improved and potentially ready for discharge. She can follow-up in the outpatient setting with Dr. Grewal. Pulmonary will sign off. Feel free to contact us with questions or concerns Admission and Anticipated Discharge Date Admission Date: March 20, 2023 Subjective Patient seen and examined. EMR reviewed. The patient is sitting up eating lunch. She is in no distress. She states her breathing is markedly better with the initiation of nebulized therapy yesterday. Her cough has become productive. Her sinus complaints also got better. It is unclear why. She anticipates being able to go home within the next 24 hours. Her wheezing is markedly better Review of Systems Review of Systems: All systems reviewed & are unremarkable except as noted in Subjective Physical Exam Constitutional: WD/WN, vitals as above Neck: trachea midline, no thyromegaly Respiratory: no respiratory distress, no labored breathing, no cough and not tachypneic Auscultation: no crackles and no wheezes Cardiovascular: RRR, no murmur, no edema Gastrointestinal (Abdomen): normal bowel sounds, soft, nontender, no hepatosplenomegaly Musculoskeletal: Extremities: extremities normal to inspection Skin: no rashes, warm and dry Lymphatic: no cervical lymphadenopathy Results & Data Results & Data Vital Signs (Past 12 Hours) Vital Signs Temp Pulse Pulse Resp BP BP Pulse Ox 03/23/23 11:29 36.7 C 67 18 127/79 96 03/23/23 11:14 67 20 93 03/23/23 08:00 03/23/23 07:58 36.4 C L 59 L 20 133/68 93 03/23/23 07:48 71 03/23/23 06:57 20 03/23/23 04:19 36.7 C 56 L 18 151/75 H 93 03/23/23 00:48 O2 Del Method O2 Flow Rate 03/23/23 11:29 Room Air 03/23/23 11:14 Room Air 03/23/23 08:00 Nasal Cannula 2 03/23/23 07:58 Room Air 03/23/23 07:48 03/23/23 06:57 Room Air 03/23/23 04:19 Nasal Cannula 3 03/23/23 00:48 Nasal Cannula 3 Laboratory Results 03/23/23 08:10 03/23/23 08:10 PG Care Time/CCT Total # of Minutes Spent Total Time Spent with Patient: Total time spent is greater than 50% in coordination of care (as documented) at patient's floor/unit and/or counseling patient: Coding Level of Care Code 99770 SUB INP/OBS CARE 2/35MIN Diagnoses Abnormal CT scan of lung R91.8 Asthma J45.909 ZHANG (obstructive sleep apnea) G47.33
[2023-03-24] MEDS: ALBUTEROL 0.083% NEBU SOLN 3 ML VIAL NEB SCH ×4 (03:23→14:45)
[2023-03-24] MEDS: LEVOTHYROXINE SODIUM 75 MCG TABLET PO SCH (05:51)
[2023-03-24] MEDS: FORMOTEROL 20 MCG/2 ML VIAL NEB SCH (06:54)
[2023-03-24] MEDS: BUDESONIDE 0.5 MG/2 ML VIAL (PULMICORT) NEB SCH (06:54)
[2023-03-24] MEDS: SODIUM CHLOR 7% 4 ML NEB NEB SCH (06:54)
--- NOTE | 2023-03-24 07:31 | Hospitalist Progress Note ---
Date of Service March 24, 2023 Assessment & Plan (1) Dyspnea: Plan: 82yo Female with PMH lung cancer s/p lung resection, asthma, HTN, HLD, hypothyroidism, nighttime oxygen supplementation 2L, GERD, depression/anxiety here for SOB. In outpatient treated with augmentin, followed by cefdinir & prednisone taper 70mg 12 days. Biofire testing negative Desat to the 80s w/ ambulation in ER , given 60mg IV methylprednisolone, Levaquin, Albuterol neb, famotidine Hypoxia concerning for Asthma Exacerbation, ?mucus plugging -- suspected as main culprit/reactive airway/collapse, unable to tolerate CPAP CTA w/o focal consolidation/effusion/PTX, no acute PE Pulm consulted- appreciate recs/assistance Prednisone 20mg x 5 days (on day 4/5) PPI BID for reflux symptoms which have reportedly improved Placed on mucinex BID, hypertonic saline Pulmonology added formoterol BID, budesonide BID nebs to see if more effective --> reported improvement and can continue at discharge Continue incentive spirometer, flutter valve Sputum cx normal alison on preliminary Vistaril increased to 25mg for tonight for sleep/anxiety Monitor overnight, hopeful dc tomorrow if continued improvement/stability and will need new rx for budesonide/formoterol, hypertonic saline, mucinex (also PPI BID) (2) Paroxysmal atrial tachycardia: Plan: palpitaions reported, cards consulted (see note). episode SVT 03/[address] Peterson and metoprolol rec to increase to 12.5mg BID -- reported improvement and will continue dose and monitor. may need switch to dilt if still issues (3) Asthma exacerbation: Plan: as above, supportive care. improving, pulm on consult need new rx for inhaled nebs as above (4) Asthmatic bronchitis , chronic: (5) Hypertension: Plan: chronic, stable/improved since starting metoprolol and decreasing steroid dosage No further IVF Remains on triamterene-HCTZ Need to aim for good BP control given likely diastolic HF --- improved since restarting the metoprolol succinate 12.5mg and increased to BID as above- new rx at dc (6) Dyslipidemia: Plan: Continue crestor (7) Hypothyroidism: Plan: TSH wnl earlier this year Remains on levothyroxine (8) ZHANG (obstructive sleep apnea): Plan: Unable to tolerated CPAP and wears O2 2L at night Discussed again with patient 03/20 and she declined but was then agreeable. Trial mask during day ok but nasal pillows w/ panic attack as above but trial mask again tonight Possible need for repeat sleep study -- CM looking into this as prior study from 2019 AGAIN not able to tolerate overnight (9) Dependence on supplemental oxygen: Plan: o2 at night (10) History of lung surgery: Plan: Hx. 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 If she needs dosage, DO NOT sent by tube system as it will break --> discussed w/ RN and patient to have family bring this in and WALK IT DOWN TO PHARMACY WHEN IT ARRIVES Given dose 03/20 after family brought in. Resume usual schedule after discharge can f/u allergy at [place] w/ Dr Henriquez for further testing? 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 ? if worsened w/ high dose steroids. Increased PPI to BID and improvement in symptoms and would continue while on steroids and can back to once daily once off prednisone Plan continued inpatient stay, hopeful dc tomorrow Admission and Anticipated Discharge Date Admission Date: March 20, 2023 Results & Data Results & Data Vital Signs (Past 12 Hours) Vital Signs Temp Pulse Pulse Resp BP Pulse Ox O2 Del Method 03/24/23 07:02 79 20 93 Room Air 03/24/23 03:50 36.6 C 64 18 120/78 95 Room Air 03/23/23 21:59 65 03/23/23 23:50 Nasal Cannula 03/23/23 23:15 36.7 C 63 18 120/75 92 Room Air 03/23/23 23:12 81 18 97 Nasal Cannula 03/23/23 20:27 73 18 94 Room Air 03/23/23 19:41 36.7 C 68 18 125/78 95 Room Air O2 Flow Rate 03/24/23 07:02 03/24/23 03:50 03/23/23 21:59 03/23/23 23:50 3 03/23/23 23:15 03/23/23 23:12 3 03/23/23 20:27 03/23/23 19:41 PG Care Time/CCT Total # of Minutes Spent Total Time Spent with Patient: Total time spent is greater than 50% in coordination of care (as documented) at patient's floor/unit and/or counseling patient: Coding Diagnoses Dyspnea R06.00 Paroxysmal atrial tachycardia I47.1 Asthma exacerbation J45.901 Asthmatic bronchitis , chronic J44.9 Hypertension I10 Dyslipidemia E78.5 Hypothyroidism E03.9 ZHANG (obstructive sleep apnea) G47.33 Dependence on supplemental oxygen Z99.81 History of lung surgery Z98.890 Gastroesophageal reflux disease K21.9
[2023-03-24] MEDS: PANTOprazole 40 MG TAB PO SCH (08:37)
[2023-03-24] MEDS: UMECLIDINIUM BROMIDE 62.5MCG/BLISTER 7 PUFFS/INHALER INH SCH (08:37)
[2023-03-24] MEDS: guaiFENesin 600 MG TABCR PO SCH (08:37)
[2023-03-24] MEDS: METOPROLOL SUCC 25MG EXT REL TAB PO SCH (08:37)
[2023-03-24] MEDS: TRIAMTERENE/HCTZ 37.5/25MG TAB PO SCH (08:38)
[2023-03-24] MEDS: ROSUVASTATIN CALCIUM 5 MG TAB PO SCH (08:38)
[2023-03-24] MEDS: LORATADINE 10 MG TAB PO SCH (08:38)
[2023-03-24] MEDS: predniSONE 20 MG TAB PO SCH (08:38)
[2023-03-24] MEDS: POLYETHYLENE (MIRALAX) 17 GM PACK PO SCH (08:41)
[2023-03-24] MEDS: FLUTICASONE PROPIONATE NA SPR 16 GM BTL SCH (08:42)
--- NOTE | 2023-03-24 11:07 | Discharge Summary ---
Date of Service March 24, 2023 Admission HPI Per Admitting Provider 82yo Female with PMH lung cancer s/p lung resection, asthma, HTN, HLD, hypothyroidism, nighttime oxygen supplementation, GERD, depression/anxiety here for SOB. Patient states she had wheezing and SOB since January, has been treated with augmentin cefdinir prednisone taper starting at 70mg taper over 12 days, states she felt improvement on medication however felt worse after medication ended. Patient complains of primarily congestion SOB making it difficult to clean her house, as well as increased fatigue from SOB. States palpitations have been worse with her SOB as well. 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 Patient manages her own medications, understands she may use her albuterol inhaler q4h PRN however she is not using it that often. She sees pulmonology ever 6 months next appointment in 2 weeks. Also noted some left sided mid back pain on saturday that she thinks may be indigestion. States recent medication changes include metoprolol 12mg started by cardiology after something they noted on her holter monitor. Denies nausea vomitting fever. Patient's POA are sons Sander and Horace. Admission Exam Per Admitting Provider Constitutional: well developed, well nourished, cooperative and comfortable Eyes: PERRL, conjunctivae normal, anicteric sclerae ENMT: external ear and nose normal, oropharynx normal Neck: trachea midline, no thyromegaly Respiratory: normal respiratory effort Auscultation: + wheezes (throughout) Cardiovascular: Rate/Rhythm: regular rate and regular rhythm Gastrointestinal (Abdomen): Inspection/Auscultation: abdomen normal to inspection Percussion/Palpation: abdomen soft; abdomen nontender Skin: no rashes, warm and dry Principal Diagnosis Asthma Exacerbation, Mucus Plugging Discharge Exam General: WD/WN sitting up in chair, NAD HEENT: head normocephalic, atraumatic, mmm, trachea midline Resp: +cough (significantly decreased, more productive reported), wheezing almost completely resolved, slightly diminished in the bases but improvement in air entry bilaterally, on room air CV: RRR, no significant m/r/g, no pitting edema/calf tenderness GI: +BS, soft/NT : no hook MSK/Neuro: no focal deficits, no slurred speech, follows commands, CN intact grossly, no meningeal signs Psych:AOx3, cooperative with exam Discharge Data Allergies Allergy/AdvReac Type Severity Reaction Status Date / Time atorvastatin Allergy Unknown UNKNOWN Verified 03/21/23 11:55 REACTION doxycycline Allergy Unknown GI upset Verified 03/21/23 11:55 propoxyphene Allergy Unknown UNKNOWN Verified 03/21/23 11:55 REACTION simvastatin Allergy Unknown myalgias Verified 03/21/23 11:55 azithromycin AdvReac Intermediate SEVERE GI Verified 03/21/23 11:55 UPSET codeine AdvReac Mild PATIENT Verified 03/21/23 11:55 STATES IT MAKES HER "GOOFY" AND NAUSEATED Consultations 03/20/23 02:28 Consult Pulmonology Routine 03/20/23 10:26 Consult Cardiology Routine Ordered Studies Chest X-Ray 03/19/23 20:26 XR chest 1V not portable CLINICAL HISTORY: cough TECHNIQUE: Single frontal radiograph of the chest was obtained. Comparison: Comparison is made to chest radiograph 10/08/2022 FINDINGS: No lines and tubes are seen. The cardiomediastinal silhouette is normal. The lungs are clear. No evidence of pleural effusion or pneumothorax. IMPRESSION: No acute abnormalities and in particular no radiographic evidence of pneumonia. ACT 112: Negative or not required by law. Electronically signed by: Zion Craig M.D. 03/20/2023 7:59 AM Chest CTA 03/19/23 22:27 Exam(s): CTA CHEST IV Amt: 119ml optiray 320 EXAM: CT Angiography Chest With Intravenous Contrast CLINICAL HISTORY: Reason for exam: PE. TECHNIQUE: Axial computed tomographic angiography images of the chest with intravenous contrast. CTDI is 43.5 mGy and DLP is 900.13 mGy-cm. Automated exposure control was utilized for the study. A dose lowering technique was utilized adhering to the principles of ALARA. MIP reconstructed images were created and reviewed. COMPARISON: No relevant prior studies available. FINDINGS: Pulmonary arteries: Unremarkable. No acute pulmonary embolism. Aorta: No acute findings. No thoracic aortic aneurysm. Lungs: Unremarkable. No mass. No consolidation. Pleural space: Unremarkable. No focal consolidation, pleural effusion, or pneumothorax. Heart: Cardiomegaly. No significant pericardial effusion. No evidence of RV dysfunction. Bones/joints: No acute fracture. No dislocation. Soft tissues: Unremarkable. Lymph nodes: Unremarkable. No enlarged lymph nodes. IMPRESSION: 1. No focal consolidation, pleural effusion, or pneumothorax. 2. No acute pulmonary embolism. Electronically signed by: Waldemar Alegria MD 03/19/23 23:40 PM Hospital Course (1) Dyspnea: 82yo Female with PMH lung cancer s/p lung resection, asthma, HTN, HLD, hypothyroidism, nighttime oxygen supplementation 2L, GERD, depression/anxiety here for SOB. In outpatient treated with augmentin, followed by cefdinir & prednisone taper 70mg 12 days. Biofire testing negative Desat to the 80s w/ ambulation in ER , given 60mg IV methylprednisolone, Levaquin, Albuterol neb, famotidine Hypoxia concerning for Asthma Exacerbation, ?mucus plugging -- suspected as main culprit/reactive airway/collapse, unable to tolerate CPAP CTA w/o focal consolidation/effusion/PTX, no acute PE Pulm consulted while inpatient -- see note Prednisone 20mg x 5 days -- given faint wheezing at discharge, taper at dc extended 10mg x 3 days, then 5mg x 3 days then stop PPI BID for reflux symptoms which have reportedly improved and continued BID at discharge Patient to continue mucinex at discharge, consideration for ENT f/u for chronic sinus issues that settle to her chest. CXR negative Sputum cx heavy normal alison Per discussion w/ pulmonary, ok to continue patient on budesonide nebs BID, formotorol nebs BID at discharge along with her Incruse Also discussed component of anxiety, benzos avoided but she had been on in the past. Vistaril effective for sleep/anxiety and continued 25mg as needed at discharge F/u Dr Tomas after discharge (2) Paroxysmal atrial tachycardia: palpitaions reported, cards consulted (see note). episode SVT 03/[address] Peterson and metoprolol rec to increase to 12.5mg BID -- reported improvement and will continued dose at discharge had recent Zio monitor w/ [employer] cards -- consulted while inpatient -- see note rx to continue 12.5mg BID at discharge (3) Asthma exacerbation: as above, supportive care. improving, pulm on consult need new rx for inhaled nebs as above (4) Asthmatic bronchitis , chronic: nebs at dc as above (5) Hypertension: chronic, stable/improved since starting metoprolol and decreasing steroid dosage, 129/80 Continued on triamterene-HCTZ Metoprolol increased to BID as above, continued at discharge (6) Dyslipidemia: Continued crestor (7) Hypothyroidism: TSH wnl earlier this year Remained on levothyroxine (8) ZHANG (obstructive sleep apnea): Unable to tolerated CPAP and wears O2 2L at night Discussed again with patient 03/20 and she declined but was then agreeable. Trial mask during day ok but nasal pillows w/ panic attack --AGAIN not able to tolerate overnight and was not referred at [facility] for new study as she stated continued not able to tolerate f/u anxiety w/ pcp at [facility] (9) Dependence on supplemental oxygen: o2 at night continued (10) History of lung surgery: Hx. 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 If she needs dosage, DO NOT sent by tube system as it will break --> discussed w/ RN and patient to have family bring this in and WALK IT DOWN TO PHARMACY WHEN IT ARRIVES Given dose 03/20 after family brought in. 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 ? if worsened w/ high dose steroids. Increased PPI to BID and improvement in symptoms and continued while on steroids and can back to once daily once off prednisone if not needing as much coverage Total Time Total Time Spent Total Time Spent (In Minutes): 60 Discharge Plan Discharge Items Patient Disposition: Home - Self-Care Reason For Visit: SOB Discharge Diagnosis: Asthma Exacerbation Goals: You have been hospitalized for an acute medical problem. During your stay at [facility], we have made an effort to correct the problem that brought you to the hospital while keeping you as comfortable as possible. Medications were used to bring your condition under control and your discharge instructions will include directions for any medications you should take after leaving the hospital. Please make sure you see your Primary Care Provider as part of your follow up plan. Activity: Resume your previous activity Non-emergency contact: Primary Care Provider and Crabber Call non-emergency contact if: you have any medication questions, your symptoms worsen and you have a fever Follow-up/Referrals: Perez Grewal MD, [facility] [Physician] - Anurag Hernandez MD [Physician] - Lang Veloz DO [Primary Care Provider] - 03/29/23 2:45 pm Ric Henriquez MD [Physician] - Diet: Heart Healthy Addtl Attending Provider Instructions: You have been hospitalized for shortness of breath. Imaging was negative for blood clot or pneumonia. Pulmonology was consulted. You were treated with IV steroids and transitioned to oral prednisone and completed the 5 day course per recommendation from Dr Daniel. Given still having some faint wheezing, we have continued prednisone 10mg by mouth once daily for the next 3 days, then take half a tablet (5mg) for 3 days then stop. You were unable to tolerate the CPAP during multiple trials and this was not continued. Your sputum culture was negative. Given discussion about mucus plugging, as discussed, I would recommend you continuing Mucinex to keep your secretions thin. You should continue Mucinex ONCE daily, twice daily if tolerated as you have been getting this while in the hospital. Dr Daniel has transitioned your Symbicort to budesonide nebulizer for better results as you have had improvement since starting these as well as Perforomist twice daily. Your regimen at discharge should be the following for breathing treatments * Budesonide TWICE DAILY nebulized (IN PLACE OF THE SYMBICORT INHALER) * Perforomist TWICE DAILY nebulized * Incruse inhaler (IN PLACE OF YOUR SPIRIVA) ONCE DAILY (use with spacer) * Ipratropium/albuterol nebulizers q8h NEEDED * Albuterol inhaler as needed (try and limit if able as this can contribute to increased palpitations) Regarding the palpitations, cardiology was consulted and you have been restarted on metoprolol and this has been increased to 12.5mg twice daily with improv emfrank in "extra beats". You can follow up with cardiology for any ongoing issues. You should continue incentive spirometer and the flutter valve to help you continue to get up any mucus/sputum. You can discuss allergy testing in follow up with Dr Henriquez from allergy/immunology. If continuing to have sinus congestion/issues on your Claritin and allergy medication, it may be worthwhile to have ENT consultation in the future for further evaluation. You should have follow up with primary care in the next 7-10 days after discharge. Please follow up with Dr Grewal from pulmonology to monitor your progress after discharge. Please return to the emergency department with any increased shortness of breath, chest pain, or for any other symptoms concerning for you. Pending Studies at Discharge: No Stand-Alone Forms: My [facility] Smallable, Smoking Cessation Medications and DC Order Prescriptions: New pantoprazole 40 mg Tablet,Delayed Release (Dr/Ec) 40 mg PO BID Qty: 60 0RF metoprolol succinate 25 mg Tablet Extended Release 24 Hr 12.5 mg PO BID Qty: 60 0RF Incruse Ellipta 62.5 mcg/actuation Blister With Device 1 inh inhalation DAILY Qty: 30 0RF guaifenesin [Mucinex] 600 mg tablet extended release 12hr 600 mg PO BID PRN (Reason: cough) Qty: 30 0RF prednisone 10 mg tablet See Rx Instructions .ROUTE .COMPLEX Qty: 5 0RF Rx Instructions: 10mg by mouth daily x 3 days, then 5mg by mouth daily x 3 days then stop budesonide 0.5 mg/2 mL suspension for nebulization 0.5 mg inhalation BID 28 Days Qty: 112 0RF formoterol fumarate [Perforomist] 20 mcg/2 mL solution for nebulization 20 mcg inhalation BID 28 Days Qty: 112 0RF hydroxyzine pamoate [Vistaril] 25 mg capsule 25 mg PO HS PRN (Reason: insomnia or anxiety) Qty: 30 0RF Continued hydrocortisone acetate [Anusol-HC] 25 mg suppository 25 mg OH DAILY PRN (Reason: hemorrhoids) Qty: 12 0RF Hizentra 10 gram/50 mL (20 %) solution See Rx Instructions subcut .COMPLEX Qty: 200 11RF Rx Instructions: Infuse Hizentra 10 GM SC once weekly, takes q sat. levothyroxine 75 mcg tablet 75 mcg PO DAILYBB Qty: 90 3RF epinephrine 0.3 mg/0.3 mL auto-injector See Rx Instructions .ROUTE .COMPLEX Qty: 2 3RF Dose Instruction: 0.3 MG (0.3 ML) IM ONCE NEEDED FOR ANAPHYLAXIS MAY REPEAT ONCE IN 10 MINUTES IF SYMPTOMS HAVE NOT IMPROVED WITH FIRST DOSE Rx Instructions: 0.3 MG (0.3 ML) IM ONCE NEEDED FOR ANAPHYLAXIS MAY REPEAT ONCE IN 10 MINUTES IF SYMPTOMS HAVE NOT IMPROVED WITH FIRST DOSE vitamin B complex [B Complex-Vitamin B12] Tablet 1 tab PO BID Rx Instructions: 500 mg (DME) Aeroneb Go Nebulizer Misc See Rx Instructions .MEDSUPPLY Qty: 1 0RF Rx Instructions: With tubing and supplies. J44.9. J45.9. ([facility]) Flutter Valve Device See Rx Instructions .MEDSUPPLY Qty: 1 0RF Rx Instructions: Use it every 6 hours when awake. ([facility]) BreatheRite MDI Spacer Spacer See Rx Instructions .MEDSUPPLY Qty: 1 0RF Rx Instructions: As directed ProAir RespiClick 90 mcg/actuation aerosol powdr breath activated 180 mcg INH Q4H PRN (Reason: shortness of breath or wheezing) Qty: 3 3RF cholecalciferol (vitamin D3) 2,000 unit tablet 2,000 units PO QDD ipratropium-albuterol 0.5 mg-3 mg(2.5 mg base)/3 mL solution for nebulization 3 ml inhalation Q8H PRN (Reason: shortness of breath or wheezing) Qty: 180 5RF azelastine 137 mcg (0.1 %) aerosol,spray 2 spray intranasal DAILY PRN (Reason: Allergy Symptoms) (DME) Oxygen Home Liters Per Minute See Rx Instructions .ROUTE .MEDSUPPLY Rx Instructions: 2 liters via nasal canula- uses 3L @ bedtime rosuvastatin 5 mg tablet 5 mg PO DAILY Qty: 90 3RF triamterene-hydrochlorothiazid 37.5-25 mg tablet 0.5 tab PO QAM Qty: 45 3RF fluticasone propionate [Flonase Allergy Relief] 50 mcg/actuation spray,suspension 2 spray intranasal DAILY PRN (Reason: Allergy Symptoms) diphenhydramine HCl [Benadryl] 25 mg Capsule 25 mg PO DIRECTED Rx Instructions: Take with 1 ES Tylenol once a week when takes Hizentra inj. every sat. acetaminophen [Tylenol Extra Strength] 500 mg tablet 500 mg PO DIRECTED PRN (Reason: with hizentra) Rx Instructions: takes once a week when takes hizentra Discontinued pantoprazole 40 mg tablet,delayed release (DR/EC) See Rx Instructions .ROUTE .COMPLEX Qty: 90 3RF Dose Instruction: TAKE ONE TABLET BY MOUTH DAILY Rx Instructions: TAKE ONE TABLET BY MOUTH DAILY Spiriva Respimat 2.5 mcg/actuation mist 2 puff inhalation DAILY Qty: 3 5RF Symbicort 160-4.5 mcg/actuation HFA aerosol inhaler 2 puff INH BID Qty: 3 5RF Rx Instructions: Please fill with Symbicort brand for insurance to cover Discharge Orders: Discharge Order (Routine); Ordered 03/24/23 Ordered By: Michelle Martell Admission Data Admit Date/Time: 03/20/23 02:57 Attending Provider: Wei Ambrose Admit Provider: Nayely Lin Primary Care Provider: Lang Veloz Other Providers: Ric Henriquez ; Jay Daniel ; Anurag Hernandez Supervising Physician Co-Signing Physician Notes The patient was not seen by me. The chart was reviewed. Case discussed with SHAY Diallo. Agree with assessment and plan Coding Level of Care Code 93459 INP/OBS DISCH >30 MIN Diagnoses Dyspnea R06.00 Paroxysmal atrial tachycardia I47.1 Asthma exacerbation J45.901 Asthmatic bronchitis , chronic J44.9 Hypertension I10 Dyslipidemia E78.5 Hypothyroidism E03.9 ZHANG (obstructive sleep apnea) G47.33 Dependence on supplemental oxygen Z99.81 History of lung surgery Z98.890 Gastroesophageal reflux disease K21.9
== END 2023-03-24 15:32 | disposition home or self-care (01) | DRG 202 ==
LOC: ED 20:01 → SUATTDRO 03-20 02:57 → 2N 03-20 02:57

== ENCOUNTER 2024-11-05 12:20 | Inpatient (IN) ==
[2024-11-05 13:54] LABS: Hematocrit (blood only) 41.3 % (37.0-47.0); Hemoglobin 13.9 g/dl (12.0-16.0); Mean Corpuscular Hemoglobin 29.1 pg (25.0-34.0); Mean Corpuscular Hgb Conc 33.7 g/dL (32.0-36.0); Mean Corpuscular Volume 86.4 fL (80.0-100.0); Mean Platelet Volume 11.8 fL (9.4-12.4); Platelet Count 170 K/uL (130-400); RDW Coefficient of Variation 12.9 % (11.5-14.5); RDW Standard Deviation 40.5 fL (36.4-46.3); Red Blood Count 4.78 M/uL (4.20-5.40); White Blood Count 2.66 K/ul (4.8-10.8)
[2024-11-05 14:06] LABS: Albumin Globulin Ratio 1.6 (0.9-2); Albumin Level 4.7 gm/dl (3.4-5.0); BUN Creatinine Ratio 18.4 (10-20); Bilirubin,Total 1.1 mg/dl (0.2-1.0); Calcium 10.4 mg/dl (8.6-10.3); Creatinine Clr Calc Pharmacy 65.1 ml/min; Globulin 2.9 gm/dl (2.5-4.0); Potassium 3.9 mmol/L (3.5-5.1); Total Protein 7.6 gm/dl (6.0-8.3)
[2024-11-05 14:26] LABS: Eosinophils # (auto) 0.01 K/uL (0.00-0.50); Eosinophils % (auto) 0.4 %; Immature Granulocytes # (auto) 0.05 K/uL (0.01-0.20); Immature Granulocytes % (auto) 1.9 %; Lymphocytes # (auto) 1.24 K/uL (1.20-3.40); Lymphocytes % (auto) 46.6 %; Monocytes # (auto) 0.38 K/uL (0.11-0.59); Monocytes % (auto) 14.3 %; Neutrophils # (auto) 0.98 K/uL (1.40-6.50); Neutrophils % (auto) 36.8 %
--- NOTE | 2024-11-05 14:29 | XRay Report ---
XR chest 1V not portable CLINICAL HISTORY: sob COMPARISON STUDY: 03/19/2023 FINDINGS: Heart size and pulmonary vasculature are normal. No effusion or consolidation. IMPRESSION: No pneumonia seen. ACT 112: Negative or not required by law. Electronically signed by: Juan Carlos Robles M.D. 11/05/2024 2:28 PM
[2024-11-05 14:49] LABS: Adenovirus PCR Not Detected (NotDetected); Bordetella parapertussis PCR Not Detected (NotDetected); Bordetella pertussis PCR Not Detected (NotDetected); Chlamydia pneumoniae PCR Not Detected (NotDetected); Coronavirus 229E PCR Not Detected (NotDetected); Coronavirus CoV-2 (COVID19)PCR Not Detected (NotDetected); Coronavirus HKU1 PCR Not Detected (NotDetected); Coronavirus NL63 PCR Not Detected (NotDetected); Coronavirus OC43PCR Not Detected (NotDetected); Human Metapneumovirus PCR Not Detected (NotDetected); Influenza A PCR Not Detected (NotDetected); Influenza B PCR Not Detected (NotDetected); Mycoplasma pneumoniae PCR Not Detected (NotDetected); Parainfluenza Virus 1 PCR Not Detected (NotDetected); Parainfluenza Virus 2 PCR Not Detected (NotDetected); Parainfluenza Virus 3 PCR Not Detected (NotDetected); Parainfluenza Virus 4 PCR Not Detected (NotDetected); Respiratory Syncytial VirusPCR DETECTED (NotDetected); Rhinovirus/Enterovirus PCR Not Detected (NotDetected)
--- NOTE | 2024-11-05 15:16 | Emergency Department Note ---
Impression & Plan Acute asthma exacerbation, Respiratory syncytial virus (RSV) ED Provider Note NAME: ALON CHEN AGE: 84 SEX: F : 1940 ARRIVES VIA: Walk-In INFORMANT: Patient ED PROVIDER(S): Delfino Garcia DO CHIEF COMPLAINT: Cough, congestion and shortness of breath HPI: Patient is an 84-year-old female with a past medical history of asthma, obstructive sleep apnea, bronchitis, obesity, anxiety and depression who presents to the ER for shortness of breath. Symptoms initially started about 10 days ago with cough congestion. She does have some nausea. Saturday she felt hot and cold. Denies any belly pain, nausea, vomiting or diarrhea. No dysuria, urgency, or frequency. No other exacerbating or remitting factors. She is short of breath with moving around but sometimes is worse with rest. ADDITIONAL HISTORY OBTAINED: Per HPI Chronic Medical/Social Conditions Affecting Care: Per HPI PAST MEDICAL HISTORY:See Below PAST SURGICAL HISTORY:See Below FAMILY HISTORY:See Below SOCIAL HISTORY:See Below HOME MEDICATIONS:See Below ALLERGIES:See Below VITALS:See Below PHYSICAL EXAMINATION: GENERAL: Sitting up in bed, alert, disheveled, dyspneic with conversation EYE EXAM: normal conjunctiva. PERRL and EOM's grossly intact. OROPHARYNX: no exudate, no erythema, lips, buccal mucosa, and tongue normal and mucous membranes are moist NECK: supple, no nuchal rigidity, no adenopathy, non-tender LUNGS: Diffuse wheezing. Normal chest wall mechanics HEART: no murmurs, S1 normal and S2 normal ABDOMEN: abdomen soft, non-tender, normo-active bowel sounds, no masses, no rebound or guarding. UPPER EXTREMITIES: upper extremities are grossly normal. LOWER EXTREMITIES: Mild pitting edema bilaterally NEURO EXAM: Normal sensorium, cranial nerves II-XII grossly intact, normal speech, no gross weakness of arms, no gross weakness of legs. MEDICAL DECISION MAKING: Patient is an 84-year-old female who presents ER for the above-stated complaint. IV was established and blood work was obtained. Labs show leukopenia 2.6 thousand. No significant anemia. Neutropenia at 980. BMP on LFTs was unremarkable. T. bili slightly up at 1.1. Viral panel was positive for RSV. She denied any chest pain but admits shortness of breath. Troponin was consequently not drawn. EKG was unremarkable. Chest x-ray was normal. Patient was given neb treatments which included DuoNeb followed by albuterol's. She was given IV Solu-Medrol. Patient was updated bedside. Discussed the case with the hospitalist for further evaluation management treatment. Consults/Care Managements Discussions: Per [facility] Triage Nursing notes reviewed. Limited review of prior medical records performed Vital Signs: reviewed and remarkable for HTN Differential diagnosis: Differential diagnoses includes but is not limited to pneumonia, bronchitis, COPD/Asthma exacerbation, pneumothorax, pulmonary embolism, congestive heart failure, acute coronary syndrome ER treatment provided: See below Diagnostics interpreted by me include EKG and cardiac monitoring as listed below: -Cardiac Monitoring: An order was placed for continuous cardiac monitoring. The monitor shows a rate of 80 with sinus rhythm. -ECG: Sinus rhythm rate of 67 Normal axis No PVCs QTc 435 -Laboratory studies:Interpreted by me as stated above in MDM and shown below. Imaging studies: Xrays: As interpreted by me: Portable AP upright 1 view of the chest shows no focal infiltrate CTs show: None Procedures: None Critical Care: I have personally spent 45 minutes of critical care time in the direct management of this patient. This includes bedside care, interpretation of diagnostic studies, and testing, discussion with consultants, patient, and family members, and other required patient management activities. This 45 minutes is in excess of all separately billable procedures. 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 Asthmatic bronchitis , chronic Asthma Hypertension (Chronic) Coronary artery calcification (Chronic) Dyslipidemia (Chronic) Hypothyroidism (Chronic) Obesity Insomnia Urinary incontinence (Acute) Gastroesophageal reflux disease (Acute) Depression with anxiety (Acute) Medical History Allergic rhinitis with postnasal drip 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 Paroxysmal atrial tachycardia PVC (premature ventricular contraction) PAC (premature atrial contraction) Allergic rhinitis Maxillary sinusitis Chronic recurrent sinusitis Mild obstructive sleep apnea Palpitations Asthma Surgical History Hx of cataract surgery History of tonsillectomy History of dilation and curettage History of colonoscopy Family History Father Diabetes Heart disease Brother Heart disease Dementia Sister Heart disease Mother Depression Grandfather Depression Other Hypertension Denies family history of Ovarian cancer Prostate cancer Breast cancer Lung cancer Colorectal cancer Social History Smoking Status: Never smoker Second Hand Exposure: Yes; Do You Dip or Chew Tobacco: No; Hx Alcohol Use: No Hx Substance Use: No Preferred Language: Danish Communication Ability: Effective Visual Impairment: Limited Hearing Ability: Normal Pediatric Acute Care Unit Nurse Required: No Beliefs That Will Affect Care: None marital status: / Current Living Situation: Alone Current Living Situation Comment: Home alone current occupational status: retired Feels Safe at Home: Yes Childhood Exposure to Second-Hand Smoke: Yes Diet: low salt and regular caffeine: No during the past year weight has: remained stable Dental Care, Regularly: Yes Physical Activity Frequency: Does not Exercise Seatbelt Use: always Sunscreen Use: Yes Assistive Devices: Oxygen - at Night Allergies Allergies Allergy/AdvReac Type Severity Reaction Status Date / Time atorvastatin Allergy Unknown UNKNOWN Verified 11/02/24 13:04 REACTION doxycycline Allergy Unknown GI upset Verified 11/02/24 13:04 propoxyphene Allergy Unknown UNKNOWN Verified 11/02/24 13:04 REACTION simvastatin Allergy Unknown myalgias Verified 11/02/24 13:04 azithromycin AdvReac Intermediate SEVERE GI Verified 11/02/24 13:04 UPSET codeine AdvReac Mild PATIENT Verified 11/02/24 13:04 STATES IT MAKES HER "GOOFY" AND NAUSEATED Home Meds Home Medications Medication Instructions Recorded Confirmed cholecalciferol (vitamin D3) 50 2,000 units PO QDD 05/05/19 11/05/24 mcg (2,000 unit) tablet vitamin B complex (B 1 tab PO BID 05/01/21 11/05/24 Complex-Vitamin B12 tablet) Oxygen Home 02/15/22 11/02/24 acetaminophen 500 mg tablet 500 mg PO DIRECTED PRN with 11/02/22 11/05/24 (Tylenol Extra Strength) hizentra pseudoephedrine-guaifenesin ER 120 1 tab PO Q12H PRN Other 05/20/23 11/05/24 mg-1,200 mg tab,extend release 12hr (Mucinex D Maximum Strength) metoprolol succinate 25 mg 12.5 mg PO DAILY 07/02/23 11/05/24 tablet,extended release 24 hr diphenhydramine HCl 25 mg capsule 25 mg PO DIRECTED PRN Other 09/26/23 11/05/24 (Benadryl) magnesium 200 mg tablet 200 mg PO DAILY 05/13/24 11/05/24 ezetimibe 10 mg tablet 10 mg PO UD 06/24/24 11/05/24 pantoprazole 40 mg tablet,delayed 40 mg PO DAILY 11/05/24 11/05/24 release rosuvastatin 5 mg tablet 5 mg PO DAILY 11/05/24 11/05/24 triamterene 37.5 0.5 tab PO DAILY 11/05/24 11/05/24 mg-hydrochlorothiazide 25 mg tablet Previous Rx's Medication Instructions Recorded nebulizers (Aeroneb Go Nebulizer) #1 ea 11/09/21 Flutter Valve #1 ea 10/24/22 inhalational spacing device #1 ea 10/24/22 (BreatheRite MDI Spacer) immun glob G 10 gram/50 mL(20 See Rx Instructions subcut 11/09/22 %)-pro-IgA 0-50 mcg/mL .COMPLEX #200 mL subcutaneous soln (Hizentra) epinephrine 0.3 mg/0.3 mL See Rx Instructions .Route 02/14/23 injection, auto-injector .COMPLEX #2 ea albuterol sulfate 90 mcg/actuation 180 mcg inhalation Q4H PRN 12/26/23 breath activated powder inhaler shortness of breath or wheezing #3 (ProAir RespiClick) Inhalers ipratropium 0.5 mg-albuterol 3 mg 3 ml inhalation Q8H PRN shortness 12/26/23 (2.5 mg base)/3 mL nebulization of breath or wheezing #180 mL soln umeclidinium 62.5 mcg/actuation 1 inh inhalation DAILY #30 ea 05/08/24 blister powder for inhalation (Incruse Ellipta) fluticasone propionate 50 2 spray intranasal DAILY PRN 06/16/24 mcg/actuation nasal Allergy Symptoms #16 grams spray,suspension (Flonase Allergy Relief) levothyroxine 75 mcg tablet 75 mcg PO DAILYBB #90 tabs 08/31/24 Symbicort 160 mcg-4.5 2 puff inhalation BID #10.2 grams 09/10/24 mcg/actuation HFA aerosol inhaler (budesonide-formoterol) amoxicillin 875 mg-potassium 1 tab PO BID #20 tabs 11/02/24 clavulanate 125 mg tablet Results & Data (ED) Vital Signs Vital Signs - 24 hr 11/05/24 12:26 11/05/24 15:24 11/05/24 15:26 Temperature 36.2 C L Temperature Source Temporal Artery Scan Pulse Rate 78 63 Pulse Rate [Apical] 65 Respiratory Rate 20 18 Respiratory Effort / Characteristics Non-Labored Spontaneous Non-Labored Spontaneous Respiratory Depth Normal Normal Respiratory Pattern Regular Blood Pressure 187/107 H Blood Pressure [Right Arm] 155/94 H Blood Pressure Mean 133 Blood Pressure Mean [Right Arm] 114 Pulse Oximetry 95 100 Oxygen Delivery Method Room Air Nebulizer Sepsis Recent Fever Within 48 Hours No Sepsis New/Unexplained Change in Mental Status N/A Sepsis Action Taken by Nursing No Action Required 11/05/24 19:00 11/05/24 19:29 Temperature Temperature Source Pulse Rate 83 Pulse Rate [Apical] 93 H Respiratory Rate 18 Respiratory Effort / Characteristics Respiratory Depth Respiratory Pattern Blood Pressure Blood Pressure [Right Arm] 155/97 H Blood Pressure Mean Blood Pressure Mean [Right Arm] 116 Pulse Oximetry 96 Oxygen Delivery Method Sepsis Recent Fever Within 48 Hours Sepsis New/Unexplained Change in Mental Status Sepsis Action Taken by Nursing Laboratory Data 11/05/24 13:30 11/05/24 13:30 Lab Results 11/05/24 11/05/24 Range/Units 13:25 13:30 WBC 2.66 L (4.8-10.8) K/ul RBC 4.78 (4.20-5.40) M/uL Hgb 13.9 (12.0-16.0) g/dl Hct 41.3 (37.0-47.0) % MCV 86.4 (80.0-100.0) fL MCH 29.1 (25.0-34.0) pg MCHC 33.7 (32.0-36.0) g/dL RDW Std Deviation 40.5 (36.4-46.3) fL RDW Coeff of [place] 12.9 (11.5-14.5) % Plt Count 170 (130-400) K/uL MPV 11.8 (9.4-12.4) fL Immature Gran % (Auto) 1.9 % Neut % (Auto) 36.8 % Lymph % (Auto) 46.6 % [place] % (Auto) 14.3 % Eos % (Auto) 0.4 % Baso % (Auto) 0.0 % Neut # (Auto) 0.98 L* (1.40-6.50) K/uL Lymph # (Auto) 1.24 (1.20-3.40) K/uL [place] # (Auto) 0.38 (0.11-0.59) K/uL Eos # (Auto) 0.01 (0.00-0.50) K/uL Baso # (Auto) 0.00 (0.00-0.20) K/uL Immature Gran # (Auto) 0.05 (0.01-0.20) K/uL Sodium 139 (136-145) mmol/L Potassium 3.9 (3.5-5.1) mmol/L Chloride 103 (98-107) mmol/L Carbon Dioxide 29 (21-32) mmol/L Anion Gap 7 (3-11) BUN 14 (6-23) mg/dl Creatinine 0.76 (0.6-1.2) mg/dl Est Cr Clr Drug Dosing 65.1 ml/min eGFR 78.19 BUN/Creatinine Ratio 18.4 (10-20) Glucose 96 (70-99(Fasting)) mg/dl Calcium 10.4 H (8.6-10.3) mg/dl Total Bilirubin 1.1 H (0.2-1.0) mg/dl AST 34 (13-39) U/L ALT 26 (7-52) U/L Alkaline Phosphatase 54 (34-104) U/L Total Protein 7.6 (6.0-8.3) gm/dl Albumin 4.7 (3.4-5.0) gm/dl Globulin 2.9 (2.5-4.0) gm/dl Albumin/Globulin Ratio 1.6 (0.9-2) Adenovirus (PCR) Not Detected (NotDetected) B. pertussis DNA (PCR) Not Detected (NotDetected) B.parapertussis DNA PCR Not Detected (NotDetected) C. pneumoniae DNA (PCR) Not Detected (NotDetected) Coronavirus OC43 (PCR) Not Detected (NotDetected) Coronavirus HKU1 (PCR) Not Detected (NotDetected) Coronavirus 229E (PCR) Not Detected (NotDetected) SARS-CoV-2 (PCR) Not Detected (NotDetected) Coronavirus NL63 (PCR) Not Detected (NotDetected) Human Metapneumovir PCR Not Detected (NotDetected) Influenza Type A (PCR) Not Detected (NotDetected) Influenza Type B (PCR) Not Detected (NotDetected) M. pneumoniae (PCR) Not Detected (NotDetected) Parainfluenza 1 (PCR) Not Detected (NotDetected) Parainfluenza 2 (PCR) Not Detected (NotDetected) Parainfluenza 3 (PCR) Not Detected (NotDetected) Parainfluenza 4 (PCR) Not Detected (NotDetected) RSV (PCR) DETECTED A (NotDetected) Entero/Rhino (PCR) Not Detected (NotDetected) Administered Medications Discontinued Medications Albuterol (Albut/Ipratrop 3mg/0.5mg Neb 3 Ml Vial) 6 ml NEB NOW STA; Protocol Stop: 11/05/24 15:14 Last Admin: 11/05/24 15:19 Dose: 6 ml Documented By: JAZZ Albuterol (Albuterol 0.083% Nebu Soln 3 Ml Vial) 5 mg NEB NOW STA; Protocol Stop: 11/05/24 18:01 Last Admin: 11/05/24 19:20 Dose: 5 mg Documented By: HILDA Methylprednisolone (Methylprednisolone 125 Mg/2 Ml Vial) 40 mg IV NOW STA Stop: 11/05/24 15:14 Last Admin: 11/05/24 15:19 Dose: 40 mg Documented By: JAZZ Imaging Data Radiologist's Impression: Chest X-Ray 11/05/24 12:29 XR chest 1V not portable CLINICAL HISTORY: sob COMPARISON STUDY: 03/19/2023 FINDINGS: Heart size and pulmonary vasculature are normal. No effusion or consolidation. IMPRESSION: No pneumonia seen. ACT 112: Negative or not required by law. Electronically signed by: Juan Carlos Robles M.D. 11/05/2024 2:28 PM Discharge Plan Visit Data Chief Complaint: Congestion Stated Complaint: CONGESTION, ASTHMA, CHOKING, SINUSES, SOB ED Provider: Delfino Garcia Discharge Problem: Acute asthma exacerbation, Respiratory syncytial virus (RSV) Forms Stand Alone Forms: My [facility] [place] Prescriptions Prescriptions: No Action Hizentra 10 gram/50 mL (20 %) solution See Rx Instructions subcut .COMPLEX Qty: 200 11RF Rx Instructions: Infuse Hizentra 10 GM SC once weekly, takes q sat. epinephrine 0.3 mg/0.3 mL auto-injector See Rx Instructions .ROUTE .COMPLEX Qty: 2 3RF Dose Instruction: 0.3 MG (0.3 ML) IM ONCE NEEDED FOR ANAPHYLAXIS MAY REPEAT ONCE IN 10 MINUTES IF SYMPTOMS HAVE NOT IMPROVED WITH FIRST DOSE Rx Instructions: 0.3 MG (0.3 ML) IM ONCE NEEDED FOR ANAPHYLAXIS MAY REPEAT ONCE IN 10 MINUTES IF SYMPTOMS HAVE NOT IMPROVED WITH FIRST DOSE fluticasone propionate [Flonase Allergy Relief] 50 mcg/actuation spray,suspension 2 spray intranasal DAILY PRN (Reason: Allergy Symptoms) Qty: 16 3RF levothyroxine 75 mcg tablet 75 mcg PO DAILYBB Qty: 90 3RF budesonide-formoterol [Symbicort] 160-4.5 mcg/actuation HFA aerosol inhaler 2 puff inhalation BID Qty: 10.2 1RF Rx Instructions: WITH A RINSE OF MOUTH AFTERWARDS. vitamin B complex [B Complex-Vitamin B12] Tablet 1 tab PO BID Rx Instructions: 500 mg (DME) Aeroneb Go Nebulizer [facility] [place] See Rx Instructions .MEDSUPPLY Qty: 1 0RF Rx Instructions: With tubing and supplies. J44.9. J45.9. pseudoephedrine-guaifenesin [Mucinex D Maximum Strength] 120-1,200 mg tablet extended release 12 hr 1 tab PO Q12H PRN (Reason: Other) ProAir RespiClick 90 mcg/actuation aerosol powdr breath activated 180 mcg INH Q4H PRN (Reason: shortness of breath or wheezing) Qty: 3 3RF ipratropium-albuterol 0.5 mg-3 mg(2.5 mg base)/3 mL solution for nebulization 3 ml inhalation Q8H PRN (Reason: shortness of breath or wheezing) Qty: 180 3RF metoprolol succinate 25 mg tablet extended release 24 hr 12.5 mg PO DAILY (DME) Flutter Valve Device See Rx Instructions .MEDSUPPLY Qty: 1 0RF Rx Instructions: Use it every 6 hours when awake. (DME) BreatheRite MDI Spacer Spacer See Rx Instructions .MEDSUPPLY Qty: 1 0RF Rx Instructions: As directed cholecalciferol (vitamin D3) 2,000 unit tablet 2,000 units PO QDD (DME) Oxygen Home Liters Per Minute See Rx Instructions .ROUTE .MEDSUPPLY Rx Instructions: 2 liters via nasal canula- uses 3L @ bedtime magnesium 200 mg tablet 200 mg PO DAILY ezetimibe 10 mg tablet 10 mg PO UD Rx Instructions: pt isn't sure of this medication. Last filled 10/18 10 mg po daily; 90 day supply old note: every other day amoxicillin-pot clavulanate 875-125 mg tablet 1 tab PO BID Qty: 20 0RF Rx Instructions: [facility] FOOD. Incruse Ellipta 62.5 mcg/actuation blister with device 1 inh inhalation DAILY Qty: 30 12RF acetaminophen [Tylenol Extra Strength] 500 mg tablet 500 mg PO DIRECTED PRN (Reason: with hizentra) Rx Instructions: takes once a week when takes hizentra diphenhydramine HCl [Benadryl] 25 mg capsule 25 mg PO DIRECTED PRN (Reason: Other) Rx Instructions: Take with 1 ES Tylenol once a week when takes Hizentra inj. every sat. pantoprazole 40 mg tablet,delayed release (DR/EC) 40 mg PO DAILY Rx Instructions: TAKE ONE TABLET BY MOUTH DAILY triamterene-hydrochlorothiazid 37.5-25 mg tablet 0.5 tab PO DAILY rosuvastatin 5 mg tablet 5 mg PO DAILY Rx Instructions: TAKE 1 TABLET BY MOUTH ONCE DAILY Referrals Referrals: Lang Veloz DO [Primary Care Provider] - Discharge Problem: Acute asthma exacerbation Qualifiers: Asthma severity: mild Asthma persistence: unspecified Qualified Code(s): J 45.901 - Unspecified asthma with (acute) exacerbation Respiratory syncytial virus (RSV) Qualifiers: RSV infection type: unspecified Qualified Code(s): B33.8 - Other specified viral diseases
[2024-11-05] MEDS: ALBUT/IPRATROP 3MG/0.5MG NEB 3 ML VIAL NEB STA (15:19)
[2024-11-05] MEDS: methylPREDNISolone 125 MG/2 ML VIAL IV STA (15:19)
--- OUTSIDE RECORDS SUMMARY | 2024-11-05 17:46 | External Medical Summary | Summary of Care ---
Author Name Unknown Organization [facility] Address [address] [place] [address] Phone [phone] Care Team Providers Care Duct Layer Name Role Phone Lang Veloz Primary Care Provider [phone] Reason for Visit * Reason Onset Date Comments Advice 08/04/2024 Encounter Details Date Type Department Care Team (Late st Contact Info) Description 08/04/2024 Telephone Cardiology, [facility] [address] [place] [address] Jag iLnton PA-C [address] [place] [id number] Advice Allergies Active Allergy Reactions Criticality Noted Date Comments Hydrocodone-Acetaminophen Nausea/vomiting 08/06 documented as of this encounter (statuses as of 11/04/2024) Medications triamterene-hctz 37.5-25 mg per tab (,MAXZIDE-25,) 37.5-25 MG per tablet Take half dose in the morning and half dose at night time 0 Active PROAIR RESPICLICK 108 (90 Base) MCG/ACT AEPB INHALE 2 PUFFS BY MOUTH EVERY FOUR HOURS NEEDED FOR SHORTNESS OF BREATH OR WHEEZING 0 Active SYMBICORT 160-4.5 MCG/ACT inhaler Inhale 2 Puffs by mouth in the morning and 2 Puffs before bedtime. 0 Active Cholecalciferol (VITAMIN D) 25 MCG (1000 UT) TABS Take 1 Tablet by mouth in the morning. Active zinc gluconate 50 MG Tablet Take 1 Tablet by mouth in the morning. Active clonazePAM (KLONOPIN) 0.5 MG Tablet Take 1 Tablet by mouth 2 times a day as needed for Anxiety. Active Pantoprazole Sodium 40 MG Oral Tablet Delayed Release (Protonix) Take 1 Tablet by mouth in the morning and 1 Tablet before bedtime. 3 Active Levothyroxine Sodium 75 MCG Oral Tablet (Levoxyl) TAKE 1 TABLET BY MOUTH EVERY DAY IN THE MORNING BEFORE BREAKFAST 3 Active B-12 1000 MCG Oral Capsule Take 1 Capsule by mouth in the morning. Active Ipratropium-Albu terol 0.5-2.5 (3) MG/3ML Inhalation Solution (Duoneb) INHALE CONTENTS OF 1 VIAL EVERY 8 HOURS NEEDED FOR SHORTNESS OF BREATH OR WHEEZING 3 Active Fluticasone Propionate 50 MCG/ACT Nasal Suspension Administer 1 [place] into nostril in the morning. Active Hizentra 1 GM/5ML Subcutaneous Solution (immune globulin human 20%) by Subcutaneous Infusion route once a week. Active Incruse Ellipta 62.5 MCG/ACT Inhalation Aerosol Powder Breath Activated (umeclidinium Smiley) Inhale 1 Puff by mouth in the morning. Active Budesonide 0.5 MG/2ML Inhalation Suspension (Pulmicort) 0.5 mg. 3 Active Metoprolol Succinate ER 25 MG Oral Tablet Extended Release 24 Hour (toPROL XL)Indications:P alpitations,SVT (supraventricula r tachycardia) ([facility]) TAKE 1/2 TABLET BY MOUTH IN THE MORNING 45 Tablet 3 4 Active Ezetimibe 10 MG Oral Tablet (Zetia) TAKE 1 TABLET BY MOUTH EVERY DAY IN THE MORNING 90 Tablet 3 4 Active Magnesium 200 MG Oral Tablet Take 1 Tablet by mouth in the morning. Active Aspirin 81 MG Oral Tablet Chewable Take 1 Tablet by mouth every other day. Active Salonpas Pain Relief Patch External Patch Apply topically to affected area as needed. Active documented as of this encounter (statuses as of 11/04/2024) Active Problems Problem Noted Date Diagnosed Date History of rheumatic fever 02/13/2023 Murmur 02/13/2023 Palpitations 02/13/2023 CORRALES (dyspnea on exertion) 02/13/2023 Essential hypertension with goal blood pressure less than 130/80 02/13/2023 documented as of this encounter (statuses as of 11/04/2024) Immunizations Name Administration Dates Next Due RSV Vac., Bivalent, Perfusion F, Pf,0.5 Ml (Kenn svo) 07/18/2023 documented as of this encounter Social History Tobacco Use Types Packs/Day Years Used Date Smoking Tobacco: Never Smokeless Tobacco: Never Alcohol Use Standard Drinks/Week Comments No 0 (1 standard drink = 0.6 oz pur e alcohol) Utilities Answer Date Recorded Do you have trouble paying y our heating, water, or electric bill? (Adult - for ages 18 years and over) Not on file 02/25/2024 Is your family able to pay t he heat, water, or electric bill? (Household - for ages 0-17 years) Not on file 02/25/2024 Does your family have access to good internet? (Household - for ages 0-17 years) Not on file 02/25/2024 Social Connections Answer Date Recorded How often do you feel lonely or isolated from those around you? (Adult - for ages 18 years and over) Not on file 02/25/2024 Comments No Sex and Gender Information Value Date Recorded Sex Assigned at Not on file Legal Sex Female 5:27 AM EST Gender Identity Not on file Sexual Orientation Not on file documented as of this encounter Miscellaneous Notes * Telephone Encounter - Jag Linton PA-C - 08/05/2024 12:48 PM EST Patient called personally. Notes being sick with a URI for the past 3.5 weeks. Currently on her 17 day of amoxicillin, intermittently taking NyQuil and Mucinex. Prednisone prescribed on Saturday. SinceURI symptoms started patient has been experiencing palpitations described as a flip/flop or quick flutter. Heart rates on home pulse oximetry are always in the 60s, currently 68 bpm. SpO2 currently 98%. Patient has not been using nebulizer since onset of URI symptoms due to concern that nebulizer solution may have contributed to palpitations. URI symptoms continue to wax and wane, at times feeling as though things are getting better. Palpitations symptoms are the same as those experienced when hospitalized in March 2023, sensed atrial and ventricular ectopy observed at that time. General measures advised. Patient reassured. Continue metoprolol succinate 12.5 mg/day. Okay to trial titration of metoprolol succinate back to 25 mg/day if needed. Recommend retrial of DuoNebs. Avoid decongestants and stimulants. Jag Linton PA-C Department of Cardiology * Telephone Encounter - Berenice Cheatham LPN - 08/05/2024 8:38 AM EST C/O Heart fluttering since becoming ill with URI 3 weeks ago, same feeling as 2022 when she was in the hospital. Denies racing heart. Heart flutters/palpitations mostly with activity, calms down whenat rest. Minimal activity can bring on palpitations. URI for 3+ weeks, still feeling very poorly Finishing 2nd round of amoxicillin today. Started prednisone 08/03 Mucenix-DM x3+ weeks - using daily Used cough syrup - but stopped b/c of HTN No other OTC medications. Chest hurts from coughing, SOB but has productive, cough. Pt actively coughing while on phone. CXR at [facility]- no PNX per pt. Taking metoprolol succinate 12.5mg daily. Asking if she should adjust this medication to help with the fluttering/palpitations. * Telephone Encounter - Annita Cook, ZHANG - 08/04/2024 4:17 PM EST Person calling: Patient Relationship to patient: self Phone/Fax to return call: [phone] Reason for call(brief): Advice Pharmacy: n/a Provider Name: Jag Linton PA-C Detailed message to office: Pt requesting to speak with a nurse for advice. Pt states that she has been feeling her heart fluttering again and will need advice to see if she needs to change dosage of her medication metoprolol due to her heart fluttering. Pt states that she has had this same problem in the past. Pt reports that she is feeling health marques poor. Attempted to transfer to nurse. Please advise. documented in this encounter Plan of Treatment Upcoming Encounters Date Type Department Care Team (Late st Contact Info) Description 01/05/2025 1:30 PM EDT Office Visit Cardiology, [facility] [address] [place] [id number] Jag Linton PA-C [address] [place] [phone] Health Maintenance Due Date Last Done Comments DXA Scan 1942 GFR 1942 Depression Screening 1954 Albumin/Creatinine Ratio 1960 TSH 1960 DTap/Tdap Vaccines (1 - Tdap) 1961 Zoster Vaccines (1 of 2) 1961 Pneumococcal Vaccine: 50+ Years (2 of 2 - PPSV23) 07/03/2016 05/08/2016 COVID-19 Vaccine ( season) 2024 07/18/2022, 06/28/2021, 11/01/2020, Additional history exists Influenza Vaccine (FLU shot) (#1) 2024 06/30/2019, 06/30/2019 HPV (Gardasil) Vaccine Aged Out No lo nger eligible based on patient's age to complete this topic Hepatitis B Vaccine Aged Out No longe r eligible based on patient's age to complete this topic MENINGOCOCCAL (MENACTRA/MENVEO) Aged Out No longer eligible based on patient's age to complete this topic Meningitis B Vaccine (Bexsero/Trumemba) Aged Out No longer eligible based on patient's age to complete this topic documented as of this encounter Medical Devices Not on filedocumented as of this encounter Care Teams Duct Layer Relationship Specialty Start Date End Date Lang Veloz DO [address] [facility] [address], [place] [address] PCP - General Family Medicine 02/12/20 documented as of this encounter
--- NOTE | 2024-11-05 19:16 | History & Physical Report ---
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 She presented to the ED due to dyspnea, cough, rhinorrhea, congestion. She tested positive for RSV and was found to be 89% on room air. She is being admitted for hypoxia. #hypoxia/RSV/leukopenia/neutropenia history of asthma and CVID reported to have dropped to 89% RA -> 2L NC on admission afebrile, other VSS CXR negative Leukopenic (WC 2.66), neutropenia (0.98) - trend CBC Tylenol as needed, scheduled Mucinex DuoNebs every 2 hours as needed Patient does not typically have relief with Tessalon Perles; defer use Given 40mg IV solu-medrol in ED; continue with 40mg IV Solu-medrol daily, titrate as tolerated Patient appears dry and decreased p.o. intake; will order 1L NSS at 80 mL/hour overnight oxygen prn for O2 less than 92% Incentive spirometry and Flutter valve isolation precautions #acute sinusitis hx of chronic sinus infections with CVID Continue Augmentin for sinusitis as prescribed by allergy 11/02 #CVID/ neutropenia On Hizentra; weekly injections on Wednesdays, most recent 11/04 possibly contributing to neutropenia (0.98) neutropenic precautions trend cbc #asthma continue home inhalers #ZHANG 3L NC HS Chronic stable diagnoses: elevated total bilirubin - 1.1 on admission, baseline 1.2 HLD - continue rosuvastatin and Zetia HTN - continue metoprolol, hold Maxzide with acute infection GERD - continue PPI hypothyroidism - continue levothyroxine VTE ppx: SCDs Diet: regular Dispo: med/tele Admission and Anticipated Discharge Date Admission Date: 11/05/24 History of Present Illness Primary Care Provider: Lang Veloz DO Patient is an 84-year-old female with a 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 She presented to the ED due to dyspnea, cough, rhinorrhea, congestion. She tested positive for RSV and was found to be 89% on room air. She is being admitted for hypoxia. Patient seen at bedside. She stated she started with symptoms a couple days ago and saw the PA portable machine sander who prescribed Augmentin for her sinuses. She gets chronic sinus infections that have improved after starting Hizentra. She stated her symptoms have been getting worse over the past few days and last night she could not sleep because she was so short of breath. It was worse when laying down and sitting up. She was coughing so much that she was near vomiting and choking. She stated she also has upper abdominal pain due to coughing so much. She does endorse mild diarrhea since starting Augmentin, denies any bright red blood in stool. She does use 3L oxygen at bedtime for sleep apnea and has been using oxygen continuously for the past day. She does endorse feeling feverish and with chills since Saturday. She has been unable to eat or drink much for the past few days due to feeling sick. She has had hardly any fluids today. She stated her breathing is improved after receiving IV Solu-Medrol and 1 DuoNeb treatment. She denies dizziness, lightheadedness, chest pain. She was around her granddaughter who also tested positive for RSV. She does not use nicotine products or frequently drink alcohol. She did take her home medications this morning but is due for her evening medications including her evening Augmentin dose. She wishes to be DNR/DNI. Allergies Allergy/AdvReac Type Severity Reaction Status Date / Time atorvastatin Allergy Unknown UNKNOWN Verified 11/02/24 13:04 REACTION doxycycline Allergy Unknown GI upset Verified 11/02/24 13:04 propoxyphene Allergy Unknown UNKNOWN Verified 11/02/24 13:04 REACTION simvastatin Allergy Unknown myalgias Verified 11/02/24 13:04 azithromycin AdvReac Intermediate SEVERE GI Verified 11/02/24 13:04 UPSET codeine AdvReac Mild PATIENT Verified 11/02/24 13:04 STATES IT MAKES HER "GOOFY" AND NAUSEATED Home Medications Medication Instructions Recorded Confirmed Type cholecalciferol (vitamin D3) 50 2,000 units PO QDD 05/05/19 11/05/24 History mcg (2,000 unit) tablet vitamin B complex (B 1 tab PO BID 05/01/21 11/05/24 History Complex-Vitamin B12 tablet) nebulizers (Aeroneb Go Nebulizer) #1 ea 11/09/21 11/05/24 Rx Oxygen Home 02/15/22 11/05/24 History Flutter Valve #1 ea 10/24/22 11/05/24 Rx inhalational spacing device #1 ea 10/24/22 11/05/24 Rx (BreatheRite MDI Spacer) acetaminophen 500 mg tablet 500 mg PO DIRECTED PRN with 11/02/22 11/05/24 History (Tylenol Extra Strength) hizentra immun glob G 10 gram/50 mL(20 See Rx Instructions subcut 11/09/22 11/05/24 Rx %)-pro-IgA 0-50 mcg/mL .COMPLEX #200 mL subcutaneous soln (Hizentra) epinephrine 0.3 mg/0.3 mL See Rx Instructions .Route 02/14/23 11/05/24 Rx injection, auto-injector .COMPLEX #2 ea pseudoephedrine-guaifenesin ER 120 1 tab PO Q12H PRN Other 05/20/23 11/05/24 History mg-1,200 mg tab,extend release 12hr (Mucinex D Maximum Strength) metoprolol succinate 25 mg 12.5 mg PO DAILY 07/02/23 11/05/24 History tablet,extended release 24 hr diphenhydramine HCl 25 mg capsule 25 mg PO DIRECTED PRN Other 09/26/23 11/05/24 History (Benadryl) albuterol sulfate 90 mcg/actuation 180 mcg inhalation Q4H PRN 12/26/23 11/05/24 Rx breath activated powder inhaler shortness of breath or wheezing #3 (ProAir RespiClick) Inhalers ipratropium 0.5 mg-albuterol 3 mg 3 ml inhalation Q8H PRN shortness 12/26/23 11/05/24 Rx (2.5 mg base)/3 mL nebulization of breath or wheezing #180 mL soln umeclidinium 62.5 mcg/actuation 1 inh inhalation DAILY #30 ea 05/08/24 11/05/24 Rx blister powder for inhalation (Incruse Ellipta) magnesium 200 mg tablet 200 mg PO DAILY 05/13/24 11/05/24 History fluticasone propionate 50 2 spray intranasal DAILY PRN 06/16/24 11/05/24 Rx mcg/actuation nasal Allergy Symptoms #16 grams spray,suspension (Flonase Allergy Relief) ezetimibe 10 mg tablet 10 mg PO UD 06/24/24 11/05/24 History levothyroxine 75 mcg tablet 75 mcg PO DAILYBB #90 tabs 08/31/24 11/05/24 Rx Symbicort 160 mcg-4.5 2 puff inhalation BID #10.2 grams 09/10/24 11/05/24 Rx mcg/actuation HFA aerosol inhaler (budesonide-formoterol) amoxicillin 875 mg-potassium 1 tab PO BID #20 tabs 11/02/24 11/05/24 Rx clavulanate 125 mg tablet pantoprazole 40 mg tablet,delayed 40 mg PO DAILY 11/05/24 11/05/24 History release rosuvastatin 5 mg tablet 5 mg PO DAILY 11/05/24 11/05/24 History triamterene 37.5 0.5 tab PO DAILY 11/05/24 11/05/24 History mg-hydrochlorothiazide 25 mg tablet Past Med/Surg History Problem List (Updated 11/05/24 @ 20:04 by Shayy Maravilla PA-C) Acute sinusitis Asthma-COPD overlap syndrome Leukopenia Neutropenia Hypoxia Respiratory syncytial virus (RSV) (Acute) Acute asthma exacerbation (Acute) Abnormal CT scan of lung ZHANG (obstructive sleep apnea) History of lung surgery right upper lobectomy March 08, 2017 for a 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, stage IA Dependence on supplemental oxygen (Acute) 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 Asthmatic bronchitis , chronic Asthma Hypertension (Chronic) Coronary artery calcification (Chronic) Dyslipidemia (Chronic) Hypothyroidism (Chronic) Obesity Insomnia Urinary incontinence (Acute) Gastroesophageal reflux disease (Acute) Depression with anxiety (Acute) Medical History Allergic rhinitis with postnasal drip 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 Paroxysmal atrial tachycardia PVC (premature ventricular contraction) PAC (premature atrial contraction) Allergic rhinitis Maxillary sinusitis Chronic recurrent sinusitis Mild obstructive sleep apnea Palpitations Asthma Surgical History Hx of cataract surgery History of tonsillectomy History of dilation and curettage History of colonoscopy Family History Father Diabetes Heart disease Brother Heart disease Dementia Sister Heart disease Mother Depression Grandfather Depression Other Hypertension Denies family history of Ovarian cancer Prostate cancer Breast cancer Lung cancer Colorectal cancer Social History Smoking Status: Never smoker Second Hand Exposure: Yes; Do You Dip or Chew Tobacco: No; Hx Alcohol Use: No Hx Substance Use: No Preferred Language: Japanese Communication Ability: Effective Visual Impairment: Limited Hearing Ability: Normal Button Breaker Operator Required: No Beliefs That Will Affect Care: None marital status: / Current Living Situation: Alone Current Living Situation Comment: Home alone current occupational status: retired Feels Safe at Home: Yes Safety Concerns: Feels Safe At This Time Childhood Exposure to Second-Hand Smoke: Yes Diet: low salt and regular caffeine: No during the past year weight has: remained stable Dental Care, Regularly: Yes Physical Activity Frequency: Does not Exercise Seatbelt Use: always Sunscreen Use: Yes Assistive Devices: Oxygen - at Night Review of Systems Review of Systems: see HPI Physical Exam Physical Exam: The patient is awake, alert and oriented 3, well developed and well nourished, normocephalic and atraumatic, in no acute distress. Non-toxic appearing. HEENT- EOMI, mucous membranes dry. Hearing grossly intact. Heart-normal S1 and S2. No murmurs, rubs or gallops. Lungs- Diffuse wheezing, no respiratory distress, no accessory muscle use. 2 L NC Abdomen-normal bowel sounds and soft. No ascites noted. Non-tender. Extremities- no clubbing, cyanosis, or edema. Rheumatologic-normal range of motion. Psychiatric-normal affect. Results & Data Results & Data Vital Signs (Past 12 Hours) Vital Signs Temp Pulse Pulse Resp BP BP Pulse Ox 11/05/24 15:26 63 11/05/24 15:24 65 18 155/94 H 100 11/05/24 12:26 36.2 C L 78 20 187/107 H 95 O2 Del Method 11/05/24 15:26 11/05/24 15:24 Nebulizer 11/05/24 12:26 Room Air Laboratory Results reviewed CBC, CMP, BioFire Diagnostic Findings reviewed CXR Medications Administered ED6 mL DuoNeb, Solu-Medrol 40 Mg IV ECG Additional Comments: NSR Code Status & VTE Plan Code Status dnr/dni VTE Prophylaxis Plan VTE Prophylaxis will be ordered: Yes Supervising Physician Co-Signing Physician Notes Attending addendum: I have physically seen this patient, have supervised the TALA's activities, and agree with the H&P unless as otherwise noted. 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 She presents to the emergency department due to dyspnea, cough, rhinorrhea and congestion. The emergency department she tested positive for RSV, and was found to be 89% on room air. #Acute respiratory failure with hypoxia/RSV/leukopenia/neutropenia- History of asthma and CVID, having just recently received Hizentra IV treatment yesterday Chest x-ray negative Acetaminophen 650 mg by mouth every 6 hours as needed for mild pain or fever Mucinex 1200 mg p.o. every 12 hours DuoNebs every 2 hours as needed Droplet precautions Give Solu-Medrol 40 mg IV in ED, and IV every morning Placed on NSS at 80 mL/h x 1 L overnight Incentive spirometry and flutter valve Acute sinusitis-continue Augmentin begun in the outpatient setting Remaining orders and notations as noted PG Care Time/CCT Total # of Minutes Spent Total Time Spent with Patient: Total time spent is greater than 50% in coordination of care (as documented) at patient's floor/unit and/or counseling patient: Coding Level of Care Code 47111 INT INP/OBS CARE 3/75MIN Diagnoses Hypoxia R09.02 Respiratory syncytial virus (RSV) B33.8 RSV infection type: unspecified Neutropenia D70.9 Leukopenia D72.819 Acute sinusitis J01.90 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
[2024-11-05] MEDS: ALBUTEROL 0.083% NEBU SOLN 3 ML VIAL NEB STA (19:20)
[2024-11-05] MEDS: ACETAMINOPHEN 325 MG TAB PO STA (21:02)
[2024-11-05] MEDS: SODIUM CHLORIDE 0.9% 1,000 ML IV SCH (21:03)
[2024-11-05] MEDS ORDERED: ONDANSETRON INJ 2 MG/ML 2 ML VIAL IV PRN (21:29)
[2024-11-05] MEDS ORDERED: FLUTICASONE PROPIONATE NA SPR 16 GM BTL PRN (21:29)
[2024-11-05] MEDS ORDERED: DOCUSATE SODIUM 100 MG CAP PO PRN (21:29)
[2024-11-05] MEDS ORDERED: ACETAMINOPHEN 325 MG TAB PO PRN (21:29)
[2024-11-05] MEDS ORDERED: ALBUTEROL HFA 8 GM INHALER INH PRN (22:04)
[2024-11-05] MEDS: AMOXICILLIN/CLAVULANATE 875 MG TAB PO SCH (22:26)
[2024-11-05] MEDS: guaiFENesin 600 MG TABCR PO SCH (22:26)
[2024-11-06 05:09] LABS: Hematocrit (blood only) 38.5 % (37.0-47.0); Hemoglobin 13.1 g/dl (12.0-16.0); Mean Corpuscular Hemoglobin 29.5 pg (25.0-34.0); Mean Corpuscular Volume 86.7 fL (80.0-100.0); Mean Platelet Volume 11.9 fL (9.4-12.4); Platelet Count 161 K/uL (130-400); RDW Coefficient of Variation 12.9 % (11.5-14.5); RDW Standard Deviation 40.5 fL (36.4-46.3); Red Blood Count 4.44 M/uL (4.20-5.40); White Blood Count 3.16 K/ul (4.8-10.8)
[2024-11-06 05:26] LABS: BUN Creatinine Ratio 21.1 (10-20); Calcium 9.7 mg/dl (8.6-10.3); Creatinine Clr Calc Pharmacy 69.7 ml/min; Potassium 3.8 mmol/L (3.5-5.1)
[2024-11-06 05:41] LABS: Eosinophils # (auto) 0.01 K/uL (0.00-0.50); Eosinophils % (auto) 0.3 %; Immature Granulocytes # (auto) 0.28 K/uL (0.01-0.20); Immature Granulocytes % (auto) 8.9 %; Lymphocytes # (auto) 0.76 K/uL (1.20-3.40); Lymphocytes % (auto) 24.1 %; Monocytes % (auto) 6.3 %; Neutrophils # (auto) 1.91 K/uL (1.40-6.50); Neutrophils % (auto) 60.4 %
[2024-11-06] MEDS: ALBUTEROL 0.5% NEB SOLN 2.5 MG/0.5 ML VIAL NEB PRN (06:37)
[2024-11-06] MEDS: LEVOTHYROXINE SODIUM 75 MCG TABLET PO SCH (08:55)
[2024-11-06] MEDS: EZETIMIBE 10 MG TAB PO SCH (08:57)
[2024-11-06] MEDS: FLUTICASONE/VILANTEROL 200/25MCG 14 PUFFS/INHALER INH SCH ×2 (08:59→22:09)
[2024-11-06] MEDS: MAGNESIUM OXIDE 400 MG TAB PO SCH (09:00)
[2024-11-06] MEDS: METOPROLOL SUCC 25MG EXT REL TAB PO SCH (09:03)
[2024-11-06] MEDS: methylPREDNISolone 40 MG in SYRINGE 0 ML IV SCH (09:05)
[2024-11-06] MEDS: PANTOprazole 40 MG TAB PO SCH (09:06)
[2024-11-06] MEDS: ROSUVASTATIN CALCIUM 5 MG TAB PO SCH (09:07)
[2024-11-06] MEDS: UMECLIDINIUM BROMIDE 62.5MCG/BLISTER 7 PUFFS/INHALER INH SCH (09:07)
--- NOTE | 2024-11-06 09:31 | Hospitalist Progress Note ---
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 She presented to the ED due to dyspnea, cough, rhinorrhea, congestion. She tested positive for RSV and was found to be 89% on room air. She is being admitted for hypoxia. #hypoxia/RSV/leukopenia/neutropenia - history of asthma and CVID - reported to have dropped to 89% RA -> 2L NC on admission afebrile, other VSS CXR negative Leukopenic (WC 2.66), neutropenia (0.98) - trend CBC Tylenol as needed, scheduled Mucinex DuoNebs every 2 hours as needed Patient does not typically have relief with Tessalon Perles; defer use Given 40mg IV solu-medrol in ED; continue with 40mg IV Solu-medrol daily, titrate as tolerated Patient appears dry and decreased p.o. intake; will order 1L NSS at 80 mL/hour overnight oxygen prn for O2 less than 92% Incentive spirometry and Flutter valve isolation precautions guaifenesin with codeine prn at bedtime #acute sinusitis hx of chronic sinus infections with CVID Continue Augmentin for sinusitis as prescribed by allergy 11/02, last dose 11/11/24 #CVID/ neutropenia On Hizentra; weekly injections on Wednesdays, most recent 11/04 possibly contributing to neutropenia (0.98) neutropenic precautions trend cbc #asthma continue home inhalers #ZHANG 3L NC HS Chronic stable diagnoses: elevated total bilirubin - 1.1 on admission, baseline 1.2 HLD - continue rosuvastatin and Zetia HTN - continue metoprolol, will increase dose given elevated BP, can dose reduce at the time of discharge, hold Maxzide with acute infection GERD - continue PPI hypothyroidism - continue levothyroxine VTE ppx: SCDs Diet: regular Dispo: med/tele Admission and Anticipated Discharge Date Admission Date: November 05, 2024 Subjective No acute events overnight Currently stating mild improvement but very congested and having coughing fits, especially worse at night. Review of Systems Review of Systems: Comprehensive ROS negative Physical Exam Physical Exam: Gen: NAD, resting in bed comfortably HEENT: NC/AT, anicteric, MMM Lungs: diffusely coarse breath sounds with expiratory wheezing CVS: s1s2nl, RRR Abd: soft, NT Ext: no edema Results & Data Results & Data Vital Signs (Past 12 Hours) Vital Signs Pulse Pulse Resp BP BP Pulse Ox O2 Del Method 11/06/24 07:24 93 H 11/06/24 07:12 86 14 147/83 H 92 11/06/24 06:41 72 15 179/108 H 97 Nasal Cannula 11/06/24 06:37 79 20 93 Room Air 11/06/24 04:36 72 11/06/24 03:00 72 20 169/102 H 95 Nasal Cannula 11/06/24 02:00 87 17 168/93 H 96 Nasal Cannula 11/06/24 01:00 75 18 155/88 H 97 Nasal Cannula 11/05/24 22:27 Nasal Cannula 11/05/24 21:29 85 18 11/05/24 21:29 O2 Del Method O2 Flow Rate 11/06/24 07:24 11/06/24 07:12 11/06/24 06:41 11/06/24 06:37 11/06/24 04:36 11/06/24 03:00 2 11/06/24 02:00 2 11/06/24 01:00 2 11/05/24 22:27 2 11/05/24 21:29 11/05/24 21:29 Nasal Cannula PG Care Time/CCT Total # of Minutes Spent Total Time Spent with Patient: Total time spent is greater than 50% in coordination of care (as documented) at patient's floor/unit and/or counseling patient: Coding Level of Care Code 90970 SUB INP/OBS CARE 2/35MIN Diagnoses Hypoxia R09.02 Respiratory syncytial virus (RSV) B33.8 RSV infection type: unspecified Neutropenia D70.9 Leukopenia D72.819 Acute sinusitis J01.90 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
[2024-11-06] MEDS ORDERED: guaiFENesin/CODEINE 100MG/10MG 5ML UDC PO PRN (17:31)
[2024-11-06] MEDS: METOPROLOL TARTRATE 25 MG TAB PO ONE (17:50)
--- NOTE | 2024-11-07 07:01 | Electrocardiogram Report ---
Test Reason : Blood Pressure : */* mmHG Vent. Rate : 67 BPM Atrial Rate : 67 BPM P-R Int : 152 ms QRS Dur : 80 ms QT Int : 412 ms P-R-T Axes : 48 8 26 degrees QTcB Int : 435 ms Poor data quality, interpretation may be adversely affected Normal sinus rhythm Poor R wave progression, consider anterior [place] vs. lead placement vs. LVH Abnormal ECG When compared with ECG of 19-Mar-2023 21:00, No significant change was found Confirmed by Dimitri Richards ([id number]) on 11/07/2024 7:01:17 AM Referred By: Confirmed By: Dimitri Richards
[2024-11-07] MEDS: FLUTICASONE/VILANTEROL 200/25MCG 14 PUFFS/INHALER INH SCH (07:33)
[2024-11-07 10:02] LABS: Hematocrit (blood only) 42.1 % (37.0-47.0); Hemoglobin 14.2 g/dl (12.0-16.0); Mean Corpuscular Hemoglobin 29.7 pg (25.0-34.0); Mean Corpuscular Hgb Conc 33.7 g/dL (32.0-36.0); Mean Corpuscular Volume 88.1 fL (80.0-100.0); Platelet Count 180 K/uL (130-400); RDW Coefficient of Variation 12.9 % (11.5-14.5); RDW Standard Deviation 41.8 fL (36.4-46.3); Red Blood Count 4.78 M/uL (4.20-5.40); White Blood Count 5.43 K/ul (4.8-10.8)
[2024-11-07] MEDS: METOPROLOL SUCC 25MG EXT REL TAB PO SCH (10:09)
[2024-11-07 10:19] LABS: BUN Creatinine Ratio 18.4 (10-20); Calcium 9.6 mg/dl (8.6-10.3); Potassium 4.2 mmol/L (3.5-5.1)
[2024-11-07 10:23] LABS: Basophils # (auto) 0.01 K/uL (0.00-0.20); Basophils % (auto) 0.2 %; Immature Granulocytes # (auto) 0.25 K/uL (0.01-0.20); Immature Granulocytes % (auto) 4.6 %; Lymphocytes # (auto) 2.81 K/uL (1.20-3.40); Lymphocytes % (auto) 51.7 %; Monocytes # (auto) 0.42 K/uL (0.11-0.59); Monocytes % (auto) 7.7 %; Neutrophils # (auto) 1.94 K/uL (1.40-6.50); Neutrophils % (auto) 35.8 %
--- NOTE | 2024-11-07 10:26 | Hospitalist Progress Note ---
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 She presented to the ED due to dyspnea, cough, rhinorrhea, congestion. She tested positive for RSV and was found to be 89% on room air. She is being admitted for hypoxia. #Acute respiratory failure with hypoxia #RSV infection - hx of asthma and CVID - reported to have dropped to 89% RA -> 2L NC on admission - afebrile, other VSS - CXR negative - Tylenol as needed, scheduled Mucinex - DuoNebs every 2 hours as needed - Patient does not typically have relief with Tessalon Perles; defer use - Given 40mg IV solu-medrol in ED; continue with 40mg IV Solu-medrol daily, will discharge on pred taper - on admission pt appeared dry and decreased p.o. intake; s/p 1L NSS at 80 mL/hour - oxygen prn for O2 less than 92% - Incentive spirometry and Flutter valve - isolation precautions #acute sinusitis - hx of chronic sinus infections with CVID - cont Augmentin for sinusitis as prescribed by allergy 11/02, last dose 11/11/24 #CVID/ neutropenia - on admission: Leukopenic (WC 2.66), neutropenia (0.98) - resolved - On Hizentra; weekly injections on Wednesdays, most recent 11/04 - possibly contributing to neutropenia (0.98) - neutropenic precautions - trend cbc #asthma - continue home inhalers #ZHANG - 3L NC HS Chronic stable diagnoses: elevated total bilirubin - 1.1 on admission, baseline 1.2 HLD - continue rosuvastatin and Zetia HTN - continue metoprolol, hold Maxzide with acute infection GERD - continue PPI hypothyroidism - continue levothyroxine VTE ppx: SCDs Diet: regular Dispo: pending medical improvement, will need ambulatory pulse ox, tentative d/c plan for Sat / Mon Admission and Anticipated Discharge Date Admission Date: November 05, 2024 Subjective No acute events overnight This morning, she had acute difficulty breathing, which caused her to panic. Currently, states she is improving overall Review of Systems Review of Systems: Comprehensive ROS negative Physical Exam Physical Exam: Gen: NAD, sitting in chair comfortable HEENT: NC/AT, anicteric, MMM Lungs: CTAB with minimal scattered expiratory wheezing, no conversational dyspnea CVS: s1s2nl, RRR Abd: soft, NT Ext: no edema Results & Data Results & Data Vital Signs (Past 12 Hours) Vital Signs Temp Pulse Pulse Resp BP Pulse Ox O2 Del Method 11/07/24 07:56 60 22 99 Nasal Cannula 11/07/24 07:45 36.5 C 68 18 107/50 L 99 Nasal Cannula 11/07/24 07:29 65 11/07/24 03:05 36.6 C 67 18 150/84 H 98 Nasal Cannula 11/07/24 01:30 63 17 96 Room Air 11/06/24 22:58 36.7 C 68 18 148/79 H 98 Nasal Cannula 11/06/24 22:48 Room Air, Nasal Cannula O2 Flow Rate 11/07/24 07:56 2 11/07/24 07:45 2 11/07/24 07:29 11/07/24 03:05 2 11/07/24 01:30 11/06/24 22:58 2 11/06/24 22:48 3 PG Care Time/CCT Total # of Minutes Spent Total Time Spent with Patient: Total time spent is greater than 50% in coordination of care (as documented) at patient's floor/unit and/or counseling patient: Coding Level of Care Code 63247 SUB INP/OBS CARE 2/35MIN Diagnoses Hypoxia R09.02 Respiratory syncytial virus (RSV) B33.8 RSV infection type: unspecified Neutropenia D70.9 Leukopenia D72.819 Acute sinusitis J01.90 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
[2024-11-07] MEDS: guaiFENesin/CODEINE 100MG/10MG 5ML UDC PO PRN (20:38)
[2024-11-07] MEDS: MELATONIN 3 MG TAB PO PRN (21:29)
[2024-11-08 03:28] VITALS: TEMP 97.9
[2024-11-08 07:51] LABS: Basophils # (auto) 0.01 K/uL (0.00-0.20); Basophils % (auto) 0.2 %; Eosinophils # (auto) 0.02 K/uL (0.00-0.50); Eosinophils % (auto) 0.4 %; Hematocrit (blood only) 39.5 % (37.0-47.0); Hemoglobin 12.9 g/dl (12.0-16.0); Immature Granulocytes # (auto) 0.25 K/uL (0.01-0.20); Lymphocytes # (auto) 2.01 K/uL (1.20-3.40); Lymphocytes % (auto) 40.4 %; Mean Corpuscular Hemoglobin 28.7 pg (25.0-34.0); Mean Corpuscular Hgb Conc 32.7 g/dL (32.0-36.0); Mean Platelet Volume 11.7 fL (9.4-12.4); Monocytes # (auto) 0.45 K/uL (0.11-0.59); Neutrophils # (auto) 2.24 K/uL (1.40-6.50); Platelet Count 167 K/uL (130-400); Red Blood Count 4.49 M/uL (4.20-5.40); White Blood Count 4.98 K/ul (4.8-10.8)
[2024-11-08 08:05] LABS: BUN Creatinine Ratio 21.1 (10-20); Calcium 9.5 mg/dl (8.6-10.3); Creatinine Clr Calc Pharmacy 70.1 ml/min; Magnesium 2.1 mg/dl (1.7-2.4); Phosphorus 3.5 mg/dl (2.5-4.9); Potassium 3.6 mmol/L (3.5-5.1)
--- NOTE | 2024-11-08 08:21 | Hospitalist Progress Note ---
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 She presented to the ED due to dyspnea, cough, rhinorrhea, congestion. She tested positive for RSV and was found to be 89% on room air. She is being admitted for hypoxia. #Acute respiratory failure with hypoxia #RSV infection - hx of asthma and CVID - reported to have dropped to 89% RA -> 2L NC on admission - afebrile, other VSS - CXR negative - Tylenol as needed, scheduled Mucinex - DuoNebs every 2 hours as needed - Patient does not typically have relief with Tessalon Perles; defer use - Given 40mg IV solu-medrol in ED; continue with 40mg IV Solu-medrol daily, will discharge on pred taper - on admission pt appeared dry and decreased p.o. intake; s/p 1L NSS at 80 mL/hour - oxygen prn for O2 less than 92% - Incentive spirometry and Flutter valve - isolation precautions #acute sinusitis - hx of chronic sinus infections with CVID - cont Augmentin for sinusitis as prescribed by allergy 11/02, last dose 11/11/24 #CVID/ neutropenia - on admission: Leukopenic (WC 2.66), neutropenia (0.98) - resolved - On Hizentra; weekly injections on Wednesdays, most recent 11/04 - possibly contributing to neutropenia (0.98) - neutropenic precautions - trend cbc #asthma - continue home inhalers #ZHANG - 3L NC HS Chronic stable diagnoses: elevated total bilirubin - 1.1 on admission, baseline 1.2 HLD - continue rosuvastatin and Zetia HTN - continue metoprolol, hold Maxzide with acute infection GERD - continue PPI hypothyroidism - continue levothyroxine VTE ppx: SCDs Diet: regular Dispo: pending medical improvement, will need ambulatory pulse ox, tentative d/c plan for Sat / Mon Admission and Anticipated Discharge Date Admission Date: November 05, 2024 Subjective No acute events overnight This morning, she had acute difficulty breathing, which caused her to panic. Currently, states she is improving overall Review of Systems Review of Systems: Comprehensive ROS negative Physical Exam Physical Exam: Gen: NAD, sitting in chair comfortable HEENT: NC/AT, anicteric, MMM Lungs: CTAB with minimal scattered expiratory wheezing, no conversational dyspnea CVS: s1s2nl, RRR Abd: soft, NT Ext: no edema Results & Data Results & Data Vital Signs (Past 12 Hours) Vital Signs Temp Pulse Pulse Resp BP BP Pulse Ox 11/08/24 07:49 36.6 C 61 18 143/88 H 99 11/08/24 07:08 70 11/08/24 05:24 74 19 97 11/08/24 02:51 36.6 C 75 18 152/69 H 98 11/08/24 01:08 66 17 99 11/07/24 22:52 36.8 C 73 18 156/94 H 95 11/07/24 21:43 78 11/07/24 21:35 11/07/24 21:00 11/07/24 20:56 65 17 96 11/07/24 20:20 36.9 C 67 18 129/78 94 Pulse Ox O2 Del Method O2 Del Method O2 Flow Rate O2 Flow Rate 11/08/24 07:49 Nasal Cannula 3 11/08/24 07:08 11/08/24 05:24 Nasal Cannula 3 11/08/24 02:51 Nasal Cannula 3 11/08/24 01:08 Nasal Cannula 3 11/07/24 22:52 Room Air 11/07/24 21:43 11/07/24 21:35 Room Air, Nasal Cannula 3 11/07/24 21:00 99 Nasal Cannula 3 11/07/24 20:56 Room Air 11/07/24 20:20 Room Air PG Care Time/CCT Total # of Minutes Spent Total Time Spent with Patient: Total time spent is greater than 50% in coordination of care (as documented) at patient's floor/unit and/or counseling patient: Coding Diagnoses Hypoxia R09.02 Respiratory syncytial virus (RSV) B33.8 RSV infection type: unspecified Neutropenia D70.9 Leukopenia D72.819 Acute sinusitis J01.90 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
--- NOTE | 2024-11-08 12:15 | Discharge Summary ---
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 She presented to the ED due to dyspnea, cough, rhinorrhea, congestion. She tested positive for RSV and was found to be 89% on room air. She is being admitted for hypoxia. #Acute respiratory failure with hypoxia #RSV infection - hx of asthma and CVID - reported to have dropped to 89% RA -> 2L NC on admission , resolved - afebrile, other VSS - CXR negative - Given 40mg IV solu-medrol in ED; continue with 40mg IV Solu-medrol daily, will discharge on pred taper (40mg x3, 30mg x3, 20mg x3, 10mg x3) - Incentive spirometry and Flutter valve - pt weaned off of daytime oxygen and 2-step done and does not require oxygen for ambulation #acute sinusitis - hx of chronic sinus infections with CVID - cont Augmentin for sinusitis as prescribed by allergy 11/02, last dose 11/11/24 #CVID #Neutropenia resolved - on admission: Leukopenic (WC 2.66), neutropenia (0.98) - resolved - On Hizentra; weekly injections on Wednesdays, most recent 11/04 - outpatient follow up with rayon coner #asthma - continue home inhalers #ZHANG - 3L NC HS Chronic stable diagnoses: elevated total bilirubin - 1.1 on admission, baseline 1.2 HLD - continue rosuvastatin and Zetia HTN - continue metoprolol, hold Maxzide with acute infection GERD - continue PPI hypothyroidism - continue levothyroxine VTE ppx: SCDs Diet: regular Admission HPI Per Admitting Provider Patient is an 84-year-old female with a 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 She presented to the ED due to dyspnea, cough, rhinorrhea, congestion. She tested positive for RSV and was found to be 89% on room air. She is being admitted for hypoxia. Patient seen at bedside. She stated she started with symptoms a couple days ago and saw the PA rayon coner who prescribed Augmentin for her sinuses. She gets chronic sinus infections that have improved after starting Hizentra. She stated her symptoms have been getting worse over the past few days and last night she could not sleep because she was so short of breath. It was worse when laying down and sitting up. She was coughing so much that she was near vomiting and choking. She stated she also has upper abdominal pain due to coughing so much. She does endorse mild diarrhea since starting Augmentin, denies any bright red blood in stool. She does use 3L oxygen at bedtime for sleep apnea and has been using oxygen continuously for the past day. She does endorse feeling feverish and with chills since Saturday. She has been unable to eat or drink much for the past few days due to feeling sick. She has had hardly any fluids today. She stated her breathing is improved after receiving IV Solu-Medrol and 1 DuoNeb treatment. She denies dizziness, lightheadedness, chest pain. She was around her granddaughter who also tested positive for RSV. She does not use nicotine products or frequently drink alcohol. She did take her home medications this morning but is due for her evening medications including her evening Augmentin dose. She wishes to be DNR/DNI. Discharge Exam Gen: NAD, sitting in chair comfortable HEENT: NC/AT, anicteric, MMM Lungs: CTAB with minimal scattered expiratory wheezing, no conversational dyspnea CVS: s1s2nl, RRR Abd: soft, NT Ext: no edema Discharge Plan Discharge Items Patient Disposition: Home - Self-Care Reason For Visit: HYPOXIA, RSV Discharge Diagnosis: RSV infection, hypoxia Activity: Resume your previous activity Activity Comment: Take it easy until you feel fully back to baseline Non-emergency contact: Primary Care Provider Call non-emergency contact if: you have any medication questions and your symptoms worsen Follow-up/Referrals: Lang Veloz, [Primary Care Provider] - Diet: Regular Addtl Attending Provider Instructions: Please follow up with PCP and rayon coner as outpatient Your antibiotic course finishes on 11/11/24 Pending Studies at Discharge: No Stand-Alone Forms: My [facility], Smoking Cessation Medications and DC Order Prescriptions: New prednisone 10 mg tablet See Rx Instructions .ROUTE .COMPLEX Qty: 30 0RF Rx Instructions: Take prednisone 40mg x3 days, then 30mg x3 days, then 20mg x3 days, then 10mg x3 days and stop. Continued Hizentra 10 gram/50 mL (20 %) solution See Rx Instructions subcut .COMPLEX Qty: 200 11RF Rx Instructions: Infuse Hizentra 10 GM SC once weekly, takes q sat. epinephrine 0.3 mg/0.3 mL auto-injector See Rx Instructions .ROUTE .COMPLEX Qty: 2 3RF Dose Instruction: 0.3 MG (0.3 ML) IM ONCE NEEDED FOR ANAPHYLAXIS MAY REPEAT ONCE IN 10 MINUTES IF SYMPTOMS HAVE NOT IMPROVED WITH FIRST DOSE Rx Instructions: 0.3 MG (0.3 ML) IM ONCE NEEDED FOR ANAPHYLAXIS MAY REPEAT ONCE IN 10 MINUTES IF SYMPTOMS HAVE NOT IMPROVED WITH FIRST DOSE fluticasone propionate [Flonase Allergy Relief] 50 mcg/actuation spray,suspension 2 spray intranasal DAILY PRN (Reason: Allergy Symptoms) Qty: 16 3RF levothyroxine 75 mcg tablet 75 mcg PO DAILYBB Qty: 90 3RF budesonide-formoterol [Symbicort] 160-4.5 mcg/actuation HFA aerosol inhaler 2 puff inhalation BID Qty: 10.2 1RF Rx Instructions: WITH A RINSE OF MOUTH AFTERWARDS. vitamin B complex [B Complex-Vitamin B12] Tablet 1 tab PO BID Rx Instructions: 500 mg (DME) Aeroneb Go Nebulizer Misc See Rx Instructions .MEDSUPPLY Qty: 1 0RF Rx Instructions: With tubing and supplies. J44.9. J45.9. pseudoephedrine-guaifenesin [Mucinex D Maximum Strength] 120-1,200 mg tablet extended release 12 hr 1 tab PO Q12H PRN (Reason: Other) ProAir RespiClick 90 mcg/actuation aerosol powdr breath activated 180 mcg INH Q4H PRN (Reason: shortness of breath or wheezing) Qty: 3 3RF ipratropium-albuterol 0.5 mg-3 mg(2.5 mg base)/3 mL solution for nebulization 3 ml inhalation Q8H PRN (Reason: shortness of breath or wheezing) Qty: 180 3RF metoprolol succinate 25 mg tablet extended release 24 hr 12.5 mg PO DAILY (DME) Flutter Valve Device See Rx Instructions .MEDSUPPLY Qty: 1 0RF Rx Instructions: Use it every 6 hours when awake. (DME) BreatheRite MDI Spacer Spacer See Rx Instructions .MEDSUPPLY Qty: 1 0RF Rx Instructions: As directed cholecalciferol (vitamin D3) 2,000 unit tablet 2,000 units PO QDD (DME) Oxygen Home Liters Per Minute See Rx Instructions .ROUTE .MEDSUPPLY Rx Instructions: 2 liters via nasal canula- uses 3L @ bedtime magnesium 200 mg tablet 200 mg PO DAILY ezetimibe 10 mg tablet 10 mg PO UD Rx Instructions: pt isn't sure of this medication. Last filled 10/18 10 mg po daily; 90 day supply old note: every other day amoxicillin-pot clavulanate 875-125 mg tablet 1 tab PO BID Qty: 20 0RF Rx Instructions: [facility] FOOD. Incruse Ellipta 62.5 mcg/actuation blister with device 1 inh inhalation DAILY Qty: 30 12RF acetaminophen [Tylenol Extra Strength] 500 mg tablet 500 mg PO DIRECTED PRN (Reason: with hizentra) Rx Instructions: takes once a week when takes hizentra diphenhydramine HCl [Benadryl] 25 mg capsule 25 mg PO DIRECTED PRN (Reason: Other) Rx Instructions: Take with 1 ES Tylenol once a week when takes Hizentra inj. every sat. pantoprazole 40 mg tablet,delayed release (DR/EC) 40 mg PO DAILY Rx Instructions: TAKE ONE TABLET BY MOUTH DAILY triamterene-hydrochlorothiazid 37.5-25 mg tablet 0.5 tab PO DAILY rosuvastatin 5 mg tablet 5 mg PO DAILY Rx Instructions: TAKE 1 TABLET BY MOUTH ONCE DAILY Discharge Orders: Discharge Order (Routine); Ordered 11/08/24 Ordered By: Roselia Johansen Admission Data Admit Date/Time: 11/05/24 19:57 Attending Provider: Roselia Johansen Admit Provider: Quique Hernandez Primary Care Provider: Lang Veloz Other Providers: Quique Hernandez Hospital Stay Data Consultations 11/05/24 18:00 ED Decision to Admit Stat Discharge Instructions Given to Patient (Per Discharging Provider) Please follow up with PCP and rayon coner as outpatient Your antibiotic course finishes on 11/11/24 Total Time Total Time Spent Total Time Spent (In Minutes): 40 Coding Level of Care Code 36517 INP/OBS DISCH >30 MIN Diagnoses Hypoxia R09.02 Respiratory syncytial virus (RSV) B33.8 RSV infection type: unspecified Neutropenia D70.9 Leukopenia D72.819 Acute sinusitis J01.90 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
[2024-11-08 13:27] VITALS: BP 152/69; RESP 18; O2SAT 97
[2024-11-08 14:20] VITALS: PULSE 80
== END 2024-11-08 14:47 | disposition home or self-care (01) | DRG 189 ==
LOC: ED 12:20 → EDINP 19:57 → SUATTDRO 19:57 → EDINP 21:29 → 2W 11-06 15:27